=== PATIENT | female | born 1940 | race Caucasian/White ===

== ENCOUNTER 2018-09-09 08:16 | Inpatient (IN) | payer MEDICARE, SELFPAY ==
[2018-09-09] VITALS (13 sets, daily range): BP systolic 117–143; BP diastolic 67–103; PULSE 64–140; RESP 16–25; TEMP 36.6–36.8; O2SAT 95–99; BMI 25.7; BMI 25.3
--- NOTE | 2018-09-09 08:19 | EKG12_ITS ---
Test Reason : CP Blood Pressure : / mmHG Vent. Rate : 129 BPM Atrial Rate : 166 BPM P-R Int : 000 ms QRS Dur : 112 ms QT Int : 352 ms P-R-T Axes : 000 -09 173 degrees QTc Int : 515 ms Atrial fibrillation with rapid ventricular response Marked ST abnormality, possible inferior subendocardial injury Abnormal ECG Confirmed by SHAMEKA CHATMAN, LUIS ([id number]), school photograph editor IBIS MOSCOSO ([id number]) on 09/14/2018 10:01:58 AM Referred By: DAVID Confirmed By:LUIS MYLES MD
--- NOTE | 2018-09-09 08:28 | RAD_ITS ---
STUDY: X-RAY CHEST REASON FOR EXAM: Female, 78 years old. Chest pain. TECHNIQUE: Single AP portable view of the chest. COMPARISON: None. FINDINGS: EKG electrodes are seen. Small right pleural effusion with underlying infiltration and/or atelectasis. Small left pleural effusion with mild left basilar atelectasis. Sternal cerclage wires and vascular clips are present from a prior sternotomy and coronary artery bypass graft procedure (CABG). Normal mediastinum and zack. Normal visualized pulmonary arteries. There is atherosclerotic calcification of the aortic arch with tortuosity. There are degenerative changes of the visualized thoracic spine. Normal visualized ribs, clavicles, and shoulders. There is no demonstrated abnormality of the visualized soft tissue structures of the upper abdomen. RAD/Chest 1 View (Portable) IMPRESSION: Right pleural effusion with right basilar infiltration and/or atelectasis. Small left pleural effusion with underlying atelectasis. Electronically Signed: Reinaldo Alegre MD at 9:00 EST Tel [phone], Service support ,
[2018-09-09] MEDS: Aspirin 81 MG TAB.CHEW 324 MG PO (08:38)
[2018-09-09] MEDS: dilTIAZem 25 MG/5 ML Vial 20 MG IV BOLUS (08:38)
--- NOTE | 2018-09-09 08:39 | ED.DCSUM_ITS ---
- ER Visit Summary Date of Service: 09/09/18 Chief Complaint: Chest pain and accelerated heart rate History of Present Illness: The patient is a 78 F history of a prior triple bypass in 1997 also has known hypertension and high cholesterol. Patient is on Xarelto. States when she got up this morning around 6:15 AM she had chest pain and tightness. She describes as across her chest. She denies any cough or fever. She denies any significant shortness of breath. States she is been feeling well the last few days. Physical Examination: Vital signs blood pressure 143/103 heart rate 140. Pulse ox 97% on room air no hypoxia. H EENT exam unremarkable. Normal speech. Neck nontender. Lungs clear to auscultation bilaterally. Heart irregularly irregular A. fib on the monitor rate about 126 currently. Abdomen is soft and nontender. Normal bowel sounds. No peritoneal signs. Patient is moving all 4 extremities. She has trace edema in both lower extremities primarily in the ankles. Calves are nontender. Neurologically she is awake alert with no focal motor deficits. Test Results: EKG shows a irregularly irregular rhythm consistent with atrial fibrillation with a rate of [address] segment depression in leads V3 through V6 consistent with a rate dependent ischemia. No signs of acute AL. Portable 1 view chest x-ray shows bilateral pleural effusions right greater than left. Prior sternotomy. Otherwise no acute process. CBC normal white count of 9. Hemoglobin 13. Chemistries unremarkable creatinine 1.1. Glucose of 254. Troponin is slightly elevated at 0.071. I discussed all his test results with the patient and family. Emergency Department Course and Treatment: Patient will undergo cardiac workup. Treatment Plan: IV Cardizem. P.o. aspirin. Patient responded very well to the Cardizem. Currently she is pain-free and her heart rates in the 70s. At approximately oh 9:30 AM. I have already spoken to the hospitalist about admission. Disposition: Admission Impression: Acute chest pain with abnormal troponin Recurrent atrial fibrillation with rapid ventricular rate History of prior triple bypass, CAD, hypertension. Anticoagulated on Xarelto This note was generated with [employer] dictation software. It may contain incorrect words, spelling, and punctuation that were not noted in review of the chart prior to signing ED Disposition - Plan for ED Patient: Chief Complaint: Chest Pain Referrals: Louise Garrido MD [Primary Care Provider] -
[2018-09-09 09:06] LABS: Absolute Lymphocyte Count 0.84 X10^3/ul (0.83-4.51); Absolute Neutrophil Count 7.9 X10^3/uL (2.0-7.7); Basophil# 0.01 X10^3/uL; Basophil% 0.1 % (0-1); Hematocrit 43.2 % (37-47); Hemoglobin 13.6 g/dl (12.0-15.0); Lymphocyte # 0.84 X10^3/ul (4.0); Lymphocyte % 9.1 % (19-41); Mean Corp Hgb Conc 31.5 g/gl (32-36); Mean Corpuscular Hgb 28.4 pg (27.0-32.0); Mean Corpuscular Volume 90.2 fL (81-99); Mean Platelet Vol. 10.9 fl (6.2-12.0); Monocyte# 0.43 X10^3/uL; Monocyte% 4.7 % (0-10); Neutrophil # 7.91 X10^3/uL (2.7-7.7); Platelet Count 295 K/mm3 (150-450); RBC Distribution Width CV 14.3 % (11.6-14.6); RBC Distribution Width SD 46.7 fl (35.1-43.9); Red Blood Count 4.79 M/mm3 (4.2-5.4); White Blood Count 9.2 K/mm3 (4.4-11.0)
[2018-09-09 09:14] LABS: POSITIVE COUNT NO; POSITIVE DIFFERENTIAL NO; POSITIVE MORPHOLOGY NO
[2018-09-09 09:17] LABS: Anion Gap 12 (5-15); BUN 25 mg/dL (7-18); BUN/Creat Ratio 21.4 RATIO (10-20); Calcium,Total 9.6 mg/dL (8.5-10.1); Chloride 107 mmol/L (98-107); Creatinine, Serum 1.17 mg/dL (0.55-1.02); EST Glomerular Filtration Rate 47 mL/min (>60); Est Glom Filt Rate - Afr Amer 57 mL/min (>60); Estimated Creatinine Clearance 35.08 ml/min; Glucose 254 mg/dL (74-106); Potassium 4.7 mmol/L (3.5-5.1); Sodium Level 140 mmol/L (136-145)
--- NOTE | 2018-09-09 09:45 | NURSING ---
DR CARRILLO FOR DR ALONZO
--- NOTE | 2018-09-09 09:52 | NURSING ---
PCU OBS [place]IS AFIB W RVR, ABN TROPONINA, CAD HX W CABG, ANTICOAGULATED
--- NOTE | 2018-09-09 11:46 | ECHOD_ITS ---
Reason For Study: AFIB/FLUTTER Procedure This was a 2D Doppler, Color Flow transthoracic echocardiogram. Exam performed portable in patient room. Left Ventricle Moderately dilated left ventricle. The estimated ejection fraction is 25-30 %. Unable to assess diastolic dysfunction due to arrhythmia. Mid-Anterior : Severely Hypokinetic. Mid-anteroseptal : Severely Hypokinetic. Right Ventricle Mildly dilated right ventricle. Normal systolic function. Atria The left atrium is severely enlarged. The right atrium is moderately enlarged. Normal atrial septum. Mitral Valve The mitral valve is structurally normal. No prolapse or stenosis seen. Mild (1+) mitral valve insufficiency. Tricuspid Valve Normal tricuspid valve. Mild (1+) tricuspid valve insufficiency. Right ventricular systolic pressure estimated to be 45 mmHg. Mild pulmonary hypertension. Aortic Valve Trisinus/trileaflet aortic valve. Pulmonic Valve Normal pulmonic valve. Great Vessels Normal aortic root. Normal arch. Normal inferior vena cava. Inferior vena cava collapse with sniff. Pericardium/Pleural No pericardial effusion. MMode/2D Measurements & Calculations LVIDd: 5.8 cm IVSd: 0.96 cm Ao root diam: 3.1 cm LVIDs: 4.5 cm LVPWd: 1.1 cm RVDd: 3.9 cm FS: 23.0 % LAV(MOD-bp): 111.2 ml LA A4 area: 31.3 cm2 LA dimension(2D): 5.7 cm LAV(MOD-bp) Indexed: 63.1 ml/m2 LAV(MOD-sp2): 100.2 ml LAV(MOD-sp4): 120.1 ml RA A4 area: 22.6 cm2 Doppler Measurements & Calculations MV E max felipe: 101.3 cm/sec Ao V2 max: 103.8 cm/sec LV V1 max: 82.7 cm/sec Ao max P.3 mmHg LV V1 max P.7 mmHg PA V2 max: 78.7 cm/sec TR max felipe: 262.4 cm/sec TR max P.7 mmHg Interpretation Summary Moderately dilated left ventricle. The estimated ejection fraction is 25-30 %. Unable to assess diastolic dysfunction due to arrhythmia. Mid-Anterior : Severely Hypokinetic. Mid-anteroseptal : Severely Hypokinetic. Mildly dilated right ventricle. The left atrium is severely enlarged. The right atrium is moderately enlarged. Mild (1+) mitral valve insufficiency. Mild (1+) tricuspid valve insufficiency. Right ventricular systolic pressure estimated to be 45 mmHg. Mild pulmonary hypertension. Pt appears to be in atrial fibrillation. There is no comparison study available. Ordering Physician: Joseph Corley Referring Physician: Louise Garrido Performed By: Tatyana Valdes, ROC, RVT
[2018-09-09] MEDS: Clopidogrel Bisulfate 300 MG Tablet PO (13:31)
--- NOTE | 2018-09-09 15:53 | CON.PCM_ITS ---
Problem List (1) Atrial fibrillation Status: Acute (2) Coronary artery disease Status: Acute (3) Hx of CABG Status: Acute (4) Hypertension Status: Chronic (5) Hypercholesterolemia Status: Acute (6) Non-STEMI (non-ST elevated myocardial infarction) Status: Acute Reason for Consult Date of Consultation: 09/09/18 Reason for Consultation: Atrial fibrillation, coronary disease status post CABG, hypertension, hypercholesterolemia, non-STEMI History of Present Illness: The patient is a 78 year old F, patient of Dr. Moura'senait with a history of hypertension, hypercholesterolemia, coronary artery disease status post three- vessel bypass surgery at the [facility] approximately 20 years ago in 1997, has never had a repeat catheterization since that time, with chronic atrial fibrillation on chronic Xarelto therapy. The patient was doing well up until around 615 this morning when she developed new onset substernal chest pain and pressure with associated shortness of breath. The patient apparently has not been feeling well over the last several days but had not had any anginal symptoms. Initially her EKG showed her to be in rapid atrial fibrillation with dynamic lateral ST segment depression and lateral T wave inversion. Her initial troponin was 3.0, and now is increased to 5.2. Patient's heart rate was controlled, and her symptoms completely resolved. A 2D echo with Doppler was performed on this admission which demonstrated moderate to severe LV dysfunction with an EF around 25-30%, and at least mild pulmonary hypertension with an RVSP of around 45 mmHg. Patient has severe left atrial enlargement and moderate right atrial enlargement. She also has evidence of wall motion abnormality consistent with anteroseptal hypokinesis. Past Medical History Allergies/Adverse Reactions: Allergies No Known Allergies Allergy (Verified 09/09/18 08:17) Home Medications: Ambulatory Orders Medication Instructions Recorded Cholecalciferol (Vitamin D3) 1 tab PO DAILY 06/14/13 [Vitamin D3] Levothyroxine [Synthroid] 125 mcg PO DAILY 06/14/13 Multivit-Min/FA/Lycopene/Lut 1 each PO DAILY 06/14/13 [Centrum Silver Tablet] [place]-3 Fatty Acids [Fish Oil] 2,000 mg PO BID 06/14/13 Carbidopa/Levodopa 1.5 tab PO TID 09/09/18 [Carbidopa-Levodopa 25-100 Tab] Ciclopirox 1 applicatio TP QHS 09/09/18 L.acidoph,Paracasei, B.lactis 1 each PO DAILY 09/09/18 [Probiotic] Lovastatin 20 mg PO QHS 09/09/18 Metoprolol Tartrate [Lopressor 100 mg PO BID 09/09/18 (Beta Tereso)] Potassium Chloride [K-Dur] 20 meq PO DINNER 09/09/18 Red Yeast Rice 600 mg PO BID 09/09/18 Rivaroxaban [Xarelto] 20 mg PO DINNER 09/09/18 Ubidecarenone [Coq-10] 200 mg PO DAILY 09/09/18 Past Medical History (Chronic Problems): Chronic Problems Hypertension (Chronic) Surgical History: coronary bypass surgery - 15 years ago, - - Vein stripping in both legs, tubal ligation Psychiatric History: No pertinent psych hx 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 No acute distress. Objective: Vital Signs Temp Pulse Resp BP Pulse Ox 97.9 F 83 17 140/77 H 98 09/09/18 10:32 09/09/18 11:10 09/09/18 10:32 09/09/18 10:32 09/09/18 10:32 Oxygen Flow Rate (L/min) 2 Oxygen Delivery Method Nasal Cannula Weight: 152 lb 1.903 oz Body Mass Index (BMI) 25.3 Intake and Output for Last 24 Hours 09/07/18 09/08/18 09/09/18 23:59 23:59 23:59 Intake Total 120 / 120 Balance 120 / 120 General: Awake, Alert, Oriented x 3 HEENT: PERRL, EOMI, Sclera Non Icteric Neck: Supple, Good ROM, No Lymph Node Enlargement Lungs: Diminished Right Base, Rales - Toi Bases Cardiovascular: Irregular Rhythm, Normal S1, Normal S2, No Rubs, No Gallops Murmur Murmur: Grade 2/6, Holosystolic Vascular: No Carotid Bruits, Normal Femoral Pulses, Normal Radial Pulses, Normal Dorsalis Pedal Pulse, Normal Posterior Tibial Pulses Abdomen: Bowel Sounds Present, Soft, Non Tender, No HSM, No Organomegaly Extremities: No Cyanosis, No Clubbing, No edema Neurological: No Focal Motor or Sensory Deficit 09/09/18 08:30: WBC 9.2, RBC 4.79, Hgb 13.6, Hct 43.2, MCV 90.2, MCH 28.4, MCHC 31.5 L, RDW 14.3, RDW Differential 46.7 H, Plt Count 295, MPV 10.9, Immature Gran % (Auto) 0.100, Neut % (Auto) 86.0 H, Lymph % (Auto) 9.1 L, [place] % (Auto) 4.7, Eos % (Auto) 0.0, Baso % (Auto) 0.1, Absolute Neuts (auto) 7.9 H, Total Counted Not Reportable 09/09/18 08:30: Sodium 140, Potassium 4.7, Chloride 107, Carbon Dioxide 21.0, Anion Gap 12, BUN 25 H, Creatinine 1.17 H, Est GFR (MDRD) Af Amer 57 L, Est GFR (MDRD) Non-Af 47 L, BUN/Creatinine Ratio 21.4 H, Glucose 254 H, Calcium 9.6, Troponin I 0.071 H 09/09/18 11:30: Troponin I 3.010 H* 09/09/18 14:10: Troponin I 5.210 H* Rhythm: EKG: ECHO: Stress Test: Cardiac Cath: PCI: CT Surgery: Holter monitor: EPS: PPM: CXR: Chest CT Scan: Assessment/Plan 1. Coronary artery disease: The patient has a history of coronary artery disease status post three-vessel bypass surgery according to the patient in 1997. We will attempt to get those records from Dr. Moura's office. The patient presents with new onset angina, with non-ST elevation myocardial infarction with evidence of lateral ST segment depression on EKG. She is currently chest pain-free at this time. Her heart rate and blood pressure well controlled. I recommended the patient discontinue her Xarelto, for period of 72 hours followed by left heart catheterization with graft angiography most likely on Friday morning. In addition I recommended baby aspirin 81 mg p.o. daily, Plavix 300 mg x1 now followed by 75 mg daily. She will also maintain Lovenox 1 mg/kg subcu twice daily for both atrial fibrillation and non-ST elevation myocardial infarction while we are waiting for the Xarelto to resolve. It is possible the patient may have graft deterioration given the age of her grafts. 2. Ischemic cardia myopathy: The patient is evidence of significant ischemic cardiomyopathy although I do not know what her ejection fraction has been before. We are awaiting the echo report from Dr. Moura's office. In the meantime we will start her on Cozaar 25 mg p.o. daily, and Lasix 40 mg IV daily given her right pleural effusion and LV dysfunction. When she is reached her dry weight, we will convert her to p.o. Lasix. 3. Hyperlipidemia: Recommend obtaining a fasting lipid profile. Her LDL should be less than 70. Would recommend starting Lipitor 80 mg p.o. nightly unless the patient has an adverse reaction to Lipitor or statins. Repeat lipid profile in 6 weeks time. 4. Thank you very much for the opportunity to participate in the cardiac care of your patient. Consultation time took place between 1130 and 12 PM. Code Visit Inpatient E&M: 88143 Init Hosp L2
--- NOTE | 2018-09-09 18:34 | PCM.HP.STD ---
Problem List (1) Atrial fibrillation Status: Chronic (2) Coronary artery disease Status: Chronic (3) Hx of CABG Status: Chronic (4) Hypercholesterolemia Status: Chronic (5) Non-STEMI (non-ST elevated myocardial infarction) Status: Acute (6) Hypertension Status: Chronic (7) Hypothyroidism Status: Chronic (8) Parkinson's disease Status: Chronic History of Present Illness Date of Admission: 09/09/18 Chief Complaint: Chest Pain The patient is a 78 year old F with past medical history as below who presents with 2 or 3-hour history of substernal chest pain. She states that she got up this morning between 6 and 7 AM and was doing okay and then suddenly had a severe pain in her chest. She had some shortness of breath associated with it, but denies any radiation of her pain. She also noted that she had gone into A. fib at that time as well. This the first time she is ever had chest pain, even at the time when she had her triple bypass in 1997, she did not have any chest pain during that time she was found to have cardiac disease while under anesthesia for a kidney stone procedure. The anesthesiologist noticed something on her EKG and recommend she get it followed up which culminated in a triple-vessel bypass. In the ER she had an EKG with lateral depressions and T wave inversions in V3 through V6, and an initial troponin of 0.07, which has risen to 5.210 with a repeat pending. Her chest pain has resolved and she just has a dull ache with a little bit of pressure. She was found to be in A. fib with RVR in the ER and was given a 20 mg loading dose of Cardizem which did not put her in a sinus rhythm but put her heart rate in the 70s and 80s. Past Medical History Past Medical History (Chronic Problems): Chronic Problems Atrial fibrillation (Chronic) Coronary artery disease (Chronic) Hx of CABG (Chronic) Hypertension (Chronic) Hypercholesterolemia (Chronic) Hypothyroidism (Chronic) Parkinson's disease (Chronic) Allergies No Known Allergies Allergy (Verified 09/09/18 08:17) Home Medications: Ambulatory Orders Medication Instructions Recorded Cholecalciferol (Vitamin D3) 1 tab PO DAILY 06/14/13 [Vitamin D3] Levothyroxine [Synthroid] 125 mcg PO DAILY 06/14/13 Multivit-Min/FA/Lycopene/Lut 1 each PO DAILY 06/14/13 [Centrum Silver Tablet] [place]-3 Fatty Acids [Fish Oil] 2,000 mg PO BID 06/14/13 Carbidopa/Levodopa 1.5 tab PO TID 09/09/18 [Carbidopa-Levodopa 25-100 Tab] Ciclopirox 1 applicatio TP QHS 09/09/18 L.acidoph,Paracasei, B.lactis 1 each PO DAILY 09/09/18 [Probiotic] Lovastatin 20 mg PO QHS 09/09/18 Metoprolol Tartrate [Lopressor 100 mg PO BID 09/09/18 (Beta Tereso)] Potassium Chloride [K-Dur] 20 meq PO DINNER 09/09/18 Red Yeast Rice 600 mg PO BID 09/09/18 Rivaroxaban [Xarelto] 20 mg PO DINNER 09/09/18 Ubidecarenone [Coq-10] 200 mg PO DAILY 09/09/18 Surgical History: coronary bypass surgery - 15 years ago, - - Vein stripping in both legs, tubal ligation Psychiatric History: No pertinent psych hx 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 Denies: Cough, Shortness of breath at rest, Sputum production Gastrointestinal: Denies: Abdominal Pain, Nausea, Vomiting Genitourinary: Denies: Dysuria Musculoskeletal: Denies: Joint Pain, Joint Tenderness Skin: Denies: Rash, Wounds Neurological: Denies: Numbness, Tingling, Focal weakness Psychiatric: Denies: Anxiety, Depression Hematologic/ Lymphatic: Denies: Easy Bruising, Easy Bleeding VTE Information - Inpt Only VTE Present on Admission: No Patient Problems: Active and Suspected Problems Non-STEMI (non-ST elevated myocardial infarction) (Acute) - Physical Exam General: Alert, Oriented x3, Cooperative, No apparent distress HEENT: Atraumatic, PERRLA, EOMI, Normocephalic Oral: Moist Mucosa Neck: Supple, No JVD, Trachea Midline Lungs: Clear to auscultation, Normal air movement, No rhonchi, No wheeze, No rales Cardiovascular: Regular rate - Irregular rhythm, Normal S1, Normal S2, No murmurs, No rub noted, No Gallop, - Abdomen: Soft, Non Tender, Non-Distended, No Hepato-splenomegaly Extremities: Capillary Refill Less than 3 Seconds, No Calf Tenderness, Edema - 1-2+ pitting edema Skin: No rashes, No breakdown Neurological: Neuro grossly intact, Sensory exam intact to light touch and pain Psych/Mental Status: Normal Affect, Appropriate Vital Signs Temp Pulse Resp BP Pulse Ox 97.8 F 105 H 17 135/83 H 95 09/09/18 16:32 09/09/18 16:32 09/09/18 16:32 09/09/18 16:32 09/09/18 17:30 Oxygen Flow Rate (L/min) 2 Oxygen Delivery Method Nasal Cannula Weight: 152 lb 1.903 oz Body Mass Index (BMI) 25.3 Intake and Output for Last 24 Hours 09/07/18 09/08/18 09/09/18 23:59 23:59 23:59 Intake Total 360 / 360 Balance 360 / 360 Laboratory Tests Past 24 Hrs 09/09/18 09/09/18 09/09/18 08:30 08:30 11:30 WBC 9.2 RBC 4.79 Hgb 13.6 Hct 43.2 MCV 90.2 MCH 28.4 MCHC 31.5 L RDW 14.3 RDW Differential 46.7 H Plt Count 295 MPV 10.9 Immature Gran % (Auto) 0.100 Neut % (Auto) 86.0 H Lymph % (Auto) 9.1 L [place] % (Auto) 4.7 Eos % (Auto) 0.0 Baso % (Auto) 0.1 Absolute Neuts (auto) 7.9 H Absolute Lymphs (auto) 0.84 Total Counted Not Reportable Sodium 140 Potassium 4.7 Chloride 107 Carbon Dioxide 21.0 Anion Gap 12 BUN 25 H Creatinine 1.17 H Estim Creat Clear Calc 35.08 Est GFR (MDRD) Af Amer 57 L Est GFR (MDRD) Non-Af 47 L BUN/Creatinine Ratio 21.4 H Glucose 254 H Calcium 9.6 Troponin I 0.071 H 3.010 H* 09/09/18 09/09/18 14:10 17:53 WBC RBC Hgb Hct MCV MCH MCHC RDW RDW Differential Plt Count MPV Immature Gran % (Auto) Neut % (Auto) Lymph % (Auto) [place] % (Auto) Eos % (Auto) Baso % (Auto) Absolute Neuts (auto) Absolute Lymphs (auto) Total Counted Sodium Potassium Chloride Carbon Dioxide Anion Gap BUN Creatinine Estim Creat Clear Calc Est GFR (MDRD) Af Amer Est GFR (MDRD) Non-Af BUN/Creatinine Ratio Glucose Calcium Troponin I 5.210 H* Pending Assessment/Plan All Active Problems Non-STEMI (non-ST elevated myocardial infarction) (Acute) 1. NSTEMI/coronary artery disease status post triple-vessel bypass/hyperlipidemia/A. fib with RVR/ischemic cardiomyopathy with systolic dysfunction -Initial troponin was 0.07 and felt to be demand ischemia due to the A. fib with RVR, however she continued to rise in her troponin to 5.2 with repeat pending -Radiology was consulted and she was loaded with aspirin and Plavix and put on therapeutic Lovenox -Her last dose of Lovenox should be 09/10 at 10 PM -Hold the Xarelto, last dose was 09/08/2017 at night -We will continue her metoprolol at 100 mg twice daily, based on her echo with an EF of 25-30%, she is not a candidate for Cardizem -We will plan for cardiac cath on Friday 2. Hypertension/hyperlipidemia -At the moment we will continue with metoprolol, and lovastatin -She had been on Lipitor previously and had significant muscle pains and joint aches -Losartan added by cardiology 3. Parkinson's -Stable -Continue with Sinemet 4. Hypothyroidism -Stable -Continue with Synthroid 5. HERBER -Based on creatinine appears to be around 0.6, on admission is 1.17 -She does have bilateral lower extremity edema which she states has been getting worse over time -No IV fluids at the moment and instead will proceed with Lasix DVT: Therapeutic Lovenox Code Visit Inpatient E&M: 25389 Init Hosp L3
[2018-09-09] MEDS: Atorvastatin Calcium 80 MG Tablet PO (21:38)
[2018-09-09] MEDS: Atorvastatin Calcium 10 MG Tablet 5 MG PO (21:38)
[2018-09-09] MEDS: Carbidopa/Levodopa 25/100 Tablet PO (21:38)
[2018-09-09] MEDS: Metoprolol Tartrate 100 MG Tablet PO (21:38)
[2018-09-10] VITALS (14 sets, daily range): BP systolic 127–146; BP diastolic 69–86; PULSE 75–104; RESP 14–23; TEMP 36.4–36.7; O2SAT 91–98
[2018-09-10] MEDS: Carbidopa/Levodopa 25/100 Tablet PO ×3 (05:28→22:13)
[2018-09-10] MEDS: Levothyroxine 125 MCG Tablet PO (05:28)
[2018-09-10 06:12] LABS: Absolute Lymphocyte Count 1.32 X10^3/ul (0.83-4.51); Absolute Neutrophil Count 10.4 X10^3/uL (2.0-7.7); Basophil# 0.01 X10^3/uL; Basophil% 0.1 % (0-1); Hematocrit 45.1 % (37-47); Hemoglobin 14.4 g/dl (12.0-15.0); Lymphocyte # 1.32 X10^3/ul (4.0); Lymphocyte % 10.4 % (19-41); Mean Corp Hgb Conc 31.9 g/gl (32-36); Mean Corpuscular Hgb 28.6 pg (27.0-32.0); Mean Corpuscular Volume 89.5 fL (81-99); Mean Platelet Vol. 10.4 fl (6.2-12.0); Monocyte# 0.92 X10^3/uL; Monocyte% 7.3 % (0-10); Neutrophil # 10.39 X10^3/uL (2.7-7.7); Platelet Count 306 K/mm3 (150-450); RBC Distribution Width CV 14.8 % (11.6-14.6); RBC Distribution Width SD 47.5 fl (35.1-43.9); Red Blood Count 5.04 M/mm3 (4.2-5.4); White Blood Count 12.7 K/mm3 (4.4-11.0)
[2018-09-10 06:16] LABS: POSITIVE COUNT NO; POSITIVE DIFFERENTIAL NO; POSITIVE MORPHOLOGY NO
[2018-09-10 06:38] LABS: Anion Gap 8 (5-15); BUN 28 mg/dL (7-18); BUN/Creat Ratio 29.6 RATIO (10-20); Calcium,Total 8.7 mg/dL (8.5-10.1); Chloride 107 mmol/L (98-107); Creatinine, Serum 0.95 mg/dL (0.55-1.02); EST Glomerular Filtration Rate 60 mL/min (>60); Est Glom Filt Rate - Afr Amer 73 mL/min (>60); Estimated Creatinine Clearance 43.21 ml/min; Glucose 113 mg/dL (74-106); Potassium 4.5 mmol/L (3.5-5.1); Sodium Level 138 mmol/L (136-145)
[2018-09-10] MEDS: Clopidogrel Bisulfate 75 MG Tablet PO (09:13)
[2018-09-10] MEDS: Losartan Potassium 25 MG Tablet PO (09:13)
[2018-09-10] MEDS: Furosemide 40 MG/4 ML Vial IV (09:13)
[2018-09-10] MEDS: Metoprolol Tartrate 100 MG Tablet PO ×2 (09:13→22:13)
[2018-09-10] MEDS: Enoxaparin 60 MG/0.6 ML Syringe SC ×2 (09:13→22:14)
--- NOTE | 2018-09-10 09:25 | CASEMGMT ---
MELANIA GALLAGHER ASSESSMENT To room to meet with patient for initial transition planning/care coordination assessment. MELANIA GALLAGHER introduced self and role at [facility]. Pt voices understanding and consents to assessment at this time. Pt resting in bed in no distress at this time, eating breakfast. Pt is A/O at this time and answers all questions appropriately. Care providers, pharmacy, and demographics verified at this time. PCP: Radhika Specialists: Carmen; cardiology, Luis E; injections for knees, Appleminie; neurology Preferred Pharmacy: [facility] Insurance: [facility] Prescription Benefit: Yes Was on Xarelto prior to admission. States her son is planning on looking into getting some assistance with the high cost of this. Pt states she has never taken advantage of a 30-day free trial offer. Provided pt with Xarelto 30-day free-trial supply sheet. Pt also advised to follow up with induction furnace operator so they can assist with paperwork for financial assistance with Xarelto and possibly getting medication lowered a tier level to decrease cost. Pt voices understanding and voices appreciation for information. Living Will/HPOA: has both LW and HCPOA, who is her son, Gene Esquivel. States he is planning on bringing in both this afternoon so can be placed on file. LNOK: and 3 sons: Donte Menard (HCPOA), Alcides Living Arrangements: Lives with her in 2 story home. States no problems with stairs. is independent with ADL's and and her share household mgmt tasks. Son lives next door. Family supportive. Transportation: Pt states I haven't been driving as much as I used to. States her and son assists with transportation. DME: Denies using any DME and denies needs. HHC/SNF: States has never used HHC or been to a SNF. Denies needs for HHC or therapy. Pt wishes to return home and states has no concerns with going home at time of discharge. Pt states does not smoke or drink ETOH. CM to follow any further discharge planning/needs. Pt voices no further concerns/needs at this time. Advised pt to ask for CM if any further questions/concerns/needs arise. Voices understanding. Plan: Home with and family support. Ras ROMANO RN, CM
--- NOTE | 2018-09-10 10:24 | PCM.PN.CARD ---
Subjectve: Patient doing well this morning. Feels much better with IV diuretic therapy. Still with some right lower lobe egophony, and bilateral lower extremity edema. Telemetry shows improved atrial fibrillation with controlled ventricular response. Peak troponin of 5.2 trending downwards to 4.9. Objective: Vital Signs Temp Pulse Resp BP Pulse Ox 97.6 F L 88 18 146/77 H 91 09/10/18 08:32 09/10/18 09:13 09/10/18 08:32 09/10/18 09:13 09/10/18 09:08 Oxygen Flow Rate (L/min) 2 Oxygen Delivery Method Nasal Cannula Weight: 155 lb 6.814 oz Body Mass Index (BMI) 25.3 Intake and Output for Last 24 Hours 09/08/18 09/09/18 09/10/18 23:59 23:59 23:59 Intake Total 420 / 420 60 / 60 Balance 420 / 420 60 / 60 General: Awake, Alert, Oriented x 3 HEENT: PERRL, EOMI, Sclera Non Icteric Neck: Supple, Good ROM, No Lymph Node Enlargement Lungs: Diminished Right Base, Rales - Right Base Cardiovascular: Irregular Rhythm, Normal S1, Normal S2, No Rubs, No Gallops Murmur Murmur: Grade 2/6, Holosystolic Vascular: No Carotid Bruits, Normal Femoral Pulses, Normal Radial Pulses, Normal Dorsalis Pedal Pulse, Normal Posterior Tibial Pulses Abdomen: Bowel Sounds Present, Soft, Non Tender, No HSM, No Organomegaly Extremities: No Cyanosis, No Clubbing, No edema Neurological: No Focal Motor or Sensory Deficit 09/09/18 11:30: Troponin I 3.010 H* 09/09/18 14:10: Troponin I 5.210 H* 09/09/18 17:53: Troponin I 4.950 H* 09/10/18 05:45: WBC 12.7 H, RBC 5.04, Hgb 14.4, Hct 45.1, MCV 89.5, MCH 28.6, MCHC 31.9 L, RDW 14.8 H, RDW Differential 47.5 H, Plt Count 306, MPV 10.4, Immature Gran % (Auto) 0.200, Neut % (Auto) 82.0 H, Lymph % (Auto) 10.4 L, [place] % (Auto) 7.3, Eos % (Auto) 0.0, Baso % (Auto) 0.1, Absolute Neuts (auto) 10.4 H, Total Counted Not Reportable 09/10/18 05:45: Sodium 138, Potassium 4.5, Chloride 107, Carbon Dioxide 23.0, Anion Gap 8, BUN 28 H, Creatinine 0.95, Est GFR (MDRD) Af Amer 73, Est GFR (MDRD) Non-Af 60, BUN/Creatinine Ratio 29.6 H, Glucose 113 H, Calcium 8.7 Rhythm: EKG: ECHO: Stress Test: Cardiac Cath: PCI: CT Surgery: Holter monitor: EPS: PPM: CXR: Chest CT Scan: Medical Necessity - Tobacco Use Smoking Status: Never smoker Assessment/Plan 1. Coronary artery disease: The patient has a history of coronary artery disease status post three-vessel bypass surgery according to the patient in 1997. We will attempt to get those records from Dr. Moura's office, however it appears that they are offsite in storage at the [facility]. The patient presents with new onset angina, with non-ST elevation myocardial infarction with evidence of lateral ST segment depression on EKG. She is currently chest pain-free at this time. Her heart rate and blood pressure well controlled. I recommended the patient discontinue her Xarelto, for period of 72 hours followed by left heart catheterization with graft angiography most likely on Friday morning. In addition I recommended baby aspirin 81 mg p.o. daily, Plavix 300 mg x1 now followed by 75 mg daily. She will also maintain Lovenox 1 mg/kg subcu twice daily for both atrial fibrillation and non-ST elevation myocardial infarction while we are waiting for the Xarelto to resolve. We will hold her subcu Lovenox on the day of catheterization. It is possible the patient may have graft deterioration given the age of her grafts. 2. Ischemic cardia myopathy: The patient is evidence of significant ischemic cardiomyopathy although I do not know what her ejection fraction has been before. We are awaiting the echo report from Dr. Moura's office. Echo cardiogram in this admission shows an EF around 25-30%, and RVSP of at least 35 mmHg. In the meantime we will start her on Cozaar 25 mg p.o. daily, and Lasix 40 mg IV daily given her right pleural effusion and LV dysfunction. When she is reached her dry weight, we will convert her to p.o. Lasix. Patient still has some right lower lobe egophony, and some lower extremity edema. 3. Hyperlipidemia: Recommend obtaining a fasting lipid profile. Her LDL should be less than 70. Would recommend starting Lipitor 80 mg p.o. nightly unless the patient has an adverse reaction to Lipitor or statins. Repeat lipid profile in 6 weeks time. 4. Thank you very much for the opportunity to participate in the cardiac care of your patient. Catheterization to follow on 09/11/18. Code Visit Inpatient E&M: 89262 Subs Hosp L2
--- NOTE | 2018-09-10 10:32 | CASEMGMT ---
According to the [facility] website, the following are in-network tertiary facilities: [facility], [facility], [facility], [facility], [facility], [facility], [facility], and . Maryana VELÁZQUEZ CM
--- NOTE | 2018-09-10 12:27 | PCM.PN.HOSP ---
Patient Problems: Active and Suspected Problems Non-STEMI (non-ST elevated myocardial infarction) (Acute) Subjective: Feels better today denies any shortness of breath or chest pain. Vitals/I&O's: Vital Signs Temp Pulse Resp BP Pulse Ox 97.6 F L 85 18 146/77 H 91 09/10/18 08:32 09/10/18 11:01 09/10/18 08:32 09/10/18 09:13 09/10/18 09:08 Oxygen Flow Rate (L/min) 2 Oxygen Delivery Method Nasal Cannula Weight: 155 lb 6.814 oz Body Mass Index (BMI) 25.3 Intake and Output for Last 24 Hours 09/08/18 09/09/18 09/10/18 23:59 23:59 23:59 Intake Total 420 / 420 60 / 60 Balance 420 / 420 60 / 60 General: Alert, Oriented x3, Cooperative, No apparent distress HEENT: Atraumatic, PERRLA, EOMI, Normocephalic Oral: Moist Mucosa Neck: Supple, No JVD, Trachea Midline Lungs: Clear to auscultation, Normal air movement, No rhonchi, No wheeze, No rales Cardiovascular: Regular rate - Irregular rhythm, Normal S1, Normal S2, No murmurs, No rub noted, No Gallop, - Abdomen: Soft, Non Tender, Non-Distended, No Hepato-splenomegaly Extremities: Capillary Refill Less than 3 Seconds, No Calf Tenderness, Edema - 1-2+ pitting edema Skin: No rashes, No breakdown Neurological: Neuro grossly intact, Sensory exam intact to light touch and pain Psych/Mental Status: Normal Affect, Appropriate Laboratory Results 09/09/18 14:10: Troponin I 5.210 H* 09/09/18 17:53: Troponin I 4.950 H* 09/10/18 05:45: WBC 12.7 H, RBC 5.04, Hgb 14.4, Hct 45.1, MCV 89.5, MCH 28.6, MCHC 31.9 L, RDW 14.8 H, RDW Differential 47.5 H, Plt Count 306, MPV 10.4, Immature Gran % (Auto) 0.200, Neut % (Auto) 82.0 H, Lymph % (Auto) 10.4 L, Dunn % (Auto) 7.3, Eos % (Auto) 0.0, Baso % (Auto) 0.1, Absolute Neuts (auto) 10.4 H, Absolute Lymphs (auto) 1.32, Total Counted Not Reportable 09/10/18 05:45: Sodium 138, Potassium 4.5, Chloride 107, Carbon Dioxide 23.0, Anion Gap 8, BUN 28 H, Creatinine 0.95, Estim Creat Clear Calc 43.21, Est GFR (MDRD) Af Amer 73, Est GFR (MDRD) Non-Af 60, BUN/Creatinine Ratio 29.6 H, Glucose 113 H, Calcium 8.7 Current Medications Aspirin (Aspirin, Baby) 81 mg PO DAILY@0800 [facility] Atorvastatin Calcium (Lipitor) 80 mg PO QHS [facility] Last Admin: 09/09/18 21:38 Dose: 80 mg Atorvastatin Calcium (Lipitor) 5 mg PO QHS [facility] Last Admin: 09/09/18 21:38 Dose: 5 mg Carbidopa/Levodopa (Sinemet) 1.5 tablet PO TID [facility] Last Admin: 09/10/18 05:28 Dose: 1.5 tablet Clopidogrel Bisulfate (Plavix) 75 mg PO DAILY [facility] Last Admin: 09/10/18 09:13 Dose: 75 mg Diphenhydramine HCl (Benadryl) 50 mg PO X1 ONE Stop: 09/11/18 05:01 Enoxaparin Sodium (Lovenox) 60 mg SC Q12 [facility] Last Admin: 09/10/18 09:13 Dose: 60 mg Furosemide (Lasix) 40 mg IV DAILY [facility] Last Admin: 09/10/18 09:13 Dose: 40 mg Sodium Chloride () 1,000 mls @ 0 mls/hr IV .Q0M [facility] Levothyroxine Sodium (Synthroid) 125 mcg PO DAILY@0600 [facility] Last Admin: 09/10/18 05:28 Dose: 125 mcg Losartan Potassium (Cozaar) 25 mg PO DAILY [facility] Last Admin: 09/10/18 09:13 Dose: 25 mg Magnesium Hydroxide (Milk Of Magnesia) 30 ml PO DAILY PRN PRN Reason: Constipation Metoprolol Tartrate (Lopressor (Beta Tereso)) 100 mg PO BID [facility] Last Admin: 09/10/18 09:13 Dose: 100 mg Potassium Chloride (K-Dur) 20 meq PO DINNER [facility] Sodium Chloride () 5 - 15 ml IV UD PRN PRN Reason: SALINE FLUSH Medical Necessity - Tobacco Use Smoking Status: Never smoker Assessment/Plan All Active Problems Non-STEMI (non-ST elevated myocardial infarction) (Acute) 1. NSTEMI/coronary artery disease status post triple-vessel bypass/hyperlipidemia/A. fib with RVR/ischemic cardiomyopathy with systolic dysfunction -Initial troponin was 0.07 and felt to be demand ischemia due to the A. fib with RVR, however she continued to rise to a peak troponin of 5.2 -Cardiology was consulted and she was loaded with aspirin and Plavix and put on therapeutic Lovenox -Her last dose of Lovenox should be 09/10 at 10 PM -Hold the Xarelto, last dose was 09/08/2017 at night -We will continue her metoprolol at 100 mg twice daily, based on her echo with an EF of 25-30%, she is not a candidate for Cardizem -We will plan for cardiac cath on Friday 2. Hypertension/hyperlipidemia -At the moment we will continue with metoprolol, and lovastatin -She had been on Lipitor previously and had significant muscle pains and joint aches -Losartan added by cardiology 3. Parkinson's -Stable -Continue with Sinemet 4. Hypothyroidism -Stable -Continue with Synthroid 5. HERBRE -Her baseline creatinine appears to be around 0.6, on admission is 1.17, and is now 0.95 -She does have bilateral lower extremity edema which she states has been getting worse over time -No IV fluids at the moment and instead will proceed with Lasix DVT: Therapeutic Lovenox Code Visit Inpatient E&M: 87930 Subs Hosp L2
--- NOTE | 2018-09-10 12:31 | PN_ITS ---
Patient Problems: Active and Suspected Problems Non-STEMI (non-ST elevated myocardial infarction) (Acute) Subjective: Feels better today denies any shortness of breath or chest pain. Vitals/I&O's: Vital Signs Temp Pulse Resp BP Pulse Ox 97.6 F L 85 18 146/77 H 91 09/10/18 08:32 09/10/18 11:01 09/10/18 08:32 09/10/18 09:13 09/10/18 09:08 Oxygen Flow Rate (L/min) 2 Oxygen Delivery Method Nasal Cannula Weight: 155 lb 6.814 oz Body Mass Index (BMI) 25.3 Intake and Output for Last 24 Hours 09/08/18 09/09/18 09/10/18 23:59 23:59 23:59 Intake Total 420 / 420 60 / 60 Balance 420 / 420 60 / 60 General: Alert, Oriented x3, Cooperative, No apparent distress HEENT: Atraumatic, PERRLA, EOMI, Normocephalic Oral: Moist Mucosa Neck: Supple, No JVD, Trachea Midline Lungs: Clear to auscultation, Normal air movement, No rhonchi, No wheeze, No rales Cardiovascular: Regular rate - Irregular rhythm, Normal S1, Normal S2, No murmurs, No rub noted, No Gallop, - Abdomen: Soft, Non Tender, Non-Distended, No Hepato-splenomegaly Extremities: Capillary Refill Less than 3 Seconds, No Calf Tenderness, Edema - 1-2+ pitting edema Skin: No rashes, No breakdown Neurological: Neuro grossly intact, Sensory exam intact to light touch and pain Psych/Mental Status: Normal Affect, Appropriate Laboratory Results 09/09/18 14:10: Troponin I 5.210 H* 09/09/18 17:53: Troponin I 4.950 H* 09/10/18 05:45: WBC 12.7 H, RBC 5.04, Hgb 14.4, Hct 45.1, MCV 89.5, MCH 28.6, MCHC 31.9 L, RDW 14.8 H, RDW Differential 47.5 H, Plt Count 306, MPV 10.4, Immature Gran % (Auto) 0.200, Neut % (Auto) 82.0 H, Lymph % (Auto) 10.4 L, Andrew % (Auto) 7.3, Eos % (Auto) 0.0, Baso % (Auto) 0.1, Absolute Neuts (auto) 10.4 H, Absolute Lymphs (auto) 1.32, Total Counted Not Reportable 09/10/18 05:45: Sodium 138, Potassium 4.5, Chloride 107, Carbon Dioxide 23.0, Anion Gap 8, BUN 28 H, Creatinine 0.95, Estim Creat Clear Calc 43.21, Est GFR (MDRD) Af Amer 73, Est GFR (MDRD) Non-Af 60, BUN/Creatinine Ratio 29.6 H, Glucose 113 H, Calcium 8.7 Current Medications Aspirin (Aspirin, Baby) 81 mg PO DAILY@0800 [facility] Atorvastatin Calcium (Lipitor) 80 mg PO QHS [facility] Last Admin: 09/09/18 21:38 Dose: 80 mg Atorvastatin Calcium (Lipitor) 5 mg PO QHS [facility] Last Admin: 09/09/18 21:38 Dose: 5 mg Carbidopa/Levodopa (Sinemet) 1.5 tablet PO TID [facility] Last Admin: 09/10/18 05:28 Dose: 1.5 tablet Clopidogrel Bisulfate (Plavix) 75 mg PO DAILY [facility] Last Admin: 09/10/18 09:13 Dose: 75 mg Diphenhydramine HCl (Benadryl) 50 mg PO X1 ONE Stop: 09/11/18 05:01 Enoxaparin Sodium (Lovenox) 60 mg SC Q12 [facility] Last Admin: 09/10/18 09:13 Dose: 60 mg Furosemide (Lasix) 40 mg IV DAILY [facility] Last Admin: 09/10/18 09:13 Dose: 40 mg Sodium Chloride () 1,000 mls @ 0 mls/hr IV .Q0M [facility] Levothyroxine Sodium (Synthroid) 125 mcg PO DAILY@0600 [facility] Last Admin: 09/10/18 05:28 Dose: 125 mcg Losartan Potassium (Cozaar) 25 mg PO DAILY [facility] Last Admin: 09/10/18 09:13 Dose: 25 mg Magnesium Hydroxide (Milk Of Magnesia) 30 ml PO DAILY PRN PRN Reason: Constipation Metoprolol Tartrate (Lopressor (Beta Tereso)) 100 mg PO BID [facility] Last Admin: 09/10/18 09:13 Dose: 100 mg Potassium Chloride (K-Dur) 20 meq PO DINNER [facility] Sodium Chloride () 5 - 15 ml IV UD PRN PRN Reason: SALINE FLUSH Medical Necessity - Tobacco Use Smoking Status: Never smoker Assessment/Plan All Active Problems Non-STEMI (non-ST elevated myocardial infarction) (Acute) 1. NSTEMI/coronary artery disease status post triple-vessel bypass/hyperlipidemia/A. fib with RVR/ischemic cardiomyopathy with systolic dysfunction -Initial troponin was 0.07 and felt to be demand ischemia due to the A. fib with RVR, however she continued to rise to a peak troponin of 5.2 -Cardiology was consulted and she was loaded with aspirin and Plavix and put on therapeutic Lovenox -Her last dose of Lovenox should be 09/10 at 10 PM -Hold the Xarelto, last dose was 09/08/2017 at night -We will continue her metoprolol at 100 mg twice daily, based on her echo with an EF of 25-30%, she is not a candidate for Cardizem -We will plan for cardiac cath on Friday 2. Hypertension/hyperlipidemia -At the moment we will continue with metoprolol, and lovastatin -She had been on Lipitor previously and had significant muscle pains and joint aches -Losartan added by cardiology 3. Parkinson's -Stable -Continue with Sinemet 4. Hypothyroidism -Stable -Continue with Synthroid 5. HERBER -Her baseline creatinine appears to be around 0.6, on admission is 1.17, and is now 0.95 -She does have bilateral lower extremity edema which she states has been getting worse over time -No IV fluids at the moment and instead will proceed with Lasix DVT: Therapeutic Lovenox Code Visit Inpatient E&M: 53877 Subs Hosp L2
[2018-09-10] MEDS: Aspirin 81 MG TAB.CHEW PO (13:06)
--- NOTE | 2018-09-10 17:09 | PCA ---
FAXED REQUEST FOR BYPASS SURGER TO [facility] ON 09/09. RECEIVED 'S OFFICE NOTES BUT THEY HAVE NO RECORD OF THE BYPASS SURGERY FAXED TO [facility] FOR BYPASS SURGERY RECORDS. BYPASS WAS DONE IN 1997. RECORDS ARE NOT IN THE E-CHART AND IS OFFSITE. POSSIBLE THAT THEY HAVE BEEN DESTROYED. THEY WILL RETREIVE ,IF POSSIBLE IN THE NEXT 24 HOURS. WE DID RECEIVE RECORD OF HEART CATH THAT WAS DONE IN 1997 PRIOR TO BYPASS SURGERY
[2018-09-10] MEDS: Atorvastatin Calcium 80 MG Tablet PO (22:12)
[2018-09-10] MEDS: Atorvastatin Calcium 10 MG Tablet 5 MG PO (22:12)
[2018-09-11] VITALS (22 sets, daily range): BP systolic 102–149; BP diastolic 54–105; PULSE 74–103; RESP 12–24; TEMP 36.5–36.7; O2SAT 93–96
[2018-09-11 05:19] LABS: Absolute Lymphocyte Count 1.83 X10^3/ul (0.83-4.51); Absolute Neutrophil Count 6.8 X10^3/uL (2.0-7.7); Basophil# 0.01 X10^3/uL; Basophil% 0.1 % (0-1); Eosinophil# 0.04 X10^3/uL; Eosinophils% 0.4 % (0-5); Hematocrit 43.2 % (37-47); Hemoglobin 13.8 g/dl (12.0-15.0); Lymphocyte # 1.83 X10^3/ul (4.0); Lymphocyte % 19.1 % (19-41); Mean Corp Hgb Conc 31.9 g/gl (32-36); Mean Corpuscular Hgb 28.5 pg (27.0-32.0); Mean Corpuscular Volume 89.3 fL (81-99); Mean Platelet Vol. 10.4 fl (6.2-12.0); Monocyte# 0.88 X10^3/uL; Monocyte% 9.2 % (0-10); Neutrophil # 6.81 X10^3/uL (2.7-7.7); Platelet Count 277 K/mm3 (150-450); RBC Distribution Width CV 14.5 % (11.6-14.6); RBC Distribution Width SD 47.2 fl (35.1-43.9); Red Blood Count 4.84 M/mm3 (4.2-5.4); White Blood Count 9.6 K/mm3 (4.4-11.0)
[2018-09-11 05:23] LABS: POSITIVE COUNT NO; POSITIVE DIFFERENTIAL NO; POSITIVE MORPHOLOGY NO
[2018-09-11 05:29] LABS: International Normalized Ratio 1.1; Prothrombin Time (Protime)PT. 14.3 SECONDS (11.7-14.9)
[2018-09-11 05:30] LABS: Partial Thromboplast Time 29.8 Seconds (24.1-36.2)
[2018-09-11 05:34] LABS: Anion Gap 9 (5-15); BUN 26 mg/dL (7-18); Calcium,Total 8.6 mg/dL (8.5-10.1); Chloride 106 mmol/L (98-107); EST Glomerular Filtration Rate 64 mL/min (>60); Est Glom Filt Rate - Afr Amer 78 mL/min (>60); Estimated Creatinine Clearance 45.61 ml/min; Glucose 83 mg/dL (74-106); Potassium 3.9 mmol/L (3.5-5.1); Sodium Level 142 mmol/L (136-145)
[2018-09-11 05:43] LABS: Color, Urine Yellow (Yellow); Glucose, Dipstick Normal (Normal); Ketone-Dipstick Negative (Negative); Leukocyte Esterase-Dipstick 500 /ul (Negative); Nitrite-Dipstick Positive (Negative); Occult Blood-Urine 150 /ul (Negative); Protein-Dipstick Negative (Negative); Urine Bilirubin Dipstick Negative (Negative); Urine Clarity Cloudy (Clear); Urine Urobilinogen Normal (Normal)
--- NOTE | 2018-09-11 05:55 | EKG12_ITS ---
Test Reason : AM EKG Blood Pressure : / mmHG Vent. Rate : 095 BPM Atrial Rate : 119 BPM P-R Int : 000 ms QRS Dur : 094 ms QT Int : 396 ms P-R-T Axes : 000 028 151 degrees QTc Int : 497 ms Atrial fibrillation Nonspecific ST and T wave abnormality Abnormal ECG When compared with ECG of 09-SEP-2018 08:14, MANUAL COMPARISON REQUIRED, DATA IS UNCONFIRMED Confirmed by SHAMEKA CHATMAN, LUIS ([id number]), tape editor IBIS MOSCOSO ([id number]) on 09/15/2018 5:36:33 PM Referred By: LORENA Confirmed By:LUIS MYLES MD
[2018-09-11] MEDS: Aspirin 81 MG TAB.CHEW PO (06:26)
[2018-09-11] MEDS: Carbidopa/Levodopa 25/100 Tablet PO ×3 (06:26→21:41)
[2018-09-11] MEDS: Levothyroxine 125 MCG Tablet PO (06:26)
[2018-09-11] MEDS: Metoprolol Tartrate 100 MG Tablet PO (06:27)
[2018-09-11] MEDS: Losartan Potassium 25 MG Tablet PO ×3 (06:27→21:38)
[2018-09-11] MEDS: Clopidogrel Bisulfate 75 MG Tablet PO (06:27)
[2018-09-11] MEDS: Ceftriaxone 1 GM/50 ML BAG IV (06:33)
--- NOTE | 2018-09-11 07:29 | NURSING ---
Report called to Cara in [employer]. Will give Benadryl for maria VELÁZQUEZ. 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 Maria VELÁZQUEZ aware.
[2018-09-11] MEDS: DiphenhydrAMINE 25 MG Capsule 50 MG PO (07:33)
--- NOTE | 2018-09-11 08:41 | CL.D_ITS ---
Patient Name: NING SCHAEFER Study Date: 09/11/2018 Performing: Joseph Corley MD Ht: 64.96 inches 165 cm : 1940 Wt: 147.71 lbs 67 kg Age: 78 Gender: female BSA: 1.74 PROCEDURE(S) PERFORMED [id number]/LV [id number]-AO ROOT ANGIO WITH HEART CATH CLINICAL PROFILE AND INDICATIONS Patient presents with NSTEMI for urgent cardiac cath Indications: ACS > 24 hrs, New Onset Angina <= 2 months, Stable Known CAD, Cardiac Arrythmia, LV Dysfunction Heart Failure: NYHA Class: 2, Heart Failure Type: Systolic, Newly Diagnosed: No Stress/Imaging Stress/Image Study Performed: No Angina Classification Anginal Classification w/in 2 Weeks: CCS IV CAD Presentations: Unstable angina. Non-STEMI. Symptom onset Date/Time: 09/09/2018 Time Not Availa ble Comorbidities/Risk Factors: Hypertension Dyslipidemia Prior CHF Prior CABG CONCLUSIONS Triple vessel CAD of the LM, LAD, LCX and RCA. Widely patent Y graft from LOPEZ to LAD/DIAG. Widely patent SVG to PDA. Global LV systolic dysfunction- Severe RECOMMENDATIONS Continue plavix, no asa, restart xeralto in 3 days if groin is saniya. Pt is very high risk for any PCI to [place] vessels through 20 year old grafts, superimposed on severe LV dysfunciton. DESCRIPTION OF PROCEDURE The patient arrived to the procedure lab. The risks and benefits of the procedure as well as a full d escription of our services here and current unavailability of surgical backup were fully explained to the patient and/or their significant other prior to the catheterization. The Timeout was completed, verifying the correct patient and procedure. The patient's procedural site was prepped and draped in the usual fashion. Local anesthetic was given subcutaneously to right groin region with Lidocaine 2%. Using a modified Seldinger technique, arterial access was obtained via the right femoral artery, a 4 Fr sheath was inserted Left Coronary Artery selective angiography was performed in multiple views us ing a 4 Fr. JL5 catheter. Right Coronary Artery selective angiography was then performed in multiple views using a 4 Fr. 3DRC catheter. Saphenous Vein graft to the RCA selective angiography was performe d in multiple views using a 4 Fr. 3DRC catheter. Left internal mammary artery graft to the LAD and Diag 1 selective angiography was performed in multiple views using a 4 Fr. 3DRC catheter. Lef t Ventriculography was performed in LIU projection using a 4 Fr. Pigtail catheter. LV to AO pullback pressures were then recorded. Ascending (root) aorta selective angiography was then performed in sing le view. Ascending (root) aorta selective angiography was then performed in single view.The arterial sheath was pulled and manual compression applied until hemostasis is achieved. CORONARY ANGIOGRAPHY DOMINANCE: Right Dominant LEFT HEART ASSESSMENT Left Ventricular Ejection Fraction: by LV Gram 15-20 % Global Hypokinesis - Severe Depressed Left Ventricular systolic function LVEDP: 7 mmHg LEFT MAIN: Severe calcification LEFT ANTERIOR DECENDING ARTERY: PROX LAD: is occluded CIRCUMFLEX ARTERY: is occluded RIGHT CORONARY ARTERY: PROX RCA: is occluded GRAFTS: Bifurcating LOPEZ graft to the LAD and DIAG is patent with mild to moderate [place] mid/distal LAD 50% stenosis, high risk for PCI given need to traverse down LOPEZ and severe LV dysfunction. Saphenous Vein graft to the RCA previously placed stent is patent, with 75% mid PDA stenosis, not ty nable to PCI given need to traverse through graft, then acute angle into PDA, of questioable benefit given severe LV dysfuntion. COLLATERAL FLOW: Collateral flow from Right to Left AORTIC ROOT: Aortogram showed no evidence of SVG to LCX system. COMPLICATIONS No Complications PROCEDURE MEDICATIONS Oxygen: 2 L/min via nasal cannula SUMMARY OF HEMODYNAMIC DATA Time AIR REST AO 161/86 (113) SA 08:07:18 LV 147/-3, 9 08:18:57 LV 139/-6, 5 08:19:04 LVp 147/-8, 10 08:19:10 AOp 146/62 (90) 08:19:15 ECG 08:37:31 08:37:31 Signed By Joseph Corley MD On 09/11/2018 8:40:39 AM Joseph Corley MD
[2018-09-11] MEDS: Carvedilol 6.25 MG Tablet PO ×2 (10:06→21:38)
[2018-09-11] MEDS: Furosemide 40 MG/4 ML Vial IV (10:06)
[2018-09-11] MEDS: 0.9% NaCl Peripheral Flush Adult/Peds IV (10:06)
--- NOTE | 2018-09-11 12:51 | NURSING ---
pt walked halls with this rn after heart cath recovery completed. pt tolerated well. no bleeding or hematoma noted at cath site.
--- NOTE | 2018-09-11 15:06 | PCM.PN.HOSP ---
Patient Problems: Active and Suspected Problems (Last Updated 09/11/18 @ 09:09 by Nerissa Roche) Non-STEMI (non-ST elevated myocardial infarction) (Acute 09/10/18) Subjective: Doing well, feels better than yesterday. Denies any symptoms of urinary tract infection though UA this morning prior to cardiac cath demonstrated a possible urinary tract infection and so she was started on IV Rocephin Vitals/I&O's: Vital Signs Temp Pulse Resp BP Pulse Ox 98.0 F 84 16 128/76 H 96 09/11/18 12:51 09/11/18 12:51 09/11/18 12:51 09/11/18 12:51 09/11/18 12:51 Oxygen Flow Rate (L/min) 2 Oxygen Delivery Method Room Air Weight: 152 lb 1.903 oz Body Mass Index (BMI) 25.3 Intake and Output for Last 24 Hours 09/09/18 09/10/18 09/11/18 23:59 23:59 23:59 Intake Total 420 / 420 1080 / 1080 460 / 460 Output Total 1974 / 1974 1650 / 1650 Balance 420 / 420 -895 / -895 -1190 / -1190 General: Alert, Oriented x3, Cooperative, No apparent distress HEENT: Atraumatic, PERRLA, EOMI, Normocephalic Oral: Moist Mucosa Neck: Supple, No JVD, Trachea Midline Lungs: Clear to auscultation, Normal air movement, No rhonchi, No wheeze, No rales Cardiovascular: Regular rate - Irregular rhythm, Normal S1, Normal S2, No murmurs, No rub noted, No Gallop, - Abdomen: Soft, Non Tender, Non-Distended, No Hepato-splenomegaly Extremities: Capillary Refill Less than 3 Seconds, No Calf Tenderness, Edema - 1-2+ pitting edema Skin: No rashes, No breakdown Neurological: Neuro grossly intact, Sensory exam intact to light touch and pain Psych/Mental Status: Normal Affect, Appropriate Laboratory Results 09/11/18 04:30: Urine Color Yellow, Urine Clarity Cloudy, Urine pH 7.0, Ur Specific [place] 1.010, Urine Protein Negative, Urine Glucose (UA) Normal, Urine Ketones Negative, Urine Occult Blood 150 H, Urine Nitrite Positive H, Urine Bilirubin Negative, Urine Urobilinogen Normal, Ur Leukocyte Esterase 500 H 09/11/18 05:05: WBC 9.6, RBC 4.84, Hgb 13.8, Hct 43.2, MCV 89.3, MCH 28.5, MCHC 31.9 L, RDW 14.5, RDW Differential 47.2 H, Plt Count 277, MPV 10.4, Immature Gran % (Auto) 0.200, Neut % (Auto) 71.0 H, Lymph % (Auto) 19.1, [place] % (Auto) 9.2, Eos % (Auto) 0.4, Baso % (Auto) 0.1, Absolute Neuts (auto) 6.8, Absolute Lymphs (auto) 1.83, Total Counted Not Reportable 09/11/18 05:05: PT 14.3, INR 1.1, APTT 29.8 09/11/18 05:05: Sodium 142, Potassium 3.9, Chloride 106, Carbon Dioxide 27.0, Anion Gap 9, BUN 26 H, Creatinine 0.90, Estim Creat Clear Calc 45.61, Est GFR (MDRD) Af Amer 78, Est GFR (MDRD) Non-Af 64, BUN/Creatinine Ratio 29.0 H, Glucose 83, Calcium 8.6 Current Medications Atorvastatin Calcium (Lipitor) 80 mg PO QHS REPLACED BY [facility] Last Admin: 09/10/18 22:12 Dose: 80 mg Atorvastatin Calcium (Lipitor) 5 mg PO QHS REPLACED BY [facility] Last Admin: 09/10/18 22:12 Dose: 5 mg Carbidopa/Levodopa (Sinemet) 1.5 tablet PO TID REPLACED BY [facility] Last Admin: 09/11/18 12:54 Dose: 1.5 tablet Carvedilol (Coreg) 6.25 mg PO BID REPLACED BY [facility] Last Admin: 09/11/18 10:06 Dose: 6.25 mg Clopidogrel Bisulfate (Plavix) 75 mg PO DAILY REPLACED BY [facility] Last Admin: 09/11/18 06:27 Dose: 75 mg Enoxaparin Sodium (Lovenox) 60 mg SC Q12 REPLACED BY [facility] Last Admin: 09/11/18 08:39 Dose: Not Given Furosemide (Lasix) 40 mg IV DAILY REPLACED BY [facility] Last Admin: 09/11/18 10:06 Dose: 40 mg Heparin Sodium (Beef Lung) (Heparin 500 Unit/5 Ml (100/Ml)) 500 unit IV UD PRN PRN Reason: HEPARIN FLUSH Sodium Chloride () 1,000 mls @ 0 mls/hr IV .Q0M REPLACED BY [facility] Ceftriaxone Sodium (Rocephin) 1 gm in 50 mls @ 100 mls/hr IV Q24 REPLACED BY [facility] Last Admin: 09/11/18 06:33 Dose: 100 mls/hr Labetalol HCl (Trandate) 5 mg IV X1 PRN PRN Reason: SBP > 160 prior to sheath pull Stop: 09/13/18 08:24 Levothyroxine Sodium (Synthroid) 125 mcg PO DAILY@0600 REPLACED BY [facility] Last Admin: 09/11/18 06:26 Dose: 125 mcg Losartan Potassium (Cozaar) 25 mg PO BID REPLACED BY [facility] Last Admin: 09/11/18 10:06 Dose: 25 mg Magnesium Hydroxide (Milk Of Magnesia) 30 ml PO DAILY PRN PRN Reason: Constipation Potassium Chloride (K-Dur) 20 meq PO DINNER REPLACED BY [facility] Last Admin: 09/10/18 16:44 Dose: 20 meq Sodium Chloride () 5 - 15 ml IV UD PRN PRN Reason: SALINE FLUSH Last Admin: 09/11/18 10:06 Dose: 10 ml Medical Necessity - Tobacco Use Smoking Status: Never smoker Assessment/Plan All Active Problems (Last Updated 09/11/18 @ 09:09 by Nerissa Roche) Non-STEMI (non-ST elevated myocardial infarction) (Acute 09/10/18) 1. NSTEMI/coronary artery disease status post triple-vessel bypass/hyperlipidemia/A. fib with RVR/ischemic cardiomyopathy with acute on chronic systolic CHF -Initial troponin was 0.07 and felt to be demand ischemia due to the A. fib with RVR, however she continued to rise to a peak troponin of 5.2 -Cardiology was consulted and she was loaded with aspirin and Plavix and put on therapeutic Lovenox -Hold the Xarelto until Friday night. -Cardiac cath showed significant coronary artery disease that could not be stented, her grafts from her CABG 20 years ago are completely clean, at this time it is felt that the N STEMI was in response to her A. fib with RVR -We will switch her metoprolol from 100 mg twice daily to Coreg 6.25 mg twice daily, to control both heart rate and blood pressure -Continue with losartan 2. Hypertension/hyperlipidemia -At the moment we will continue with metoprolol, and lovastatin -She had been on Lipitor previously and had significant muscle pains and joint aches -Losartan added by cardiology 3. Parkinson's -Stable -Continue with Sinemet 4. Hypothyroidism -Stable -Continue with Synthroid 5. HERBER (resolved) -Her baseline creatinine appears to be around 0.6, on admission is 1.17, and is now 0.90 -She does have bilateral lower extremity edema which she states has been getting worse over time -No IV fluids at the moment and instead will proceed with Lasix 6. Asymptomatic UTI -Urine cultures pending currently on Rocephin -We will plan to discharge tomorrow and follow-up with her urine culture as an outpatient -She would only need to complete 1 more day of antibiotics at discharge. DVT: Lovenox Code Visit Inpatient E&M: [id number] Subs Hosp L2
--- NOTE | 2018-09-11 15:14 | PN_ITS ---
Patient Problems: Active and Suspected Problems (Last Updated 09/11/18 @ 09:09 by Nerissa Roche) Non-STEMI (non-ST elevated myocardial infarction) (Acute 09/10/18) Subjective: Doing well, feels better than yesterday. Denies any symptoms of urinary tract infection though UA this morning prior to cardiac cath demonstrated a possible urinary tract infection and so she was started on IV Rocephin Vitals/I&O's: Vital Signs Temp Pulse Resp BP Pulse Ox 98.0 F 84 16 128/76 H 96 09/11/18 12:51 09/11/18 12:51 09/11/18 12:51 09/11/18 12:51 09/11/18 12:51 Oxygen Flow Rate (L/min) 2 Oxygen Delivery Method Room Air Weight: 152 lb 1.903 oz Body Mass Index (BMI) 25.3 Intake and Output for Last 24 Hours 09/09/18 09/10/18 09/11/18 23:59 23:59 23:59 Intake Total 420 / 420 1080 / 1080 460 / 460 Output Total 1974 / 1974 1650 / 1650 Balance 420 / 420 -895 / -895 -1190 / -1190 General: Alert, Oriented x3, Cooperative, No apparent distress HEENT: Atraumatic, PERRLA, EOMI, Normocephalic Oral: Moist Mucosa Neck: Supple, No JVD, Trachea Midline Lungs: Clear to auscultation, Normal air movement, No rhonchi, No wheeze, No rales Cardiovascular: Regular rate - Irregular rhythm, Normal S1, Normal S2, No murmurs, No rub noted, No Gallop, - Abdomen: Soft, Non Tender, Non-Distended, No Hepato-splenomegaly Extremities: Capillary Refill Less than 3 Seconds, No Calf Tenderness, Edema - 1-2+ pitting edema Skin: No rashes, No breakdown Neurological: Neuro grossly intact, Sensory exam intact to light touch and pain Psych/Mental Status: Normal Affect, Appropriate Laboratory Results 09/11/18 04:30: Urine Color Yellow, Urine Clarity Cloudy, Urine pH 7.0, Ur Specific [place] 1.010, Urine Protein Negative, Urine Glucose (UA) Normal, Urine Ketones Negative, Urine Occult Blood 150 H, Urine Nitrite Positive H, Urine Bilirubin Negative, Urine Urobilinogen Normal, Ur Leukocyte Esterase 500 H 09/11/18 05:05: WBC 9.6, RBC 4.84, Hgb 13.8, Hct 43.2, MCV 89.3, MCH 28.5, MCHC 31.9 L, RDW 14.5, RDW Differential 47.2 H, Plt Count 277, MPV 10.4, Immature Gran % (Auto) 0.200, Neut % (Auto) 71.0 H, Lymph % (Auto) 19.1, [place] % (Auto) 9.2, Eos % (Auto) 0.4, Baso % (Auto) 0.1, Absolute Neuts (auto) 6.8, Absolute Lymphs (auto) 1.83, Total Counted Not Reportable 09/11/18 05:05: PT 14.3, INR 1.1, APTT 29.8 09/11/18 05:05: Sodium 142, Potassium 3.9, Chloride 106, Carbon Dioxide 27.0, Anion Gap 9, BUN 26 H, Creatinine 0.90, Estim Creat Clear Calc 45.61, Est GFR (MDRD) Af Amer 78, Est GFR (MDRD) Non-Af 64, BUN/Creatinine Ratio 29.0 H, Glucose 83, Calcium 8.6 Current Medications Atorvastatin Calcium (Lipitor) 80 mg PO QHS [facility] Last Admin: 09/10/18 22:12 Dose: 80 mg Atorvastatin Calcium (Lipitor) 5 mg PO QHS [facility] Last Admin: 09/10/18 22:12 Dose: 5 mg Carbidopa/Levodopa (Sinemet) 1.5 tablet PO TID [facility] Last Admin: 09/11/18 12:54 Dose: 1.5 tablet Carvedilol (Coreg) 6.25 mg PO BID [facility] Last Admin: 09/11/18 10:06 Dose: 6.25 mg Clopidogrel Bisulfate (Plavix) 75 mg PO DAILY [facility] Last Admin: 09/11/18 06:27 Dose: 75 mg Enoxaparin Sodium (Lovenox) 60 mg SC Q12 [facility] Last Admin: 09/11/18 08:39 Dose: Not Given Furosemide (Lasix) 40 mg IV DAILY [facility] Last Admin: 09/11/18 10:06 Dose: 40 mg Heparin Sodium (Beef Lung) (Heparin 500 Unit/5 Ml (100/Ml)) 500 unit IV UD PRN PRN Reason: HEPARIN FLUSH Sodium Chloride () 1,000 mls @ 0 mls/hr IV .Q0M [facility] Ceftriaxone Sodium (Rocephin) 1 gm in 50 mls @ 100 mls/hr IV Q24 [facility] Last Admin: 09/11/18 06:33 Dose: 100 mls/hr Labetalol HCl (Trandate) 5 mg IV X1 PRN PRN Reason: SBP > 160 prior to sheath pull Stop: 09/13/18 08:24 Levothyroxine Sodium (Synthroid) 125 mcg PO DAILY@0600 [facility] Last Admin: 09/11/18 06:26 Dose: 125 mcg Losartan Potassium (Cozaar) 25 mg PO BID [facility] Last Admin: 09/11/18 10:06 Dose: 25 mg Magnesium Hydroxide (Milk Of Magnesia) 30 ml PO DAILY PRN PRN Reason: Constipation Potassium Chloride (K-Dur) 20 meq PO DINNER [facility] Last Admin: 09/10/18 16:44 Dose: 20 meq Sodium Chloride () 5 - 15 ml IV UD PRN PRN Reason: SALINE FLUSH Last Admin: 09/11/18 10:06 Dose: 10 ml Medical Necessity - Tobacco Use Smoking Status: Never smoker Assessment/Plan All Active Problems (Last Updated 09/11/18 @ 09:09 by Nerissa Roche) Non-STEMI (non-ST elevated myocardial infarction) (Acute 09/10/18) 1. NSTEMI/coronary artery disease status post triple-vessel bypass/hyperlipidemia/A. fib with RVR/ischemic cardiomyopathy with acute on chronic systolic CHF -Initial troponin was 0.07 and felt to be demand ischemia due to the A. fib with RVR, however she continued to rise to a peak troponin of 5.2 -Cardiology was consulted and she was loaded with aspirin and Plavix and put on therapeutic Lovenox -Hold the Xarelto until Friday night. -Cardiac cath showed significant coronary artery disease that could not be stent ed, her grafts from her CABG 20 years ago are completely clean, at this time it is felt that the N STEMI was in response to her A. fib with RVR -We will switch her metoprolol from 100 mg twice daily to Coreg 6.25 mg twice daily, to control both heart rate and blood pressure -Continue with losartan 2. Hypertension/hyperlipidemia -At the moment we will continue with metoprolol, and lovastatin -She had been on Lipitor previously and had significant muscle pains and joint aches -Losartan added by cardiology 3. Parkinson's -Stable -Continue with Sinemet 4. Hypothyroidism -Stable -Continue with Synthroid 5. HERBER (resolved) -Her baseline creatinine appears to be around 0.6, on admission is 1.17, and is now 0.90 -She does have bilateral lower extremity edema which she states has been getting worse over time -No IV fluids at the moment and instead will proceed with Lasix 6. Asymptomatic UTI -Urine cultures pending currently on Rocephin -We will plan to discharge tomorrow and follow-up with her urine culture as an outpatient -She would only need to complete 1 more day of antibiotics at discharge. DVT: Lovenox Code Visit Inpatient E&M: 69732 Subs Hosp L2
[2018-09-11] MEDS: Atorvastatin Calcium 80 MG Tablet PO (21:38)
[2018-09-11] MEDS: Atorvastatin Calcium 10 MG Tablet 5 MG PO (21:38)
[2018-09-12 03:02] VITALS: PULSE 102
[2018-09-12 03:05] VITALS: BP 116/74; PULSE 84; RESP 18; TEMP 36.4; O2SAT 96
--- NOTE | 2018-09-12 05:55 | RAD_ITS ---
STUDY: X-RAY CHEST REASON FOR EXAM: Female, 78 years old. CHF. TECHNIQUE: PA and lateral views of the chest. COMPARISON: 09 September 2018 FINDINGS: Sternotomy wires are midline. Bilateral basilar airspace disease, right greater than left with right greater than left layering effusion is present. There is no demonstrated pleural abnormality. Normal size heart. Normal mediastinum and zack. Normal visualized pulmonary arteries. There is atherosclerotic calcification of the aortic arch with tortuosity. Normal visualized thoracic spine. Normal visualized ribs, clavicles, and shoulders. There is no demonstrated abnormality of the visualized soft tissue structures of the upper abdomen. RAD/Chest PA and Lateral IMPRESSION: Bilateral layering effusions, right greater than left with right greater than left basilar airspace disease. Reduced pulmonary vascular congestion compared to previous exam. Electronically Signed: Magdiel Richard DO at 9:37 EST , Service support ,
[2018-09-12] MEDS: Carbidopa/Levodopa 25/100 Tablet PO (06:28)
[2018-09-12] MEDS: Enoxaparin 40 MG/0.4 ML Syringe SC (06:28)
[2018-09-12] MEDS: Levothyroxine 125 MCG Tablet PO (06:30)
[2018-09-12 07:25] VITALS: O2SAT 97
[2018-09-12 07:33] VITALS: PULSE 100
[2018-09-12 09:15] VITALS: BP 128/67; PULSE 84; RESP 22; TEMP 36.9; O2SAT 95
[2018-09-12] MEDS: Losartan Potassium 25 MG Tablet PO (09:53)
[2018-09-12] MEDS: Carvedilol 6.25 MG Tablet PO (09:53)
[2018-09-12] MEDS: Clopidogrel Bisulfate 75 MG Tablet PO (09:53)
[2018-09-12] MEDS: Ceftriaxone 1 GM/50 ML BAG IV (09:53)
[2018-09-12] MEDS: Furosemide 40 MG/4 ML Vial IV (09:53)
[2018-09-12 11:08] VITALS: PULSE 100
--- NOTE | 2018-09-12 14:02 | PCM.DC ---
- Discharge Diagnoses Current Active Problems: Current Active and Chronic Problems (Last Updated 09/11/18 @ 09:09 by Nerissa Roche) History of left heart catheterization (Chronic 09/11/18) Bifurcating LOPEZ graft to the LAD and DIAG is patent with mild to moderate [place] mid/distal LAD 50% stenosis, high risk for PCI given need to traverse down LOPEZ and severe LV dysfunction. Saphenous Vein graft to the RCA previously placed stent is patent, with 75% mid PDA stenosis, not amenable to PCI given need to traverse through graft, then acute angle into PDA, of questionable benefit given severe LV dysfunction Atrial fibrillation (Chronic) Coronary artery disease (Chronic) Hx of CABG (Chronic) Hypertension (Chronic) Hypercholesterolemia (Chronic) Non-STEMI (non-ST elevated myocardial infarction) (Acute 09/10/18) Hypothyroidism (Chronic) Parkinson's disease (Chronic) You will use the following diet at home:: Cardiac Your food should be the consistency of: Regular Your liquids should be the consistency of: Regular/Thin Discharge Activity: Return to Normal Activity Call your doctor if you observe: Shortness of breath, Dizziness, Chest pain, Increased palpitations (irregular heartbeat) Allergies/Adverse Reactions: Allergies No Known Allergies Allergy (Verified 09/09/18 08:17) Medications to take at Discharge Cholecalciferol (Vitamin D3) [Vitamin D3] 1 tab PO DAILY 06/14/13 Levothyroxine [Synthroid] 125 mcg PO DAILY 06/14/13 Multivit-Min/FA/Lycopene/Lut [Centrum Silver Tablet] 1 each PO DAILY 06/14/13 [place]-3 Fatty Acids [Fish Oil] 2,000 mg PO BID 06/14/13 Carbidopa/Levodopa [Carbidopa-Levodopa 25-100 Tab] 1.5 tab PO TID 09/09/18 Ciclopirox 1 applicatio TP QHS 09/09/18 L.acidoph,Paracasei, B.lactis [Probiotic] 1 each PO DAILY 09/09/18 Potassium Chloride [K-Dur] 20 meq PO DINNER 09/09/18 Ubidecarenone [Coq-10] 200 mg PO DAILY 09/09/18 Atorvastatin Calcium [Lipitor] 20 mg PO QHS #30 tablet 09/12/18 Carvedilol [Coreg (Beta [place])] 6.25 mg PO BID #60 tablet 09/12/18 Clopidogrel Bisulfate [Plavix] 75 mg PO DAILY #30 tablet 09/12/18 Furosemide [Lasix] 40 mg PO DAILY #30 tablet 09/12/18 Losartan Potassium [Cozaar] 25 mg PO BID #60 tablet 09/12/18 Rivaroxaban [Xarelto] 20 mg PO DINNER #0 09/12/18 The following prescriptions were given: Atorvastatin Calcium [Lipitor] 20 mg PO QHS #30 tablet Clopidogrel Bisulfate [Plavix] 75 mg PO DAILY #30 tablet Furosemide [Lasix] 40 mg PO DAILY #30 tablet Carvedilol [Coreg (Beta [place])] 6.25 mg PO BID #60 tablet Losartan Potassium [Cozaar] 25 mg PO BID #60 tablet Primary Care Physician: Louise Garrido MD [Primary Care Provider] - Please follow up with your Primary Care Physician in: 3-5 days Test Results: Test results from this visit will be discussed in further detail at your follow-up appointment, if applicable. Please Follow Up With: Joseph Corley MD
--- NOTE | 2018-09-12 14:03 | PCM.DC.SUM ---
Discharge Date and Diagnosis - Problem List Patient Problems: Active and Suspected Problems (Last Updated 09/11/18 @ 09:09 by Nerissa Roche) Non-STEMI (non-ST elevated myocardial infarction) (Acute 09/10/18) Date of Admission: 09/09/18 Date of Discharge: 09/12/18 - Primary Discharge Diagnosis Active and Suspected Problems (Last Updated 09/11/18 @ 09:09 by Nerissa Roche) Non-STEMI (non-ST elevated myocardial infarction) (Acute 09/10/18) - Secondary Discharge Diagnosis Chronic Problems (Last Updated 09/11/18 @ 09:09 by Nerissa Roche) History of left heart catheterization (Chronic 09/11/18) Bifurcating LOPEZ graft to the LAD and DIAG is patent with mild to moderate [place] mid/distal LAD 50% stenosis, high risk for PCI given need to traverse down LOPEZ and severe LV dysfunction. Saphenous Vein graft to the RCA previously placed stent is patent, with 75% mid PDA stenosis, not amenable to PCI given need to traverse through graft, then acute angle into PDA, of questionable benefit given severe LV dysfunction Atrial fibrillation (Chronic) Coronary artery disease (Chronic) Hx of CABG (Chronic) Hypertension (Chronic) Hypercholesterolemia (Chronic) Hypothyroidism (Chronic) Parkinson's disease (Chronic) Hospital Course and Treatment Imaging Results: CXR: IMPRESSION: Right pleural effusion with right basilar infiltration and/or atelectasis. Small left pleural effusion with underlying atelectasis. Consults: Cardiology Operations: [email or web address] Procedures: 2-D Echocardiogram - Interpretation Summary Moderately dilated left ventricle. The estimated ejection fraction is 25-30 %. Unable to assess diastolic dysfunction due to arrhythmia. Mid-Anterior : Severely Hypokinetic. Mid-anteroseptal : Severely Hypokinetic. Mildly dilated right ventricle. The left atrium is severely enlarged. The right atrium is moderately enlarged. Mild (1+) mitral valve insufficiency. Mild (1+) tricuspid valve insufficiency. Right ventricular systolic pressure estimated to be 45 mmHg. Mild pulmonary hypertension. Pt appears to be in atrial fibrillation. There is no comparison study available., Cardiac catheterization - CONCLUSIONS Triple vessel CAD of the LM, LAD, LCX and RCA. Widely patent Y graft from LOPEZ to LAD/DIAG. Widely patent SVG to PDA. Global LV systolic dysfunction- Severe RECOMMENDATIONS Continue plavix, no asa, restart xeralto in 3 days if groin is saniya. Pt is very high risk for any PCI to [place] vessels through 20 year old grafts, superimposed on severe LV dysfunciton. Summary of Care Provided: HPI: The patient is a 78 year old F with past medical history as below who presents with 2 or 3-hour history of substernal chest pain. She states that she got up this morning between 6 and 7 AM and was doing okay and then suddenly had a severe pain in her chest. She had some shortness of breath associated with it, but denies any radiation of her pain. She also noted that she had gone into A. fib at that time as well. This the first time she is ever had chest pain, even at the time when she had her triple bypass in 1997, she did not have any chest pain during that time she was found to have cardiac disease while under anesthesia for a kidney stone procedure. The anesthesiologist noticed something on her EKG and recommend she get it followed up which culminated in a triple-vessel bypass. In the ER she had an EKG with lateral depressions and T wave inversions in V3 through V6, and an initial troponin of 0.07, which has risen to 5.210 with a repeat pending. Her chest pain has resolved and she just has a dull ache with a little bit of pressure. She was found to be in A. fib with RVR in the ER and was given a 20 mg loading dose of Cardizem which did not put her in a sinus rhythm but put her heart rate in the 70s and 80s. Hospital Course: 1. NSTEMI status post cardiac catheterization/coronary artery disease status post triple-vessel bypass/hyperlipidemia/A. fib with RVR/acute on chronic systolic CHF -78-year-old female who has extensive cardiac history with a triple-vessel bypass about 20 years ago. She initially presented in A. fib with RVR and had a troponin of 0.07 which steadily increased and peaked to a troponin of 5.2. She was loaded with Plavix and aspirin done in the ER and was placed on therapeutic Lovenox. She had a cardiac cath on the day prior to discharge and she was found to have significant coronary artery disease none of which that could be stented. Her bypass grafts were all patent. She was transitioned to Plavix and she is to restart her Xarelto on Friday given the recent intervention. Other medication changes include discontinuation of her metoprolol and transition to Coreg 6.25 mg twice daily, as well as losartan 25 mg twice daily to control her blood pressure. On admission she also had a right pleural effusion and lower extremity edema. Given the fact that her EF was 25-30% based on echo she was started on Lasix. Also she does have some difficulty with statins though she was being managed with atorvastatin and red yeast rice, we will try to increase her Lipitor to 20 mg and continue with her co-Q10 to try to assist with any myalgias. She is to follow-up with her PCP and she will follow-up with Dr. Corley in a couple of weeks. 2. Asymptomatic UTI -she was found to have a urinary tract infection on UA prior to her catheterization. She is asymptomatic and the culture is growing less than 100,000 gram-negative rods. She received 2 doses of Rocephin, will not continue her on any antibiotics given the lack of the clinical UTI. 3. Her other medical diagnoses were evaluated and her home medications were continued where appropriate Patient Problems: Active and Suspected Problems (Last Updated 09/11/18 @ 09:09 by Nerissa Roche) Non-STEMI (non-ST elevated myocardial infarction) (Acute 09/10/18) Objective: General: Alert, Oriented x3, Cooperative, No apparent distress HEENT: Atraumatic, PERRLA, EOMI, Normocephalic Oral: Moist Mucosa Neck: Supple, No JVD, Trachea Midline Lungs: Clear to auscultation, Normal air movement, No rhonchi, No wheeze, No rales, diminished Cardiovascular: Regular rate - Irregular rhythm, Normal S1, Normal S2, No murmurs, No rub noted, No Gallop, - Abdomen: Soft, Non Tender, Non-Distended, No Hepato-splenomegaly Extremities: Capillary Refill Less than 3 Seconds, No Calf Tenderness, Edema - 1-2+ pitting edema Skin: No rashes, No breakdown Neurological: Neuro grossly intact, Sensory exam intact to light touch and pain Psych/Mental Status: Normal Affect, Appropriate - Physical Exam Vital Signs Temp Pulse Resp BP Pulse Ox 98.5 F 100 22 H 128/67 H 95 09/12/18 09:15 09/12/18 11:08 09/12/18 09:15 09/12/18 09:15 09/12/18 09:15 Oxygen Flow Rate (L/min) 2 Oxygen Delivery Method Room Air Weight: 139 lb 15.896 oz Body Mass Index (BMI) 25.3 Intake and Output for Last 24 Hours 09/10/18 09/11/18 09/12/18 23:59 23:59 23:59 Intake Total 1079 / 1080 910 / 910 250 / 250 Output Total 1974 2450 / 2450 600 / 600 Balance -895 / -895 -1540 / -1540 -350 / -350 Microbiology Past 72 Hours 09/11/18 04:30 Urine Culture - Preliminary Urine, Clean Catch 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 Discharge Activity: Return to Normal Activity Call your doctor if you observe: Shortness of breath, Dizziness, Chest pain, Increased palpitations (irregular heartbeat) Home Medications: Medications to take at Discharge Cholecalciferol (Vitamin D3) [Vitamin D3] 1 tab PO DAILY 06/14/13 Levothyroxine [Synthroid] 125 mcg PO DAILY 06/14/13 Multivit-Min/FA/Lycopene/Lut [Centrum Silver Tablet] 1 each PO DAILY 06/14/13 Superior-3 Fatty Acids [Fish Oil] 2,000 mg PO BID 06/14/13 Carbidopa/Levodopa [Carbidopa-Levodopa 25-100 Tab] 1.5 tab PO TID 09/09/18 Ciclopirox 1 applicatio TP QHS 09/09/18 L.acidoph,Paracasei, B.lactis [Probiotic] 1 each PO DAILY 09/09/18 Potassium Chloride [K-Dur] 20 meq PO DINNER 09/09/18 Ubidecarenone [Coq-10] 200 mg PO DAILY 09/09/18 Atorvastatin Calcium [Lipitor] 20 mg PO QHS #30 tablet 09/12/18 Carvedilol [Coreg (Beta Tereso)] 6.25 mg PO BID #60 tablet 09/12/18 Clopidogrel Bisulfate [Plavix] 75 mg PO DAILY #30 tablet 09/12/18 Furosemide [Lasix] 40 mg PO DAILY #30 tablet 09/12/18 Losartan Potassium [Cozaar] 25 mg PO BID #60 tablet 09/12/18 Rivaroxaban [Xarelto] 20 mg PO DINNER #0 09/12/18 Following Prescrptions Were Given to Patient: Atorvastatin Calcium [Lipitor] 20 mg PO QHS #30 tablet Clopidogrel Bisulfate [Plavix] 75 mg PO DAILY #30 tablet Furosemide [Lasix] 40 mg PO DAILY #30 tablet Carvedilol [Coreg (Beta Tereso)] 6.25 mg PO BID #60 tablet Losartan Potassium [Cozaar] 25 mg PO BID #60 tablet Primary Care Physician: Louise Garrido MD [Primary Care Provider] - Please follow up with your Primary Care Physician in: 3-5 days Please Follow Up With: Joseph Corley MD Disposition: Home Minutes spent on discharge:: 35 Patient Condition:: Good Medical Necessity - Tobacco Use Smoking Status: Never smoker Meaningful Use Info Meaningful Use Diagnoses (Choose all that apply): AMI - AMI Aspirin given w/in 24hrs of arrival?: Yes ASA at discharge?: Yes Statins at discharge?: Yes Polo/ARB at discharge?: Yes Beta Tereso at discharge?: Yes Done w/ Acute MT measure.: Yes Code Visit Inpatient E&M: 87115 Disch Hosp
--- NOTE | 2018-09-12 14:18 | DS.PCM_ITS ---
Discharge Date and Diagnosis - Problem List Patient Problems: Active and Suspected Problems (Last Updated 09/11/18 @ 09:09 by Nerissa Roche) Non-STEMI (non-ST elevated myocardial infarction) (Acute 09/10/18) Date of Admission: 09/09/18 Date of Discharge: 09/12/18 - Primary Discharge Diagnosis Active and Suspected Problems (Last Updated 09/11/18 @ 09:09 by Nerissa Roche) Non-STEMI (non-ST elevated myocardial infarction) (Acute 09/10/18) - Secondary Discharge Diagnosis Chronic Problems (Last Updated 09/11/18 @ 09:09 by Nerissa Roche) History of left heart catheterization (Chronic 09/11/18) Bifurcating LOPEZ graft to the LAD and DIAG is patent with mild to moderate [place] mid/distal LAD 50% stenosis, high risk for PCI given need to traverse down LOPEZ and severe LV dysfunction. Saphenous Vein graft to the RCA previously placed stent is patent, with 75% mid PDA stenosis, not amenable to PCI given need to traverse through graft, then acute angle into PDA, of questionable benefit given severe LV dysfunction Atrial fibrillation (Chronic) Coronary artery disease (Chronic) Hx of CABG (Chronic) Hypertension (Chronic) Hypercholesterolemia (Chronic) Hypothyroidism (Chronic) Parkinson's disease (Chronic) Hospital Course and Treatment Imaging Results: CXR: IMPRESSION: Right pleural effusion with right basilar infiltration and/or atelectasis. Small left pleural effusion with underlying atelectasis. Consults: Cardiology Operations: [email or web address] Procedures: 2-D Echocardiogram - Interpretation Summary Moderately dilated left ventricle. The estimated ejection fraction is 25-30 %. Unable to assess diastolic dysfunction due to arrhythmia. Mid-Anterior : Severely Hypokinetic. Mid-anteroseptal : Severely Hypokinetic. Mildly dilated right ventricle. The left atrium is severely enlarged. The right atrium is moderately enlarged. Mild (1+) mitral valve insufficiency. Mild (1+) tricuspid valve insufficiency. Right ventricular systolic pressure estimated to be 45 mmHg. Mild pulmonary hypertension. Pt appears to be in atrial fibrillation. There is no comparison study available., Cardiac catheterization - CONCLUSIONS Triple vessel CAD of the LM, LAD, LCX and RCA. Widely patent Y graft from LOPEZ to LAD/DIAG. Widely patent SVG to PDA. Global LV systolic dysfunction- Severe RECOMMENDATIONS Continue plavix, no asa, restart xeralto in 3 days if groin is saniya. Pt is very high risk for any PCI to [place] vessels through 20 year old grafts, superimposed on severe LV dysfunciton. Summary of Care Provided: HPI: The patient is a 78 year old F with past medical history as below who presents with 2 or 3-hour history of substernal chest pain. She states that she got up this morning between 6 and 7 AM and was doing okay and then suddenly had a severe pain in her chest. She had some shortness of breath associated with it, but denies any radiation of her pain. She also noted that she had gone into A. fib at that time as well. This the first time she is ever had chest pain, even at the time when she had her triple bypass in 1997, she did not have any chest pain during that time she was found to have cardiac disease while under anesthesia for a kidney stone procedure. The anesthesiologist noticed something on her EKG and recommend she get it followed up which culminated in a triple- vessel bypass. In the ER she had an EKG with lateral depressions and T wave inv ersions in V3 through V6, and an initial troponin of 0.07, which has risen to 5.210 with a repeat pending. Her chest pain has resolved and she just has a dull ache with a little bit of pressure. She was found to be in A. fib with RVR in the ER and was given a 20 mg loading dose of Cardizem which did not put her in a sinus rhythm but put her heart rate in the 70s and 80s. Hospital Course: 1. NSTEMI status post cardiac catheterization/coronary artery disease status post triple-vessel bypass/hyperlipidemia/A. fib with RVR/acute on chronic systolic CHF -78-year-old female who has extensive cardiac history with a triple-vessel bypass about 20 years ago. She initially presented in A. fib with RVR and had a troponin of 0.07 which steadily increased and peaked to a troponin of 5.2. She was loaded with Plavix and aspirin done in the ER and was placed on therapeutic Lovenox. She had a cardiac cath on the day prior to discharge and she was found to have significant coronary artery disease none of which that could be stented. Her bypass grafts were all patent. She was transitioned to Plavix and she is to restart her Xarelto on Friday given the recent intervention. Other medication changes include discontinuation of her metoprolol and transition to Coreg 6.25 mg twice daily, as well as losartan 25 mg twice daily to control her blood pressure. On admission she also had a right pleural effusion and lower extremity edema. Given the fact that her EF was 25- 30% based on echo she was started on Lasix. Also she does have some difficulty with statins though she was being managed with atorvastatin and red yeast rice, we will try to increase her Lipitor to 20 mg and continue with her co-Q10 to try to assist with any myalgias. She is to follow-up with her PCP and she will follow-up with Dr. Corley in a couple of weeks. 2. Asymptomatic UTI -she was found to have a urinary tract infection on UA prior to her catheterization. She is asymptomatic and the culture is growing less than 100,000 gram-negative rods. She received 2 doses of Rocephin, will not continue her on any antibiotics given the lack of the clinical UTI. 3. Her other medical diagnoses were evaluated and her home medications were continued where appropriate Patient Problems: Active and Suspected Problems (Last Updated 09/11/18 @ 09:09 by Nerissa Roche) Non-STEMI (non-ST elevated myocardial infarction) (Acute 09/10/18) Objective: General: Alert, Oriented x3, Cooperative, No apparent distress HEENT: Atraumatic, PERRLA, EOMI, Normocephalic Oral: Moist Mucosa Neck: Supple, No JVD, Trachea Midline Lungs: Clear to auscultation, Normal air movement, No rhonchi, No wheeze, No rales, diminished Cardiovascular: Regular rate - Irregular rhythm, Normal S1, Normal S2, No murmurs, No rub noted, No Gallop, - Abdomen: Soft, Non Tender, Non-Distended, No Hepato-splenomegaly Extremities: Capillary Refill Less than 3 Seconds, No Calf Tenderness, Edema - 1-2+ pitting edema Skin: No rashes, No breakdown Neurological: Neuro grossly intact, Sensory exam intact to light touch and pain Psych/Mental Status: Normal Affect, Appropriate - Physical Exam Vital Signs Temp Pulse Resp BP Pulse Ox 98.5 F 100 22 H 128/67 H 95 09/12/18 09:15 09/12/18 11:08 09/12/18 09:15 09/12/18 09:15 09/12/18 09:15 Oxygen Flow Rate (L/min) 2 Oxygen Delivery Method Room Air Weight: 139 lb 15.896 oz Body Mass Index (BMI) 25.3 Intake and Output for Last 24 Hours 09/10/18 09/11/18 09/12/18 23:59 23:59 23:59 Intake Total 1080 / 1080 910 / 910 250 / 250 Output Total 1974 2450 / 2450 600 / 600 Balance -895 / -895 -1540 / -1540 -350 / -350 Microbiology Past 72 Hours 09/11/18 04:30 Urine Culture - Preliminary Urine, Clean Catch 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 Discharge Activity: Return to Normal Activity Call your doctor if you observe: Shortness of breath, Dizziness, Chest pain, Increased palpitations (irregular heartbeat) Home Medications: Medications to take at Discharge Cholecalciferol (Vitamin D3) [Vitamin D3] 1 tab PO DAILY 06/14/13 Levothyroxine [Synthroid] 125 mcg PO DAILY 06/14/13 Multivit-Min/FA/Lycopene/Lut [Centrum Silver Tablet] 1 each PO DAILY 06/14/13 Cisco-3 Fatty Acids [Fish Oil] 2,000 mg PO BID 06/14/13 Carbidopa/Levodopa [Carbidopa-Levodopa 25-100 Tab] 1.5 tab PO TID 09/09/18 Ciclopirox 1 applicatio TP QHS 09/09/18 L.acidoph,Paracasei, B.lactis [Probiotic] 1 each PO DAILY 09/09/18 Potassium Chloride [K-Dur] 20 meq PO DINNER 09/09/18 Ubidecarenone [Coq-10] 200 mg PO DAILY 09/09/18 Atorvastatin Calcium [Lipitor] 20 mg PO QHS #30 tablet 09/12/18 Carvedilol [Coreg (Beta Tereso)] 6.25 mg PO BID #60 tablet 09/12/18 Clopidogrel Bisulfate [Plavix] 75 mg PO DAILY #30 tablet 09/12/18 Furosemide [Lasix] 40 mg PO DAILY #30 tablet 09/12/18 Losartan Potassium [Cozaar] 25 mg PO BID #60 tablet 09/12/18 Rivaroxaban [Xarelto] 20 mg PO DINNER #0 09/12/18 Following Prescrptions Were Given to Patient: Atorvastatin Calcium [Lipitor] 20 mg PO QHS #30 tablet Clopidogrel Bisulfate [Plavix] 75 mg PO DAILY #30 tablet Furosemide [Lasix] 40 mg PO DAILY #30 tablet Carvedilol [Coreg (Beta Tereso)] 6.25 mg PO BID #60 tablet Losartan Potassium [Cozaar] 25 mg PO BID #60 tablet Primary Care Physician: Louise Garrido MD [Primary Care Provider] - Please follow up with your Primary Care Physician in: 3-5 days Please Follow Up With: Joseph Corley MD Disposition: Home Minutes spent on discharge:: 35 Patient Condition:: Good Medical Necessity - Tobacco Use Smoking Status: Never smoker Meaningful Use Info Meaningful Use Diagnoses (Choose all that apply): AMI - AMI Aspirin given w/in 24hrs of arrival?: Yes ASA at discharge?: Yes Statins at discharge?: Yes Polo/ARB at discharge?: Yes Beta Tereso at discharge?: Yes Done w/ Acute VT measure.: Yes Code Visit Inpatient E&M: 53444 Disch Hosp
--- NOTE | 2018-09-12 14:36 | PCM.PN.CARD ---
Subjectve: The patient states she is feeling better. She denies any ongoing acute chest discomfort or worsening shortness of breath or dyspnea. She has been up and ambulating without difficulty. Objective: Vital Signs Temp Pulse Resp BP Pulse Ox 98.5 F 100 22 H 128/67 H 95 09/12/18 09:15 09/12/18 11:08 09/12/18 09:15 09/12/18 09:15 09/12/18 09:15 Oxygen Flow Rate (L/min) 2 Oxygen Delivery Method Room Air Weight: 139 lb 15.896 oz Body Mass Index (BMI) 25.3 Intake and Output for Last 24 Hours 09/10/18 09/11/18 09/12/18 23:59 23:59 23:59 Intake Total 1080 / 1080 910 / 910 250 / 250 Output Total 1974 2450 / 2450 600 / 600 Balance -895 / -895 -1540 / -1540 -350 / -350 General: Awake, Alert, Oriented x 3, Cooperative, No Acute Distress HEENT: Atraumatic, Normocephalic, PERRL, EOMI, Sclera Non Icteric Oral: Moist Mucosa Neck: Supple, Good ROM, No JVD Lungs: Clear to auscultation Cardiovascular: Irregular Rhythm, Normal S1, Normal S2 Abdomen: Bowel Sounds Present, Soft, Non Tender Extremities: No edema Psych/Mental Status: Appropriate Rhythm:Atrial fibrillation Medical Necessity - Tobacco Use Smoking Status: Never smoker Assessment/Plan 1. CAD status post CABG The patient has a history of underlying CAD status post CABG. She has undergone reevaluation cardiac catheterization laboratory. She was treated conservatively with no attempts at catheter based revascularization therapy. 2. Ischemic mediated cardiomyopathy The patient appears to have an underlying ischemic mediated cardiomyopathy. She is continuing medical management. Depending upon her response to medical therapy she may need to be considered at some point in time as to whether she is a candidate for ICD therapy. 3. Systolic CHF (acute or chronic) The patient appears to be symptomatically improved status post diuresis. She will continue combined medical management. She will require continued future outpatient cardiovascular follow up. 4. Atrial fibrillation The patient will continue rate control therapy and anticoagulation therapy. Depending upon her clinical course will need to be considered over time as to whether or not she can be a candidate for attempt to regaining sinus rhythm. 5. Hyperlipidemia The patient states that she has been somewhat intolerant to her lipid lowering medications in the past. She will attempt a low dose statin therapy. 6. Hypertension The patient will need her blood pressure monitored over time. She will continue medical management. Comment: The patient's case was discussed and reviewed with the patient, spouse, her other family member is present, and Dr. Carey. This note was generated using a voice recognition system and there may be incorrect words, spelling or punctuation that were not noted when reviewing the office note prior to saving.
== END 2018-09-12 14:59 | disposition home or self-care (01) | DRG 280 ==
LOC: ED 08:41 → PCU 12:50
PROVIDERS: Internal Medicine Cardiovascular Disease; Admitting Provider Family Medicine; Emergency Provider Emergency Medicine; Family Provider Internal Medicine; PCP Internal Medicine; Visit Provider Family Medicine
DX: I21.4 Non-ST elevation (NSTEMI) myocardial infarction (principal); I50.23 Acute on chronic systolic (congestive) heart failure; N17.9 Acute kidney failure, unspecified; N39.0 Urinary tract infection, site not specified; E03.9 Hypothyroidism, unspecified; G20 Parkinson's disease; Z95.1 Presence of aortocoronary bypass graft; I11.0 Hypertensive heart disease with heart failure; I48.91 Unspecified atrial fibrillation; E78.00 Pure hypercholesterolemia, unspecified; I25.10 Atherosclerotic heart disease of native coronary artery without angina pectoris; Z79.02 Long term (current) use of antithrombotics/antiplatelets
CPT/HCPCS: 36415; 71045; 71046; 80048; 81002; 84484; 85025; 85610; 85730; 87077; 87086; 87088; 87186; 93005; 93306; 93459; 93567; 97802; 99285; J7040; A4216; C1769; J1940; Q9967

== ENCOUNTER → 2018-10-15 08:52 | Outpatient (CLI) | payer MEDICARE, SELFPAY ==
[2018-10-01 14:51] VITALS: BMI 22.1
--- NOTE | 2018-10-15 09:23 | PCM.CR.ITP ---
General Information - General Information Admitting Diagnosis: NSTEMI, HF w/EF < 35%, <6 mo. - Education/Goals Barriers to Learning: Vision Impairment Individual Counseling: Initial Assessment: Nicotine/Smoking, Abnormal Cholesterol Levels, High Blood Pressure Cardiac Rehabilitation Goals: 1. Maintain the individual as the primary focus of care. 2. To improve the patient's quality of life. 3. Identification of cardiac risk factors and provide cardiac risk factor management. 4. Enhance the psychosocial status of the patient. 5. Reconditioning enough to allow the patient to resume customary activities. 6. Control symptoms of cardiac disease Scale for measuring improvement of personal goals: Enter appropriate number in Comments. 2 = Unchanged. 3 = Slightly Better. 4 = Moderate Improvement. 5 = Met my Goal Personal Goals: Initial Assessment: Improve management of stress and emotions, Improve energy level, Participate in home exercise program, Get back to work, or to resume activities faster, Improve knowledge of cardiac disease, Improve muscle strength and endurance, Improve diet and eating habits (eat healthier), Control risk factors (learn risk factor modification) - Blood pressure, Cholesterol, Exercise Exercise - Initial Assessment - Visit Date of Eval: 10/15/18 Session #:: 0 - start on - Stages of Change Stages of Change:: Action - Exercise Prescription Mode:: Treadmill - little cartilage left in knees, but will try walking oin treadmill., Biodyne, Airdyne, NuStep, Arm Ergometer Angina with exercise?: No Target Heart Rate:: 100-108 - Hypertension Do any of the following apply?: Yes, Medication Resting Blood Pressure:: 110/50 - Intervention Home Exercise/Activity Goal:: Moderate Exercise 30 min/day x 5 days/wk - Education Goals:: Warm-up, RPE PETROS Scale, S/S, Safe Exercise, Self-Monitoring - Exercise Program Goals Exercise Program Goals: Aerobic Activity >30 min Nutrition - Initial Assessment - Program Goals Nutrition Program Goals: LDL <70. Total Cholesterol <200. HDL >45. Triglycerides <150. HgbA1C <7%. BMI <25 - Visit Date of Assessment:: 10/15/18 - Stages of Change Stages of Change:: Action - Lipids Total Cholesterol (mg/dL) Goal = less than 200 mg/dL: 0 - no recent labs available - Diabetes Diabetes:: No - Weight Management Height: 5 ft 6 in Weight:: 137 lb Body Fat %:: 22.1 - Intervention Referral to dietitian:: No Referral to Diabetic Clinic:: No Will attend diet classes:: Yes - Education Gave educational materials for:: Healthy eating Tobacco - Initial Assessment - Program Goals Tobacco Program Goals: Complete smoking cessation. Attend education classes. Improve Knowledge Test score - Stage of Change Stages of Change:: Action - Learning Barriers Learning Barriers: Vision, Ready to Learn - Family Support Do you have family support?: Yes - Tobacco Use Tobacco Use: Non-smoker Do you use smokeless tobacco?: No - Intervention Smoking Cessation Referral:: No Individual Education/Counseling:: No Education Schedule Given:: Yes - Education Gave educational material for:: Coronary artery disease, Risk factors, Sexuality, Medical compliance, Cardiac A&P, Angina signs & symptoms Psychosocial - Initial Assess - Target Goals Target Goals: Assess presence or absence of depression. Using a valid screening tool, maximizes coping skills. Positive support system - Stages of Change Stages of Change:: Action - Psychosocial Test Tool Used:: HANDS Depression Questionnaire - Intervention PS - Interventions: Yes Attend Stress Management Classes, Yes Uses Stress Management Skills, No Referral to Mental Health, No Referral to [facility] Case Management, No Referral to Physician - Education Gave educational materials for:: Coping techniques, Signs & symptoms of depression, Stress management, Relaxation techniques - Patient/Program Goal Preventative Medication(s):: Aspirin, Clopidogrel, Beta ramo, Statin/lipid - Assistive Devices Assistive Devices:: None Fall Risk Assessed:: Yes Patient Health Questionnaire Initial Assessment 1. Little interest or pleasure in doing things: Not at all 2. Feeling down, depressed, or hopeless: Not at all 3. Trouble falling or staying asleep, or sleeping too much: Not at all 4. Feeling tired or having little energy: Not at all 5. Poor appetite or overeating: Not at all 6. Feeling bad about yourself -- or that you are a failure or have let yourself or your family down: Not at all 7. Trouble concentrating on things, such as reading the newspaper or watching television: Not at all 8. Moving or speaking so slowly that other people could have noticed. Or the opposite - being so fidgety or restless that you have been moving around a lot more than usual: Not at all 9. Thoughts that you would be better off , or of hurting yourself in some way: Not at all How difficult have these problems made it for you to do your work, take care of things at home, or get along with other people?: Not difficult at all Total Score: 0 MADHU-Q SV Test - Statements CAD is a disease of the arteries in the heart: False Examples of risk factors for heart disease: True Angina is chest pain or discomfort: True The benefits of resistance training include: True Eating more meat and dairy products: False Anti-platelet medications such as aspirin are important: I Don't Know The only effective way to manage stress: True An exercise warm-up slowly increases heart rate: True Prepared, processed foods usually have high sodium: True Depression is common after a heart attack: True The statin medications lower cholesterol: True To control blood pressure, lower the amount of sodium: True If someone gets chest discomfort during walking: False Transfats are partially hydrogenated vegetable oils: True Sleep apnea that is not treated increases the risk: I Don't Know To control cholesterol, one should become a vegetarian: False Someone knows if he/she is exercising at the right level: False Diabetes cannot be prevented with exercise & health eating: I Don't Know Stress is a large risk for heart attack: True A diet that can help lower blood pressure is rich in: True - Total Score Total Correct Responses: 15 Self-Efficacy Initial Assessment We would like to know how confident you are in doing certain activities. Please select your confidence level for:: Select your confidence level for the following using the scale 1-10 where 1 is not at all confident and 10 is totally confident. Your score is the average of all 6 responses. Fatigue: How confident are you that you can keep the fatigue caused by your disease from interfering with the things you want to do? Select Number: 7 Physical Discomfort or Pain: How confident are you that you can keep the physical discomfort or pain of your disease from interfering with the things you want to do? Select Number: 7 Emotional Distress: How confident are you that you can keep the emotional distress caused by your disease from interfering with the things you want to do? Select Number: 7 Other Symptoms or Health Problems: How confident are you that you can keep other symptoms or health problems from interfering with the things you want to do? Select Number: 7 Different Tasks and Activities: How confident are you that you can do the different tasks and activities needed to manage your health condition so as to reduce your need to see a doctor? Select Number: 7 Medication: How confident are you that you can do things other than just taking medication to reduce how much your illness affects your everyday life? Select Number: 10 Total Score:: 7 Nutrition Survey - Nutrition Survey Instructions Scoring Instructions: Scoring is as follows: Yes = 1 points. No = 0 point. Patient score that is >/=12 is considered to be at potential nutritional risk and could benefit from a referral to a registered dietitian. - Nutrition Survey Initial Have you lost >10 lbs over the past 2 months without trying?: No Are you following a special diet at home for diabetes, low fat, or low salt?: Yes Are you interested in meeting with a dietitian for help understanding your diet?: No Do you eat less than 3 meals a day?: No Do you eat fatty meats (tyler, sausage, ribs, etc), fried foods, desserts, large amounts of salad dressings, margarine, butter, or cheese most days?: No Do you have food allergies? [Enter types in comment field]: No Do you eat in restaurants more than 3 times a week?: No Do you season food with salt, seasoning salt, or garlic salt?: No Do you used canned, boxed, frozen meals, or soups, seasoning packets?: No Total Score:: 1
--- NOTE | 2018-10-15 09:24 | PCM.CR.HP2 ---
CR - History & Physical - General Arrival date:: 10/15/18 Arrival time:: 09:00 Date of Referral:: 10/01/18 Date of CR Evaluation:: 10/15/18 Referring Physician: Dr. Joseph Corley Primary Diagnosis: NSTEMI, HF w/EF <35% < 6mo. - History of Present Cardiac Event Onset Date: Enter Onset Date of cardiac illnesses in Comment field below Acute Myocardial Infarction within 12 months:: Yes - NSTEMI 09/11/2018 Heart Failure EF <35%:: Yes - 09/11/2018 Type of Symptoms:: CHEST PAIN WITH AN ACCELERATED HEART RATE; patient had a prior CABG x 3 in 1997 and woke up that morning with chest pain and tightness across her chest, she denied experiencing any significant shortness of breath. Had heart cath and no blockages and would treat with medication. Interventions with present event:: Admitted to hospital, overnight. Were there any complications?: none - Medications Home Medications: Ambulatory Orders Medication Instructions Recorded Cholecalciferol (Vitamin D3) 1 tab PO DAILY 06/14/13 [Vitamin D3] Levothyroxine [Synthroid] 125 mcg PO DAILY 06/14/13 Multivit-Min/FA/Lycopene/Lut 1 ea PO DAILY 06/14/13 [Centrum Silver Tablet] [place]-3 Fatty Acids [Fish Oil] 2,000 mg PO BID 06/14/13 Carbidopa/Levodopa 1.5 tab PO TID 09/09/18 [Carbidopa-Levodopa 25-100 Tab] Ciclopirox 1 applicatio TP QHS 09/09/18 L.acidoph,Paracasei, B.lactis 1 ea PO DAILY 09/09/18 [Probiotic] Ubidecarenone [Coq-10] 200 mg PO DAILY 09/09/18 Rivaroxaban [Xarelto] 20 mg PO DINNER #0 09/12/18 atorvastatin 20 mg tablet 20 mg PO QHS #90 tab 10/01/18 carvedilol 6.25 mg tablet 6.25 mg PO BID #180 tab 10/01/18 clopidogrel 75 mg tablet 75 mg PO DAILY #90 tab 10/01/18 furosemide 40 mg tablet 40 mg PO DAILY #90 tab 10/01/18 losartan 25 mg tablet 25 mg PO BID #180 tab 10/01/18 potassium chloride ER 20 mEq 20 meq PO DINNER #90 tab 10/01/18 tablet,extended release(part/cryst) - Allergies Allergies/Adverse Reactions: Allergies pravastatin Adverse Reaction (Severe, Verified 09/30/18 09:36) myalgias colesevelam [From WelChol] Adverse Reaction (Intermediate, Verified 09/30/18 09:36) Not effective ezetimibe [From Zetia] Adverse Reaction (Intermediate, Verified 09/30/18 09:36) GI upset Influenza Virus Vaccines Adverse Reaction (Intermediate, Verified 09/30/18 09:36) Visual changes, lightheaded niacin Adverse Reaction (Intermediate, Verified 09/30/18 09:36) sweats - Sleep Disorder Evaluation Hx of Sleep Apnea: No Do you snore loudly (louder than talking or can be heard through closed doors)?: Yes - states once in a while, but not continuously. Do you often feel tired/ fatigued/ sleepy during daytime?: No Has anyone observed you stop breathing during sleep?: No History of Hypertension (for STOP score): Yes STOP Results: Positive Advanced Directives - Advanced Directives Power of Ultrasound Sonographer: Yes - and son Living Will: Yes Advance Directives Information Provided: No Advance Directives on File: Yes DNR Order?:: No - MOLST See MOLST form: No Past Medical History - Past Medical Illness Medical History: Past Medical History (Last Reviewed 10/01/18 @ 14:54 by Nerissa Roche) History of left heart catheterization (Chronic) Onset Date: 09/11/18 Z98.890 Bifurcating LOPEZ graft to the LAD and DIAG is patent with mild to moderate [place] mid/distal LAD 50% stenosis, high risk for PCI given need to traverse down LOPEZ and severe LV dysfunction. Saphenous Vein graft to the RCA previously placed stent is patent, with 75% mid PDA stenosis, not amenable to PCI given need to traverse through graft, then acute angle into PDA, of questionable benefit given severe LV dysfunction Atrial fibrillation (Chronic) I48.91 Coronary artery disease (Chronic) I25.10 Hypertension (Chronic) I10 Hypercholesterolemia (Chronic) E78.00 Non-STEMI (non-ST elevated myocardial infarction) (Acute) Onset Date: 09/10/18 I21.4 Hypothyroidism (Chronic) E03.9 Parkinson's disease (Chronic) G20 - Past Surgical History Surgical History: Past Surgical History (Last Reviewed 10/01/18 @ 14:54 by Nerissa Roche) History of coronary artery bypass graft x 3 (Chronic) Onset Date: 08/22/98 Z95.1 [facility] [place]:LOPEZ to LAD, left radial to OM of CX and free MYNOR to PDA of RCA per Dr. Laz Barreto History of colonoscopy Onset Date: 06/25/07 Z98.890 History of laparoscopic cholecystectomy Onset Date: 06/15/[address] Kulwinder Rosas; umbilical hernia repair done concomitantly with lap cholecystectomy History of tubal ligation Onset Date: 1969 Z98.51 History of umbilical hernia repair Onset Date: 06/15/13 Z98.890, Z87.[address] 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 - Hobbies, Recreation, Social Activities Hobbies: Other - Casino, Bingo, Recreational Activities: I am able to engage in all my recreational activities Social Environment - Status Marital Status: - Current Living Arrangements Living Environment:: Spouse - Children How many children do you have?: 3 Do any of your children live nearby?: Yes - Safety Do you feel safe in your surroundings?: Yes - Assistance Do you need any assistance at home?: none Review of Systems - Review of Systems Hints: Right click = Denies (Slash). Left click = Reports ([place]) Review of Present Symptoms: Reports: Heart Arrhythmia/Irregularities - Atrial fibrillation over the last 12-16 months., Appetite - Normal - eats three small meals daily, and feels full quickly., Sleep - Normal. Denies: Shortness of Breath at Rest, Shortness of Breath with Exertion, Angina, Dizziness/Lightheadedness - usually sits on the bedside for a few minutes before walking, on occasion finds she gets a little dizziness if she moves to quickly so she just takes it slow. She uses the hand rails on the stairs also., Fatigue, Sexual Changes - Pain Is Patient Pain Free?: Yes Pain Location: none - Goes to Dr. Kimbrough in [place] for bilateral injections in her knees. She has very thin cartilage in both knees. Risk Factor Assessment - Vital Signs Temperature: 98.7 F Respiratory Rate: 12 Blood Pressure: 110/50 Nailbeds:: pink - Pulse Pulse Rate: 76 Pulse Rhythm: Regular - Hypertension How long have you been treated?: Since 1997, she believes. On medication(s)?: yes Blood Pressure Sitting - Left Arm: 110/50 - Stress Stress: - - worries alot about little things. - Blood Cholesterol/Lipids Total Cholesterol (mg/dL) Goal = less than 200 mg/dL: 0 - no recent labs available - Diabetes Nutrition Referral for Diabetes: No - Obesity Height: 5 ft 6 in Weight:: 137 lb Weight in Pounds: 137.0 lbs Weight Source: Estimated by Patient Body Mass Index (BMI): 22.1 Nutritional Referral for Obesity: No - Physical Inactivity Physical Inactivity: None - prior to incident, patient was exercising routinely at [place]. - Risk Stratification Risk Guidelines: Lowest Risk: Risk Factor for Smoking, Risk Factor for Dyslipidemia, Risk Factor for Diabetes, Risk Factor for Obesity, Risk Factor for Hypertension, Risk Factor for Depression, Moderate Risk: Risk Factor for Sedentary Lifestyle - For Smoking Smoking Risk Guidelines: Smoking Low Risk: None or quit greater than 6 months ago. Smoking Moderate Risk: Smoker or quit 6 months or less ago. Smoking High Risk: Smoker - For Dyslipidemia Dyslipidemia Risk Guidelines: Low Risk: Moderate Risk: High Risk: 15-25% fat 25.1-29% fat >/= 30% fat. <7% sat fat 7-9% sat fat >9% sat fat. <150 mg chol 150-299 mg chol >/= 300 mg chol. LDL <100 LDL 100-129 LDL >/= 130. Chol/HDL ratio <5.0 Chol/HDL ratio 5.0-6.0 Chol/HDL ratio >6.0. Triglycerides <100 Triglycerides 100-149 Triglycerides >/= 150 - For Diabetes Mellitus Diabetes Risk Guidelines: Diabetes Low Risk: HgA1c <6.5% and/or FBG <120. Diabetes Moderate Risk: HgA1c 6.6-7.9% and/or FBG 120-180. Diabetes High Risk: HgA1c >/= 8% and/or FBG >180 - For Obesity/Overweight Obesity/Overweight Risk Guidelines: Obesity Low Risk: BMI <25.0. Obesity Moderate Risk: BMI 25-29.9. Obesity High Risk: BMI >/= 30.0 - For Hypertension Hypertension Risk Guidelines: Hypertension Low Risk: Systolic <120 and Diastolic <80. Hypertension Moderate Risk: Systolic 120-139 and Diastolic 80-89. Hypertension High Risk: Systolic >/= 140 and Diastolic >/= 90 - For Sedentary Lifestyle Sedentary Lifestyle Risk Guidelines: Sedentary Lifestyle Low Risk: >/= 1,500 kcal/week. Sedentary Lifestyle Moderate Risk: 700-1,499 kcal/week. Sedentary Lifestyle High Risk: < 700 kcal/week - For Depression Depression Risk Guidelines: Depression Low Risk: Not clinically depressed. Depression Moderate Risk: Mildly depressed. Depression High Risk: Clinically depressed - Family History Family History: Family History (Last Reviewed 10/01/18 @ 14:54 by Nerissa Roche) Sister Alzheimer's disease Motivation - Motivation to Participate On a scale of 1 to 10, how prepared are you to commit to attending program?: 10 What do you see as barriers to successfully being able to complete the program?: believe it will be good for me, so nothing. What do you see as the benefits of succesfully completing the program? In other words, what do you hope to get out of participating in the program?: better health Are there issues you are dealing with that will interfere with completing the program?: none Do you have a spouse or signficant other, family or friends who will help support you to complete the program?: yes.
--- NOTE | 2018-10-15 09:28 | CR.HP_ITS ---
CR - History & Physical - General Arrival date:: 10/15/18 Arrival time:: 09:00 Date of Referral:: 10/01/18 Date of CR Evaluation:: 10/15/18 Referring Physician: Dr. Joseph Corley Primary Diagnosis: NSTEMI, HF w/EF <35% < 6mo. - History of Present Cardiac Event Onset Date: Enter Onset Date of cardiac illnesses in Comment field below Acute Myocardial Infarction within 12 months:: Yes - NSTEMI 09/11/2018 Heart Failure EF <35%:: Yes - 09/11/2018 Type of Symptoms:: CHEST PAIN WITH AN ACCELERATED HEART RATE; patient had a prior CABG x 3 in 1997 and woke up that morning with chest pain and tightness across her chest, she denied experiencing any significant shortness of breath. Had heart cath and no blockages and would treat with medication. Interventions with present event:: Admitted to hospital, overnight. Were there any complications?: none - Medications Home Medications: Ambulatory Orders Medication Instructions Recorded Cholecalciferol (Vitamin D3) 1 tab PO DAILY 06/14/13 [Vitamin D3] Levothyroxine [Synthroid] 125 mcg PO DAILY 06/14/13 Multivit-Min/FA/Lycopene/Lut 1 ea PO DAILY 06/14/13 [Centrum Silver Tablet] [place]-3 Fatty Acids [Fish Oil] 2,000 mg PO BID 06/14/13 Carbidopa/Levodopa 1.5 tab PO TID 09/09/18 [Carbidopa-Levodopa 25-100 Tab] Ciclopirox 1 applicatio TP QHS 09/09/18 L.acidoph,Paracasei, B.lactis 1 ea PO DAILY 09/09/18 [Probiotic] Ubidecarenone [Coq-10] 200 mg PO DAILY 09/09/18 Rivaroxaban [Xarelto] 20 mg PO DINNER #0 09/12/18 atorvastatin 20 mg tablet 20 mg PO QHS #90 tab 10/01/18 carvedilol 6.25 mg tablet 6.25 mg PO BID #180 tab 10/01/18 clopidogrel 75 mg tablet 75 mg PO DAILY #90 tab 10/01/18 furosemide 40 mg tablet 40 mg PO DAILY #90 tab 10/01/18 losartan 25 mg tablet 25 mg PO BID #180 tab 10/01/18 potassium chloride ER 20 mEq 20 meq PO DINNER #90 tab 10/01/18 tablet,extended release(part/cryst) - Allergies Allergies/Adverse Reactions: Allergies pravastatin Adverse Reaction (Severe, Verified 09/30/18 09:36) myalgias colesevelam [From WelChol] Adverse Reaction (Intermediate, Verified 09/30/18 09:36) Not effective ezetimibe [From Zetia] Adverse Reaction (Intermediate, Verified 09/30/18 09:36) GI upset Influenza Virus Vaccines Adverse Reaction (Intermediate, Verified 09/30/18 09:36) Visual changes, lightheaded niacin Adverse Reaction (Intermediate, Verified 09/30/18 09:36) sweats - Sleep Disorder Evaluation Hx of Sleep Apnea: No Do you snore loudly (louder than talking or can be heard through closed doors)?: Yes - states once in a while, but not continuously. Do you often feel tired/ fatigued/ sleepy during daytime?: No Has anyone observed you stop breathing during sleep?: No History of Hypertension (for STOP score): Yes STOP Results: Positive Advanced Directives - Advanced Directives Power of Plumber Cub: Yes - and son Living Will: Yes Advance Directives Information Provided: No Advance Directives on File: Yes DNR Order?:: No - MOLST See MOLST form: No Past Medical History - Past Medical Illness Medical History: Past Medical History (Last Reviewed 10/01/18 @ 14:54 by Nerissa Roche) History of left heart catheterization (Chronic) Onset Date: 09/11/18 Z98.890 Bifurcating LOPEZ graft to the LAD and DIAG is patent with mild to moderate jackson mid/distal LAD 50% stenosis, high risk for PCI given need to traverse down LOPEZ and severe LV dysfunction. Saphenous Vein graft to the RCA previously placed stent is patent, with 75% mid PDA stenosis, not amenable to PCI given need to traverse through graft, then acute angle into PDA, of questionable benefit given severe LV dysfunction Atrial fibrillation (Chronic) I48.91 Coronary artery disease (Chronic) I25.10 Hypertension (Chronic) I10 Hypercholesterolemia (Chronic) E78.00 Non-STEMI (non-ST elevated myocardial infarction) (Acute) Onset Date: 09/10/18 I21.4 Hypothyroidism (Chronic) E03.9 Parkinson's disease (Chronic) G20 - Past Surgical History Surgical History: Past Surgical History (Last Reviewed 10/01/18 @ 14:54 by Nerissa Roche) History of coronary artery bypass graft x 3 (Chronic) Onset Date: 08/22/98 Z95.1 [facility] [place]:LOPEZ to LAD, left radial to OM of CX and free MYNOR to PDA of RCA per Dr. Laz Barreto History of colonoscopy Onset Date: 06/25/07 Z98.890 History of laparoscopic cholecystectomy Onset Date: 06/15/[address] Kulwinder Rosas; umbilical hernia repair done concomitantly with lap cholecystectomy History of tubal ligation Onset Date: 1969 Z98.51 History of umbilical hernia repair Onset Date: 06/15/13 Z98.890, Z87.[address] 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 - Hobbies, Recreation, Social Activities Hobbies: Other - Casino, Bingo, Recreational Activities: I am able to engage in all my recreational activities Social Environment - Status Marital Status: - Current Living Arrangements Living Environment:: Spouse - Children How many children do you have?: 3 Do any of your children live nearby?: Yes - Safety Do you feel safe in your surroundings?: Yes - Assistance Do you need any assistance at home?: none Review of Systems - Review of Systems Hints: Right click = Denies (Slash). Left click = Reports ([place]) Review of Present Symptoms: Reports: Heart Arrhythmia/Irregularities - Atrial fibrillation over the last 12-16 months., Appetite - Normal - eats three small meals daily, and feels full quickly., Sleep - Normal. Denies: Shortness of Breath at Rest, Shortness of Breath with Exertion, Angina, D izziness/Lightheadedness - usually sits on the bedside for a few minutes before walking, on occasion finds she gets a little dizziness if she moves to quickly so she just takes it slow. She uses the hand rails on the stairs also., Fatigue, Sexual Changes - Pain Is Patient Pain Free?: Yes Pain Location: none - Goes to Dr. Kimbrough in [place] for bilateral injections in her knees. She has very thin cartilage in both knees. Risk Factor Assessment - Vital Signs Temperature: 98.7 F Respiratory Rate: 12 Blood Pressure: 110/50 Nailbeds:: pink - Pulse Pulse Rate: 76 Pulse Rhythm: Regular - Hypertension How long have you been treated?: Since 1997, she believes. On medication(s)?: yes Blood Pressure Sitting - Left Arm: 110/50 - Stress Stress: - - worries alot about little things. - Blood Cholesterol/Lipids Total Cholesterol (mg/dL) Goal = less than 200 mg/dL: 0 - no recent labs available - Diabetes Nutrition Referral for Diabetes: No - Obesity Height: 5 ft 6 in Weight:: 137 lb Weight in Pounds: 137.0 lbs Weight Source: Estimated by Patient Body Mass Index (BMI): 22.1 Nutritional Referral for Obesity: No - Physical Inactivity Physical Inactivity: None - prior to incident, patient was exercising routinely at [employer]. - Risk Stratification Risk Guidelines: Lowest Risk: Risk Factor for Smoking, Risk Factor for Dyslipidemia, Risk Factor for Diabetes, Risk Factor for Obesity, Risk Factor for Hypertension, Risk Factor for Depression, Moderate Risk: Risk Factor for Sedentary Lifestyle - For Smoking Smoking Risk Guidelines: Smoking Low Risk: None or quit greater than 6 months ago. Smoking Moderate Risk: Smoker or quit 6 months or less ago. Smoking High Risk: Smoker - For Dyslipidemia Dyslipidemia Risk Guidelines: Low Risk: Moderate Risk: High Risk: 15-25% fat 25.1-29% fat >/= 30% fat. <7% sat fat 7-9% sat fat >9% sat fat. <150 mg chol 150-299 mg chol >/= 300 mg chol. LDL <100 LDL 100-129 LDL >/= 130. Chol/HDL ratio <5.0 Chol/HDL ratio 5.0-6.0 Chol/HDL ratio >6.0. Triglycerides <100 Triglycerides 100-149 Triglycerides >/= 150 - For Diabetes Mellitus Diabetes Risk Guidelines: Diabetes Low Risk: HgA1c <6.5% and/or FBG <120. Diabetes Moderate Risk: HgA1c 6.6-7.9% and/or FBG 120-180. Diabetes High Risk: HgA1c >/= 8% and/or FBG >180 - For Obesity/Overweight Obesity/Overweight Risk Guidelines: Obesity Low Risk: BMI <25.0. Obesity Moderate Risk: BMI 25-29.9. Obesity High Risk: BMI >/= 30.0 - For Hypertension Hypertension Risk Guidelines: Hypertension Low Risk: Systolic <120 and Diastolic <80. Hypertension Moderate Risk: Systolic 120-139 and Diastolic 80-89. Hypertension High Risk: Systolic >/= 140 and Diastolic >/= 90 - For Sedentary Lifestyle Sedentary Lifestyle Risk Guidelines: Sedentary Lifestyle Low Risk: >/= 1,500 kcal/week. Sedentary Lifestyle Moderate Risk: 700-1,499 kcal/week. Sedentary Lifestyle High Risk: < 700 kcal/week - For Depression Depression Risk Guidelines: Depression Low Risk: Not clinically depressed. Depression Moderate Risk: Mildly depressed. Depression High Risk: Clinically depressed - Family History Family History: Family History (Last Reviewed 10/01/18 @ 14:54 by Nerissa Roche) Sister Alzheimer's disease Motivation - Motivation to Participate On a scale of 1 to 10, how prepared are you to commit to attending program?: 10 What do you see as barriers to successfully being able to complete the program?: believe it will be good for me, so nothing. What do you see as the benefits of succesfully completing the program? In other words, what do you hope to get out of participating in the program?: better health Are there issues you are dealing with that will interfere with completing the program?: none Do you have a spouse or signficant other, family or friends who will help support you to complete the program?: yes.
[2018-10-15 09:46] VITALS: BP 110/50
[2018-10-15 10:04] VITALS: BP 110/50; PULSE 76; RESP 12; TEMP 37.1; BMI 22.1
== END ==
PROVIDERS: Family Provider Internal Medicine; PCP Internal Medicine; Referring Provider Internal Medicine Cardiovascular Disease; Visit Provider Internal Medicine Cardiovascular Disease
DX: I25.5 Ischemic cardiomyopathy (principal); I25.2 Old myocardial infarction

== ENCOUNTER 2018-10-19 06:53 | Outpatient (RCR) | payer MEDICARE, SELFPAY ==
[2018-10-15 10:04] VITALS: BMI 22.1
--- NOTE | 2018-10-23 09:32 | EKG12_ITS ---
Test Reason : ST CHANGES Blood Pressure : / mmHG Vent. Rate : 108 BPM Atrial Rate : 141 BPM P-R Int : 000 ms QRS Dur : 094 ms QT Int : 308 ms P-R-T Axes : 000 011 198 degrees QTc Int : 412 ms Atrial fibrillation Marked ST abnormality, possible inferior subendocardial injury Abnormal ECG When compared with ECG of 11-SEP-2018 05:22, ST now depressed in Anterior leads T wave inversion now evident in Inferior leads T wave inversion more evident in Anterolateral leads QT has shortened Confirmed by SHAMEKA CHATMAN, LUIS ([id number]), staff editor IBIS MOSCOSO ([id number]) on 11/03/2018 1:20:49 PM Referred By: Joseph Corley Confirmed By:LUIS MYLES MD
== END 2018-10-29 23:59 ==
LOC: CR 06:53
PROVIDERS: Family Provider Internal Medicine; PCP Internal Medicine; Referring Provider Internal Medicine Cardiovascular Disease; Visit Provider Internal Medicine Cardiovascular Disease
DX: I21.4 Non-ST elevation (NSTEMI) myocardial infarction (principal); I25.5 Ischemic cardiomyopathy
CPT/HCPCS: 93005; 93798

== ENCOUNTER 2018-11-25 09:15 | Outpatient (RCR) | payer MEDICARE, SELFPAY ==
[2018-10-15 10:04] VITALS: BMI 22.1
--- NOTE | 2018-11-11 11:40 | PCM.CR.ITP ---
General Information - General Information Admitting Diagnosis: NSTEMI - Education/Goals Cardiac Rehabilitation Goals: 1. Maintain the individual as the primary focus of care. 2. To improve the patient's quality of life. 3. Identification of cardiac risk factors and provide cardiac risk factor management. 4. Enhance the psychosocial status of the patient. 5. Reconditioning enough to allow the patient to resume customary activities. 6. Control symptoms of cardiac disease Scale for measuring improvement of personal goals: Enter appropriate number in Comments. 2 = Unchanged. 3 = Slightly Better. 4 = Moderate Improvement. 5 = Met my Goal Exercise - 30-day Assessment - Visit Date of Eval: 11/11/18 Session #:: 5 - Stages of Change Stages of Change:: Action - Physician Prescribed Exercise Modalities: Treadmill, NuStep Intensity: 60-80% age predicted maximum heart rate reserve METs - Progression: 0.5-1.0 MET, RPE 11-14 WEEK: 2.5 Target Heart Rate:: 99-106 Max HR 148 - Hypertension Resting Blood Pressure:: 102/62 Peak Exercise Blood Pressure:: 124/76 - Intervention Home Exercise/Activity Goal:: Sitting Time <3 hrs/day - Education Goals:: Warm-up, RPE PERTOS Scale, S/S, Safe Exercise, Self-Monitoring - Exercise Program Goals Exercise Program Goals: Aerobic Activity >30 min, B/P <130/80 Nutrition - 30-Day Assessment - Program Goals Nutrition Program Goals: LDL <70. Total Cholesterol <200. HDL >45. Triglycerides <150. HgbA1C <7%. BMI <25 - Visit Date of Eval: 11/11/18 - Stages of Change Stages of Change:: Action - Diabetes Diabetes:: No - Weight Management Weight:: 63.957 kg - Intervention Referral to dietitian:: No Referral to Diabetic Clinic:: No Will attend diet classes:: Yes - Education Attended class for:: Signs & symptoms of hypoglycemia, Signs & symptoms of hyperglycemia, Relate diabetes to coronary artery disease, Healthy eating Tobacco - Initial Assessment - Program Goals Tobacco Program Goals: Complete smoking cessation. Attend education classes. Improve Knowledge Test score - Learning Barriers Learning Barriers: Vision, Ready to Learn Tobacco - 30-Day Assessment - Program Goals Tobacco Program Goals: Complete smoking cessation. Attend education classes. Improve Knowledge Test score - Stage of Change Stages of Change:: Action - Learning Barriers Learning Barriers: Participates in education - Family Support Do you have family support?: Yes - Tobacco Use Tobacco Use: Non-smoker Do you use smokeless tobacco?: No - Intervention Smoking Cessation Referral:: No Individual Education/Counseling:: No Education Schedule Given:: Yes - Education Attended class for:: Tobacco triggers, Coronary artery disease, Risk factors, Sexuality, Medical compliance, Cardiac A&P, Angina signs & symptoms Psychosocial - Initial Assess - Target Goals Target Goals: Assess presence or absence of depression. Using a valid screening tool, maximizes coping skills. Positive support system - Psychosocial Test Tool Used:: HANDS Depression Questionnaire - Assistive Devices Fall Risk Assessed:: Yes Psychosocial - 30-Day Assess - Target Goals Target Goals: Assess presence or absence of depression. Using a valid screening tool, maximizes coping skills. Positive support system - Stages of Change Stages of Change:: Action - Psychosocial Test Tool Used:: HANDS Depression Questionnaire - Intervention PS - Interventions: Yes Attend Stress Management Classes, Yes Uses Stress Management Skills, No Referral to Mental Health, No Referral to [facility] Case Management, No Referral to Physician - Education Attended classes for:: Coping techniques, Signs & symptoms of depression, Stress management, Relaxation techniques - Assistive Devices Assistive Devices:: None Fall Risk Assessed:: Yes Patient Health Questionnaire 30-Day Re-eval Assessment 1. Little interest or pleasure in doing things: Not at all 2. Feeling down, depressed, or hopeless: Not at all 3. Trouble falling or staying asleep, or sleeping too much: Not at all 4. Feeling tired or having little energy: Not at all 5. Poor appetite or overeating: Not at all 6. Feeling bad about yourself -- or that you are a failure or have let yourself or your family down: Not at all 7. Trouble concentrating on things, such as reading the newspaper or watching television: Not at all 8. Moving or speaking so slowly that other people could have noticed. Or the opposite - being so fidgety or restless that you have been moving around a lot more than usual: Not at all 9. Thoughts that you would be better off , or of hurting yourself in some way: Not at all How difficult have these problems made it for you to do your work, take care of things at home, or get along with other people?: Not difficult at all Total Score: 0 Self-Efficacy 30-Day Re-eval Assessment We would like to know how confident you are in doing certain activities. Please select your confidence level for:: Select your confidence level for the following using the scale 1-10 where 1 is not at all confident and 10 is totally confident. Your score is the average of all 6 responses. Fatigue: How confident are you that you can keep the fatigue caused by your disease from interfering with the things you want to do? Select Number: 7 Physical Discomfort or Pain: How confident are you that you can keep the physical discomfort or pain of your disease from interfering with the things you want to do? Select Number: 7 Emotional Distress: How confident are you that you can keep the emotional distress caused by your disease from interfering with the things you want to do? Select Number: 7 Other Symptoms or Health Problems: How confident are you that you can keep other symptoms or health problems from interfering with the things you want to do? Select Number: 7 Different Tasks and Activities: How confident are you that you can do the different tasks and activities needed to manage your health condition so as to reduce your need to see a doctor? Select Number: 7 Medication: How confident are you that you can do things other than just taking medication to reduce how much your illness affects your everyday life? Select Number: 10 Total Score:: 7
[2018-11-11 11:45] VITALS: BP 102/62; BP 124/76
== END 2018-11-29 23:59 ==
LOC: CR 09:15
PROVIDERS: Family Provider Internal Medicine; PCP Internal Medicine; Referring Provider Internal Medicine Cardiovascular Disease; Visit Provider Internal Medicine Cardiovascular Disease
DX: I21.4 Non-ST elevation (NSTEMI) myocardial infarction (principal); I25.5 Ischemic cardiomyopathy
CPT/HCPCS: 93798

== ENCOUNTER 2018-11-30 08:33 | Outpatient (RCR) | payer MEDICARE, SELFPAY ==
[2018-10-15 10:04] VITALS: BMI 22.1
[2018-11-30 01:19] VITALS: BP 102/62; BP 124/76
--- NOTE | 2018-12-11 08:20 | CR.ITP_ITS ---
General Information - General Information Admitting Diagnosis: NSTEMI - Education/Goals Cardiac Rehabilitation Goals: 1. Maintain the individual as the primary focus of care. 2. To improve the patient's quality of life. 3. Identification of cardiac risk factors and provide cardiac risk factor management. 4. Enhance the psychosocial status of the patient. 5. Reconditioning enough to allow the patient to resume customary activities. 6. Control symptoms of cardiac disease Scale for measuring improvement of personal goals: Enter appropriate number in Comments. 2 = Unchanged. 3 = Slightly Better. 4 = Moderate Improvement. 5 = Met my Goal Exercise - 60-Day Assessment - Visit Date of Eval: 12/11/18 Session #:: 12 - Stages of Change Stages of Change:: Action - Physician Prescribed Exercise Modalities: Treadmill, NuStep Intensity: 60-80% age predicted maximum heart rate reserve Target Heart Rate:: 99-106 Max HR 122 - Hypertension Resting Blood Pressure:: 122/58 Peak Exercise Blood Pressure:: 128/68 - Intervention Home Exercise/Activity Goal:: Sitting Time <3 hrs/day - Education Goals:: Warm-up, RPE PETROS Scale, S/S, Safe Exercise, Self-Monitoring - Exercise Program Goals Exercise Program Goals: Aerobic Activity >30 min, B/P <130/80 Nutrition - 60-Day Assessment - Program Goals Nutrition Program Goals: LDL <70. Total Cholesterol <200. HDL >45. Triglycerides <150. HgbA1C <7%. BMI <25 - Visit Date of Eval: 12/11/18 - Stages of Change Stages of Change:: Action - Weight Management Weight:: 64.41 kg - Intervention Referral to dietitian:: No Referral to Diabetic Clinic:: No Will attend diet classes:: Yes - Education Attended class for:: Signs & symptoms of hypoglycemia, Signs & symptoms of hyperglycemia, Relate diabetes to coronary artery disease, Healthy eating Tobacco - Initial Assessment - Program Goals Tobacco Program Goals: Complete smoking cessation. Attend education classes. Improve Knowledge Test score - Learning Barriers Learning Barriers: Vision, Ready to Learn Tobacco - 60-Day Assessment - Program Goals Tobacco Program Goals: Complete smoking cessation. Attend education classes. Improve Knowledge Test score - Stage of Change Stages of Change:: Action - Learning Barriers Learning Barriers: Participates in education - Family Support Do you have family support?: Yes - Tobacco Use Tobacco Use: Non-smoker Do you use smokeless tobacco?: No - Intervention Smoking Cessation Referral:: No Individual Education/Counseling:: No Education Schedule Given:: Yes - Education Attended class for:: Tobacco triggers, Coronary artery disease, Risk factors, Sexuality, Medical compliance, Cardiac A&P, Angina signs & symptoms Psychosocial - Initial Assess - Target Goals Target Goals: Assess presence or absence of depression. Using a valid screening tool, maximizes coping skills. Positive support system - Psychosocial Test Tool Used:: HANDS Depression Questionnaire - Assistive Devices Fall Risk Assessed:: Yes Psychosocial - 60-Day Assess - Target Goals Target Goals: Assess presence or absence of depression. Using a valid screening tool, maximizes coping skills. Positive support system - Stages of Change Stages of Change:: Action - Psychosocial Test Tool Used:: HANDS Depression Questionnaire - Intervention PS - Interventions: Yes Attend Stress Management Classes, Yes Uses Stress Management Skills, No Referral to Mental Health, No Referral to [facility] Case Management, No Referral to Physician - Education Attended classes for:: Coping techniques, Signs & symptoms of depression, Stress management, Relaxation techniques - Assistive Devices Assistive Devices:: None Fall Risk Assessed:: Yes Patient Health Questionnaire 60-Day Re-eval Assessment 1. Little interest or pleasure in doing things: Not at all 2. Feeling down, depressed, or hopeless: Not at all 3. Trouble falling or staying asleep, or sleeping too much: Not at all 4. Feeling tired or having little energy: Not at all 5. Poor appetite or overeating: Not at all 6. Feeling bad about yourself -- or that you are a failure or have let yourself or your family down: Not at all 7. Trouble concentrating on things, such as reading the newspaper or watching television: Not at all 8. Moving or speaking so slowly that other people could have noticed. Or the opposite - being so fidgety or restless that you have been moving around a lot more than usual: Not at all 9. Thoughts that you would be better off , or of hurting yourself in some way: Not at all How difficult have these problems made it for you to do your work, take care of things at home, or get along with other people?: Not difficult at all Total Score: 0 Self-Efficacy 60-Day Re-eval Assessment We would like to know how confident you are in doing certain activities. Please select your confidence level for:: Select your confidence level for the following using the scale 1-10 where 1 is not at all confident and 10 is totally confident. Your score is the average of all 6 responses. Fatigue: How confident are you that you can keep the fatigue caused by your disease from interfering with the things you want to do? Select Number: 7 Physical Discomfort or Pain: How confident are you that you can keep the physical discomfort or pain of your disease from interfering with the things you want to do? Select Number: 7 Emotional Distress: How confident are you that you can keep the emotional distress caused by your disease from interfering with the things you want to do? Select Number: 7 Other Symptoms or Health Problems: How confident are you that you can keep other symptoms or health problems from interfering with the things you want to do? Select Number: 7 Different Tasks and Activities: How confident are you that you can do the different tasks and activities needed to manage your health condition so as to reduce your need to see a doctor? Select Number: 7 Medication: How confident are you that you can do things other than just taking medication to reduce how much your illness affects your everyday life? Select Number: 10 Total Score:: 7
[2018-12-11 08:22] VITALS: BP 122/58; BP 128/68
== END 2018-12-29 23:59 ==
LOC: CR 08:33
PROVIDERS: Family Provider Internal Medicine; PCP Internal Medicine; Referring Provider Internal Medicine Cardiovascular Disease; Visit Provider Internal Medicine Cardiovascular Disease
DX: I21.4 Non-ST elevation (NSTEMI) myocardial infarction (principal); I25.5 Ischemic cardiomyopathy
CPT/HCPCS: 93798

== ENCOUNTER 2018-12-16 08:53 | Day surgery (SDC) | payer MEDICARE, SELFPAY ==
[2018-12-01 10:30] VITALS: BMI 22.1
--- NOTE | 2018-12-01 11:02 | HP_ITS ---
HPI HPI Surgical H&P: No Details: Details: The patient is a 78 year old F, former patient of Dr. Moura'senait with a history of hypertension, hypercholesterolemia, coronary artery disease status post three-vessel bypass surgery at the [facility] approximately 20 years ago in 1997, had never had a repeat catheterization upt to 09/11/18, with chronic atrial fibrillation on chronic Xarelto therapy. The patient was doing well up until around 615 on the morning of 09/09/18 when she developed new onset substernal chest pain and pressure with associated shortness of breath. The patient apparently had not been feeling well over the last several days but had not had any anginal symptoms. Initially her EKG showed her to be in rapid atrial fibrillation with dynamic lateral ST segment depression and lateral T wave inversion. Her initial troponin was 3.0, and then increased to 5.2. Patient's heart rate was controlled, and her symptoms completely resolved. A 2D echo with Doppler was performed on 09/09/18 which demonstrated moderate to severe LV dysfunction with an EF around 25-30%, and at least mild pulmonary hypertension with an RVSP of around 45 mmHg. Patient has severe left atrial enlargement and moderate right atrial enlargement. She also has evidence of wall motion abnormality consistent with anteroseptal hypokinesis. Patient underwent diagnostic coronary angiogram by myself on 09/11/18 which showed the following results: Triple vessel CAD of the LM, LAD, LCX and RCA. Widely patent Y graft from LOPEZ to LAD/DIAG. Widely patent SVG to PDA. Global LV systolic dysfunction- Severe Medical management was recommended, the patient is now here in follow-up. Patient was treated with Coreg, Plavix in place of asa, Lasix, losartan and amio and Xarelto. Since discharge, patient feels markedly better. This is confirmed by her family. She denies any chest pain, angina, shortness of breath or dyspnea on exertion. She denies any lower extremity edema. She is taking and tolerating her medicines well. She has been on amiodarone for about a month's time, and continues in cardiac rehab without any difficulty In our office today her blood pressure is 110/60, pulse is 90 and irregular. Her physical exam is as below. Lipids are pending. EKG today 12/01/18 shows atrial fibrillation with controlled ventricular response, old anteroseptal wall myocardial infarction, PVC, QT corrected of approximately 414 msec. Intake Vital Signs 12/01/18 Height 5 ft 7 in 12/01/18 Weight: 141 lb 12/01/18 Body Mass Index (BMI) 22.1 12/01/18 Blood Pressure 110/60 12/01/18 Blood Pressure Location Lt brachial 12/01/18 Blood Pressure Position Sitting 12/01/18 Respiratory Rate 20 H 12/01/18 Pulse Rate 90 12/01/18 Pulse Source Monitor Intake Visit Reasons: 3 wk f/u to see if Amio is working Allergies pravastatin Adverse Reaction (Severe, Verified 12/01/18 10:45) myalgias colesevelam [From WelChol] Adverse Reaction (Intermediate, Verified 12/01/18 10:45) Not effective ezetimibe [From Zetia] Adverse Reaction (Intermediate, Verified 12/01/18 10:45) GI upset Influenza Virus Vaccines Adverse Reaction (Intermediate, Verified 12/01/18 10:45) Visual changes, lightheaded niacin Adverse Reaction (Intermediate, Verified 12/01/18 10:45) sweats Medications Cholecalciferol (Vitamin D3) [Vitamin D3] 1 tab PO DAILY 06/14/13 [History Confirmed 12/01/18] Levothyroxine [Synthroid] 125 mcg PO DAILY 06/14/13 [History Confirmed 12/01/18] Multivit-Min/FA/Lycopene/Lut [Centrum Silver Tablet] 1 ea PO DAILY 06/14/13 [History Confirmed 12/01/18] [place]-3 Fatty Acids [Fish Oil] 2,000 mg PO BID 06/14/13 [History Confirmed 12/01/18] Carbidopa/Levodopa [Carbidopa-Levodopa 25-100 Tab] 1.5 tab PO TID 09/09/18 [History Confirmed 12/01/18] Ciclopirox 1 applicatio TP QHS 09/09/18 [History Confirmed 12/01/18] L.acidoph,Paracasei, B.lactis [Probiotic] 1 ea PO DAILY 09/09/18 [History Confirmed 12/01/18] Ubidecarenone [Coq-10] 200 mg PO DAILY 09/09/18 [History Confirmed 12/01/18] Rivaroxaban [Xarelto] 20 mg PO DINNER #0 09/12/18 [Rx Confirmed 12/01/18] atorvastatin 20 mg tablet 20 mg PO QHS #90 tab 10/01/18 [Rx Confirmed 12/01/18] carvedilol 6.25 mg tablet 6.25 mg PO BID #180 tab 10/01/18 [Rx Confirmed 12/01/18] clopidogrel 75 mg tablet 75 mg PO DAILY #90 tab 10/01/18 [Rx Confirmed 12/01/18] furosemide 40 mg tablet 40 mg PO DAILY #90 tab 10/01/18 [Rx Confirmed 12/01/18] losartan 25 mg tablet 25 mg PO BID #180 tab 10/01/18 [Rx Confirmed 12/01/18] potassium chloride ER 20 mEq tablet,extended release(part/cryst) 20 meq PO DINNER #90 tab 10/01/18 [Rx Confirmed 12/01/18] amiodarone 200 mg tablet 200 mg PO DAILY #30 tab 11/04/18 [Rx Confirmed 12/01/18] [facility] Medical History History of left heart catheterization (Chronic 09/11/18) Atrial fibrillation (Chronic) Coronary artery disease (Chronic) Hypertension (Chronic) Hypercholesterolemia (Chronic) Non-STEMI (non-ST elevated myocardial infarction) (Acute 09/10/18) Hypothyroidism (Chronic) Parkinson's disease (Chronic) Surgical History History of coronary artery bypass graft x 3 (Chronic 08/22/98) History of colonoscopy (Chronic 06/25/07) History of laparoscopic cholecystectomy (Chronic 06/15/13) History of tubal ligation (Chronic 1969) History of umbilical hernia repair (Chronic 06/15/13) History of varicose vein stripping (Chronic 1971) Family History Sister Alzheimer's disease Social History Smoking Status: Never smoker ROS Const Const: Negative for fatigue, weakness, body ache, fever(s), headache(s), chills, frequent falls, night sweats, daytime sleepiness, difficulty sleeping, excessive sweating, weight gain, weight loss, increased appetite, poor appetite, anorexia or other Eyes Eyes: Negative for blind spots, loss of peripheral vision, transient loss of vision, blurry vision, change in vision, double vision, floaters, tunnel vision or other ENT ENT: Negative for headache(s), dizziness, hearing loss, tinnitus, Nosebleed/epistaxis, balance problems, post nasal drip, lip swelling, tongue swelling, bleeding gums, hoarseness, neck pain, dry mouth or other Cardio Chest Pain: No Resp Respiratory: Negative for SOB with activity, SOB at rest, SOB orthopnea\SOB lying down, Coughing up blood/hemoptysis, chest congestion, pain on inspiration, snoring, stridor, wheezing, crackles, paroxysmal nocturnal dyspnea or other GI GI: Negative nausea, vomiting, heartburn, constipation, belching, bloating, cramping, vomiting blood/hematemesis, bright, red blood in stools, black,tarry stools, loose stools, Difficulty Swallowing or other : Negative for hematuria, frequent nighttime urination/ nocturia, erectile dysfunction or abnormal vaginal bleeding Musc Musc: Negative for muscle aches/ myalgia, muscle weakness, joint pain or balance problems Skin Skin: Negative redness, non-healing lesions, rash, unusual bruising, skin ulcer, wounds, jaundice or other Neuro Neuro: Negative for dizziness, lightheadedness, near syncope, syncope, orthostatic symptoms, frequent falls, headache(s), weakness, confusion, memory loss, restless legs, blurry vision, double vision, vertigo, seizures, lack of coordination or other [place] Hematologic/Lymphatic: Negative for easy bleeding, easy bruising, enlarged lymph nodes or other Endo Endo: Negative for fatigue, cold intolerance, heat intolerance, excessive sweating, flushing, increased thirst/drinking, increased hunger, hair loss, hair growth or other Psych Psych: Negative for anxiety, depression, thoughts of harming anyone, thoughts of harming yourself, visual hallucinations, panic attacks or audible hallucinations Allergy Allergy/Immunology: Negative for throat swelling, Negative for tongue swelling, Negative for hives, Negative for rash, Negative for lip swelling Cardiology Exam Const Appearance: cooperative, healthy appearing and no acute distress Nutritional Appearance: well nourished Orientation: alert, oriented x3 and oriented to person Head Head: normal to inspection, normocephalic and atraumatic Nose: external nose normal Face and Sinus: face symmetric Mouth: oral mucosae normal Eyes General: appearance normal, both eyes and all related structures Eyelids: eyelids normal Conjunctivae: conjunctivae normal Pupils: PERRL and normal by confrontation EOM: EOM intact bilaterally Neck Neck: normal visual inspection and full ROM Carotids: normal carotid upstroke Chest Chest inspection: normal inspection of the chest Auscultation: Bilateral: Clear to Auscultation Cardio Palpation: normal PMI Rate: regular rate Rhythm: irregular rhythm Heart sounds: S1 normal and S2 normal GI GI: normal to inspection, no hepatosplenomegaly and bowel sounds present Neuro General: alert, awake, oriented x3, CN's II-XI intact bilaterally and moves all extremities Skin Skin: no rashes or lesions noted Extremities Pulses: Normal: Right Femoral Pulse, Left Femoral Pulse, Right Dorsalis Pedis Pulse, Left Dorsalis Pedis Pulse, Right Posterior Tibial Pulse, Left Posterior Tibial Pulse, Right Radial Pulse, Left Radial Pulse Lower Extremity Edema: None: Bilateral Psych Psychological: normal affect Assessment & Plan 1. Atrial fibrillation I48.91 Plan 1. Atrial fibrillation: Patient has been on amiodarone and beta-ramo therapy as well as Xarelto therapy for the past 30 days. She reports some movement of her exercise capacity, but I believe she would do better with resynchronization into normal sinus rhythm. I recommended that she continue her amiodarone, Coreg, Lasix, losartan, and Xarelto and that she be referred for elective DC cardioversion now that she has been on amiodarone for the better part of 30 days. Hopefully she will convert to normal sinus rhythm, and if this remains durable, we will repeat her echocardiogram to determine if she has had improved LV function as a result of her corrected arrhythmia. If she is unsuccessful with her cardioversion would recommend discontinuation of annual Orders Orders: 12 Lead EKG performed by [facility] Today Cardioversion Today Basic Metabolic Profile (BMP) Today Chest PA and Lateral Today 2. Coronary artery disease I25.10 Plan Her own. 2. Coronary artery disease: No exertional anginal symptoms. Recommend continuing Plavix in place of baby aspirin. Her heart rate and blood pressure well controlled. No additional testing needed at this time Orders Orders: Liver Profile Today Chest PA and Lateral Today 3. Hypercholesterolemia E78.00 Plan 3. Hyperlipidemia: We are awaiting repeat lipid profile. Her LDL should be less than 70. Continue Lipitor. 4. Return office in 6 months. This note was generated using a voice recognition system and there may be incorrect words, spelling or punctuation that were not noted when reviewing the office note prior to saving. Orders Orders: Liver Profile Today Plan Detail Other Orders Orders: 12 Lead EKG performed by [facility] Today Z79.899, Z95.1 Lipid Profile Today Z79.899 Liver Profile Today Z95.1 Coding Level of Care Code Off vis,est,level 3 Diagnoses Atrial fibrillation I48.91 Coronary artery disease I25.10 Hypercholesterolemia E78.00 Coding Level of Care Code Off vis,est,level 3 Diagnoses Atrial fibrillation I48.91 Coronary artery disease I25.10 Hypercholesterolemia E78.00 Supplemental Info Supplemental Information Diagnostics Electrocardiogram 12/01/18 Echocardiogram 09/09/18 Cardiac Catheterization 09/11/18 Chest X-Ray 09/12/18
--- NOTE | 2018-12-04 08:50 | RAD_ITS ---
STUDY: X-RAY CHEST REASON FOR EXAM: Female, 78 years old. CHF TECHNIQUE: PA and lateral views of the chest. COMPARISON: 09/12/2018 FINDINGS: There is hyperinflation of the lungs consistent with chronic obstructive lung disease (COPD). There is no demonstrated pleural abnormality. Normal size heart. Sternal wires and mediastinal surgical clips compatible with prior CABG. Normal visualized pulmonary arteries. There is atherosclerotic calcification of the aortic arch with tortuosity. There are diffuse degenerative changes of the visualized thoracic spine. Normal visualized ribs, clavicles, and shoulders. There is no demonstrated abnormality of the visualized soft tissue structures of the upper abdomen. RAD/Chest PA and Lateral IMPRESSION: Favorable change. Resolution of pleural effusions, vascular congestion and basilar airspace disease. Electronically Signed: Bernabe Crawford MD at 17:59 EDT , Service support ,
[2018-12-04 09:46] LABS: AST(SGOT) 22 U/L (15-37); Alanine Aminotransfer ALT/SGPT 36 U/L (13-56); Albumin, Serum 3.9 g/dL (3.2-5.0); Alkaline Phosphatase 68 U/L (45-117); Anion Gap 8 (5-15); BUN 32 mg/dL (7-18); BUN/Creat Ratio 28.1 RATIO (10-20); Bilirubin, Direct 0.26 mg/dL (0.00-0.30); Chloride 104 mmol/L (98-107); Cholesterol 210 mg/dL (200); Creatinine, Serum 1.14 mg/dL (0.55-1.02); EST Glomerular Filtration Rate 49 mL/min (>60); Est Glom Filt Rate - Afr Amer 59 mL/min (>60); Globulin 3.4 g/dL (2.2-4.2); Glucose 103 mg/dL (74-106); High Density Lipoprotein 86 mg/dL; Protein, Total 7.3 g/dL (6.4-8.2); Sodium Level 141 mmol/L (136-145); Triglycerides 56 mg/dL; Very Low Density Lipoprotein 11 mg/dL (5-40)
[2018-12-15 08:31] VITALS: BMI 22.1
--- NOTE | 2018-12-16 11:51 | PCM.OP.PRO ---
Problem List (1) Non-STEMI (non-ST elevated myocardial infarction) Status: Acute (2) Atrial fibrillation Status: Chronic (3) Coronary artery disease Status: Chronic (4) History of coronary artery bypass graft x 3 Status: Chronic Comment: [facility] [place]:LOPEZ to LAD, left radial to OM of CX and free MYNOR to PDA of RCA per Dr. Laz Barreto (5) Hypercholesterolemia Status: Chronic (6) Hypertension Status: Chronic (7) Hypothyroidism Status: Chronic (8) Parkinson's disease Status: Chronic Procedure Report Date of Procedure: 12/16/18 - Conscious sedation CONSCIOUS SEDATION REPORT BRIEF HISTORY OF PRESENT ILLNESS: The patient is a 78-year-old female who presented to [facility] for an elective outpatient cardioversion due to underlying atrial fibrillation. The patient reports no PO intake since midnight. The patient does not have a history of obstructive sleep apnea. The patient reports no history of smoking and COPD. The patient denies any recent constitutional symptoms such as fevers, chills, nausea or vomiting. The patient denies previous anesthetic complications. Patient's last known ejection fraction was 25-30%. Patient did take her Xarelto on the day of the procedure. PHYSICAL EXAMINATION: VITAL SIGNS: Reviewed and were acceptable. GENERAL: The patient is a female, in no apparent distress, speaking in full sentences. HEENT: Normocephalic, atraumatic. Mucous membranes are moist and pink. Good mouth opening noted. Trachea is midline. Good neck mobility. MP I CHEST: S1, S2 irregularly irregular. No murmurs, rubs or gallops were noted. LUNGS: Clear to auscultation bilaterally without appreciable wheezes, rales or rhonchi. ABDOMEN: Soft, nontender, nondistended. Positive bowel sounds. EXTREMITIES: There is no clubbing, cyanosis or edema. ASA Class: II DESCRIPTION OF PROCEDURE: After confirmation of informed consent, the patient's anesthesia plan was reviewed in detail. Etomidate was chosen. Risks and benefits were reviewed and the patient agreed to proceed. At 10:26 AM, the patient was given 4 mg of etomidate. The patient achieved an appropriate level of sedation and received 1 attempt synchronized cardioversion, at [address] Corley at the bedside. This was successful in achieving normal sinus rhythm. The patient was monitored until 10:34 AM, at which time the patient reached their baseline mental status and function. The patient tolerated the procedure well. COMPLICATIONS: None ESTIMATED BLOOD LOSS: None RECOMMENDATIONS: Okay to recover in usual fashion. Code Visit 9xxxx: Other Procedure See Report - 81840 -8 minutes conscious sedation
--- NOTE | 2018-12-16 11:54 | PRO.PCM_ITS ---
Problem List (1) Non-STEMI (non-ST elevated myocardial infarction) Status: Acute (2) Atrial fibrillation Status: Chronic (3) Coronary artery disease Status: Chronic (4) History of coronary artery bypass graft x 3 Status: Chronic Comment: [facility] [place]:LOPEZ to LAD, left radial to OM of CX and free MYNOR to PDA of RCA per Dr. Laz Barreto (5) Hypercholesterolemia Status: Chronic (6) Hypertension Status: Chronic (7) Hypothyroidism Status: Chronic (8) Parkinson's disease Status: Chronic Procedure Report Date of Procedure: 12/16/18 - Conscious sedation CONSCIOUS SEDATION REPORT BRIEF HISTORY OF PRESENT ILLNESS: The patient is a 78-year-old female who presented to [facility] for an elective outpatient cardioversion due to underlying atrial fibrillation. The patient reports no PO intake since midnight. The patient does not have a history of obstructive sleep apnea. The patient reports no history of smoking and COPD. The patient denies any recent constitutional symptoms such as fevers, chills, nausea or vomiting. The patient denies previous anesthetic complications. Patient's last known ejection fraction was 25-30%. Patient did take her Xarelto on the day of the procedure. PHYSICAL EXAMINATION: VITAL SIGNS: Reviewed and were acceptable. GENERAL: The patient is a female, in no apparent distress, speaking in full sentences. HEENT: Normocephalic, atraumatic. Mucous membranes are moist and pink. Good mouth opening noted. Trachea is midline. Good neck mobility. MP I CHEST: S1, S2 irregularly irregular. No murmurs, rubs or gallops were noted. LUNGS: Clear to auscultation bilaterally without appreciable wheezes, rales or rhonchi. ABDOMEN: Soft, nontender, nondistended. Positive bowel sounds. EXTREMITIES: There is no clubbing, cyanosis or edema. ASA Class: II DESCRIPTION OF PROCEDURE: After confirmation of informed consent, the patient's anesthesia plan was reviewed in detail. Etomidate was chosen. Risks and benefits were reviewed and the patient agreed to proceed. At 10:26 AM, the patient was given 4 mg of etomidate. The patient achieved an appropriate level of sedation and received 1 attempt synchronized cardioversion, at [address] Corley at the bedside. This was successful in achieving normal sinus rhythm. The patient was monitored until 10:34 AM, at which time the patient reached their baseline mental status and function. The patient tolerated the procedure well. COMPLICATIONS: None ESTIMATED BLOOD LOSS: None RECOMMENDATIONS: Okay to recover in usual fashion. Code Visit 9xxxx: Other Procedure See Report - 51513 -8 minutes conscious sedation
--- NOTE | 2018-12-16 14:02 | PCM.OP.PRO ---
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 Laz Barreto (3) Hypercholesterolemia Status: Chronic (4) Hypertension Status: Chronic Procedure Report Date of Procedure: 12/16/18 Patient was brought to the cardiac Carbon Paper Machine Operator holding area in the fasting state. The risks/benefits of the procedure were thoroughly explained to the patient and informed consent was obtained. The defibrillator pads were placed in the AP position. EKG confirmed atrial fibrillation with controlled ventricular response. With the assistance of Dr. Thomas Pfeiffer the patient received 4 mg of IV etomidate as her ejection fraction was around 30%. Once adequate sedation was obtained the patient received a single 200 J biphasic synchronized shock which converted from atrial fibrillation to normal sinus rhythm. This rhythm remained durable, the patient spontaneously awoke, moves all 4 extremities and tolerated the procedure well. Conclusions: Successful amiodarone assisted DC cardioversion with a single 200 J biphasic synchronized shock converting her from atrial flutter relation to normal sinus rhythm. Recommend agents: The patient will continue on current medical therapy and follow-up in our office in 1 week's time for a EKG. Code Visit Inpatient E&M: 09039 Subs Hosp L2
--- NOTE | 2018-12-16 14:05 | PRO.PCM_ITS ---
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 Laz Barreto (3) Hypercholesterolemia Status: Chronic (4) Hypertension Status: Chronic Procedure Report Date of Procedure: 12/16/18 Patient was brought to the cardiac Parking Meter Attendant holding area in the fasting state. The risks/benefits of the procedure were thoroughly explained to the patient and informed consent was obtained. The defibrillator pads were placed in the AP position. EKG confirmed atrial fibrillation with controlled ventricular response. With the assistance of Dr. Thomas Pfeiffer the patient received 4 mg of IV etomidate as her ejection fraction was around 30%. Once adequate sedation was obtained the patient received a single 200 J biphasic synchronized shock which converted from atrial fibrillation to normal sinus rhythm. This rhythm remained durable, the patient spontaneously awoke, moves all 4 extremities and tolerated the procedure well. Conclusions: Successful amiodarone assisted DC cardioversion with a single 200 J biphasic synchronized shock converting her from atrial flutter relation to normal sinus rhythm. Recommend agents: The patient will continue on current medical therapy and follow-up in our office in 1 week's time for a EKG. Code Visit Inpatient E&M: 42356 Subs Hosp L2
== END 2018-12-16 11:40 | disposition home or self-care (01) ==
PROVIDERS: Family Provider Internal Medicine; PCP Internal Medicine; Referring Provider Internal Medicine Cardiovascular Disease; Visit Provider Internal Medicine Cardiovascular Disease
DX: I48.2 Chronic atrial fibrillation (principal); I25.10 Atherosclerotic heart disease of native coronary artery without angina pectoris; I10 Essential (primary) hypertension; E03.9 Hypothyroidism, unspecified; I25.2 Old myocardial infarction; G20 Parkinson's disease; E78.5 Hyperlipidemia, unspecified; Z79.899 Other long term (current) drug therapy; Z95.1 Presence of aortocoronary bypass graft
CPT/HCPCS: 36415; 71046; 80048; 80061; 80076; 92960; 93005; J7040

== ENCOUNTER → 2019-01-26 08:45 | Outpatient (CLI) | payer MEDICARE, SELFPAY ==
[2018-12-15 08:31] VITALS: BMI 22.1
--- NOTE | 2019-01-26 08:48 | ECHOD_ITS ---
Reason For Study: CHF Procedure This was a 2D Doppler, Color Flow transthoracic echocardiogram. Exam performed in department. Left Ventricle Normal size and thickness. The estimated ejection fraction is 55 %. Stage 2 diastolic dysfunction. Mid-anteroseptal : Mildly hypokinetic. Right Ventricle Mildly dilated right ventricle. Normal systolic function. Atria The left atrium is mildly enlarged. Normal right atrium. Normal atrial septum. Mitral Valve The mitral valve is structurally normal. No prolapse or stenosis seen. Tricuspid Valve Normal tricuspid valve. Trivial tricuspid valve insufficiency. Right ventricular systolic pressure estimated to be 29 mmHg. Aortic Valve Normal aortic valve. Trisinus/trileaflet aortic valve. Pulmonic Valve Normal pulmonic valve. Mild (1+) pulmonic valve insufficiency. Great Vessels Normal aortic root. Normal arch. Normal inferior vena cava. Inferior vena cava collapse with sniff. Pericardium/Pleural No pericardial effusion. MMode/2D Measurements & Calculations LVIDd: 5.8 cm IVSd: 1.3 cm Ao root diam: 2.9 cm LVIDs: 4.1 cm LVPWd: 0.96 cm RVDd: 3.7 cm FS: 29.1 % LAV(MOD-bp): 78.0 ml LA A4 area: 23.0 cm2 LA dimension(2D): 4.8 cm LAV(MOD-bp) Indexed: 45.3 ml/m2 LAV(MOD-sp2): 77.1 ml LAV(MOD-sp4): 77.4 ml RA A4 area: 19.6 cm2 Time Measurements MV dec time: 0.20 sec Doppler Measurements & Calculations MV E max franck: 84.4 cm/sec Lat Peak E' Franck: 9.0 cm/sec Med Peak E' Franck: 4.0 cm/sec MV A max franck: 43.1 cm/sec E/E' lat: 9.4 E/E' med: 21.1 MV E/A: 2.0 Ao V2 max: 137.7 cm/sec LV V1 max: 88.3 cm/sec PA V2 max: 79.1 cm/sec Ao max P.6 mmHg LV V1 max P.1 mmHg TR max franck: 239.7 cm/sec TR max P.0 mmHg Interpretation Summary The estimated ejection fraction is 55 %. Stage 2 diastolic dysfunction. Mid-anteroseptal : Mildly hypokinetic Mildly dilated right ventricle. The left atrium is mildly enlarged. Trivial tricuspid valve insufficiency. Right ventricular systolic pressure estimated to be 29 mmHg. Compared to echo report dated 09/09/2018, LV function has normalized from 25% to 55%. Ordering Physician: Joseph Corley Referring Physician: Louise Garrido Performed By: Tatyana Valdes RDCS, RVT
== END ==
PROVIDERS: Family Provider Internal Medicine; PCP Internal Medicine; Referring Provider Internal Medicine Cardiovascular Disease; Visit Provider Internal Medicine Cardiovascular Disease
DX: I50.9 Heart failure, unspecified (principal); Z98.890 Other specified postprocedural states
CPT/HCPCS: 93306

== ENCOUNTER 2019-05-03 11:52 | Inpatient (IN) | payer MEDICARE, SELFPAY ==
[2019-01-26 10:52] VITALS: BMI 22.1
[2019-05-03] VITALS (7 sets, daily range): BP systolic 152–175; BP diastolic 50–74; PULSE 47–70; RESP 14–18; TEMP 36.7–36.8; O2SAT 98–100; BMI 24.9; BMI 22.8
--- NOTE | 2019-05-03 13:12 | RAD_ITS ---
STUDY: X-RAY - LEFT ANKLE REASON FOR EXAM: Female, 79 years old. History of falls. Pain. TECHNIQUE: A single oblique view(s) of the ankle, by referring physician's request. COMPARISON: None. FINDINGS: Generalized osteopenia. No abnormality identified. The soft tissue structures are unremarkable. RAD/Ankle 2 Views IMPRESSION: Osteopenia with no acute abnormality. Electronically Signed: Ermias Merritt MD at 14:44 EDT , Service support ,
--- NOTE | 2019-05-03 13:12 | RAD_ITS ---
STUDY: X-RAY - LEFT SHOULDER REASON FOR EXAM: Female, 79 years old. History of falls. Pain. TECHNIQUE: 2 view(s) of the shoulder. COMPARISON: None. FINDINGS: Generalized osteopenia. Normal glenohumeral articulation. Normal acromioclavicular joint. Normal acromion. Impacted fracture of the surgical neck of the proximal humerus. The soft tissue structures are unremarkable. Normal visualized pulmonary apex. RAD/Shoulder min 2 Views IMPRESSION: Osteopenia with proximal left humeral fracture as described. Electronically Signed: Ermias Merritt MD at 14:45 EDT , Service support ,
--- NOTE | 2019-05-03 13:12 | RAD_ITS ---
STUDY: X-RAY - PELVIS AND LEFT HIP REASON FOR EXAM: Female, 79 years old. Fall. Unable to ambulate pain. TECHNIQUE: views of the pelvis and hip. COMPARISON: None. FINDINGS: There is a non-specific bowel gas pattern. Normal visualized soft tissue structures. Generalized osteopenia. Normal bilateral iliac wings, sacroiliac joints and visualized sacrum. Transverse nondisplaced fracture of the inferior pubic ramus. Nondisplaced fracture of the superior pubic ramus. Normal pubic symphysis. Normal bilateral ischial tuberosities. Mild arthrosis of both hips. RAD/HIP, UNI W/ Pelvis 2-3 Views IMPRESSION: Osteopenia with superior and inferior pubic rami fractures. Mild arthrosis of both hips. Electronically Signed: Ermias Merritt MD at 14:44 EDT , Service support ,
--- NOTE | 2019-05-03 13:12 | RAD_ITS ---
STUDY: X-RAY - LEFT TIBIA AND FIBULA REASON FOR EXAM: Female, 79 years old. History of falls. Pain. TECHNIQUE: 2 view(s) of the tibia and fibula were obtained on 3 images. COMPARISON: None. FINDINGS: Generalized osteopenia. Osteoarthrosis of the knee with chondrocalcinosis. Calcaneal spurs. Vascular calcification. No acute abnormality of the visualized osseous structures. The soft tissue structures are unremarkable. RAD/Tibia & Fibula 2 Views IMPRESSION: Osteopenia with osteoarthrosis. Calcaneal spurs. No acute abnormality. Electronically Signed: Ermias Merritt MD at 14:47 EDT , Service support ,
--- NOTE | 2019-05-03 13:13 | RAD_ITS ---
STUDY: X-RAY CHEST REASON FOR EXAM: Female, 79 years old. Fall. Pain. TECHNIQUE: Single frontal view of the chest. COMPARISON: December 04, 2018 FINDINGS: Stable hyperexpansion. Prominent skinfold projecting over There is no demonstrated pleural abnormality. Stable cardiomegaly with sternotomy wires. Normal mediastinum and zack. Normal visualized pulmonary arteries. Normal visualized aortic arch and descending thoracic aorta. Normal visualized thoracic spine. Normal visualized ribs, clavicles, and shoulders. There is no demonstrated abnormality of the visualized soft tissue structures of the upper abdomen. RAD/Chest 1 View (Portable) IMPRESSION: Stable chest with no acute finding. Electronically Signed: Ermias Merritt MD at 14:43 EDT , Service support ,
--- NOTE | 2019-05-03 13:13 | EKG12_ITS ---
Test Reason : FALL Blood Pressure : / mmHG Vent. Rate : 051 BPM Atrial Rate : 051 BPM P-R Int : 204 ms QRS Dur : 110 ms QT Int : 496 ms P-R-T Axes : 088 024 068 degrees QTc Int : 457 ms Sinus bradycardia Incomplete left bundle branch block Moderate voltage criteria for LVH, may be normal variant Nonspecific ST abnormality Abnormal ECG Confirmed by LINDSAY CHATMAN, ALYSSA ([id number]), film editor supervisor GUERRERO ANGLIN ([id number]) on 05/04/2019 11:46:13 AM Referred By: Eduard Reyes Confirmed By:ALYSSA MONTOYA MD
--- NOTE | 2019-05-03 13:15 | ED.DCSUM_ITS ---
History of Present Illness Chief Complaint: Fall Informant: Patient, Family, Significant Other Occurred: Days - 3 Mechanism/Context: Same level fall Location: left shoulder, left hip, left ankle Quality of Pain: Aching Current Severity: Mild Maximum Severity: Severe Worsened by: movement Relieved by: remaining still Associated Symptoms: Loss of function - LUE, Inability to ambulate - since yest. Negative for: Parasthesias, Weakness, Loss of consciousness, Amnesia Narrative: Patient had an unwitnessed fall 3 days ago while in her home. She was able to walk okay, they went to urgent care and had some x-rays done including her hip and left shoulder, she was diagnosed with a shoulder fracture and placed in a sling. Since yesterday now, she is in so much hip pain that she cannot walk anymore. She also is having ankle pain that she did not notice when she was at urgent care. She denies any other falls or injury since then, but she was brought by EMS because she is unable to weight-bear on her left lower extremity. She did not hit her head when she fell that she knows of although she can provide relatively limited information about the event. Family states she is on both Xarelto and Plavix for heart issues. 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 Laz Barreto (6) Hypercholesterolemia Status: Chronic (7) Hypertension Status: Chronic (8) Hypothyroidism Status: Chronic (9) Parkinson's disease Status: Chronic Past Medical History - Allergies and Home Meds Allergies/Adverse Reactions: Allergies Jydsrwc-Yni-Hfm Reductase Inhibitor Allergy (Verified 05/03/19 11:55) Other MUSCLE ACHES ALL OVER pravastatin Adverse Reaction (Severe, Verified 01/26/19 11:22) myalgias colesevelam [From WelChol] Adverse Reaction (Intermediate, Verified 01/26/19 11:22) Not effective ezetimibe [From Zetia] Adverse Reaction (Intermediate, Verified 01/26/19 11:22) GI upset Influenza Virus Vaccines Adverse Reaction (Intermediate, Verified 01/26/19 11:22) Visual changes, lightheaded niacin Adverse Reaction (Intermediate, Verified 01/26/19 11:22) sweats Primary Care Physician: Louise Garrido MD [Primary Care Provider] - Surgical History: coronary bypass surgery - 15 years ago, - - Vein stripping in both legs, tubal ligation Lives: Spouse/ Significant Other Smoking Status: Never smoker - Family History Paternal Family History: Family History (Last Reviewed 01/26/19 @ 10:52 by Nerissa Roche) Sister Alzheimer's disease Family History: Reports: Heart Disease, Hypertension, Stroke Review of Systems General: Denies: Chills, Fever, Sweats Eyes: Denies: Visual changes - bilaterally, Diplopia ENT: Denies: Rhinorrhea, Sore throat Cardiovascular: Denies: Chest pain, Palpitations Respiratory: Denies: Dyspnea, Cough, Dyspnea on exertion Gastrointestinal: Denies: Abdominal pain, Nausea, Vomiting, Diarrhea, Melena, Hematochezia Genitourinary: Denies: Dysuria, Hematuria, Frequency Musculoskeletal: Reports: Extremity Pain. Denies: Neck pain, Back pain Skin: Denies: Rash, Wounds Neurological: Denies: Headache, Weakness, Parasthesia, Numbness Physical Exam Vital Signs/Narrative: Vital Signs Temp Pulse Resp BP Pulse Ox 05/03/19 11:56 98.2 F 57 L 18 175/74 H 100 Inital Vital Signs reviewed: Yes General: Well nourished, Well developed Head: Normocephalic, Atraumatic Eyes: Perrl, EOMI ENT: TM's clear, No hemotympanum or drainage, No trauma Neck: Nontender, Full ROM Cardiovascular: Regular rate, Regular rhythm, No murmurs Respiratory: No distress, CTA bilaterally, Chest nontender Abdomen: Soft, Nontender, Nondistended, Normal bowel sounds Back: Nontender Extremeties: Tender left proximal humerus. Holding in sling, neutral position, no deformity. No tenderness at the clavicle or acromioclavicular joint. Neurovascularly intact distally, able to move wrist and fingers okay. Tender at the left greater trochanter. There is no shortening. She does not have any groin pain with logroll, but with hip flexion, she has lateral hip pain. There is mild tenderness at the medial malleolus of the left ankle as well as at the junction of the middle and distal thirds of the tibia/fibula. No deformities, there is swelling throughout the ankle mildly. She can move it well. No foot tenderness. The right side moves without pain and is nontender throughout. Skin: Normal color, No rash, No Trauma Neurological: Alert, Cranial nerves II-XII grossly intact, Normal Strength, Normal Sensation, Disoriented - To time Psychological: Normal affect, Normal Mood Diagnostic/Tx/Re-eval Impressions Ankle X-Ray 05/03/19 13:12 IMPRESSION: Osteopenia with no acute abnormality. Electronically Signed: Ermias Merritt MD at 14:44 EDT , Service support , Hip/Pelvis X-Ray 05/03/19 13:12 IMPRESSION: Osteopenia with superior and inferior pubic rami fractures. Mild arthrosis of both hips. Electronically Signed: Ermias Merritt MD at 14:44 EDT , Service support , Shoulder X-Ray 05/03/19 13:12 IMPRESSION: Osteopenia with proximal left humeral fracture as described. Electronically Signed: Ermias Merritt MD at 14:45 EDT , Service support , Tibia/Fibula X-Ray 05/03/19 13:12 IMPRESSION: Osteopenia with osteoarthrosis. Calcaneal spurs. No acute abnormality. Electronically Signed: Ermias Merritt MD at 14:47 EDT , Service support , Chest X-Ray 05/03/19 13:13 IMPRESSION: Stable chest with no acute finding. Electronically Signed: Ermias Merritt MD at 14:43 EDT , Service support , 05/03/19 13:12 Ankle 2 Views [RAD] Stat HIP, UNI W/ Pelvis 2-3 Views [RAD] Stat Shoulder min 2 Views [RAD] Stat Tibia & Fibula 2 Views [RAD] Stat 05/03/19 13:13 Chest 1 View (Portable) [RAD] Stat Laboratory Results 05/03/19 05/03/19 05/03/19 14:00 14:00 14:45 WBC 6.6 RBC 4.07 L Hgb 12.3 Hct 37.4 MCV 91.9 MCH 30.2 MCHC 32.9 RDW Std Deviation 44.6 H RDW Coeff of Pina 13.2 Plt Count 207 MPV 10.2 Immature Gran % (Auto) 0.200 Neut % (Auto) 69.5 Lymph % (Auto) 17.1 L [place] % (Auto) 11.0 H Eos % (Auto) 1.7 Baso % (Auto) 0.5 Absolute Neuts (auto) 4.6 Absolute Lymphs (auto) 1.12 Nucleated RBC % 0 Sodium 139 Potassium 4.2 Chloride 104 Carbon Dioxide 28.0 Anion Gap 7 BUN 26 H Creatinine 0.92 Estim Creat Clear Calc 47.43 Est GFR (MDRD) Af Amer 75 Est GFR (MDRD) Non-Af 62 BUN/Creatinine Ratio 28.2 H Glucose 85 Calcium 8.9 Troponin I < 0.015 Urine Color Yellow Urine Clarity Clear Urine pH 5.0 Ur Specific [place] 1.020 Urine Protein 15 H Urine Glucose (UA) Normal Urine Ketones 5 H Urine Occult Blood 10 H Urine Nitrite Positive H Urine Bilirubin Negative Urine Urobilinogen 4 H Ur Leukocyte Esterase 25 H Urine RBC 0 SEEN Urine WBC 0-5 SEEN Ur Squamous Epith Cells 0-5 SEEN Urine Bacteria 1+ Urine Mucus 0 SEEN - Medical Decision Making Medical work-up shows positive nitrite but few white blood cells in her urine, this was a catheterized specimen, we placed a Davis because she cannot walk, he will be sent for culture but unknown if needs to be treated or not. We will hold off there, since she is not symptomatic, febrile, etc. The rest of her medical work-up is okay. Radiography shows the known impacted left proximal humerus fracture, and additionally shows left superior and inferior pubic rami fractures. There is no hip joint fracture evident on x-ray. Other x-rays are unremarkable. Plan is for admission for evaluation for short-term rehab, as she is not able to bear weight and will have difficulty with assist devices given her left arm fracture which is appropriately in a sling. ED Disposition - Plan for ED Patient: Disposition: Acute Care Hospital [facility] Diagnosis: Inability to ambulate due to hip, Fracture of left inferior pubic ramus, Fracture of left superior pubic ramus, Closed fracture of left proximal humerus, Left ankle sprain Referrals: Louise Garrido MD [Primary Care Provider] -
[2019-05-03] MEDS: Morphine 2 MG/ML Syringe IV (13:55)
[2019-05-03 14:11] LABS: Absolute Lymphocyte Count 1.12 X10^3/uL (0.83-4.51); Absolute Neutrophil Count 4.6 X10^3/uL (2.0-7.7); Basophil# 0.03 X10^3/uL; Basophil% 0.5 % (0-1); Eosinophil# 0.11 X10^3/uL; Eosinophils% 1.7 % (0-5); Hematocrit 37.4 % (37-47); Hemoglobin 12.3 g/dL (12.0-15.0); Lymphocyte # 1.12 X10^3/ul (4.0); Lymphocyte % 17.1 % (19-41); Mean Corp Hgb Conc 32.9 g/dL (32-36); Mean Corpuscular Hgb 30.2 pg (27.0-32.0); Mean Corpuscular Volume 91.9 fL (81-99); Mean Platelet Vol. 10.2 fl (6.2-12.0); Monocyte# 0.72 X10^3/uL; NRBC Flagged by Analyzer 0 % (0-5); Neutrophil # 4.57 X10^3/uL (2.7-7.7); Neutrophil % 69.5 % (47-70); Platelet Count 207 K/mm3 (150-450); RBC Distribution Width CV 13.2 % (11.6-14.6); RBC Distribution Width SD 44.6 fl (35.1-43.9); Red Blood Count 4.07 M/mm3 (4.2-5.4); White Blood Count 6.6 K/mm3 (4.4-11.0)
[2019-05-03 14:29] LABS: Anion Gap 7 (5-15); BUN 26 mg/dL (7-18); BUN/Creat Ratio 28.2 RATIO (10-20); Calcium,Total 8.9 mg/dL (8.5-10.1); Chloride 104 mmol/L (98-107); Creatinine, Serum 0.92 mg/dL (0.55-1.02); EST Glomerular Filtration Rate 62 mL/min (>60); Est Glom Filt Rate - Afr Amer 75 mL/min (>60); Estimated Creatinine Clearance 47.43 ml/min; Glucose 85 mg/dL (74-106); Potassium 4.2 mmol/L (3.5-5.1); Sodium Level 139 mmol/L (136-145)
[2019-05-03 14:49] LABS: Red Blood Cells-Urine 0 SEEN /hpf (0-5)
[2019-05-03 14:50] LABS: Color, Urine Yellow (Yellow); Glucose, Dipstick Normal (Normal); Ketone-Dipstick 5 mg/dl (Negative); Leukocyte Esterase-Dipstick 25 /ul (Negative); Mucous, Urine 0 SEEN /hpf (<or=2+); Nitrite-Dipstick Positive (Negative); Occult Blood-Urine 10 /ul (Negative); Protein-Dipstick 15 mg/dl (Negative); Urine Bilirubin Dipstick Negative (Negative); Urine Clarity Clear (Clear); Urine Urobilinogen 4 mg/dl (Normal)
[2019-05-03 14:57] LABS: Bacteria 1+ /hpf (None Seen); Squamous Epithelial Cells - UA 0-5 SEEN /hpf (5-10); White Blood Cells 0-5 SEEN /hpf (0-5)
--- NOTE | 2019-05-03 15:55 | HP.PCM_ITS ---
Problem List (1) Failure to thrive Status: Acute Qualifiers: Failure to thrive age range: in adult Qualified Code(s): R62.7 - Adult failure to thrive (2) Left humeral fracture Status: Acute Qualifiers: Encounter type: subsequent encounter Fracture type: closed Fracture morphology: unspecified fracture morphology Fracture alignment: nondisplaced Fracture healing: with routine healing (3) Pubic ramus fracture Status: Acute Qualifiers: Encounter type: subsequent encounter Fracture type: closed Laterality: unspecified laterality Fracture healing: with routine healing Qualified Code(s): S32.599D - Other specified fracture of unspecified pubis, subsequent encounter for fracture with routine healing History of Present Illness Date of Admission: 05/03/19 Chief Complaint: fall The patient is a 79 year old F who fell roughly 3 days ago. Patient was diagnosed with a left humeral fracture and sent home sling. At home, patient has been having pain in her legs and unable to bear weight. Patient also been having some paresthesias in her distal lower extremities. Essentially, is been unable to care for herself and the family has been overwhelmed sent the patient to the emergency room. In the emergency room, patient had an x-ray of her left shoulder that showed a left humeral fracture as well as superior inferior pubic rami fractures. The hospitalist service was contacted to bring the patient in for placement as family is unable to care for her at this time. Patient does have a history of Parkinson's disease but states that her last fall was about 3 years ago. Patient stated that with this fall, she had no awareness of her fall but just fell. She denies hitting her head, however. [] Past Medical History Past Medical History (Chronic Problems): Chronic Problems (Last Reviewed 01/26/19 @ 10:52 by Nerissa Roche) History of cardioversion (Chronic 12/16/18) History of coronary artery bypass graft x 3 (Chronic 08/22/98) [facility] [place]:LOPEZ to LAD, left radial to OM of CX and free MYNOR to PDA of RCA per Dr. Laz Barreto History of left heart catheterization (Chronic 09/11/18) Bifurcating LOPEZ graft to the LAD and DIAG is patent with mild to moderate [place] mid/distal LAD 50% stenosis, high risk for PCI given need to traverse down LOPEZ and severe LV dysfunction. Saphenous Vein graft to the RCA previously placed stent is patent, with 75% mid PDA stenosis, not amenable to PCI given need to traverse through graft, then acute angle into PDA, of questionable benefit given severe LV dysfunction Atrial fibrillation (Chronic) Coronary artery disease (Chronic) Hypertension (Chronic) Hypercholesterolemia (Chronic) Non-STEMI (non-ST elevated myocardial infarction) (Chronic 09/10/18) Hypothyroidism (Chronic) Parkinson's disease (Chronic) Medical History: Medical History (Last Reviewed 05/03/19 @ 15:58 by Eduard Reyes DO) History of left heart catheterization (Chronic) Onset Date: 09/11/18 Z98.890 Bifurcating LOPEZ graft to the LAD and DIAG is patent with mild to moderate [place] mid/distal LAD 50% stenosis, high risk for PCI given need to traverse down LOPEZ and severe LV dysfunction. Saphenous Vein graft to the RCA previously placed stent is patent, with 75% mid PDA stenosis, not amenable to PCI given need to traverse through graft, then acute angle into PDA, of questionable benefit given severe LV d ysfunction Atrial fibrillation (Chronic) I48.91 Coronary artery disease (Chronic) I25.10 Hypertension (Chronic) I10 Hypercholesterolemia (Chronic) E78.00 Non-STEMI (non-ST elevated myocardial infarction) (Chronic) Onset Date: 09/10/18 I21.4 Hypothyroidism (Chronic) E03.9 Parkinson's disease (Chronic) G20 Allergies Flmbdux-Coq-Mca Reductase Inhibitor Allergy (Verified 05/03/19 11:55) Other MUSCLE ACHES ALL OVER pravastatin Adverse Reaction (Severe, Verified 01/26/19 11:22) myalgias colesevelam [From WelChol] Adverse Reaction (Intermediate, Verified 01/26/19 11:22) Not effective ezetimibe [From Zetia] Adverse Reaction (Intermediate, Verified 01/26/19 11:22) GI upset Influenza Virus Vaccines Adverse Reaction (Intermediate, Verified 01/26/19 11:22) Visual changes, lightheaded niacin Adverse Reaction (Intermediate, Verified 01/26/19 11:22) sweats Home Medications: Ambulatory Orders Medication Instructions Recorded Cholecalciferol (Vitamin D3) 1 tab PO DAILY 06/14/13 [Vitamin D3] Levothyroxine [Synthroid] 125 mcg PO DAILY 06/14/13 Multivit-Min/FA/Lycopene/Lut 1 ea PO DAILY 06/14/13 [Centrum Silver Tablet] [place]-3 Fatty Acids [Fish Oil] 2,000 mg PO BID 06/14/13 Carbidopa/Levodopa 1.5 tab PO TID 09/09/18 [Carbidopa-Levodopa 25-100 Tab] Ciclopirox 1 applicatio TP QHS 09/09/18 L.acidoph,Paracasei, B.lactis 1 ea PO DAILY 09/09/18 [Probiotic] Ubidecarenone [Coq-10] 200 mg PO DAILY 09/09/18 carvedilol 6.25 mg tablet 6.25 mg PO BID #180 tab 10/01/18 losartan 25 mg tablet 25 mg PO BID #180 tab 10/01/18 amiodarone 200 mg tablet 200 mg PO DAILY #30 tab 11/04/18 rivaroxaban 20 mg tablet 20 mg PO DINNER #90 tab 03/03/19 Clopidogrel Bisulfate [Plavix] 75 mg PO DAILY 05/03/19 Furosemide [Lasix] 40 mg PO DAILY 05/03/19 Hydrocodone/Acetaminophen [[place] 1 ea PO Q4H PRN 05/03/19 5-325 Tablet] Surgical History: Surgical History (Last Reviewed 05/03/19 @ 15:58 by Eduard Reyes DO) History of cardioversion (Chronic) Onset Date: 12/16/18 Z98.890 History of coronary artery bypass graft x 3 (Chronic) Onset Date: 08/22/98 Z95.1 [facility] [place]:LOPEZ to LAD, left radial to OM of CX and free MYNOR to PDA of RCA per Dr. Laz Barreto History of colonoscopy Onset Date: 06/25/07 Z98.890 History of laparoscopic cholecystectomy Onset Date: 06/15/[address] Kulwinder Rosas; umbilical hernia repair done concomitantly with lap cholecystectomy History of tubal ligation Onset Date: 1969 Z98.51 History of umbilical hernia repair Onset Date: 06/15/13 Z98.890, Z87.[address] 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 HAND history Lives: Spouse/ Significant Other Smoking Status: Never smoker - *Family History Paternal Family History: Family History (Last Reviewed 05/03/19 @ 15:59 by Eduard Reyes DO) Sister Alzheimer's disease History Items: Heart Disease, Hypertension, Stroke Review of Systems Constitutional: Denies: Chills, Fever, Weight Change Eyes: Denies: Blurred vision, Double vision HEENT: Denies: Head Aches, Sinus Congestion, Sinus Drainage Cardiovascular: Denies: Chest Pain, Palpitations Respiratory: Denies: Cough, Shortness of breath at rest, Sputum production Gastrointestinal: Denies: Abdominal Pain, Nausea, Vomiting Genitourinary: Denies: Dysuria Musculoskeletal: Reports: Arm Pain - Left, - - Hip pain. Denies: Joint Pain, Joint Tenderness Skin: Reports: - - Bruising. Denies: Dryness, Rash, Wounds Neurological: Denies: Balance problems, Blurred vision, Double vision, Focal weakness, Numbness, Tingling Psychiatric: Denies: Anxiety, Depression, Homicidal Ideations, Suicidal Ideations Hematologic/ Lymphatic: Denies: Easy Bruising, Easy Bleeding, Hx of blood clot Comment: A 10 point review of systems were negative except as mentioned in the history of present illness and the other review of systems. VTE Information - Inpt Only VTE Present on Admission: No VTE Mechan Device Prophylaxis: None VTE Pharm Prophylaxis ordered?: No Reason prophylaxis not ordered:: Procedure Not Indicated Patient Problems: Active and Suspected Problems (Last Reviewed 01/26/19 @ 10:52 by Nerissa Roche) Inability to ambulate due to hip (Acute) Fracture of left inferior pubic ramus (Acute) Fracture of left superior pubic ramus (Acute) Closed fracture of left proximal humerus (Acute) Left ankle sprain (Acute) Failure to thrive (Acute) Left humeral fracture (Acute) Pubic ramus fracture (Acute) - Physical Exam General: Alert, Cooperative, No apparent distress, Well developed, Well nourished HEENT: Atraumatic, PERRLA, EOMI - Though impaired vertical saccades, Normocephalic Oral: Moist Mucosa, No Gingival or Mucosal Lesions/ Ulcerations Neck: Trachea Midline Lungs: Clear to auscultation, Normal air movement, No rhonchi, No wheeze Cardiovascular: Regular rate, Regular Rhythm, Normal S1, Normal S2, No murmurs Abdomen: Bowel Sounds Present, Soft, Non Tender, Non-Distended, No Hepato- splenomegaly Extremities: No edema, No Calf Tenderness Skin: No rashes, No breakdown Musculoskeletal: No Muscle Wasting Neurological: Cranial nerves II-XII grossly intact, Deep Tendon Reflexes 2+/4 and Symmetrical, Muscle tone normal Psych/Mental Status: Normal Affect, Appropriate Vital Signs Temp Pulse Resp BP Pulse Ox 36.8 C 53 L 14 158/56 H 98 05/03/19 11:56 05/03/19 13:54 05/03/19 13:54 05/03/19 13:54 05/03/19 13:54 Oxygen Delivery Method Room Air Weight: 72.2 kg Body Mass Index (BMI) 24.9 Laboratory Tests Past 24 Hrs 05/03/19 05/03/19 05/03/19 14:00 14:00 14:45 WBC 6.6 RBC 4.07 L Hgb 12.3 Hct 37.4 MCV 91.9 MCH 30.2 MCHC 32.9 RDW Std Deviation 44.6 H RDW Coeff of Pina 13.2 Plt Count 207 MPV 10.2 Immature Gran % (Auto) 0.200 Neut % (Auto) 69.5 Lymph % (Auto) 17.1 L [place] % (Auto) 11.0 H Eos % (Auto) 1.7 Baso % (Auto) 0.5 Absolute Neuts (auto) 4.6 Absolute Lymphs (auto) 1.12 Nucleated RBC % 0 Sodium 139 Potassium 4.2 Chloride 104 Carbon Dioxide 28.0 Anion Gap 7 BUN 26 H Creatinine 0.92 Estim Creat Clear Calc 47.43 Est GFR (MDRD) Af Amer 75 Est GFR (MDRD) Non-Af 62 BUN/Creatinine Ratio 28.2 H Glucose 85 Calcium 8.9 Troponin I < 0.015 Urine Color Yellow Urine Clarity Clear Urine pH 5.0 Ur Specific [place] 1.020 Urine Protein 15 H Urine Glucose (UA) Normal Urine Ketones 5 H Urine Occult Blood 10 H Urine Nitrite Positive H Urine Bilirubin Negative Urine Urobilinogen 4 H Ur Leukocyte Esterase 25 H Urine RBC 0 SEEN Urine WBC 0-5 SEEN Ur Squamous Epith Cells 0-5 SEEN Urine Bacteria 1+ Urine Mucus 0 SEEN Clinical Impression(s) from Imaging Studies Ankle X-Ray 05/03/19 13:12 IMPRESSION: Osteopenia with no acute abnormality. Electronically Signed: Ermias Merritt MD at 14:44 EDT , Service support , Hip/Pelvis X-Ray 05/03/19 13:12 IMPRESSION: Osteopenia with superior and inferior pubic rami fractures. Mild arthrosis of both hips. Electronically Signed: Ermias Merritt MD at 14:44 EDT , Service support , Shoulder X-Ray 05/03/19 13:12 IMPRESSION: Osteopenia with proximal left humeral fracture as described. Electronically Signed: Ermias Merritt MD at 14:45 EDT , Service support , Tibia/Fibula X-Ray 05/03/19 13:12 IMPRESSION: Osteopenia with osteoarthrosis. Calcaneal spurs. No acute abnormality. Electronically Signed: Ermias Merritt MD at 14:47 EDT , Service support , Chest X-Ray 05/03/19 13:13 IMPRESSION: Stable chest with no acute finding. Electronically Signed: Ermias Merritt MD at 14:43 EDT , Service support , Assessment/Plan All Active Problems (Last Reviewed 01/26/19 @ 10:52 by Nerissa Roche) Inability to ambulate due to hip (Acute) Fracture of left inferior pubic ramus (Acute) Fracture of left superior pubic ramus (Acute) Closed fracture of left proximal humerus (Acute) Left ankle sprain (Acute) Failure to thrive (Acute) Left humeral fracture (Acute) Pubic ramus fracture (Acute) 1. Failure to thrive * Status post left humerus fracture as well as pubic rami fractures from her fall * Physical and occupational therapy evaluate and treat * Case management to assist in regards to discharge planning. Discussed with the patient and the family and that this patient is patient go to a care home facility upon discharge. They are all made aware that the patient is being brought under observation status. Cleaned them in detail that patient be seen by physical therapy, then case management will assess the situation and send a referral off to her insurance company and then the insurance company will respond back in regards to if patient would qualify for care home facility or not. 2. Left humeral fracture * Nondisplaced * Sling and nonweightbearing to the left upper extremity * Check a 25-hydroxy vitamin D level and replace if low. Goal level of being around 50. * Follow-up with orthopedics as outpatient 3. Pubic rami fracture, superior and inferior * Nonoperable * Weightbearing as tolerated 4. Atrial fibrillation * Currently rate controlled * Continue with carvedilol, amiodarone * Anticoagulated with rivaroxaban 5. Parkinson's disease * Patient sees a neurologist in [place] whom she sees twice yearly * Patient has no tremors, however * Question if patient has Parkinson's or Parkinson's plus type condition * Continue with carbidopa/levodopa 6. VTE prophylaxis: Low risk as patient is already anticoagulated on rivaroxaban 7. Advanced care planning: Discussed with patient and her family about CODE STATUS and patient unsure at this time. We will leave the patient is full CODE STATUS but did encourage that she and the remainder of her family discuss aggressiveness of care. Patient's stated that he wants everything done for but the patient stated that she does not want to be on life support. Told her that if she does survive cardiopulmonary arrest that she would require being on the life support, least temporarily. Patient when the patient's son is here but apparently his 2 other sons and I did discuss with them about they discussing this further and more opportune time. Code Visit OBSV E&M: 81605 Initial observation care L3
--- NOTE | 2019-05-03 17:20 | RAD_ITS ---
STUDY: X-RAY - LUMBAR SPINE REASON FOR EXAM: Female, 79 years old. Low back pain TECHNIQUE: 3 view(s) of the lumbar spine were obtained. COMPARISON: None FINDINGS: The lumbar spine is intact and aligned with expected age-related changes. Mineralization is diffusely decreased. There is extensive aortic atherosclerosis. Abdominal soft tissue shadows are unremarkable without intestinal obstruction. RAD/Lumbar Spine 2 or 3 Views IMPRESSION: Unremarkable lumbar spine. Electronically Signed: Rosa Schuler, at 17:41 EDT Tel , Service support ,
[2019-05-03] MEDS: Furosemide 40 MG Tablet PO (17:50)
[2019-05-03] MEDS: Carbidopa/Levodopa 25/100 Tablet PO (17:51)
[2019-05-03] MEDS: Rivaroxaban 20 MG Tablet PO (17:51)
[2019-05-03] MEDS: 0.9% NaCl Peripheral Flush Adult/Peds IV (20:08)
[2019-05-03] MEDS: Ondansetron 4 MG/2 ML Vial IV (20:09)
[2019-05-03] MEDS: Losartan Potassium 25 MG Tablet PO (21:41)
[2019-05-03] MEDS: Omega-3 Acid Ethyl Esters 1 GM Capsule 2 GM PO (21:41)
[2019-05-04] VITALS (7 sets, daily range): BP systolic 110–185; BP diastolic 46–78; PULSE 49–64; RESP 16–18; TEMP 36.6–36.9; O2SAT 93–100
[2019-05-04] MEDS: Acetaminophen 325 MG Tablet 650 MG PO (02:19)
[2019-05-04] MEDS: Levothyroxine 125 MCG Tablet PO (06:28)
[2019-05-04] MEDS: Carbidopa/Levodopa 25/100 Tablet PO ×3 (06:28→16:19)
[2019-05-04] MEDS: Multivitamins,Ther W-Minerals Tablet 1 TABLET PO (07:40)
--- NOTE | 2019-05-04 08:38 | PN_ITS ---
Patient Problems: Active and Suspected Problems (Last Reviewed 05/03/19 @ 15:58 by Eduard Reyes DO) Fracture of left inferior pubic ramus (Acute) Fracture of left superior pubic ramus (Acute) Closed fracture of left proximal humerus (Acute) Left ankle sprain (Acute) Subjective: Chief complaint: Follow-up after admission for mechanical fall, proximal left humeral fracture, superior and inferior pubic rami fractures. Patient seen and examined. No acute events overnight. She stated that her left shoulder and left hip pain is manageable when she is resting. She could not walk because of left hip pain. Denies any other complaints. She is bradycardic, asymptomatic, other vital signs are stable. - Physical Exam General: Alert, Oriented x3, Cooperative, No apparent distress HEENT: Atraumatic, PERRLA, EOMI, Normocephalic Oral: Moist Mucosa, No Gingival or Mucosal Lesions/ Ulcerations Neck: Supple, No JVD, Negative Carotid Bruits, Trachea Midline, Thyroid Normal Size and Texture Lungs: Clear to auscultation, Normal air movement, No rhonchi, No wheeze, No rales, Diminished Cardiovascular: Normal S1, Normal S2, No murmurs, PMI Normal, Irregular Rate Abdomen: Bowel Sounds Present, Soft, Non Tender, Non-Distended, No Hepato- splenomegaly Extremities: No clubbing, No cyanosis, No edema Skin: No rashes, No breakdown Lymphatic: No Cervical, Supraclavicular, or Inguinal Adenopathy Neurological: Cranial nerves II-XII grossly intact, Motor Exam 5/5 strength throughout Psych/Mental Status: Normal Affect, Appropriate, Alert and oriented to time, place, person, mood and affect Vital Signs Temp Pulse Resp BP Pulse Ox 97.8 F 49 L 16 172/69 H 100 05/04/19 07:24 05/04/19 07:24 05/04/19 07:24 05/04/19 07:24 05/04/19 07:24 Oxygen Delivery Method Room Air Weight: 145 lb 8.081 oz Body Mass Index (BMI) 22.8 Intake and Output for Last 24 Hours 05/02/19 05/03/19 05/04/19 23:59 23:59 23:59 Intake Total 1000 / 1000 Output Total 1400 / 1400 Balance -400 / -400 Laboratory Tests Past 24 Hrs 05/03/19 05/03/19 05/03/19 14:00 14:00 14:45 WBC 6.6 RBC 4.07 L Hgb 12.3 Hct 37.4 MCV 91.9 MCH 30.2 MCHC 32.9 RDW Std Deviation 44.6 H RDW Coeff of Pina 13.2 Plt Count 207 MPV 10.2 Immature Gran % (Auto) 0.200 Neut % (Auto) 69.5 Lymph % (Auto) 17.1 L [place] % (Auto) 11.0 H Eos % (Auto) 1.7 Baso % (Auto) 0.5 Absolute Neuts (auto) 4.6 Absolute Lymphs (auto) 1.12 Nucleated RBC % 0 Sodium 139 Potassium 4.2 Chloride 104 Carbon Dioxide 28.0 Anion Gap 7 BUN 26 H Creatinine 0.92 Estim Creat Clear Calc 47.43 Est GFR (MDRD) Af Amer 75 Est GFR (MDRD) Non-Af 62 BUN/Creatinine Ratio 28.2 H Glucose 85 Calcium 8.9 Troponin I < 0.015 Vitamin D 25-Hydroxy Urine Color Yellow Urine Clarity Clear Urine pH 5.0 Ur Specific [place] 1.020 Urine Protein 15 H Urine Glucose (UA) Normal Urine Ketones 5 H Urine Occult Blood 10 H Urine Nitrite Positive H Urine Bilirubin Negative Urine Urobilinogen 4 H Ur Leukocyte Esterase 25 H Urine RBC 0 SEEN Urine WBC 0-5 SEEN Ur Squamous Epith Cells 0-5 SEEN Urine Bacteria 1+ Urine Mucus 0 SEEN 05/03/19 19:30 WBC RBC Hgb Hct MCV MCH MCHC RDW Std Deviation RDW Coeff of Pina Plt Count MPV Immature Gran % (Auto) Neut % (Auto) Lymph % (Auto) [place] % (Auto) Eos % (Auto) Baso % (Auto) Absolute Neuts (auto) Absolute Lymphs (auto) Nucleated RBC % Sodium Potassium Chloride Carbon Dioxide Anion Gap BUN Creatinine Estim Creat Clear Calc Est GFR (MDRD) Af Amer Est GFR (MDRD) Non-Af BUN/Creatinine Ratio Glucose Calcium Troponin I Vitamin D 25-Hydroxy Pending Urine Color Urine Clarity Urine pH Ur Specific [place] Urine Protein Urine Glucose (UA) Urine Ketones Urine Occult Blood Urine Nitrite Urine Bilirubin Urine Urobilinogen Ur Leukocyte Esterase Urine RBC Urine WBC Ur Squamous Epith Cells Urine Bacteria Urine Mucus Clinical Impression(s) from Imaging Studies Ankle X-Ray 05/03/19 13:12 IMPRESSION: Osteopenia with no acute abnormality. Electronically Signed: Ermias Merritt MD at 14:44 EDT , Service support , Hip/Pelvis X-Ray 05/03/19 13:12 IMPRESSION: Osteopenia with superior and inferior pubic rami fractures. Mild arthrosis of both hips. Electronically Signed: Ermias Merritt MD at 14:44 EDT , Service support , Shoulder X-Ray 05/03/19 13:12 IMPRESSION: Osteopenia with proximal left humeral fracture as described. Electronically Signed: Ermias Merritt MD at 14:45 EDT , Service support , Tibia/Fibula X-Ray 05/03/19 13:12 IMPRESSION: Osteopenia with osteoarthrosis. Calcaneal spurs. No acute abnormality. Electronically Signed: Ermias Merritt MD at 14:47 EDT , Service support , Chest X-Ray 05/03/19 13:13 IMPRESSION: Stable chest with no acute finding. Electronically Signed: Ermias Merritt MD at 14:43 EDT , Service support , Lumbar Spine X-Ray 05/03/19 17:20 IMPRESSION: Unremarkable lumbar spine. Electronically Signed: Rosa Schuler, at 17:41 EDT Tel , Service support , Medical Necessity - Tobacco Use Smoking Status: Never smoker Assessment/Plan All Active Problems (Last Reviewed 05/03/19 @ 15:58 by Eduard Reyes DO) Fracture of left inferior pubic ramus (Acute) Fracture of left superior pubic ramus (Acute) Closed fracture of left proximal humerus (Acute) Left ankle sprain (Acute) This is an 79 years old female patient presented to the emergency room because of fall, left shoulder and left hip pain and she was found to have proximal left humeral fracture, inferior and superior pubic rami fracture and she was admitted for treatment and placement to group home facility. #1 mechanical fall: With above-mentioned fractures, no head trauma. Patient has been on Xarelto and Plavix. She denies any head trauma. Denies any headache or vision changes. She has no focal deficit on physical exam. Routine blood work was unremarkable. Urinalysis revealed clear urine, positive for nitrite, there was only 0-5 WBCs and +1 bacteria. She has no urinary symptoms. She has been afebrile, no leukocytosis. Urine culture sent. At this time, no indication to start IV antibiotics. Vitamin D is pending. Plan: Pain control PTOT evaluation and treatment, patient will need placement to group home facility. #2 proximal left humeral fracture: Due to mechanical fall. She is on arm sling. She is on OxyIR PRN for pain, [place] PRN, as well as Tylenol PRN. Her pain is manageable at rest. Plan: Orthopedic surgery consult. #3 superior and inferior pubic rami fractures: Traumatic fractures. Patient is unable to walk mainly because of the left hip and left ankle pain. Left hip x- ray showed no acute fractures as well as left ankle x-ray. Plan for conservative treatment, pain control, PT OT. #4 chronic atrial fibrillation: Rate is controlled, she has been bradycardic but asymptomatic. Continue amiodarone and Coreg for rate control, continue Xarelto for anticoagulation. #5 CAD status post CABG: Stable, continue Plavix, losartan and Coreg. #6 hypertension: Blood pressure stable, continue losartan and Coreg. #7 Parkinson's disease: Stable, continue Sinemet. #8 hypothyroidism: Stable, continue levothyroxine. #9 DVT prophylaxis: Continue Xarelto. This note was generated with [employer] dictation software. It may contain incorrect words, spelling, and punctuation that were not noted in checking the note before signing. Code Visit Inpatient E&M: 58501 Subs Hosp L2
--- NOTE | 2019-05-04 10:11 | RAD_ITS ---
STUDY: X-RAY - LEFT SHOULDER REASON FOR EXAM: Female, 79 years old. Left shoulder pain. TECHNIQUE: A single [place] view(s) of the shoulder. COMPARISON: None. FINDINGS: Mild arthrosis of the glenohumeral joint. Normal acromioclavicular joint. Normal acromion. Impacted fracture of the proximal humerus as described on the prior shoulder images. The soft tissue structures are unremarkable. Normal visualized pulmonary apex. RAD/Shoulder One View IMPRESSION: Proximal humeral fracture with mild arthrosis as described. Electronically Signed: Ermias Merritt MD at 10:29 EDT , Service support ,
[2019-05-04] MEDS: oxyCODONE 5 MG Tablet PO (11:01)
[2019-05-04] MEDS: Carvedilol 6.25 MG Tablet PO (11:02)
[2019-05-04] MEDS: Omega-3 Acid Ethyl Esters 1 GM Capsule 2 GM PO ×2 (11:02→21:31)
[2019-05-04] MEDS: Amiodarone 200 MG Tablet PO (11:02)
[2019-05-04] MEDS: Losartan Potassium 25 MG Tablet PO ×2 (11:02→21:30)
[2019-05-04] MEDS: Clopidogrel Bisulfate 75 MG Tablet PO (11:03)
[2019-05-04] MEDS: Furosemide 40 MG Tablet PO (11:05)
[2019-05-04] MEDS: Ondansetron 4 MG/2 ML Vial IV (13:36)
--- NOTE | 2019-05-04 13:40 | CASEMGMT ---
Social Work Assessment Referral Date: 05/04/2019 Date of Assessment: 05/04/2019 Reason for consult: SNF placement Informant: Personal Status: SW met with pt to confirm discharge plans. Pt is alert and orientated x4. Pt states that she lives with her in a two story home with three steps to enter. Pt states that she was previously independent with ALDs but does have a sikh girl come into her home to assit with cleaning. DME include cane and walker. Preferred pharmacy is [email or web address] and PCP is Dr. Garrido. Substance Abuse Hx: Pt denied Mental Health Hx: Pt denied SW informed pt that PT/OT are recommending pt go to SNF for rehab as pt was assist of two. SW provided pt with list of SNF that accept pt's insurance. Pt states that she is waiting to talk with ortho to see if the will do surgery or not. SW explained the importance of getting a discharge plan started though as pt will need insurance approval and accepting facility. Pt is agreeable to going to SNF if recommended and request referral be sent to TCU. SW explained that this worker will put pt on TCU list and that once ortho decides what to do with pt, this worker will speak with pt again. Pt states understanding. SW placed a call to Naomie with TCU and provided referral. Naomie states she is able to accept pt pending pre-cert. SW explained that this worker will update Naomie once ortho see's pt. Naomie states understanding. Plan: TCU pending pre-cert Rosalinda Batres [employer], [employer]
[2019-05-04] MEDS: Rivaroxaban 20 MG Tablet PO (16:18)
--- NOTE | 2019-05-04 17:28 | CON.PCM_ITS ---
Reason for Consult Date of Consultation: 05/04/19 Reason for Consultation: Left surgical neck fracture left inferior and superior pubic rami fracture History of Present Illness: The patient is a 79 year old F [] ground-level fall at home. Cannot recall specifics of the fall but she denies loss of consciousness. Past Medical History Past Medical History (Chronic Problems): Chronic Problems (Last Reviewed 05/03/19 @ 15:58 by Eduard Reyes DO) History of cardioversion (Chronic 12/16/18) History of coronary artery bypass graft x 3 (Chronic 08/22/98) [facility] [place]:LOPEZ to LAD, left radial to OM of CX and free MYNOR to PDA of RCA per Dr. Laz Barreto History of left heart catheterization (Chronic 09/11/18) Bifurcating LOPEZ graft to the LAD and DIAG is patent with mild to moderate [place] mid/distal LAD 50% stenosis, high risk for PCI given need to traverse down LOPEZ and severe LV dysfunction. Saphenous Vein graft to the RCA previously placed stent is patent, with 75% mid PDA stenosis, not amenable to PCI given need to traverse through graft, then acute angle into PDA, of questionable benefit given severe LV dysfunction Atrial fibrillation (Chronic) Coronary artery disease (Chronic) Hypertension (Chronic) Hypercholesterolemia (Chronic) Non-STEMI (non-ST elevated myocardial infarction) (Chronic 09/10/18) Hypothyroidism (Chronic) Parkinson's disease (Chronic) Medical History: Medical History (Last Reviewed 05/03/19 @ 15:58 by Eduard Reyes DO) History of left heart catheterization (Chronic) Onset Date: 09/11/18 Z98.890 Bifurcating LOPEZ graft to the LAD and DIAG is patent with mild to moderate [place] mid/distal LAD 50% stenosis, high risk for PCI given need to traverse down LOPEZ and severe LV dysfunction. Saphenous Vein graft to the RCA previously placed stent is patent, with 75% mid PDA stenosis, not amenable to PCI given need to traverse through graft, then acute angle into PDA, of questionable benefit given severe LV dysfunction Atrial fibrillation (Chronic) I48.91 Coronary artery disease (Chronic) I25.10 Hypertension (Chronic) I10 Hypercholesterolemia (Chronic) E78.00 Non-STEMI (non-ST elevated myocardial infarction) (Chronic) Onset Date: 06/19 I21.4 Hypothyroidism (Chronic) E03.9 Parkinson's disease (Chronic) G20 Allergies Bkxcebn-Tao-Ihp Reductase Inhibitor Allergy (Verified 05/03/19 16:32) MUSCLE ACHES ALL OVER pravastatin Adverse Reaction (Severe, Verified 05/03/19 16:32) myalgias bones ache all over colesevelam [From WelChol] Adverse Reaction (Intermediate, Verified 01/26/19 11:22) Not effective ezetimibe [From Zetia] Adverse Reaction (Intermediate, Verified 01/26/19 11:22) GI upset Influenza Virus Vaccines Adverse Reaction (Intermediate, Verified 01/26/19 11:22) Visual changes, lightheaded niacin Adverse Reaction (Intermediate, Verified 01/26/19 11:22) sweats Home Medications: Ambulatory Orders Medication Instructions Recorded Cholecalciferol (Vitamin D3) 1 tab PO DAILY 06/14/13 [Vitamin D3] Levothyroxine [Synthroid] 125 mcg PO DAILY 06/14/13 Multivit-Min/FA/Lycopene/Lut 1 ea PO DAILY 06/14/13 [Centrum Silver Tablet] [place]-3 Fatty Acids [Fish Oil] 2,000 mg PO BID 06/14/13 Carbidopa/Levodopa 1.5 tab PO TID 09/09/18 [Carbidopa-Levodopa 25-100 Tab] Ciclopirox 1 applicatio TP QHS 09/09/18 L.acidoph,Paracasei, B.lactis 1 ea PO DAILY 09/09/18 [Probiotic] Ubidecarenone [Coq-10] 200 mg PO DAILY 09/09/18 carvedilol 6.25 mg tablet 6.25 mg PO BID #180 tab 10/01/18 losartan 25 mg tablet 25 mg PO BID #180 tab 10/01/18 amiodarone 200 mg tablet 200 mg PO DAILY #30 tab 11/04/18 rivaroxaban 20 mg tablet 20 mg PO DINNER #90 tab 03/03/19 Clopidogrel Bisulfate [Plavix] 75 mg PO DAILY 05/03/19 Furosemide [Lasix] 40 mg PO DAILY 05/03/19 Hydrocodone/Acetaminophen [[place] 1 ea PO Q4H PRN 05/03/19 5-325 Tablet] Surgical History: Surgical History (Last Reviewed 05/03/19 @ 15:58 by Eduard Reyes DO) History of cardioversion (Chronic) Onset Date: 12/16/18 Z98.890 History of coronary artery bypass graft x 3 (Chronic) Onset Date: 08/22/98 Z95.1 [facility] [place]:LOPEZ to LAD, left radial to OM of CX and free MYNOR to PDA of RCA per Dr. Laz Barreto History of colonoscopy Onset Date: 06/25/07 Z98.890 History of laparoscopic cholecystectomy Onset Date: 06/15/[address] Kulwinder Rosas; umbilical hernia repair done concomitantly with lap cholecystectomy History of tubal ligation Onset Date: 1969 Z98.51 History of umbilical hernia repair Onset Date: 06/15/13 Z98.890, Z87.[address] Kulwinder Rosas, concomitant with laparascopic cholecystectomy History of varicose vein stripping Onset Date: 1971 Z98.890 Bilateral Surgical History: coronary bypass surgery - 15 years ago, - - Vein stripping in both legs, tubal ligation Psychiatric History: No pertinent psych hx CLINICAL SPECIALIST History: No pertinent CLINICAL SPECIALIST history Lives: Spouse/ Significant Other Smoking Status: Never smoker - *Family History Paternal Family History: Family History (Last Reviewed 05/03/19 @ 15:59 by Eduard Reyes DO) Sister Alzheimer's disease History Items: Heart Disease, Hypertension, Stroke Patient Problems: Active and Suspected Problems (Last Reviewed 05/03/19 @ 15:58 by Eduard Reyes DO) Fracture of left inferior pubic ramus (Acute) Fracture of left superior pubic ramus (Acute) Closed fracture of left proximal humerus (Acute) Left ankle sprain (Acute) Objective: X-ray left shoulder impacted surgical neck fracture X-ray pelvis nondisplaced superior inferior pubic rami fracture left - Physical Exam General: Cooperative, No apparent distress Extremities: - - Left hip ; hematoma left lateral hip compartment soft compressible nontender about the knee no knee joint effusion intact motor and sensory to left lower extremity no open lesions left shoulder: Positive swelling no open lesions she is tender to palpation she does have intact sensation over the axillary radial median ulnar and AIN PIN nerves no motor deficit she does have 2 out of 4 radial pulse compartments are soft and compressible Vital Signs Temp Pulse Resp BP Pulse Ox 98.1 F 51 L 16 166/52 H 93 05/04/19 16:00 05/04/19 16:00 05/04/19 16:00 05/04/19 16:00 05/04/19 16:00 Oxygen Delivery Method Room Air Weight: 145 lb 8.081 oz Body Mass Index (BMI) 22.8 Intake and Output for Last 24 Hours 05/02/19 05/03/19 05/04/19 23:59 23:59 23:59 Intake Total 1000 / 1000 Output Total 1400 / 1400 Balance -400 / -400 Microbiology Past 72 Hours 05/03/19 14:45 Urine Culture - Preliminary Urine, Catheterized Culture exhibits no growth. Laboratory Tests Past 24 Hrs 05/03/19 19:30 Vitamin D 25-Hydroxy 36.0 Assessment/Plan All Active Problems (Last Reviewed 05/03/19 @ 15:58 by Eduard Reyes DO) Fracture of left inferior pubic ramus (Acute) Fracture of left superior pubic ramus (Acute) Closed fracture of left proximal humerus (Acute) Left ankle sprain (Acute) Surgical neck fracture left shoulder okay alignment Sling the left shoulder. Remove sling 3 times a day for elbow range of motion. Nonweightbearing to left upper extremity no active shoulder range of motion. Pendulum exercises when tolerable. Okay for gentle passive range of motion to shoulder encourage wrist and finger range of motion Left inferior pubic rami superior pubic rami fracture no with peak surgical intervention recommended weightbearing as tolerated pain control left hip hematoma nothing surgical to be done at this point Follow-up in office 2 weeks for repeat x-rays will likely need rehab
[2019-05-04] MEDS: HYDROcodone Bitartrate/Apap 5/325 Tablet PO (20:24)
[2019-05-04] MEDS: 0.9% NaCl Peripheral Flush Adult/Peds IV ×2 (20:26→21:32)
--- NOTE | 2019-05-04 21:09 | PCM.PN.BLA ---
Progress Note Hydralazine as needed ordered for hypertension. Coreg dose decreased to 3.125mg bid and parameters placed. Nurse to hold Coreg because of bradycardia with HR of 51.
[2019-05-04] MEDS: hydrALAZINE 20 MG/ML Vial 10 MG IV (21:30)
[2019-05-05 04:00] VITALS: BP 142/59; PULSE 60; RESP 18; TEMP 36.8; O2SAT 100
[2019-05-05] MEDS: HYDROcodone Bitartrate/Apap 5/325 Tablet PO (04:36)
[2019-05-05] MEDS: oxyCODONE 5 MG Tablet PO (06:11)
[2019-05-05] MEDS: Levothyroxine 125 MCG Tablet PO (06:11)
[2019-05-05] MEDS: Carbidopa/Levodopa 25/100 Tablet PO ×3 (06:12→15:50)
[2019-05-05] MEDS: Multivitamins,Ther W-Minerals Tablet 1 TABLET PO (08:20)
[2019-05-05 09:22] VITALS: BP 148/53; PULSE 56; RESP 18; TEMP 36.7; O2SAT 100
--- NOTE | 2019-05-05 09:35 | PCM.PROGNOTE ---
Patient Problems: Active and Suspected Problems (Last Reviewed 05/03/19 @ 15:58 by Eduard Reyes DO) Fracture of left inferior pubic ramus (Acute) Fracture of left superior pubic ramus (Acute) Closed fracture of left proximal humerus (Acute) Left ankle sprain (Acute) Subjective: Chief complaint: Follow-up after admission for mechanical fall, proximal left humeral fracture, superior and inferior pubic rami fractures. Patient seen and examined. No acute events overnight. This morning, patient complained of left leg pain and her right leg was tingly. Nurse repositioned the patient and her right leg pain went away as well as numbness. Left shoulder and left hip pain is manageable. Patient was able to do physical therapy yesterday. Her vital signs are stable. - Physical Exam General: Alert, Oriented x3, Cooperative, No apparent distress HEENT: Atraumatic, PERRLA, EOMI, Normocephalic Oral: Moist Mucosa, No Gingival or Mucosal Lesions/ Ulcerations Neck: Supple, No JVD, Negative Carotid Bruits, Trachea Midline, Thyroid Normal Size and Texture Lungs: Clear to auscultation, Normal air movement, No rhonchi, No wheeze, No rales, Diminished Cardiovascular: Normal S1, Normal S2, No murmurs, PMI Normal, Irregular Rate Abdomen: Bowel Sounds Present, Soft, Non Tender, Non-Distended, No Hepato-splenomegaly Extremities: No clubbing, No cyanosis, No edema Skin: No rashes, No breakdown Lymphatic: No Cervical, Supraclavicular, or Inguinal Adenopathy Neurological: Cranial nerves II-XII grossly intact, Neuro grossly intact Psych/Mental Status: Normal Affect, Appropriate, Alert and oriented to time, place, person, mood and affect Vital Signs Temp Pulse Resp BP Pulse Ox 98.1 F 56 L 18 148/53 H 100 05/05/19 09:22 05/05/19 09:22 05/05/19 09:22 05/05/19 09:22 05/05/19 09:22 Oxygen Delivery Method Room Air Weight: 145 lb 8.081 oz Body Mass Index (BMI) 22.8 Intake and Output for Last 24 Hours 05/03/19 05/04/19 05/05/19 23:59 23:59 23:59 Intake Total 1000 / 1200 400 / 400 Output Total 1400 / 1400 Balance -400 / -200 400 / 400 Microbiology Past 72 Hours 05/03/19 14:45 Urine Culture - Preliminary Urine, Catheterized Culture exhibits no growth. Medical Necessity - Tobacco Use Smoking Status: Never smoker Assessment/Plan All Active Problems (Last Reviewed 05/03/19 @ 15:58 by Eduard Reyes DO) Fracture of left inferior pubic ramus (Acute) Fracture of left superior pubic ramus (Acute) Closed fracture of left proximal humerus (Acute) Left ankle sprain (Acute) This is an 79 years old female patient presented to the emergency room because of fall, left shoulder and left hip pain and she was found to have proximal left humeral fracture, inferior and superior pubic rami fracture and she was admitted for treatment and placement to residential facility. #1 mechanical fall: With above-mentioned fractures, no head trauma. She is on [place] as well as OxyIR PRN for pain. She denies any head trauma. Plan: Pain control, awaiting insurance approval for placement to residential facility. #2 proximal left humeral fracture: Due to mechanical fall. She is on arm sling. She is on OxyIR PRN for pain, [place] PRN, as well as Tylenol PRN. Orthopedic surgery consulted, recommended conservative management, no surgery. Plan as above. #3 superior and inferior pubic rami fractures: Traumatic fractures. Patient is unable to walk mainly because of the left hip and left ankle pain. Left hip x-ray showed no acute fractures as well as left ankle x-ray. Plan for conservative treatment, pain control, placement to SNF. #4 chronic atrial fibrillation: Rate is controlled, she has been bradycardic but asymptomatic. Continue amiodarone and Coreg for rate control, continue Xarelto for anticoagulation. #5 CAD status post CABG: Stable, continue Plavix, losartan and Coreg. #6 hypertension: Blood pressure stable, continue losartan and Coreg. #7 Parkinson's disease: Stable, continue Sinemet. #8 hypothyroidism: Stable, continue levothyroxine. #9 DVT prophylaxis: Continue Xarelto. This note was generated with BloomThatation software. It may contain incorrect words, spelling, and punctuation that were not noted in checking the note before signing. Code Visit Inpatient E&M: 66900 Subs Hosp L2
[2019-05-05] MEDS: Clopidogrel Bisulfate 75 MG Tablet PO (10:04)
[2019-05-05] MEDS: Amiodarone 200 MG Tablet PO (10:04)
[2019-05-05] MEDS: Losartan Potassium 25 MG Tablet PO ×2 (10:04→21:17)
[2019-05-05] MEDS: Omega-3 Acid Ethyl Esters 1 GM Capsule 2 GM PO ×2 (10:04→21:17)
[2019-05-05] MEDS: Furosemide 40 MG Tablet PO (10:05)
--- NOTE | 2019-05-05 11:37 | CASEMGMT ---
As per admitting RN, pt indicated son Gene Esquivel is POA. SW spoke w/pt, let her know that we do not have copies of LW/POA on file. SW asked pt if family is able, to bring in the documents--or if she is able to bring them in at some point in the future to do so. Pt states understanding. SHIRA Napier
--- NOTE | 2019-05-05 14:16 | CASEMGMT ---
Addendum entered by Rosalinda Batres 05/05/19 16:20: SW received message from Lynn Alatorre at [facility] stating she agrees with pt going to SNF. ANGELO placed a call to Naomie with TCU and updated her on this and to submit for pre-cert. Plan: TCU pending pre-cert Original Note: Social Work Note SW reviewed PT/OT and progress notes. Pt is not having ortho surgery and pt is still assist of 2 for PT/OT. SW met with pt and pt's Chaz present in room. Pt gave this worker permission to speak to her in front of her guest. SW confirmed discharge plans with pt. Pt still agreeable to TCU. SW explained that TCU is able to accept pt pending pre-cert and pt will be at [facility] until pre-cert is obtained. Pt and Chaz state understanding. SW faxed initial referral to [facility] and placed a call to [facility] and left message regarding referral. ANGELO spoke with Naomie with TCU and updated her that [facility] and waiting to hear back. Once this worker hears from [facility], Naomie with TCU can submit for pre-cert. Plan: TCU pending pre-cert Rosalinda Batres ACUPUNCTURE PHYSICIAN, CREDIT CORRESPONDENCE CLERK
[2019-05-05 15:23] VITALS: BP 117/48; PULSE 52; RESP 18; TEMP 37; O2SAT 100
[2019-05-05 15:24] VITALS: RESP 18
[2019-05-05] MEDS: Rivaroxaban 20 MG Tablet PO (16:55)
[2019-05-05 20:22] VITALS: BP 150/45; PULSE 55; RESP 18; TEMP 36.7; O2SAT 99
[2019-05-06 03:02] VITALS: BP 149/59; PULSE 55; RESP 18; TEMP 36.4; O2SAT 99
[2019-05-06] MEDS: oxyCODONE 5 MG Tablet PO ×2 (03:08→08:15)
[2019-05-06] MEDS: HYDROcodone Bitartrate/Apap 5/325 Tablet PO (06:50)
[2019-05-06] MEDS: Levothyroxine 125 MCG Tablet PO (06:51)
[2019-05-06] MEDS: Carbidopa/Levodopa 25/100 Tablet PO ×3 (06:51→17:21)
[2019-05-06 08:09] VITALS: BP 110/54; PULSE 62; RESP 16; TEMP 36.6; O2SAT 100
[2019-05-06] MEDS: Multivitamins,Ther W-Minerals Tablet 1 TABLET PO (08:13)
--- NOTE | 2019-05-06 09:34 | PCM.TXEXTCAR ---
- Diet 05/03/19 16:22 Diet: Cardiac/Low Cholesterol Food consistency:: Regular Liquid Consistency:: Regular/Thin - Routine Orders/Code Status Code Status: Full Code - Wound(s) lt shoulder Wound Type: fracture coccyx/roxie cleft Wound Type: Pressure Injury - Suggestions for Active Care Change Position every (hours): 3 Hours to sit in a chair: 2 Times a day to sit in chair: 3 - Therapies Weight Bearing: Non weight bearing Physical Therapy: Eval and Treat Occupational Therapy: Eval and Treat - Allergies/Procedures Done in Hospital Allergies/Adverse Reactions: Allergies Mslsijb-Xfg-Wmh Reductase Inhibitor Allergy (Verified 05/03/19 16:32) MUSCLE ACHES ALL OVER pravastatin Adverse Reaction (Severe, Verified 05/03/19 16:32) myalgias bones ache all over colesevelam [From WelChol] Adverse Reaction (Intermediate, Verified 01/26/19 11:22) Not effective ezetimibe [From Zetia] Adverse Reaction (Intermediate, Verified 01/26/19 11:22) GI upset Influenza Virus Vaccines Adverse Reaction (Intermediate, Verified 01/26/19 11:22) Visual changes, lightheaded niacin Adverse Reaction (Intermediate, Verified 01/26/19 11:22) sweats - Type of Care/Length of Stay Estimated LOS: Convalescent Care Less Than 30 days Type of Care Needed: Skilled Rehab Potential: Fair Prognosis: Fair - Additional Orders/Day of Discharge H&P will serve as current which was dated: 05/03/19 Day of Discharge: 05/06/19 - Dietary and Speech Recommendations Dietitian Recommendations/Changes: Recommend continue cardiac/low cholesterol diet. - Follow Up Care Primary Care Physician: Louise Garrido MD [Primary Care Provider] - Please follow up with your Primary Care Physician in: 2-4 weeks. Please Follow Up With: Ricardo Reynolds DO When: 2 weeks.
[2019-05-06] MEDS: Omega-3 Acid Ethyl Esters 1 GM Capsule 2 GM PO (10:46)
[2019-05-06] MEDS: Losartan Potassium 25 MG Tablet PO (10:46)
[2019-05-06] MEDS: Furosemide 40 MG Tablet PO (10:47)
--- NOTE | 2019-05-06 10:47 | PCM.DC.SUM ---
Discharge Date and Diagnosis - Problem List Patient Problems: Active and Suspected Problems (Last Reviewed 05/03/19 @ 15:58 by Eduard Reyes DO) Fracture of left inferior pubic ramus (Acute) Fracture of left superior pubic ramus (Acute) Closed fracture of left proximal humerus (Acute) Left ankle sprain (Acute) Date of Admission: 05/03/19 Date of Discharge: 05/06/19 - Primary Discharge Diagnosis Active and Suspected Problems (Last Reviewed 05/03/19 @ 15:58 by Eduard Reyes DO) #1 mechanical fall. #2 acute traumatic proximal left humeral fracture, status post arm sling. #3 superior and inferior pubic rami fractures. #4 left ankle sprain. - Secondary Discharge Diagnosis Chronic Problems (Last Reviewed 05/03/19 @ 15:58 by Eduard Reyes DO) History of cardioversion (Chronic 12/16/18) History of coronary artery bypass graft x 3 (Chronic 08/22/98) [facility] [place]:LOPEZ to LAD, left radial to OM of CX and free MYNOR to PDA of RCA per Dr. Laz Barreto History of left heart catheterization (Chronic 09/11/18) Bifurcating LOPEZ graft to the LAD and DIAG is patent with mild to moderate [place] mid/distal LAD 50% stenosis, high risk for PCI given need to traverse down LOPEZ and severe LV dysfunction. Saphenous Vein graft to the RCA previously placed stent is patent, with 75% mid PDA stenosis, not amenable to PCI given need to traverse through graft, then acute angle into PDA, of questionable benefit given severe LV dysfunction Atrial fibrillation (Chronic) Coronary artery disease (Chronic) Hypertension (Chronic) Hypercholesterolemia (Chronic) Non-STEMI (non-ST elevated myocardial infarction) (Chronic 09/10/18) Hypothyroidism (Chronic) Parkinson's disease (Chronic) Hospital Course and Treatment Imaging Results: Clinical Impression(s) from Imaging Studies Ankle X-Ray 05/03/19 13:12 IMPRESSION: Osteopenia with no acute abnormality. Electronically Signed: Ermias Merritt MD at 14:44 EDT , Service support , Hip/Pelvis X-Ray 05/03/19 13:12 IMPRESSION: Osteopenia with superior and inferior pubic rami fractures. Mild arthrosis of both hips. Electronically Signed: Ermias Merritt MD at 14:44 EDT , Service support , Shoulder X-Ray 05/03/19 13:12 IMPRESSION: Osteopenia with proximal left humeral fracture as described. Electronically Signed: Ermias Merritt MD at 14:45 EDT , Service support , Tibia/Fibula X-Ray 05/03/19 13:12 IMPRESSION: Osteopenia with osteoarthrosis. Calcaneal spurs. No acute abnormality. Electronically Signed: Ermias Merritt MD at 14:47 EDT , Service support , Chest X-Ray 05/03/19 13:13 IMPRESSION: Stable chest with no acute finding. Electronically Signed: Ermias Merritt MD at 14:43 EDT , Service support , Lumbar Spine X-Ray 05/03/19 17:20 IMPRESSION: Unremarkable lumbar spine. Electronically Signed: Rosa Schuler at 17:41 EDT Tel , Service support , Shoulder X-Ray 05/04/19 10:11 IMPRESSION: Proximal humeral fracture with mild arthrosis as described. Electronically Signed: Ermias Merritt MD at 10:29 EDT , Service support , Dr. Reynolds, orthopedic surgery. Operations: None Procedures: None Summary of Care Provided: Patient seen and examined on the day of discharge and appeared to be stable to be discharged to long-term facility. Her pain is manageable. She has been up to the chair. Her vital signs are stable. This is an 79 years old female patient presented to the emergency room because of fall, left shoulder and left hip pain and she was found to have proximal left humeral fracture, inferior and superior pubic rami fracture. #1 mechanical fall: With below-mentioned fractures, no head trauma. #2 proximal left humeral fracture: Due to mechanical fall. Status post arm sling. Orthopedic surgery consulted and recommended no need for surgery. Patient was treated with OxyIR PRN for pain as well as Tylenol and plan is to follow-up with orthopedic surgery in 2 weeks. #3 superior and inferior pubic rami fractures: Traumatic fractures. With physical therapy, patient was able to ambulate with help both the therapist. Left hip x-ray showed no acute fractures as well as left ankle x-ray. #4 chronic atrial fibrillation: Stable, continued on amiodarone and Coreg for rate control, Xarelto for anticoagulation. #5 CAD status post CABG: Stable, continued on Plavix, losartan and Coreg. #6 hypertension: Blood pressure stable, continued on losartan and Coreg. #7 Parkinson's disease: Stable, continued on Sinemet. #8 hypothyroidism: Stable, continued on levothyroxine. Patient discharged to long-term facility in a stable medical condition, discharged on OxyIR PRN for pain, continued on her previous home medication without any changes including Xarelto, plan to follow-up with orthopedic surgery in 2 weeks, follow-up with PCP in 2 to 4 weeks. This note was generated with Swatchcloud dictation software. It may contain incorrect words, spelling, and punctuation that were not noted in checking the note before signing. Patient Problems: Active and Suspected Problems (Last Reviewed 05/03/19 @ 15:58 by Eduard Reyes DO) Fracture of left inferior pubic ramus (Acute) Fracture of left superior pubic ramus (Acute) Closed fracture of left proximal humerus (Acute) Left ankle sprain (Acute) - Physical Exam General: Alert, Oriented x3, Cooperative, No apparent distress HEENT: Atraumatic, PERRLA, EOMI, Normocephalic Oral: Moist Mucosa, No Gingival or Mucosal Lesions/ Ulcerations Neck: Supple, No JVD, Negative Carotid Bruits, Trachea Midline, Thyroid Normal Size and Texture Lungs: Clear to auscultation, Normal air movement, No rhonchi, No wheeze, No rales, Diminished Cardiovascular: Normal S1, Normal S2, No murmurs, PMI Normal, Irregular Rate Abdomen: Bowel Sounds Present, Soft, Non Tender, Non-Distended Extremities: No clubbing, No cyanosis, No edema Skin: No rashes, No breakdown Lymphatic: No Cervical, Supraclavicular, or Inguinal Adenopathy Neurological: Cranial nerves II-XII grossly intact, Neuro grossly intact Psych/Mental Status: Normal Affect, Appropriate Vital Signs Temp Pulse Resp BP Pulse Ox 97.9 F 62 16 110/54 L 100 05/06/19 08:09 05/06/19 08:09 05/06/19 08:09 05/06/19 08:09 05/06/19 08:09 Oxygen Delivery Method Room Air Weight: 145 lb 8.081 oz Body Mass Index (BMI) 22.8 Intake and Output for Last 24 Hours 05/04/19 05/05/19 05/06/19 23:59 23:59 23:59 Intake Total 1000 / 1200 1950 / 1950 300 / 300 Output Total 1400 / 1400 Balance -400 / -200 1949 / 1950 300 / 300 Microbiology Past 72 Hours 05/03/19 14:45 Urine Culture - Final Urine, Catheterized Culture exhibits no growth. Home Medications: Medications to take at Discharge Cholecalciferol (Vitamin D3) [Vitamin D3] 1 tab PO DAILY 06/14/13 Levothyroxine [Synthroid] 125 mcg PO DAILY 06/14/13 Multivit-Min/FA/Lycopene/Lut [Centrum Silver Tablet] 1 ea PO DAILY 06/14/13 [place]-3 Fatty Acids [Fish Oil] 2,000 mg PO BID 06/14/13 Carbidopa/Levodopa [Carbidopa-Levodopa 25-100 Tab] 1.5 tab PO TID 09/09/18 Ciclopirox 1 applicatio TP QHS 09/09/18 L.acidoph,Paracasei, B.lactis [Probiotic] 1 ea PO DAILY 09/09/18 Ubidecarenone [Coq-10] 200 mg PO DAILY 09/09/18 carvedilol 6.25 mg tablet 6.25 mg PO BID #180 tab 10/01/18 losartan 25 mg tablet 25 mg PO BID #180 tab 10/01/18 amiodarone 200 mg tablet 200 mg PO DAILY #30 tab 11/04/18 rivaroxaban 20 mg tablet 20 mg PO DINNER #90 tab 03/03/19 Clopidogrel Bisulfate [Plavix] 75 mg PO DAILY 05/03/19 Furosemide [Lasix] 40 mg PO DAILY 05/03/19 Hydrocodone/Acetaminophen [[place] 5-325 Tablet] 1 ea PO Q4H PRN 05/03/19 Oxycodone [Oxyir] 5 mg PO Q8H PRN PRN 7 Days #20 tab 05/06/19 Following Prescrptions Were Given to Patient: Oxycodone [Oxyir] 5 mg PO Q8H PRN PRN 7 Days #20 tab PRN Reason: Severe pain (-06/10) Prescription Printed Primary Care Physician: Louise Garrido MD [Primary Care Provider] - Please follow up with your Primary Care Physician in: 2-4 weeks. Please Follow Up With: Ricardo Reynolds DO When: 2 weeks. Disposition: [facility] facility Minutes spent on discharge:: 32 Patient Condition:: Stable Medical Necessity - Tobacco Use Smoking Status: Never smoker Meaningful Use Info Meaningful Use Diagnoses (Choose all that apply): None applicable Code Visit Inpatient E&M: 64736 Disch Hosp
[2019-05-06] MEDS: Clopidogrel Bisulfate 75 MG Tablet PO (10:51)
[2019-05-06] MEDS: Amiodarone 200 MG Tablet PO (10:51)
[2019-05-06 10:54] VITALS: BP 112/35; PULSE 50; RESP 16
--- NOTE | 2019-05-06 11:01 | CASEMGMT ---
Social Work Note SW spoke with Naomie in TCU who anticipates she will receive pre-cert today. Physician updated. Plan: TCU pending pre-cert Rosalinda Batres MSW, STERILIZATION TECHNICIAN
[2019-05-06 14:42] VITALS: BP 109/55; PULSE 64; RESP 16; TEMP 36.8; O2SAT 100
--- NOTE | 2019-05-06 17:21 | CASEMGMT ---
Social Work Note SW asked Bernadette Gonzalez to check to see if pre-cert has been obtained. Bernadette Gonzalez checked MMO website and pre-cert was obtained for pt to discharge to TCU today. ANGELO updated charge nurse Angie who will update Dr. Hugo. Plan: Discharge to TCU today Rosalinda Batres FINANCIAL QUANTITATIVE ANALYST, ARMED SECURITY OFFICER
[2019-05-06] MEDS: Rivaroxaban 20 MG Tablet PO (17:22)
== END 2019-05-06 19:00 | disposition skilled nursing facility (03) | DRG 563 ==
LOC: ED 15:27 → MS3 16:00
PROVIDERS: Emergency Provider Emergency Medicine; Family Provider Internal Medicine; PCP Internal Medicine; Visit Provider Hospitalist
DX: S42.212A Unspecified displaced fracture of surgical neck of left humerus, initial encounter for closed fracture (principal); S32.512A Fracture of superior rim of left pubis, initial encounter for closed fracture; S32.592A Other specified fracture of left pubis, initial encounter for closed fracture; I44.7 Left bundle-branch block, unspecified; S93.402A Sprain of unspecified ligament of left ankle, initial encounter; R00.1 Bradycardia, unspecified; G20 Parkinson's disease; W18.30XA Fall on same level, unspecified, initial encounter; Y92.019 Unspecified place in single-family (private) house as the place of occurrence of the external cause; I25.2 Old myocardial infarction; S70.02XA Contusion of left hip, initial encounter; I10 Essential (primary) hypertension; E03.9 Hypothyroidism, unspecified; I48.2 Chronic atrial fibrillation; I25.10 Atherosclerotic heart disease of native coronary artery without angina pectoris; Z95.1 Presence of aortocoronary bypass graft; Z79.01 Long term (current) use of anticoagulants; E78.00 Pure hypercholesterolemia, unspecified
CPT/HCPCS: 36415; 71045; 72100; 73020; 73030; 73502; 73590; 73600; 80048; 81001; 82306; 84484; 85025; 87086; 93005; 97110; 97162; 97166; 97530; 97535; 99285; P9612; A4216; J2405

== ENCOUNTER 2019-05-06 19:12 | Inpatient (IN) | payer MEDICARE, SELFPAY ==
[2019-05-03 16:29] VITALS: BMI 22.8
--- NOTE | 2019-05-06 19:15 | NURSING ---
Patient came to this unit from [facility]. Oriented to call light and room.
[2019-05-06 19:43] VITALS: BP 153/71; PULSE 98; RESP 20; TEMP 37.4; O2SAT 98
--- NOTE | 2019-05-06 20:32 | HP.PCM_ITS ---
Problem List (1) Debility Status: Acute (2) Fall Status: Acute (3) Pelvic fracture Status: Acute (4) Closed fracture of left proximal humerus Status: Acute (5) Atrial fibrillation Status: Chronic (6) Coronary artery disease Status: Chronic (7) Hypertension Status: Chronic (8) Hypercholesterolemia Status: Chronic (9) Non-STEMI (non-ST elevated myocardial infarction) Status: Chronic (10) Hypothyroidism Status: Chronic (11) Parkinson's disease Status: Chronic History of Present Illness Date of Admission: 05/06/19 Chief Complaint: Here for rehabilitation, strengthening, prior to discharge home with spouse. The patient is a 79 year old Female with below past medical history presented to [facility] Emergency Department 05/03/2019 with fall. 05/03/2019 X-ray left ankle showed osteopenia, no fracture. 05/03/2019 X-ray pelvis, left hip showed pelvic fracture, mild osteoarthritis bilateral hips. 05/03/2019 X-ray left tibia/fibula showed osteopenia, osteoarthritis, heel spurs. 05/03/2019 Chest X-ray stable. 05/03/2019 EKG sinus bradycardia, incomplete right bundle branch block, moderate voltage criteria LVH, nonspecific ST abnormality. 05/03/2019 X-ray lumbar spine negative. Unable to walk, fell 3 days prior. Urgent care diagnosed left shoulder fracture, treated with sling. Increasing left hip pain, unable to bear weight left lower extremity. UA +/-, urine culture sent. 05/03/2019 Admit to Hospital. PT/OT. Recommended [facility] for rehabilitation. Sling for left humerus fracture. 05/04/2019 Dr. Reynolds noted left proximal humerus fracture okay alignment. Weight bearing as tolerated for pelvic fractures. 05/05/2019 Pain control with [place], Oxycodone, Tylenol. No surgical intervention necessary. 05/06/2019 Admit to TCU with debility, here for rehabilitation, strengthening, prior to discharge home with spouse. 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 Laz Barreto History of left heart catheterization (Chronic 09/11/18) Bifurcating LOPEZ graft to the LAD and DIAG is patent with mild to moderate [place] mid/distal LAD 50% stenosis, high risk for PCI given need to traverse down LOPEZ and severe LV dysfunction. Saphenous Vein graft to the RCA previously placed stent is patent, with 75% mid PDA stenosis, not amenable to PCI given need to traverse through graft, then acute angle into PDA, of questionable benefit given severe LV dysfunction Atrial fibrillation (Chronic) Coronary artery disease (Chronic) Hypertension (Chronic) Hypercholesterolemia (Chronic) Non-STEMI (non-ST elevated myocardial infarction) (Chronic 09/10/18) Hypothyroidism (Chronic) Parkinson's disease (Chronic) Medical History: Medical History (Last Reviewed 05/03/19 @ 15:58 by Eduard Reyes DO) History of left heart catheterization (Chronic) Onset Date: 09/11/18 Z98.890 Bifurcating LOPEZ graft to the LAD and DIAG is patent with mild to moderate [place] mid/distal LAD 50% stenosis, high risk for PCI given need to traverse down LOPEZ and severe LV dysfunction. Saphenous Vein graft to the RCA previously placed stent is patent, with 75% mid PDA stenosis, not amenable to PCI given need to traverse through graft, then acute angle into PDA, of questionable benefit given severe LV dysfunction Atrial fibrillation (Chronic) I48.91 Coronary artery disease (Chronic) I25.10 Hypertension (Chronic) I10 Hypercholesterolemia (Chronic) E78.00 Non-STEMI (non-ST elevated myocardial infarction) (Chronic) Onset Date: 09/10/18 I21.4 Hypothyroidism (Chronic) E03.9 Parkinson's disease (Chronic) G20 Allergies Lchasvr-Tfg-Kpr Reductase Inhibitor Allergy (Verified 05/03/19 16:32) MUSCLE ACHES ALL OVER pravastatin Adverse Reaction (Severe, Verified 05/03/19 16:32) myalgias bones ache all over colesevelam [From WelChol] Adverse Reaction (Intermediate, Verified 01/26/19 11:22) Not effective ezetimibe [From Zetia] Adverse Reaction (Intermediate, Verified 01/26/19 11:22) GI upset Influenza Virus Vaccines Adverse Reaction (Intermediate, Verified 01/26/19 11:22) Visual changes, lightheaded niacin Adverse Reaction (Intermediate, Verified 01/26/19 11:22) sweats Home Medications: Ambulatory Orders Medication Instructions Recorded Cholecalciferol (Vitamin D3) 1 tab PO DAILY 06/14/13 [Vitamin D3] Levothyroxine [Synthroid] 125 mcg PO DAILY 06/14/13 Multivit-Min/FA/Lycopene/Lut 1 ea PO DAILY 06/14/13 [Centrum Silver Tablet] [place]-3 Fatty Acids [Fish Oil] 2,000 mg PO BID 06/14/13 Carbidopa/Levodopa 1.5 tab PO TID 09/09/18 [Carbidopa-Levodopa 25-100 Tab] Ciclopirox 1 applicatio TP QHS 09/09/18 L.acidoph,Paracasei, B.lactis 1 ea PO DAILY 09/09/18 [Probiotic] Ubidecarenone [Coq-10] 200 mg PO DAILY 09/09/18 rivaroxaban 20 mg tablet 20 mg PO DINNER #90 tab 03/03/19 Clopidogrel Bisulfate [Plavix] 75 mg PO DAILY 05/03/19 Furosemide [Lasix] 40 mg PO DAILY 05/03/19 Hydrocodone/Acetaminophen [[place] 1 ea PO Q4H PRN 05/03/19 5-325 Tablet] Amiodarone HCl 200 mg PO DAILY 05/06/19 Carvedilol [Coreg (Beta Tereso)] 6.25 mg PO BID 05/06/19 Losartan Potassium [Cozaar] 25 mg PO BID 05/06/19 Oxycodone [Oxyir] 5 mg PO Q8H PRN PRN 7 Days #20 tab 05/06/19 Surgical History: Surgical History (Last Reviewed 05/03/19 @ 15:58 by Eduard Reyes DO) History of cardioversion (Chronic) Onset Date: 12/16/18 Z98.890 History of coronary artery bypass graft x 3 (Chronic) Onset Date: 08/22/98 Z95.1 [facility] [place]:LOPEZ to LAD, left radial to OM of CX and free MYNOR to PDA of RCA per Dr. Laz Barreto History of colonoscopy Onset Date: 06/25/07 Z98.890 History of laparoscopic cholecystectomy Onset Date: 06/15/[address] Kulwinder Rosas; umbilical hernia repair done concomitantly with lap cholecystectomy History of tubal ligation Onset Date: 1969 Z98.51 History of umbilical hernia repair Onset Date: 06/15/13 Z98.890, Z87.[address] 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 history Lives: Spouse/ Significant Other Smoking Status: Never smoker Tobacco Use: Non-smoker Alcohol: None Drugs: None - *Family History Paternal Family History: Family History (Last Reviewed 05/03/19 @ 15:59 by Eduard Reyes DO) Sister Alzheimer's disease History Items: Heart Disease, Hypertension, Stroke Review of Systems Constitutional: Denies: Chills, Fever, Weight Change HEENT: Denies: Head Aches, Sinus Congestion, Sinus Drainage Cardiovascular: Denies: Chest Pain, Palpitations Respiratory: Denies: Cough, Shortness of breath at rest, Sputum production Gastrointestinal: Denies: Abdominal Pain, Nausea, Vomiting Genitourinary: Denies: Dysuria Musculoskeletal: Denies: Joint Pain, Joint Tenderness Skin: Denies: Rash, Wounds Neurological: Denies: Numbness, Tingling, Focal weakness Psychiatric: Denies: Anxiety, Depression, Homicidal Ideations, Suicidal Ideations Hematologic/ Lymphatic: Denies: Easy Bruising, Easy Bleeding VTE Information - Inpt Only VTE Present on Admission: No VTE Mechan Device Prophylaxis: Knee High PAL Hose VTE Pharm Prophylaxis ordered?: No Reason prophylaxis not ordered:: Treatment Not Indicated Patient Problems: Active and Suspected Problems (Last Reviewed 05/03/19 @ 15:58 by Eduard Reyes DO) Debility (Acute) Fall (Acute) Pelvic fracture (Acute) - Physical Exam General: Alert, Oriented x3, Cooperative HEENT: Atraumatic, PERRLA, EOMI, Normocephalic Neck: Supple, No JVD, Negative Carotid Bruits Lungs: Clear to auscultation, Normal air movement Cardiovascular: Regular rate, No murmurs Abdomen: Bowel Sounds Present, Soft, Non Tender Extremities: No edema, Capillary Refill Less than 3 Seconds, - - Left upper extremity sling. Skin: No rashes, No breakdown Musculoskeletal: No Tenderness to Palpation of Joints or Extremities Neurological: Cranial nerves II-XII grossly intact Psych/Mental Status: Normal Affect, Appropriate Vital Signs Temp Pulse Resp BP Pulse Ox 99.3 F H 98 20 H 153/71 H 98 05/06/19 19:43 05/06/19 19:43 05/06/19 19:43 05/06/19 19:43 05/06/19 19:43 Oxygen Delivery Method Room Air Body Mass Index (BMI) 22.8 Assessment/Plan All Active Problems (Last Reviewed 05/03/19 @ 15:58 by Eduard Reyes DO) Debility (Acute) Fall (Acute) Pelvic fracture (Acute) Fracture of left inferior pubic ramus (Acute) Fracture of left superior pubic ramus (Acute) Closed fracture of left proximal humerus (Acute) Left ankle sprain (Acute) 79 year old female with below past medical history hospitalized for fall, with pelvic fracture, left shoulder fracture, left ankle sprain, admitted to TCU with debility, here for rehabilitation, strengthening, prior to discharge home with spouse. * Debility - PT/OT. * Pain - Tylenol 1000MG Q8H, Tramadol 50MG Q6H PRN moderate pain, Oxycodone 5MG Q4H PRN severe pain. * Bowel - Miralax 17GM daily, Senna/colace 2 tablets BID, Dulcolax 10MG daily PRN. * Pneumonia vaccination - Administer Prevnar 13 and/or Pneumovax 23 as necessary. * DVT prophylaxis - Not necessary, already on Xarelto. * Atrial Fibrillation - Coreg 6.25MG BID, Amiodarone 200MG daily, Xarelto 20MG daily. * Parkinson's Disease - Sinemet 25/100MG TID. * Coronary artery disease - Coreg 6.25MG BID, Losartan 25MG BID, Plavix 75MG daily. * Vitamin D deficiency - D3. * Onychomycosis - Ciclopirox topical QHS toenails. * Edema - Lasix 40MG daily. * Hypothyroidism - Levothyroxine 125MCG daily. * Nutrition - MVI daily. * Hyperlipidemia - Fish Oil 2000MG BID, CoQ-10 200MG daily. * GI prophylaxis - Acidophilus 1 tablet daily.
[2019-05-06 21:34] VITALS: BMI 21.6
[2019-05-06 21:38] VITALS: BMI 21.6
[2019-05-06] MEDS: Losartan Potassium 25 MG Tablet PO (21:58)
[2019-05-06] MEDS: Acetaminophen 500 MG Tablet 1000 MG PO (21:58)
[2019-05-06] MEDS: Carvedilol 6.25 MG Tablet PO (21:59)
[2019-05-07] MEDS: oxyCODONE 5 MG Tablet PO ×2 (03:13→16:35)
[2019-05-07] MEDS: Bisacodyl 5 MG Tablet 10 MG PO (05:40)
[2019-05-07] MEDS: Senna/Docusate Sodium 1 Tablet 2 TABLET PO ×2 (05:41→16:37)
[2019-05-07] MEDS: Carbidopa/Levodopa 25/100 Tablet PO ×3 (05:42→16:37)
[2019-05-07] MEDS: Omega-3 Acid Ethyl Esters 1 GM Capsule 2 GM PO ×2 (05:42→16:36)
[2019-05-07] MEDS: Levothyroxine 125 MCG Tablet PO (05:43)
[2019-05-07] MEDS: Amiodarone 200 MG Tablet PO (05:43)
[2019-05-07] MEDS: Acetaminophen 500 MG Tablet 1000 MG PO ×3 (05:43→21:24)
[2019-05-07] MEDS: Furosemide 40 MG Tablet PO (05:44)
[2019-05-07] MEDS: Polyethylene Glycol 3350 17 GM PACKET PO (05:44)
[2019-05-07] MEDS: Losartan Potassium 25 MG Tablet PO ×2 (05:44→16:36)
[2019-05-07] MEDS: Carvedilol 6.25 MG Tablet PO ×2 (05:44→16:38)
[2019-05-07] MEDS: Clopidogrel Bisulfate 75 MG Tablet PO (05:44)
[2019-05-07 06:07] LABS: Absolute Lymphocyte Count 0.94 X10^3/uL (0.83-4.51); Absolute Neutrophil Count 3.5 X10^3/uL (2.0-7.7); Basophil# 0.03 X10^3/uL; Basophil% 0.6 % (0-1); Eosinophil# 0.13 X10^3/uL; Eosinophils% 2.5 % (0-5); Hematocrit 31.5 % (37-47); Hemoglobin 10.5 g/dL (12.0-15.0); Lymphocyte # 0.94 X10^3/ul (4.0); Mean Corp Hgb Conc 33.3 g/dL (32-36); Mean Corpuscular Hgb 30.1 pg (27.0-32.0); Mean Corpuscular Volume 90.3 fL (81-99); Mean Platelet Vol. 9.8 fl (6.2-12.0); Monocyte# 0.62 X10^3/uL; Monocyte% 11.9 % (0-10); NRBC Flagged by Analyzer 0 % (0-5); Neutrophil % 66.8 % (47-70); Platelet Count 229 K/mm3 (150-450); RBC Distribution Width CV 13.2 % (11.6-14.6); RBC Distribution Width SD 43.2 fl (35.1-43.9); Red Blood Count 3.49 M/mm3 (4.2-5.4); White Blood Count 5.2 K/mm3 (4.4-11.0)
[2019-05-07 06:24] LABS: BUN 27 mg/dL (7-18); BUN/Creat Ratio 33.8 RATIO (10-20); Calcium,Total 8.2 mg/dL (8.5-10.1); EST Glomerular Filtration Rate 74 mL/min (>60); Est Glom Filt Rate - Afr Amer 89 mL/min (>60); Estimated Creatinine Clearance 54.54 ml/min; Glucose 88 mg/dL (74-106)
[2019-05-07 06:25] LABS: Anion Gap 7 (5-15); Chloride 103 mmol/L (98-107); Potassium 3.9 mmol/L (3.5-5.1); Sodium Level 136 mmol/L (136-145)
--- NOTE | 2019-05-07 08:44 | PHA.CONS_ITS ---
<Eric Combs - Last Filed: 05/07/19 08:44> Progress Note - Pharmacy Subjective: [] TCU Admission Objective: Allergies Jxwiirv-Wvz-Ayb Reductase Inhibitor Allergy (Verified 05/03/19 16:32) MUSCLE ACHES ALL OVER pravastatin Adverse Reaction (Severe, Verified 05/03/19 16:32) myalgias bones ache all over colesevelam [From WelChol] Adverse Reaction (Intermediate, Verified 01/26/19 11:22) Not effective ezetimibe [From Zetia] Adverse Reaction (Intermediate, Verified 01/26/19 11:22) GI upset Influenza Virus Vaccines Adverse Reaction (Intermediate, Verified 01/26/19 11:22) Visual changes, lightheaded niacin Adverse Reaction (Intermediate, Verified 01/26/19 11:22) sweats Current Medications Generic Name Dose Route Start Last Admin Trade Name Freq PRN Reason Stop Dose Admin Acetaminophen 1,000 mg 05/06/19 22:00 05/07/19 05:43 Tylenol PO 1,000 mg Q8 ALEJANDRA Administration Amiodarone HCl 200 mg 05/07/19 06:00 05/07/19 05:43 Cordarone PO 200 mg DAILY ALEJANDRA Administration Bisacodyl 10 mg 05/06/19 20:47 05/07/19 05:40 Dulcolax PO 10 mg DAILY PRN Administration Constipation Carbidopa/Levodopa 1.5 tablet 05/07/19 06:45 05/07/19 05:42 Sinemet PO 1.5 tablet TIDAC ALEJANDRA Administration Carvedilol 6.25 mg 05/06/19 22:00 05/07/19 05:44 Coreg PO 6.25 mg BID ALEJANDRA Administration Cholecalciferol 1,000 unit 05/07/19 06:00 Vitamin D PO DAILY ALEJANDRA Clopidogrel Bisulfate 75 mg 05/07/19 06:00 05/07/19 05:44 Plavix PO 75 mg DAILY ALEJANDRA Administration Furosemide 40 mg 05/07/19 06:00 05/07/19 05:44 Lasix PO 40 mg DAILY ALEJANDRA Administration Lactobacillus Acidophilus 1 tablet 05/07/19 06:00 05/07/19 05:42 Acidophilus PO 1 tablet DAILY ALEJANRDA Administration Levothyroxine Sodium 125 mcg 05/07/19 06:00 05/07/19 05:43 Synthroid PO 125 mcg DAILY@0600 ALEJANDRA Administration Losartan Potassium 25 mg 05/06/19 22:00 05/07/19 05:44 Cozaar PO 25 mg BID ALEJANDRA Administration Multivitamins/Minerals 1 tablet 05/07/19 08:00 Multivitamin With Minerals PO DAILYCM [facility] Non-Formulary Medication 1 applicatio 05/06/19 22:00 Ciclopirox TP QHS [facility] Nutritional Formula (Lactose Free) 120 ml 05/07/19 06:00 05/07/19 05:44 Ensure Enlive PO 120 ml 4X/DAY ALEJANDRA Administration Lcotm-4-Ilou Ethyl Esters 2 gm 05/07/19 06:00 05/07/19 05:42 Lovaza PO 2 gm BID ALEJANDRA Administration Oxycodone HCl 5 mg 05/06/19 20:48 05/07/19 03:13 Oxyir PO 5 mg Q4H PRN Administration Severe pain (7-10/10) Polyethylene Glycol 17 gm 05/07/19 06:00 05/07/19 05:44 Miralax PO 17 gm DAILY ALEJANDRA Administration Rivaroxaban 20 mg 05/07/19 17:00 Xarelto PO DINNER [facility] Senna/Docusate Sodium 2 tablet 05/07/19 06:00 05/07/19 05:41 Senokot-S, Abbie-Colace PO 2 tablet BID [facility] Administration Tramadol HCl 50 mg 05/06/19 20:47 Ultram PO Q6H PRN PRN MODERATE PAIN (4-5/10) Tuberculin PPD 5 05/07/19 10:00 Tubersol, Aplisol, Ppd ID 05/07/19 10:01 X1 ONE Tuberculin PPD 5 05/14/19 10:00 Tubersol, Aplisol, Ppd ID 05/14/19 10:01 X1 ONE Problem List (Last Reviewed 05/03/19 @ 15:58 by Eduard Reyes DO) Debility (Acute) Fall (Acute) Pelvic fracture (Acute) Vital Signs Temp Pulse Resp BP Pulse Ox 99.3 F H 98 20 H 153/71 H 98 05/06/19 19:43 05/06/19 19:43 05/06/19 19:43 05/06/19 19:43 05/06/19 19:43 Oxygen Delivery Method Room Air Weight: 62.596 kg Body Mass Index (BMI) 21.6 Sodium 136 mmol/L (136-145) 05/07/19 05:37 Potassium 3.9 mmol/L (3.5-5.1) 05/07/19 05:37 Chloride 103 mmol/L (98-107) 05/07/19 05:37 Carbon Dioxide 26.0 mmol/L (21.0-32.0) 05/07/19 05:37 Anion Gap 7 (5-15) 05/07/19 05:37 BUN 27 mg/dL (7-18) H 05/07/19 05:37 Creatinine 0.80 mg/dL (0.55-1.02) 05/07/19 05:37 Est GFR (MDRD) Af Amer 89 mL/min (>60) 05/07/19 05:37 Est GFR (MDRD) Non-Af 74 mL/min (>60) 05/07/19 05:37 BUN/Creatinine Ratio 33.8 RATIO (10-20) H 05/07/19 05:37 Glucose 88 mg/dL (74-106) 05/07/19 05:37 Assessment/Plan: 1) Pain: Acetaminophen 1000mg po q8h scheduled, Oxycodone 5mg po q4h prn for severe pain, Tramadol 50mg po q6h prn for moderate pain. Please continue to monitor prn usage and for signs/symptoms of increased/decreased pain. *2) Hypothyroidism: Levothyroxine 125mcg po daily at 0600. I could not find a recent TSH level in the patients chart. Please consider a yearly TSH level. Thanks 3) Vitamin D Deficiency: Vitamin D 1000 units po daily. Pt's last Vitamin D level was within normal limits. Please continue to monitor. Thanks 4) Edema: Furosemide 40mg po daily. Pt's Na is 136, K+ is 3.9, and SrCr is 0.8. Please continue to monitor labs, and for signs/symptoms of edema. Thanks 5) CAD: Coreg 6.25mg po bid, Plavix 75mg po daily, Losartan 25mg po bid. Pt's K+ is 3.9, SrCr is 0.8, CrCl is 54, and BUN is 27. Please continue to monitor labs. Pt's BP is 153/71. Please continue to monitor BP. Thanks 6) Parkinson's Disease: Sinemet 25/100 take 1.5 tablets po tid before meals. Pt's LFTs are within normal limits. Please continue to monitor LFTs. *7) AFib: Amiodarone 200mg po daily, Coreg 6.25mg po bid, Xarelto 20mg po with dinner. Pt is at an increased risk for bleeding with the combination of Plavix and Xarelto. Please document risk vs benefit. Thanks Psychotropic Medications: none *Unnecessary Medications: Onychomycosis: Ciclopirox topical to toenails every night at bedtime. Please consider holding medication while pt is in TCU. Bowel Regimen: Bisacodyl 10mg po daily prn for constipation, Miralax 17gm po daily, Senna/Docusate 2 tablet po bid. Please continue to monitor prn usage and for signs/symptoms of constipation/diarrhea. Date of Note:: 05/07/19 - Provider Comments Provider responsibility: Provider responsible to enter orders to implement recommendations <nAupam Grande Chi - Last Filed: 05/07/19 14:26> Progress Note - Pharmacy Subjective: [] Objective: Allergies Tzeuepn-Zpz-Feh Reductase Inhibitor Allergy (Verified 05/03/19 16:32) MUSCLE ACHES ALL OVER pravastatin Adverse Reaction (Severe, Verified 05/03/19 16:32) myalgias bones ache all over colesevelam [From WelChol] Adverse Reaction (Intermediate, Verified 01/26/19 11:22) Not effective ezetimibe [From Zetia] Adverse Reaction (Intermediate, Verified 01/26/19 11:22) GI upset Influenza Virus Vaccines Adverse Reaction (Intermediate, Verified 01/26/19 11:22) Visual changes, lightheaded niacin Adverse Reaction (Intermediate, Verified 01/26/19 11:22) sweats Current Medications Generic Name Dose Route Start Last Admin Trade Name Freq PRN Reason Stop Dose Admin Acetaminophen 1,000 mg 05/06/19 22:00 05/07/19 05:43 Tylenol PO 1,000 mg Q8 ALEJANDRA Administration Amiodarone HCl 200 mg 05/07/19 06:00 05/07/19 05:43 Cordarone PO 200 mg DAILY ALEJANDRA Administration Bisacodyl 10 mg 05/06/19 20:47 05/07/19 05:40 Dulcolax PO 10 mg DAILY PRN Administration Constipation Carbidopa/Levodopa 1.5 tablet 05/07/19 06:45 05/07/19 12:34 Sinemet PO 1.5 tablet TIDAC ALEJANDRA Administration Carvedilol 6.25 mg 05/06/19 22:00 05/07/19 05:44 Coreg PO 6.25 mg BID ALEJANDRA Administration Cholecalciferol 1,000 unit 05/07/19 06:00 05/07/19 09:05 Vitamin D PO 1,000 unit DAILY ALEJANDRA Administration Clopidogrel Bisulfate 75 mg 05/07/19 06:00 05/07/19 05:44 Plavix PO 75 mg DAILY ALEJANDRA Administration Furosemide 40 mg 05/07/19 06:00 05/07/19 05:44 Lasix PO 40 mg DAILY ALEJANDRA Administration Lactobacillus Acidophilus 1 tablet 05/07/19 06:00 05/07/19 05:42 Acidophilus PO 1 tablet DAILY ALEJANDRA Administration Levothyroxine Sodium 125 mcg 05/07/19 06:00 05/07/19 05:43 Synthroid PO 125 mcg DAILY@0600 [facility] Administration Losartan Potassium 25 mg 05/06/19 22:00 05/07/19 05:44 Cozaar PO 25 mg BID ALEJANDRA Administration Multivitamins/Minerals 1 tablet 05/07/19 08:00 05/07/19 09:05 Multivitamin With Minerals PO 1 tablet DAILYCM [facility] Administration Non-Formulary Medication 1 applicatio 05/06/19 22:00 Ciclopirox TP QHS [facility] Nutritional Formula (Lactose Free) 120 ml 05/07/19 06:00 05/07/19 12:33 Ensure Enlive PO 120 ml 4X/DAY ALEJANDRA Administration Rppbh-9-Xwbb Ethyl Esters 2 gm 05/07/19 06:00 05/07/19 05:42 Lovaza PO 2 gm BID [facility] Administration Oxycodone HCl 5 mg 05/06/19 20:48 05/07/19 03:13 Oxyir PO 5 mg Q4H PRN Administration Severe pain (7-10/10) Polyethylene Glycol 17 gm 05/07/19 06:00 05/07/19 05:44 Miralax PO 17 gm DAILY ALEJANDRA Administration Rivaroxaban 20 mg 05/07/19 17:00 Xarelto PO DINNER [facility] Senna/Docusate Sodium 2 tablet 05/07/19 06:00 05/07/19 05:41 Senokot-S, Abbie-Colace PO 2 tablet BID ALEJANDRA Administration Tramadol HCl 50 mg 05/06/19 20:47 Ultram PO Q6H PRN PRN MODERATE PAIN (4-5/10) Tuberculin PPD 5 tu 05/14/19 10:00 Tubersol, Aplisol, Ppd ID 05/14/19 10:01 X1 ONE Problem List (Last Reviewed 05/03/19 @ 15:58 by Eduard Reyes DO) Debility (Acute) Fall (Acute) Pelvic fracture (Acute) Vital Signs Temp Pulse Resp BP Pulse Ox 99.3 F H 98 20 H 153/71 H 98 05/06/19 19:43 05/06/19 19:43 05/06/19 19:43 05/06/19 19:43 05/06/19 19:43 Oxygen Delivery Method Room Air Weight: 62.596 kg Body Mass Index (BMI) 21.6 Sodium 136 mmol/L (136-145) 05/07/19 05:37 Potassium 3.9 mmol/L (3.5-5.1) 05/07/19 05:37 Chloride 103 mmol/L (98-107) 05/07/19 05:37 Carbon Dioxide 26.0 mmol/L (21.0-32.0) 05/07/19 05:37 Anion Gap 7 (5-15) 05/07/19 05:37 BUN 27 mg/dL (7-18) H 05/07/19 05:37 Creatinine 0.80 mg/dL (0.55-1.02) 05/07/19 05:37 Est GFR (MDRD) Af Amer 89 mL/min (>60) 05/07/19 05:37 Est GFR (MDRD) Non-Af 74 mL/min (>60) 05/07/19 05:37 BUN/Creatinine Ratio 33.8 RATIO (10-20) H 05/07/19 05:37 Glucose 88 mg/dL (74-106) 05/07/19 05:37 Assessment/Plan: Psychotropic Medications: Unnecessary Medications: Bowel Regimen: - Provider Comments Provider responsibility: Provider responsible to enter orders to implement recommendations Provider Comments to Recommendations by Pharmacy: Agree
[2019-05-07] MEDS: Multivitamins,Ther W-Minerals Tablet 1 TABLET PO (09:05)
[2019-05-07] MEDS: Tuberculin,Purif.prot.deriv. 50 TU/ML Vial 5 ML ID (10:19)
--- NOTE | 2019-05-07 11:20 | NURSING ---
Therapist came out to desk and states patient was in pain and wanted Tylenol. This RN entered therapy room and made patient aware that she was not due any Tylenol until 1400 but that she could have Oxyir or Ultram instead. She states she does not want to get hooked on pills. Educated patient on acute use of narcotics. She continues to refuse other medication at this time. Encouraged patient to let therapist know if pain increases or if she would like the take medication other than Tylenol and this RN would get medication for her. Will continue to monitor.
[2019-05-07 15:06] VITALS: BP 123/50; PULSE 73; RESP 18; TEMP 37.1; O2SAT 97
[2019-05-07] MEDS: Rivaroxaban 20 MG Tablet PO (16:36)
[2019-05-08] MEDS: oxyCODONE 5 MG Tablet PO (03:53)
[2019-05-08] MEDS: Carvedilol 6.25 MG Tablet PO ×2 (06:48→17:44)
[2019-05-08] MEDS: Furosemide 40 MG Tablet PO (06:48)
[2019-05-08] MEDS: Losartan Potassium 25 MG Tablet PO ×2 (06:48→17:43)
[2019-05-08] MEDS: Amiodarone 200 MG Tablet PO (06:48)
[2019-05-08] MEDS: Levothyroxine 125 MCG Tablet PO (06:48)
[2019-05-08] MEDS: Omega-3 Acid Ethyl Esters 1 GM Capsule 2 GM PO ×2 (06:48→17:43)
[2019-05-08] MEDS: Clopidogrel Bisulfate 75 MG Tablet PO (06:49)
[2019-05-08] MEDS: Senna/Docusate Sodium 1 Tablet 2 TABLET PO ×2 (06:49→17:44)
[2019-05-08] MEDS: Polyethylene Glycol 3350 17 GM PACKET PO (06:49)
[2019-05-08] MEDS: Acetaminophen 500 MG Tablet 1000 MG PO ×3 (06:49→21:17)
[2019-05-08] MEDS: Carbidopa/Levodopa 25/100 Tablet PO ×3 (07:25→17:40)
[2019-05-08] MEDS: Multivitamins,Ther W-Minerals Tablet 1 TABLET PO (08:23)
[2019-05-08] MEDS: traMADol 50 MG Tablet PO (08:25)
--- NOTE | 2019-05-08 09:15 | NURSING ---
Addendum entered by Lynn Santana 05/08/19 18:01: MAG CITRATE INEFFECTIVE, BS ACTIVE X4, PASSING FLATUS. NEW ORDER FOR SOAP SUDS ENEMA. PT AGREEABLE, WILL CALL OUT WHEN READY FOR ADMINISTRATION. Original Note: Pt c/o not being able to have BM since 05/02, pt passing gas. Dr Grande updated, new order for mag citrate x1 300cc
[2019-05-08] MEDS: Magnesium Citrate 300 ML PO (10:37)
[2019-05-08 16:00] VITALS: BP 143/43; PULSE 46; RESP 18; TEMP 36.4; O2SAT 98
[2019-05-08] MEDS: Rivaroxaban 20 MG Tablet PO (17:40)
[2019-05-09] MEDS: Losartan Potassium 25 MG Tablet PO ×2 (05:39→16:09)
[2019-05-09] MEDS: Amiodarone 200 MG Tablet PO (05:39)
[2019-05-09] MEDS: Furosemide 40 MG Tablet PO (05:39)
[2019-05-09] MEDS: Omega-3 Acid Ethyl Esters 1 GM Capsule 2 GM PO ×2 (05:39→16:08)
[2019-05-09] MEDS: Acetaminophen 500 MG Tablet 1000 MG PO ×3 (05:40→21:01)
[2019-05-09] MEDS: Carbidopa/Levodopa 25/100 Tablet PO ×3 (05:40→16:05)
[2019-05-09] MEDS: Levothyroxine 125 MCG Tablet PO (05:40)
[2019-05-09] MEDS: Clopidogrel Bisulfate 75 MG Tablet PO (05:40)
[2019-05-09] MEDS: Multivitamins,Ther W-Minerals Tablet 1 TABLET PO (07:42)
[2019-05-09 16:00] VITALS: BP 131/54; PULSE 48; RESP 21; TEMP 37.1; O2SAT 99
[2019-05-09] MEDS: Rivaroxaban 20 MG Tablet PO (16:05)
[2019-05-09] MEDS: Senna/Docusate Sodium 1 Tablet 2 TABLET PO (16:08)
[2019-05-09] MEDS: Carvedilol 6.25 MG Tablet PO (16:09)
[2019-05-10] MEDS: traMADol 50 MG Tablet PO (02:47)
[2019-05-10] MEDS: Furosemide 40 MG Tablet PO (07:00)
[2019-05-10] MEDS: Omega-3 Acid Ethyl Esters 1 GM Capsule 2 GM PO ×2 (07:00→17:04)
[2019-05-10] MEDS: Senna/Docusate Sodium 1 Tablet 2 TABLET PO ×2 (07:00→17:04)
[2019-05-10] MEDS: Amiodarone 200 MG Tablet PO (07:00)
[2019-05-10] MEDS: Polyethylene Glycol 3350 17 GM PACKET PO (07:00)
[2019-05-10] MEDS: Levothyroxine 125 MCG Tablet PO (07:00)
[2019-05-10] MEDS: Losartan Potassium 25 MG Tablet PO ×2 (07:01→17:04)
[2019-05-10] MEDS: Carbidopa/Levodopa 25/100 Tablet PO ×3 (07:01→17:05)
[2019-05-10] MEDS: Acetaminophen 500 MG Tablet 1000 MG PO ×3 (07:02→20:54)
[2019-05-10] MEDS: Clopidogrel Bisulfate 75 MG Tablet PO (07:03)
[2019-05-10] MEDS: Multivitamins,Ther W-Minerals Tablet 1 TABLET PO (08:54)
[2019-05-10 15:48] VITALS: BP 138/58; PULSE 50; RESP 18; TEMP 36.9; O2SAT 100
[2019-05-10] MEDS: Carvedilol 6.25 MG Tablet PO (17:04)
[2019-05-10] MEDS: Rivaroxaban 20 MG Tablet PO (17:04)
[2019-05-11] MEDS: Acetaminophen 500 MG Tablet 1000 MG PO ×3 (06:13→20:51)
[2019-05-11] MEDS: Losartan Potassium 25 MG Tablet PO ×2 (06:14→17:12)
[2019-05-11] MEDS: Carbidopa/Levodopa 25/100 Tablet PO ×3 (06:14→17:11)
[2019-05-11] MEDS: Furosemide 40 MG Tablet PO (06:15)
[2019-05-11] MEDS: Amiodarone 200 MG Tablet PO (06:15)
[2019-05-11] MEDS: Senna/Docusate Sodium 1 Tablet 2 TABLET PO ×2 (06:15→17:12)
[2019-05-11] MEDS: Omega-3 Acid Ethyl Esters 1 GM Capsule 2 GM PO ×2 (06:15→17:12)
[2019-05-11] MEDS: Clopidogrel Bisulfate 75 MG Tablet PO (06:16)
[2019-05-11] MEDS: Levothyroxine 125 MCG Tablet PO (06:16)
[2019-05-11] MEDS: Polyethylene Glycol 3350 17 GM PACKET PO (06:17)
[2019-05-11 06:23] VITALS: PULSE 54
[2019-05-11] MEDS: Multivitamins,Ther W-Minerals Tablet 1 TABLET PO (09:07)
[2019-05-11 15:47] VITALS: BP 152/62; PULSE 66; RESP 18; TEMP 37.2; O2SAT 98
--- NOTE | 2019-05-11 15:52 | NURSING ---
Patient returned from appointment with JB Briceno at this time.
[2019-05-11] MEDS: Rivaroxaban 20 MG Tablet PO (17:11)
[2019-05-11] MEDS: Bisacodyl 5 MG Tablet 10 MG PO (17:11)
[2019-05-11] MEDS: Carvedilol 6.25 MG Tablet PO (17:13)
--- NOTE | 2019-05-11 17:15 | NURSING ---
appt with dr. hawthorne today. no new orders.
[2019-05-11] MEDS: Menthol/Lanolin/Calamine/Znox 113 GM Tube 1 APPLIC TOPICAL (20:51)
[2019-05-12] MEDS: Omega-3 Acid Ethyl Esters 1 GM Capsule 2 GM PO ×2 (06:15→17:30)
[2019-05-12] MEDS: Amiodarone 200 MG Tablet PO (06:15)
[2019-05-12] MEDS: Polyethylene Glycol 3350 17 GM PACKET PO (06:15)
[2019-05-12] MEDS: Clopidogrel Bisulfate 75 MG Tablet PO (06:15)
[2019-05-12] MEDS: Carbidopa/Levodopa 25/100 Tablet PO ×3 (06:15→17:30)
[2019-05-12] MEDS: Senna/Docusate Sodium 1 Tablet 2 TABLET PO ×2 (06:15→17:30)
[2019-05-12] MEDS: Furosemide 40 MG Tablet PO (06:15)
[2019-05-12] MEDS: Levothyroxine 125 MCG Tablet PO (06:15)
[2019-05-12] MEDS: Losartan Potassium 25 MG Tablet PO ×2 (06:15→17:30)
[2019-05-12] MEDS: Acetaminophen 500 MG Tablet 1000 MG PO ×3 (06:16→20:37)
[2019-05-12] MEDS: Menthol/Lanolin/Calamine/Znox 113 GM Tube 1 APPLIC TOPICAL ×2 (06:16→20:38)
[2019-05-12 06:30] VITALS: PULSE 51
[2019-05-12] MEDS: Multivitamins,Ther W-Minerals Tablet 1 TABLET PO (07:54)
[2019-05-12] MEDS: oxyCODONE 5 MG Tablet PO (11:10)
--- NOTE | 2019-05-12 15:36 | CASEMGMT ---
Social Work IDT met with patient, , son and DIL for care plan meeting. Discussed patient's progress in therapy. Patient improving well overall. Pt has some range of motion precautions prohibiting her to return to prior level of independence to return home. Pt is CGA toileting, walking 45 to 100 ft with brady-walker, transfers, and 4 steps all at CGA. Pt needing max assist with dressing and bathing. Pt has 14 steps to full bathroom at home. Pt plans to sponge bathe at home temporarily until she is able to complete those steps safely. Pt has half-bathroom on first floor and is comfortable assisting with personal care. Suggested and son schedule therapy family training - both agreeable and therapy will contact them to schedule. Pt will prefer HHC at [place] and possibly a hospital bed to make first floor set up if needed at [place]. Will continue to follow and await outcome from insurance update today. Val Garcia, HECTOR SETHIW
[2019-05-12 16:00] VITALS: BP 143/70; PULSE 51; RESP 20; TEMP 36.9; O2SAT 98
--- NOTE | 2019-05-12 16:33 | NURSING ---
pt LBM 05/08, dr odalys mcdonald, new order for SSE x1 today, will administer when pt done with therapy today.
[2019-05-12] MEDS: Rivaroxaban 20 MG Tablet PO (17:30)
[2019-05-12] MEDS: Carvedilol 6.25 MG Tablet PO (17:30)
[2019-05-13] MEDS: Amiodarone 200 MG Tablet PO (04:57)
[2019-05-13] MEDS: Omega-3 Acid Ethyl Esters 1 GM Capsule 2 GM PO ×2 (04:57→17:11)
[2019-05-13] MEDS: Polyethylene Glycol 3350 17 GM PACKET PO ×2 (04:57→04:59)
[2019-05-13] MEDS: Losartan Potassium 25 MG Tablet PO ×2 (04:57→17:10)
[2019-05-13] MEDS: Senna/Docusate Sodium 1 Tablet 2 TABLET PO ×2 (04:58→17:10)
[2019-05-13] MEDS: Carbidopa/Levodopa 25/100 Tablet PO ×3 (04:58→17:08)
[2019-05-13] MEDS: Clopidogrel Bisulfate 75 MG Tablet PO (04:58)
[2019-05-13] MEDS: Furosemide 40 MG Tablet PO (04:58)
[2019-05-13] MEDS: Levothyroxine 125 MCG Tablet PO (04:58)
[2019-05-13] MEDS: Menthol/Lanolin/Calamine/Znox 113 GM Tube 1 APPLIC TOPICAL ×2 (04:59→20:37)
[2019-05-13] MEDS: Acetaminophen 500 MG Tablet 1000 MG PO ×3 (04:59→20:37)
[2019-05-13] MEDS: Carvedilol 6.25 MG Tablet PO ×2 (05:00→17:10)
[2019-05-13 05:02] VITALS: BP 178/84; PULSE 58
[2019-05-13] MEDS: oxyCODONE 5 MG Tablet PO (10:42)
--- NOTE | 2019-05-13 13:32 | NURSING ---
Pt stated buttock/roxie cleft area is starting to feel better. pt currently has visitors. will continue to assess.
[2019-05-13] MEDS: traMADol 50 MG Tablet PO (14:05)
[2019-05-13 15:33] VITALS: BP 109/74; PULSE 53; RESP 16; TEMP 36.6; O2SAT 98
[2019-05-13] MEDS: Rivaroxaban 20 MG Tablet PO (17:10)
[2019-05-14 05:56] LABS: Absolute Lymphocyte Count 1.53 X10^3/uL (0.83-4.51); Absolute Neutrophil Count 3.5 X10^3/uL (2.0-7.7); Basophil# 0.04 X10^3/uL; Basophil% 0.7 % (0-1); Eosinophil# 0.15 X10^3/uL; Eosinophils% 2.6 % (0-5); Hematocrit 31.8 % (37-47); Hemoglobin 10.6 g/dL (12.0-15.0); Lymphocyte # 1.53 X10^3/ul (4.0); Lymphocyte % 26.8 % (19-41); Mean Corp Hgb Conc 33.3 g/dL (32-36); Mean Corpuscular Hgb 29.9 pg (27.0-32.0); Mean Corpuscular Volume 89.6 fL (81-99); Mean Platelet Vol. 9.6 fl (6.2-12.0); Monocyte# 0.53 X10^3/uL; Monocyte% 9.3 % (0-10); NRBC Flagged by Analyzer 0 % (0-5); Neutrophil # 3.46 X10^3/uL (2.7-7.7); Neutrophil % 60.6 % (47-70); Platelet Count 329 K/mm3 (150-450); RBC Distribution Width CV 13.1 % (11.6-14.6); Red Blood Count 3.55 M/mm3 (4.2-5.4); White Blood Count 5.7 K/mm3 (4.4-11.0)
[2019-05-14] MEDS: Carbidopa/Levodopa 25/100 Tablet PO ×3 (05:59→18:04)
[2019-05-14] MEDS: Acetaminophen 500 MG Tablet 1000 MG PO ×3 (05:59→20:38)
[2019-05-14] MEDS: Senna/Docusate Sodium 1 Tablet 2 TABLET PO ×2 (05:59→18:03)
[2019-05-14] MEDS: Omega-3 Acid Ethyl Esters 1 GM Capsule 2 GM PO ×2 (05:59→18:04)
[2019-05-14] MEDS: Losartan Potassium 25 MG Tablet PO ×2 (06:00→18:04)
[2019-05-14] MEDS: Levothyroxine 125 MCG Tablet PO (06:00)
[2019-05-14] MEDS: Carvedilol 6.25 MG Tablet PO ×2 (06:00→18:03)
[2019-05-14] MEDS: Furosemide 40 MG Tablet PO (06:00)
[2019-05-14] MEDS: Clopidogrel Bisulfate 75 MG Tablet PO (06:00)
[2019-05-14] MEDS: Menthol/Lanolin/Calamine/Znox 113 GM Tube 1 APPLIC TOPICAL ×2 (06:00→20:38)
[2019-05-14] MEDS: Amiodarone 200 MG Tablet PO (06:00)
[2019-05-14] MEDS: Polyethylene Glycol 3350 17 GM PACKET PO (06:02)
[2019-05-14 06:09] LABS: Anion Gap 7 (5-15); BUN 27 mg/dL (7-18); BUN/Creat Ratio 36.5 RATIO (10-20); Calcium,Total 8.6 mg/dL (8.5-10.1); Chloride 100 mmol/L (98-107); Creatinine, Serum 0.74 mg/dL (0.55-1.02); EST Glomerular Filtration Rate 80 mL/min (>60); Est Glom Filt Rate - Afr Amer 97 mL/min (>60); Estimated Creatinine Clearance 43.63 ml/min; Glucose 75 mg/dL (74-106); Potassium 4.1 mmol/L (3.5-5.1); Sodium Level 135 mmol/L (136-145)
[2019-05-14] MEDS: oxyCODONE 5 MG Tablet PO (06:09)
[2019-05-14] MEDS: Multivitamins,Ther W-Minerals Tablet 1 TABLET PO (08:40)
--- NOTE | 2019-05-14 12:17 | CASEMGMT ---
Insurance continued stay review sent through [facility] reviewlink on 05/12/19. continued stay approved. Next update due 05/18/19. Auth # [id number].
[2019-05-14] MEDS: Tuberculin,Purif.prot.deriv. 50 TU/ML Vial 5 ML ID (13:48)
[2019-05-14 15:34] VITALS: BP 119/43; PULSE 56; RESP 20; TEMP 37.3; O2SAT 96
[2019-05-14] MEDS: Rivaroxaban 20 MG Tablet PO (18:03)
[2019-05-15] MEDS: Polyethylene Glycol 3350 17 GM PACKET PO (05:27)
[2019-05-15] MEDS: Carbidopa/Levodopa 25/100 Tablet PO ×3 (05:27→17:35)
[2019-05-15] MEDS: Senna/Docusate Sodium 1 Tablet 2 TABLET PO ×2 (05:28→17:35)
[2019-05-15] MEDS: Levothyroxine 125 MCG Tablet PO (05:28)
[2019-05-15] MEDS: Clopidogrel Bisulfate 75 MG Tablet PO (05:31)
[2019-05-15] MEDS: Acetaminophen 500 MG Tablet 1000 MG PO ×3 (05:35→20:37)
[2019-05-15] MEDS: Losartan Potassium 25 MG Tablet PO ×2 (05:37→17:35)
[2019-05-15] MEDS: Menthol/Lanolin/Calamine/Znox 113 GM Tube 1 APPLIC TOPICAL ×2 (05:39→20:38)
[2019-05-15 05:51] VITALS: BP 159/61; PULSE 54; RESP 16
[2019-05-15] MEDS: Amiodarone 200 MG Tablet PO (08:05)
[2019-05-15] MEDS: Multivitamins,Ther W-Minerals Tablet 1 TABLET PO (08:05)
[2019-05-15] MEDS: Omega-3 Acid Ethyl Esters 1 GM Capsule 2 GM PO ×2 (08:05→17:35)
[2019-05-15] MEDS: Furosemide 40 MG Tablet PO (08:05)
[2019-05-15] MEDS: Carvedilol 6.25 MG Tablet PO (08:06)
[2019-05-15] MEDS: traMADol 50 MG Tablet PO (10:11)
[2019-05-15 15:47] VITALS: BP 141/54; PULSE 49; RESP 18; TEMP 36.8; O2SAT 98
[2019-05-15] MEDS: Rivaroxaban 20 MG Tablet PO (17:36)
[2019-05-16] MEDS: Menthol/Lanolin/Calamine/Znox 113 GM Tube 1 APPLIC TOPICAL ×2 (05:09→20:30)
[2019-05-16] MEDS: Losartan Potassium 25 MG Tablet PO ×2 (05:13→16:08)
[2019-05-16] MEDS: Carbidopa/Levodopa 25/100 Tablet PO ×3 (05:13→16:08)
[2019-05-16] MEDS: Acetaminophen 500 MG Tablet 1000 MG PO ×3 (05:13→20:28)
[2019-05-16] MEDS: Senna/Docusate Sodium 1 Tablet 2 TABLET PO ×2 (05:14→16:08)
[2019-05-16] MEDS: Levothyroxine 125 MCG Tablet PO (05:14)
[2019-05-16] MEDS: Clopidogrel Bisulfate 75 MG Tablet PO (05:15)
[2019-05-16] MEDS: Polyethylene Glycol 3350 17 GM PACKET PO (05:15)
[2019-05-16 05:19] VITALS: BP 170/75; PULSE 48
[2019-05-16] MEDS: Amiodarone 200 MG Tablet PO (07:54)
[2019-05-16] MEDS: Omega-3 Acid Ethyl Esters 1 GM Capsule 2 GM PO ×2 (07:54→16:08)
[2019-05-16] MEDS: Multivitamins,Ther W-Minerals Tablet 1 TABLET PO (07:54)
[2019-05-16] MEDS: Furosemide 40 MG Tablet PO (07:54)
[2019-05-16 16:00] VITALS: BP 138/56; PULSE 50; RESP 20; TEMP 37.1; O2SAT 98
[2019-05-16] MEDS: Rivaroxaban 20 MG Tablet PO (16:08)
--- NOTE | 2019-05-16 20:33 | NURSING ---
Addendum entered by Radha Treviño 05/17/19 06:33: Patient is still complaining of feet and legs feeling numb with burning and tingling. Will make Dr. Grande aware. Original Note: Patient is complaining of burning and numbness to bilateral legs. Patient states that she only remember it happening once to her and that was before she was hospitalized. Dr. Grande notified. Orders given for Gabapentin 300mg x 1.
[2019-05-16] MEDS: Gabapentin 300 MG Capsule PO (21:15)
[2019-05-17 05:28] VITALS: BP 140/56; PULSE 45
[2019-05-17] MEDS: Menthol/Lanolin/Calamine/Znox 113 GM Tube 1 APPLIC TOPICAL ×2 (05:28→21:09)
[2019-05-17] MEDS: Acetaminophen 500 MG Tablet 1000 MG PO ×3 (05:30→21:08)
[2019-05-17] MEDS: Carbidopa/Levodopa 25/100 Tablet PO ×3 (05:31→17:33)
[2019-05-17] MEDS: Senna/Docusate Sodium 1 Tablet 2 TABLET PO ×2 (05:31→17:32)
[2019-05-17] MEDS: Clopidogrel Bisulfate 75 MG Tablet PO (05:32)
[2019-05-17] MEDS: Polyethylene Glycol 3350 17 GM PACKET PO (05:32)
[2019-05-17] MEDS: Levothyroxine 125 MCG Tablet PO (05:32)
[2019-05-17] MEDS: Losartan Potassium 25 MG Tablet PO ×2 (05:32→17:32)
[2019-05-17] MEDS: Furosemide 40 MG Tablet PO (08:57)
[2019-05-17] MEDS: Amiodarone 200 MG Tablet PO (09:01)
[2019-05-17] MEDS: Multivitamins,Ther W-Minerals Tablet 1 TABLET PO (09:01)
[2019-05-17] MEDS: Omega-3 Acid Ethyl Esters 1 GM Capsule 2 GM PO ×2 (09:21→17:32)
[2019-05-17] MEDS: oxyCODONE 5 MG Tablet PO (10:26)
--- NOTE | 2019-05-17 13:45 | MDS.RN ---
Information for the mds was obtained from review of the clinical record, interview of resident, staff, and direct observation of resident's care.
[2019-05-17 15:34] VITALS: BP 137/54; PULSE 47; RESP 18; TEMP 36.6; O2SAT 100
[2019-05-17] MEDS: Rivaroxaban 20 MG Tablet PO (17:32)
[2019-05-18] MEDS: Carbidopa/Levodopa 25/100 Tablet PO ×3 (05:18→17:09)
[2019-05-18] MEDS: Levothyroxine 125 MCG Tablet PO (05:18)
[2019-05-18] MEDS: Acetaminophen 500 MG Tablet 1000 MG PO ×3 (05:19→21:17)
[2019-05-18] MEDS: Menthol/Lanolin/Calamine/Znox 113 GM Tube 1 APPLIC TOPICAL ×2 (05:19→21:18)
[2019-05-18] MEDS: Clopidogrel Bisulfate 75 MG Tablet PO (05:19)
[2019-05-18] MEDS: Losartan Potassium 25 MG Tablet PO ×2 (05:19→17:11)
[2019-05-18] MEDS: Amiodarone 200 MG Tablet PO (08:08)
[2019-05-18] MEDS: Furosemide 40 MG Tablet PO (08:08)
[2019-05-18] MEDS: Multivitamins,Ther W-Minerals Tablet 1 TABLET PO (08:09)
[2019-05-18] MEDS: Omega-3 Acid Ethyl Esters 1 GM Capsule 2 GM PO ×2 (08:09→17:11)
[2019-05-18] MEDS: oxyCODONE 5 MG Tablet PO (09:46)
[2019-05-18 15:47] VITALS: BP 143/50; PULSE 53; RESP 20; TEMP 36.8; O2SAT 100
[2019-05-18] MEDS: Carvedilol 3.125 MG TABLET PO (17:10)
[2019-05-18] MEDS: Rivaroxaban 20 MG Tablet PO (17:10)
[2019-05-18 20:30] VITALS: PULSE 59
[2019-05-19] MEDS: Polyethylene Glycol 3350 17 GM PACKET PO (05:31)
[2019-05-19] MEDS: Carbidopa/Levodopa 25/100 Tablet PO ×3 (05:33→17:58)
[2019-05-19] MEDS: Levothyroxine 125 MCG Tablet PO (05:33)
[2019-05-19] MEDS: Acetaminophen 500 MG Tablet 1000 MG PO ×3 (05:33→21:28)
[2019-05-19] MEDS: Losartan Potassium 25 MG Tablet PO ×2 (05:33→17:58)
[2019-05-19] MEDS: Clopidogrel Bisulfate 75 MG Tablet PO (05:34)
[2019-05-19] MEDS: Menthol/Lanolin/Calamine/Znox 113 GM Tube 1 APPLIC TOPICAL ×2 (05:36→21:29)
[2019-05-19] MEDS: Senna/Docusate Sodium 1 Tablet 2 TABLET PO ×2 (05:36→17:56)
[2019-05-19] MEDS: Carvedilol 3.125 MG TABLET PO (08:03)
[2019-05-19] MEDS: Multivitamins,Ther W-Minerals Tablet 1 TABLET PO (08:03)
[2019-05-19] MEDS: Omega-3 Acid Ethyl Esters 1 GM Capsule 2 GM PO ×2 (08:03→17:57)
[2019-05-19] MEDS: Furosemide 40 MG Tablet PO (08:03)
[2019-05-19] MEDS: Amiodarone 200 MG Tablet PO (08:03)
[2019-05-19] MEDS: oxyCODONE 5 MG Tablet PO (12:13)
--- NOTE | 2019-05-19 14:58 | CASEMGMT ---
Social Work Notified patient insurance approved until NRD 05/24. Val Garcia, HECTOR SETHIW
[2019-05-19 16:00] VITALS: BP 120/42; PULSE 49; RESP 18; TEMP 36.9; O2SAT 99
--- NOTE | 2019-05-19 17:08 | CASEMGMT ---
Insurance: continued [place] [facility] [place] auth #[id number].
[2019-05-19] MEDS: Rivaroxaban 20 MG Tablet PO (17:58)
[2019-05-20] MEDS: Clopidogrel Bisulfate 75 MG Tablet PO (05:44)
[2019-05-20] MEDS: Senna/Docusate Sodium 1 Tablet 2 TABLET PO ×2 (05:44→17:28)
[2019-05-20] MEDS: Polyethylene Glycol 3350 17 GM PACKET PO (05:44)
[2019-05-20] MEDS: Levothyroxine 125 MCG Tablet PO (05:44)
[2019-05-20] MEDS: Losartan Potassium 25 MG Tablet PO ×2 (05:45→17:22)
[2019-05-20] MEDS: Acetaminophen 500 MG Tablet 1000 MG PO ×3 (05:45→21:29)
[2019-05-20] MEDS: Carbidopa/Levodopa 25/100 Tablet PO ×3 (05:45→17:21)
[2019-05-20] MEDS: Menthol/Lanolin/Calamine/Znox 113 GM Tube 1 APPLIC TOPICAL ×2 (05:50→21:29)
[2019-05-20] MEDS: Multivitamins,Ther W-Minerals Tablet 1 TABLET PO (08:16)
[2019-05-20] MEDS: Furosemide 40 MG Tablet PO (08:16)
[2019-05-20] MEDS: Omega-3 Acid Ethyl Esters 1 GM Capsule 2 GM PO ×2 (08:16→17:21)
[2019-05-20] MEDS: Amiodarone 200 MG Tablet PO (08:16)
[2019-05-20] MEDS: Carvedilol 3.125 MG TABLET PO (08:19)
[2019-05-20 08:20] VITALS: BP 113/40; PULSE 54
[2019-05-20] MEDS: oxyCODONE 5 MG Tablet PO (14:31)
[2019-05-20 15:44] VITALS: BP 145/45; PULSE 52; RESP 18; TEMP 36.9; O2SAT 97
[2019-05-20] MEDS: Rivaroxaban 20 MG Tablet PO (17:22)
--- NOTE | 2019-05-21 04:30 | NURSING ---
Pt c/o that her nose in the morning is dry and a faint amount of blood noted on kleenex. will monitor
[2019-05-21] MEDS: Senna/Docusate Sodium 1 Tablet 2 TABLET PO ×2 (04:52→17:53)
[2019-05-21] MEDS: Levothyroxine 125 MCG Tablet PO (04:52)
[2019-05-21] MEDS: Acetaminophen 500 MG Tablet 1000 MG PO ×3 (04:53→21:03)
[2019-05-21] MEDS: Losartan Potassium 25 MG Tablet PO ×2 (04:53→17:54)
[2019-05-21] MEDS: Polyethylene Glycol 3350 17 GM PACKET PO (04:53)
[2019-05-21] MEDS: Clopidogrel Bisulfate 75 MG Tablet PO (04:53)
[2019-05-21] MEDS: Carbidopa/Levodopa 25/100 Tablet PO ×3 (04:53→17:53)
[2019-05-21] MEDS: Menthol/Lanolin/Calamine/Znox 113 GM Tube 1 APPLIC TOPICAL ×2 (04:58→21:04)
[2019-05-21 05:48] LABS: Absolute Lymphocyte Count 1.32 X10^3/uL (0.83-4.51); Absolute Neutrophil Count 3.2 X10^3/uL (2.0-7.7); Basophil# 0.05 X10^3/uL; Eosinophil# 0.15 X10^3/uL; Eosinophils% 2.9 % (0-5); Hematocrit 34.6 % (37-47); Hemoglobin 11.1 g/dL (12.0-15.0); Lymphocyte # 1.32 X10^3/ul (4.0); Lymphocyte % 25.8 % (19-41); Mean Corp Hgb Conc 32.1 g/dL (32-36); Mean Corpuscular Hgb 29.4 pg (27.0-32.0); Mean Corpuscular Volume 91.5 fL (81-99); Mean Platelet Vol. 9.5 fl (6.2-12.0); Monocyte# 0.43 X10^3/uL; Monocyte% 8.4 % (0-10); NRBC Flagged by Analyzer 0 % (0-5); Neutrophil # 3.16 X10^3/uL (2.7-7.7); Neutrophil % 61.7 % (47-70); Platelet Count 334 K/mm3 (150-450); RBC Distribution Width CV 13.9 % (11.6-14.6); RBC Distribution Width SD 46.5 fl (35.1-43.9); Red Blood Count 3.78 M/mm3 (4.2-5.4); White Blood Count 5.1 K/mm3 (4.4-11.0)
[2019-05-21 07:30] LABS: Anion Gap 5 (5-15); BUN 18 mg/dL (7-18); BUN/Creat Ratio 23.7 RATIO (10-20); Calcium,Total 8.6 mg/dL (8.5-10.1); Chloride 100 mmol/L (98-107); Creatinine, Serum 0.76 mg/dL (0.55-1.02); EST Glomerular Filtration Rate 78 mL/min (>60); Est Glom Filt Rate - Afr Amer 94 mL/min (>60); Estimated Creatinine Clearance 43.63 ml/min; Glucose 87 mg/dL (74-106); Potassium 3.4 mmol/L (3.5-5.1); Sodium Level 135 mmol/L (136-145)
[2019-05-21] MEDS: Furosemide 40 MG Tablet PO (08:28)
[2019-05-21] MEDS: Multivitamins,Ther W-Minerals Tablet 1 TABLET PO (08:28)
[2019-05-21] MEDS: Amiodarone 200 MG Tablet PO (08:28)
[2019-05-21] MEDS: Omega-3 Acid Ethyl Esters 1 GM Capsule 2 GM PO ×2 (08:28→17:54)
[2019-05-21] MEDS: Carvedilol 3.125 MG TABLET PO (08:29)
--- NOTE | 2019-05-21 08:33 | NURSING ---
K+3.4, Dr Grande reviewed labs, new order kdur, recheck bmp on 05/23
[2019-05-21] MEDS: oxyCODONE 5 MG Tablet PO (08:40)
[2019-05-21 15:22] VITALS: BP 136/40; PULSE 50; RESP 20; TEMP 36.7; O2SAT 99
[2019-05-21] MEDS: Rivaroxaban 20 MG Tablet PO (17:54)
[2019-05-21] MEDS: Sodium Chloride 0.65% 1 SPRAY SPRAY.BTL 2 SPRAY NASAL (17:55)
[2019-05-22] MEDS: Sodium Chloride 0.65% 1 SPRAY SPRAY.BTL 2 SPRAY NASAL (03:25)
[2019-05-22] MEDS: Menthol/Lanolin/Calamine/Znox 113 GM Tube 1 APPLIC TOPICAL ×2 (05:23→21:29)
[2019-05-22 05:24] VITALS: BP 160/57; PULSE 51
[2019-05-22] MEDS: Senna/Docusate Sodium 1 Tablet 2 TABLET PO ×2 (05:25→17:28)
[2019-05-22] MEDS: Carbidopa/Levodopa 25/100 Tablet PO ×3 (05:25→17:28)
[2019-05-22] MEDS: Clopidogrel Bisulfate 75 MG Tablet PO (05:26)
[2019-05-22] MEDS: Acetaminophen 500 MG Tablet 1000 MG PO ×3 (05:26→21:28)
[2019-05-22] MEDS: Polyethylene Glycol 3350 17 GM PACKET PO (05:27)
[2019-05-22] MEDS: Levothyroxine 125 MCG Tablet PO (05:27)
[2019-05-22] MEDS: Losartan Potassium 25 MG Tablet PO ×2 (05:27→17:31)
[2019-05-22] MEDS: Omega-3 Acid Ethyl Esters 1 GM Capsule 2 GM PO ×2 (08:01→17:28)
[2019-05-22] MEDS: oxyCODONE 5 MG Tablet PO (08:01)
[2019-05-22] MEDS: Multivitamins,Ther W-Minerals Tablet 1 TABLET PO (08:02)
[2019-05-22] MEDS: Amiodarone 200 MG Tablet PO (08:02)
[2019-05-22] MEDS: Carvedilol 3.125 MG TABLET PO ×2 (08:02→17:31)
[2019-05-22] MEDS: Furosemide 40 MG Tablet PO (08:02)
[2019-05-22] MEDS: traMADol 50 MG Tablet PO (11:04)
[2019-05-22 14:30] VITALS: BP 128/48; PULSE 47; RESP 16; TEMP 36.6; O2SAT 99
[2019-05-22] MEDS: Rivaroxaban 20 MG Tablet PO (17:30)
[2019-05-23] MEDS: Acetaminophen 500 MG Tablet 1000 MG PO ×3 (05:40→21:32)
[2019-05-23] MEDS: Polyethylene Glycol 3350 17 GM PACKET PO (05:40)
[2019-05-23] MEDS: Clopidogrel Bisulfate 75 MG Tablet PO (05:40)
[2019-05-23] MEDS: Losartan Potassium 25 MG Tablet PO ×2 (05:40→16:50)
[2019-05-23] MEDS: Levothyroxine 125 MCG Tablet PO (05:40)
[2019-05-23] MEDS: Carbidopa/Levodopa 25/100 Tablet PO ×3 (05:40→16:51)
[2019-05-23] MEDS: Senna/Docusate Sodium 1 Tablet 2 TABLET PO ×2 (05:40→16:50)
[2019-05-23] MEDS: Menthol/Lanolin/Calamine/Znox 113 GM Tube 1 APPLIC TOPICAL ×2 (05:46→21:34)
[2019-05-23 06:54] LABS: Anion Gap 7 (5-15); BUN 23 mg/dL (7-18); BUN/Creat Ratio 32.2 RATIO (10-20); Calcium,Total 8.5 mg/dL (8.5-10.1); Chloride 103 mmol/L (98-107); Creatinine, Serum 0.72 mg/dL (0.55-1.02); EST Glomerular Filtration Rate 84 mL/min (>60); Est Glom Filt Rate - Afr Amer 101 mL/min (>60); Estimated Creatinine Clearance 43.63 ml/min; Glucose 92 mg/dL (74-106); Potassium 4.2 mmol/L (3.5-5.1); Sodium Level 138 mmol/L (136-145)
[2019-05-23] MEDS: Amiodarone 200 MG Tablet PO (09:41)
[2019-05-23] MEDS: Multivitamins,Ther W-Minerals Tablet 1 TABLET PO (09:41)
[2019-05-23] MEDS: Furosemide 40 MG Tablet PO (09:41)
[2019-05-23] MEDS: Carvedilol 3.125 MG TABLET PO ×2 (09:41→16:51)
[2019-05-23] MEDS: Omega-3 Acid Ethyl Esters 1 GM Capsule 2 GM PO ×2 (09:41→16:51)
[2019-05-23 15:35] VITALS: BP 164/62; PULSE 52; RESP 24; TEMP 37.2; O2SAT 98
[2019-05-23] MEDS: Rivaroxaban 20 MG Tablet PO (16:50)
[2019-05-23] MEDS: Sodium Chloride 0.65% 1 SPRAY SPRAY.BTL 2 SPRAY NASAL (17:57)
[2019-05-23] MEDS: oxyCODONE 5 MG Tablet PO (18:02)
[2019-05-23] MEDS: traMADol 50 MG Tablet PO (21:32)
[2019-05-24] MEDS: Carbidopa/Levodopa 25/100 Tablet PO ×3 (06:20→17:25)
[2019-05-24] MEDS: Sodium Chloride 0.65% 1 SPRAY SPRAY.BTL 2 SPRAY NASAL (06:20)
[2019-05-24] MEDS: Clopidogrel Bisulfate 75 MG Tablet PO (06:21)
[2019-05-24] MEDS: Losartan Potassium 25 MG Tablet PO ×2 (06:21→17:25)
[2019-05-24] MEDS: Senna/Docusate Sodium 1 Tablet 2 TABLET PO ×2 (06:21→17:25)
[2019-05-24] MEDS: Levothyroxine 125 MCG Tablet PO (06:21)
[2019-05-24] MEDS: Acetaminophen 500 MG Tablet 1000 MG PO ×3 (06:21→20:50)
[2019-05-24] MEDS: Polyethylene Glycol 3350 17 GM PACKET PO (06:21)
[2019-05-24] MEDS: Menthol/Lanolin/Calamine/Znox 113 GM Tube 1 APPLIC TOPICAL ×2 (06:29→20:53)
[2019-05-24] MEDS: oxyCODONE 5 MG Tablet PO (08:46)
[2019-05-24] MEDS: Multivitamins,Ther W-Minerals Tablet 1 TABLET PO (08:47)
[2019-05-24] MEDS: Omega-3 Acid Ethyl Esters 1 GM Capsule 2 GM PO ×2 (08:47→17:24)
[2019-05-24] MEDS: Carvedilol 3.125 MG TABLET PO (08:48)
[2019-05-24] MEDS: Amiodarone 200 MG Tablet PO (08:48)
[2019-05-24 08:51] VITALS: BP 125/66; PULSE 57
[2019-05-24] MEDS: Furosemide 40 MG Tablet PO ×3 (09:52→17:26)
--- NOTE | 2019-05-24 11:27 | CASEMGMT ---
Insurance: Continued stay review sent to MMO through Review Link this day. auth # [id number]
[2019-05-24 15:10] VITALS: BP 140/56; PULSE 47; RESP 18; TEMP 36.7; O2SAT 98
--- NOTE | 2019-05-24 16:50 | CASEMGMT ---
Addendum entered by Val Garcia 05/26/19 13:02: /pt would like a w/c and 3-in-1 commode. referred to [facility]. will pay privately for brady walker. Original Note: Social Work Insurance issued LCD 05/27 with DC 05/28. Pt and agreeable. Provided list of C - pt chose [facility]. Referral made for PT/OT/SN. Referral made to [facility] fro hemiwalker and pt agreeable to pay privately for semi electric hospital bed. Plan: DC home 05/28 with [facility] PT/OT/SN and [facility] hemiwalker and hosp. bed. Val Garcia, HECTOR FUR IRONER
[2019-05-24] MEDS: Rivaroxaban 20 MG Tablet PO (17:24)
--- NOTE | 2019-05-24 20:14 | DCINST_ITS ---
- Discharge Diagnoses Current Active Problems: Current Active and Chronic Problems (Last Reviewed 05/10/19 @ 17:28 by Nerissa Roche) Debility (Acute) Fall (Acute) Pelvic fracture (Acute) You will use the following diet at home:: No restrictions, Regular Your food should be the consistency of: Regular Your liquids should be the consistency of: Regular/Thin Discharge Activity: Return to Normal Activity, May Shower, Use Walker Weight Bearing Status: Weight bearing as tolerated Call your doctor if you observe: Fever of 101 or Higher, Inability to urinate, Inability to have a bowel movement, Shortness of breath, Chest pain, Uncontrolled pain Allergies/Adverse Reactions: Allergies Tcqjogb-Kbq-Mdy Reductase Inhibitor Allergy (Verified 05/10/19 17:28) MUSCLE ACHES ALL OVER pravastatin Adverse Reaction (Severe, Verified 05/10/19 17:28) myalgias bones ache all over colesevelam [From WelChol] Adverse Reaction (Intermediate, Verified 05/10/19 17:28) Not effective ezetimibe [From Zetia] Adverse Reaction (Intermediate, Verified 05/10/19 17:28) GI upset Influenza Virus Vaccines Adverse Reaction (Intermediate, Verified 05/10/19 17:28) Visual changes, lightheaded niacin Adverse Reaction (Intermediate, Verified 05/10/19 17:28) sweats Medications to take at Discharge Cholecalciferol (Vitamin D3) [Vitamin D3] 1 tab PO DAILY 06/14/13 Levothyroxine [Synthroid] 125 mcg PO DAILY 06/14/13 Multivit-Min/FA/Lycopene/Lut [Centrum Silver Tablet] 1 ea PO DAILY 06/14/13 [place]-3 Fatty Acids [Fish Oil] 2,000 mg PO BID 06/14/13 Carbidopa/Levodopa [Carbidopa-Levodopa 25-100 Tab] 1.5 tab PO TID 09/09/18 Ciclopirox 1 applicatio TP QHS 09/09/18 L.acidoph,Paracasei, B.lactis [Probiotic] 1 ea PO DAILY 09/09/18 Ubidecarenone [Coq-10] 200 mg PO DAILY 09/09/18 Clopidogrel Bisulfate [Plavix] 75 mg PO DAILY 05/03/19 Furosemide [Lasix] 40 mg PO DAILY 05/03/19 Amiodarone HCl 200 mg PO DAILY 05/06/19 Losartan Potassium [Cozaar] 25 mg PO BID 05/06/19 rivaroxaban 20 mg tablet 20 mg PO DINNER #90 tab 05/11/19 Acetaminophen [Tylenol] 1,000 mg PO Q8 tablet 05/24/19 Carvedilol [Coreg (Beta Tereso)] 3.125 mg PO BIDCM #60 tab 05/24/19 Emollient Combination No.72 [Eucerin Intensive Repair] 1 applic TOPICAL BID@0600,2200 lotion 05/24/19 Menthol/Lanolin/Calamine/Znox [Calmoseptine Ointment] 1 applic TOPICAL 0600,2200 tube 05/24/19 Nutritional Supplement [Frankie - ORANGE FLAVOR] 1 packet PO BIDCM #60 packet 05/24/19 Oxycodone [Oxyir] 5 mg PO Q4H PRN 7 Days #30 tab 05/24/19 Polyethylene Glycol 3350 [Miralax] 17 gm PO DAILY #30 packet 05/24/19 Potassium Chloride [K-Dur] 20 meq PO DAILY #30 tab 05/24/19 Sodium Chloride 0.65% [[place] Nasal [place]] 2 spray NASAL TID PRN PRN spray.btl 05/24/19 traMADol [Ultram] 50 mg PO Q6H PRN PRN #30 tab 05/24/19 The following prescriptions were given: Carvedilol [Coreg (Beta Tereso)] 3.125 mg PO BIDCM #60 tab Transmission Status: Pending to [facility] #30 Nutritional Supplement [Frankie - ORANGE FLAVOR] 1 packet PO BIDCM #60 packet Transmission Status: Pending to [facility] #30 Potassium Chloride [K-Dur] 20 meq PO DAILY #30 tab Transmission Status: Pending to [facility] #30 Polyethylene Glycol 3350 [Miralax] 17 gm PO DAILY #30 packet Transmission Status: Pending to [facility] #30 Oxycodone [Oxyir] 5 mg PO Q4H PRN 7 Days #30 tab PRN Reason: Severe pain (7-10/10) Prescription Printed traMADol [Ultram] 50 mg PO Q6H PRN PRN #30 tab PRN Reason: Moderate Pain (4-5/10) Prescription Printed Primary Care Physician: Louise Garrido MD [Primary Care Provider] - Please follow up with your Primary Care Physician in: 1 week. Test Results: Test results from this visit will be discussed in further detail at your follow- up appointment, if applicable. Please Follow Up With: Ricardo Reynolds DO When: 2 weeks Please Follow Up With: Louise Garrido MD When: after d/c from TCU Please Follow Up With: Joseph Corley MD Proposed Discharge Date: 05/28/19
--- NOTE | 2019-05-24 20:16 | PCM.DC.SUM ---
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 Laz Barreto History of left heart catheterization (Chronic 09/11/18) Bifurcating LOPEZ graft to the LAD and DIAG is patent with mild to moderate three affiliated mid/distal LAD 50% stenosis, high risk for PCI given need to traverse down LOPEZ and severe LV dysfunction. Saphenous Vein graft to the RCA previously placed stent is patent, with 75% mid PDA stenosis, not amenable to PCI given need to traverse through graft, then acute angle into PDA, of questionable benefit given severe LV dysfunction Atrial fibrillation (Chronic) Coronary artery disease (Chronic) Hypertension (Chronic) Hypercholesterolemia (Chronic) Non-STEMI (non-ST elevated myocardial infarction) (Chronic 09/10/18) Hypothyroidism (Chronic) Parkinson's disease (Chronic) Hospital Course and Treatment Imaging Results: 05/06/19 20:02 Diet: Cardiac/Low Cholesterol Food consistency:: Regular Liquid Consistency:: Regular/Thin Labs (Last 48 Hours) 05/23/19 05:30 Sodium 138 Potassium 4.2 Chloride 103 Carbon Dioxide 28.0 Anion Gap 7 BUN 23 H Creatinine 0.72 Estim Creat Clear Calc 43.63 Est GFR (MDRD) Af Amer 101 Est GFR (MDRD) Non-Af 84 BUN/Creatinine Ratio 32.2 H Glucose 92 Calcium 8.5 Consultations 05/09/19 19:19 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 Discharge home with [facility] for PT/OT/. [place] for hemiwalker, & hospital bed. Patient Problems: Active and Suspected Problems (Last Reviewed 05/10/19 @ 17:28 by Nerissa Roche) Debility (Acute) Fall (Acute) Pelvic fracture (Acute) - Physical Exam Vital Signs Temp Pulse Resp BP Pulse Ox 98.1 F 47 L 18 140/56 H 98 05/24/19 15:10 05/24/19 15:10 05/24/19 15:10 05/24/19 15:10 05/24/19 15:10 Oxygen Delivery Method Room Air Weight: 65.516 kg Body Mass Index (BMI) 21.6 Intake and Output for Last 24 Hours 05/22/19 05/23/19 05/24/19 23:59 23:59 23:59 Intake Total 510 / 510 360 / 360 240 / 240 Balance 510 / 510 360 / 360 240 / 240 Discharge Diet: No Restrictions Discharge Activity: Return to Normal Activity, May Shower, Use Walker Weight Bearing Status: Weight bearing as tolerated Call your doctor if you observe: Fever of 101 or Higher, Inability to urinate, Inability to have a bowel movement, Shortness of breath, Chest pain, Uncontrolled pain Home Medications: Medications to take at Discharge Cholecalciferol (Vitamin D3) [Vitamin D3] 1 tab PO DAILY 06/14/13 Levothyroxine [Synthroid] 125 mcg PO DAILY 06/14/13 Multivit-Min/FA/Lycopene/Lut [Centrum Silver Tablet] 1 ea PO DAILY 06/14/13 [place]-3 Fatty Acids [Fish Oil] 2,000 mg PO BID 06/14/13 Carbidopa/Levodopa [Carbidopa-Levodopa 25-100 Tab] 1.5 tab PO TID 09/09/18 Ciclopirox 1 applicatio TP QHS 09/09/18 L.acidoph,Paracasei, B.lactis [Probiotic] 1 ea PO DAILY 09/09/18 Ubidecarenone [Coq-10] 200 mg PO DAILY 09/09/18 Clopidogrel Bisulfate [Plavix] 75 mg PO DAILY 05/03/19 Furosemide [Lasix] 40 mg PO DAILY 05/03/19 Amiodarone HCl 200 mg PO DAILY 05/06/19 Losartan Potassium [Cozaar] 25 mg PO BID 05/06/19 rivaroxaban 20 mg tablet 20 mg PO DINNER #90 tab 05/11/19 Acetaminophen [Tylenol] 1,000 mg PO Q8 tablet 05/24/19 Carvedilol [Coreg (Beta Tereso)] 3.125 mg PO BIDCM #60 tab 05/24/19 Emollient Combination No.72 [Eucerin Intensive Repair] 1 applic TOPICAL BID@0600,2200 lotion 05/24/19 Menthol/Lanolin/Calamine/Znox [Calmoseptine Ointment] 1 applic TOPICAL 0600,2200 tube 05/24/19 Nutritional Supplement [Frankie - ORANGE FLAVOR] 1 packet PO BIDCM #60 packet 05/24/19 Oxycodone [Oxyir] 5 mg PO Q4H PRN 7 Days #30 tab 05/24/19 Polyethylene Glycol 3350 [Miralax] 17 gm PO DAILY #30 packet 05/24/19 Potassium Chloride [K-Dur] 20 meq PO DAILY #30 tab 05/24/19 Sodium Chloride 0.65% [[place] Nasal [place]] 2 spray NASAL TID PRN PRN spray.btl 05/24/19 traMADol [Ultram] 50 mg PO Q6H PRN PRN #30 tab 05/24/19 Following Prescrptions Were Given to Patient: Carvedilol [Coreg (Beta Tereso)] 3.125 mg PO BIDCM #60 tab Transmission Status: Pending to [facility] #30 Nutritional Supplement [Frankie - ORANGE FLAVOR] 1 packet PO BIDCM #60 packet Transmission Status: Pending to [facility] #30 Potassium Chloride [K-Dur] 20 meq PO DAILY #30 tab Transmission Status: Pending to [facility] #30 Polyethylene Glycol 3350 [Miralax] 17 gm PO DAILY #30 packet Transmission Status: Pending to [facility] #30 Oxycodone [Oxyir] 5 mg PO Q4H PRN 7 Days #30 tab PRN Reason: Severe pain (7-10/10) Prescription Printed traMADol [Ultram] 50 mg PO Q6H PRN PRN #30 tab PRN Reason: Moderate Pain (4-5/10) Prescription Printed Primary Care Physician: Louise Garrido MD [Primary Care Provider] - Please follow up with your Primary Care Physician in: 1 week. Please Follow Up With: Ricardo Reynolds DO When: 2 weeks Please Follow Up With: Louise Garrido MD When: after d/c from TCU Please Follow Up With: Joseph Corley MD Disposition: Home with Home Health Minutes spent on discharge:: 35 Patient Condition:: Stable Medical Necessity - Tobacco Use Smoking Status: Never smoker Tobacco Use: Non-smoker Meaningful Use Info Meaningful Use Diagnoses (Choose all that apply): None applicable
--- NOTE | 2019-05-24 20:18 | PCM.PN.HH ---
Home Health Note - Plan Overview of reason of hospitalization: The patient is a 79 year old Female with below past medical history hospitalized for fall, with pelvic fracture, left shoulder fracture, left ankle sprain, admitted to TCU with debility, here for rehabilitation, strengthening, prior to discharge home with spouse. Discharge home with [facility] for PT/OT/SN. [place] for hemiwalker, & hospital bed. 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) History of left heart catheterization (Chronic 09/11/18) Atrial fibrillation (Chronic) Coronary artery disease (Chronic) Hypertension (Chronic) Hypercholesterolemia (Chronic) Non-STEMI (non-ST elevated myocardial infarction) (Chronic 09/10/18) Hypothyroidism (Chronic) Parkinson's disease (Chronic) - Requirements and Reasons Disciplines Needed/Ordered: Half-Way, Physical Therapy Reason for Disciplines: Disease Specific Monitoring/education, Gait Training, Stair Training, Fall Prevention, Home Safety/Equipment Instruction, Transfer Training Related To: Change in Medical Treatment Plan, Limited/Poor Endurance, Shortness of Breath with Activity, Physical Impairments, Unsteady Gait/Balance, Intractable Pain, Fall Risk Patient is unable to leave the home: Without Aid of Supportive Devices (crutches, cane, wheelchair, walker), Without the assistance of another person - Additional Disciplines Additional Disciplines Needed/Ordered: Occupational Therapy
[2019-05-25] MEDS: Menthol/Lanolin/Calamine/Znox 113 GM Tube 1 APPLIC TOPICAL ×2 (05:15→20:45)
[2019-05-25] MEDS: Acetaminophen 500 MG Tablet 1000 MG PO ×3 (05:16→20:46)
[2019-05-25] MEDS: Carbidopa/Levodopa 25/100 Tablet PO ×3 (05:16→17:02)
[2019-05-25] MEDS: Furosemide 40 MG Tablet PO ×2 (05:17→17:01)
[2019-05-25] MEDS: Losartan Potassium 25 MG Tablet PO ×2 (05:17→17:01)
[2019-05-25] MEDS: Senna/Docusate Sodium 1 Tablet 2 TABLET PO (05:17)
[2019-05-25] MEDS: Clopidogrel Bisulfate 75 MG Tablet PO (05:18)
[2019-05-25] MEDS: Levothyroxine 125 MCG Tablet PO (05:19)
[2019-05-25] MEDS: Polyethylene Glycol 3350 17 GM PACKET PO (05:23)
[2019-05-25] MEDS: Amiodarone 200 MG Tablet PO (08:30)
[2019-05-25] MEDS: Multivitamins,Ther W-Minerals Tablet 1 TABLET PO (08:30)
[2019-05-25] MEDS: Omega-3 Acid Ethyl Esters 1 GM Capsule 2 GM PO ×2 (08:30→17:02)
[2019-05-25] MEDS: traMADol 50 MG Tablet PO (08:34)
[2019-05-25 16:00] VITALS: BP 129/81; PULSE 48; RESP 20; TEMP 36.7; O2SAT 99
[2019-05-25] MEDS: Rivaroxaban 20 MG Tablet PO (17:01)
[2019-05-26] MEDS: Polyethylene Glycol 3350 17 GM PACKET PO (05:15)
[2019-05-26] MEDS: Sodium Chloride 0.65% 1 SPRAY SPRAY.BTL 2 SPRAY NASAL (05:15)
[2019-05-26] MEDS: Acetaminophen 500 MG Tablet 1000 MG PO ×3 (05:15→20:38)
[2019-05-26] MEDS: Losartan Potassium 25 MG Tablet PO ×2 (05:16→16:25)
[2019-05-26] MEDS: Senna/Docusate Sodium 1 Tablet 2 TABLET PO ×2 (05:17→16:25)
[2019-05-26] MEDS: Clopidogrel Bisulfate 75 MG Tablet PO (05:17)
[2019-05-26] MEDS: Carbidopa/Levodopa 25/100 Tablet PO ×3 (05:17→16:25)
[2019-05-26] MEDS: Levothyroxine 125 MCG Tablet PO (05:18)
[2019-05-26] MEDS: Furosemide 40 MG Tablet PO ×2 (05:18→16:25)
[2019-05-26] MEDS: Menthol/Lanolin/Calamine/Znox 113 GM Tube 1 APPLIC TOPICAL ×2 (05:20→20:39)
[2019-05-26 08:35] VITALS: BP 164/66; PULSE 49; RESP 18; O2SAT 99
[2019-05-26] MEDS: Amiodarone 200 MG Tablet PO (10:08)
--- NOTE | 2019-05-26 10:10 | NURSING ---
0800 MEDS GIVEN AT THIS TIME. R' UNABLE TO TAKE MEDS THIS AM D/T NAUSEA. SPRITE WAS GIVEN/REST. EFFECTIVE. ABLE TO TAKE MEDS AT THIS TIME WITH COOKIES. WILL MONITOR.
--- NOTE | 2019-05-26 10:10 | NURSING ---
pt nauseated, gingerale given. holding off on AM meds for now. will monitor. vitals stable.
[2019-05-26 10:13] VITALS: PULSE 56
[2019-05-26] MEDS: oxyCODONE 5 MG Tablet PO (10:57)
[2019-05-26 16:00] VITALS: BP 173/63; PULSE 63; RESP 18; TEMP 36.6; O2SAT 99
[2019-05-26] MEDS: Carvedilol 3.125 MG TABLET PO (16:25)
[2019-05-26] MEDS: Rivaroxaban 20 MG Tablet PO (16:25)
[2019-05-26] MEDS: Omega-3 Acid Ethyl Esters 1 GM Capsule 2 GM PO (16:25)
[2019-05-26 17:02] VITALS: BP 173/68; PULSE 61
[2019-05-26 17:44] VITALS: BP 131/68; PULSE 60
[2019-05-27] MEDS: Clopidogrel Bisulfate 75 MG Tablet PO (05:04)
[2019-05-27] MEDS: Levothyroxine 125 MCG Tablet PO (05:04)
[2019-05-27] MEDS: Losartan Potassium 25 MG Tablet PO ×2 (05:04→17:46)
[2019-05-27] MEDS: Senna/Docusate Sodium 1 Tablet 2 TABLET PO ×2 (05:04→17:46)
[2019-05-27] MEDS: Acetaminophen 500 MG Tablet 1000 MG PO ×3 (05:04→21:07)
[2019-05-27] MEDS: Furosemide 40 MG Tablet PO ×2 (05:04→17:48)
[2019-05-27] MEDS: Polyethylene Glycol 3350 17 GM PACKET PO (05:04)
[2019-05-27] MEDS: Menthol/Lanolin/Calamine/Znox 113 GM Tube 1 APPLIC TOPICAL ×2 (05:10→21:08)
[2019-05-27 06:06] LABS: Anion Gap 8 (5-15); BUN 18 mg/dL (7-18); Chloride 101 mmol/L (98-107); EST Glomerular Filtration Rate 64 mL/min (>60); Est Glom Filt Rate - Afr Amer 77 mL/min (>60); Estimated Creatinine Clearance 48.48 ml/min; Glucose 102 mg/dL (74-106); Potassium 3.5 mmol/L (3.5-5.1); Sodium Level 138 mmol/L (136-145)
[2019-05-27] MEDS: Carbidopa/Levodopa 25/100 Tablet PO ×3 (06:26→17:47)
[2019-05-27] MEDS: Omega-3 Acid Ethyl Esters 1 GM Capsule 2 GM PO ×2 (08:00→17:48)
[2019-05-27] MEDS: Carvedilol 3.125 MG TABLET PO (08:00)
[2019-05-27] MEDS: Multivitamins,Ther W-Minerals Tablet 1 TABLET PO (08:00)
[2019-05-27] MEDS: Amiodarone 200 MG Tablet PO (08:00)
[2019-05-27] MEDS: oxyCODONE 5 MG Tablet PO (11:03)
[2019-05-27 15:30] VITALS: BP 140/58; PULSE 49; RESP 17; TEMP 36.8; O2SAT 98
[2019-05-27] MEDS: Rivaroxaban 20 MG Tablet PO (17:48)
[2019-05-28] MEDS: oxyCODONE 5 MG Tablet PO (03:33)
[2019-05-28] MEDS: Acetaminophen 500 MG Tablet 1000 MG PO (05:17)
[2019-05-28] MEDS: Levothyroxine 125 MCG Tablet PO (05:18)
[2019-05-28] MEDS: Carbidopa/Levodopa 25/100 Tablet PO (05:18)
[2019-05-28] MEDS: Losartan Potassium 25 MG Tablet PO (05:18)
[2019-05-28] MEDS: Clopidogrel Bisulfate 75 MG Tablet PO (05:19)
[2019-05-28] MEDS: Furosemide 40 MG Tablet PO (05:19)
[2019-05-28] MEDS: Menthol/Lanolin/Calamine/Znox 113 GM Tube 1 APPLIC TOPICAL (05:20)
[2019-05-28 05:56] LABS: Absolute Lymphocyte Count 1.33 X10^3/uL (0.83-4.51); Basophil# 0.04 X10^3/uL; Basophil% 0.8 % (0-1); Eosinophil# 0.12 X10^3/uL; Eosinophils% 2.4 % (0-5); Hematocrit 35.5 % (37-47); Lymphocyte # 1.33 X10^3/ul (4.0); Lymphocyte % 26.7 % (19-41); Mean Corp Hgb Conc 33.8 g/dL (32-36); Mean Corpuscular Hgb 31.1 pg (27.0-32.0); Monocyte# 0.48 X10^3/uL; Monocyte% 9.6 % (0-10); NRBC Flagged by Analyzer 0 % (0-5); Neutrophil # 3.01 X10^3/uL (2.7-7.7); Neutrophil % 60.3 % (47-70); Platelet Count 271 K/mm3 (150-450); RBC Distribution Width CV 14.1 % (11.6-14.6); Red Blood Count 3.86 M/mm3 (4.2-5.4)
[2019-05-28 06:03] LABS: Anion Gap 8 (5-15); BUN 17 mg/dL (7-18); BUN/Creat Ratio 23.7 RATIO (10-20); Calcium,Total 8.6 mg/dL (8.5-10.1); Chloride 104 mmol/L (98-107); Creatinine, Serum 0.72 mg/dL (0.55-1.02); EST Glomerular Filtration Rate 83 mL/min (>60); Est Glom Filt Rate - Afr Amer 101 mL/min (>60); Estimated Creatinine Clearance 43.63 ml/min; Glucose 84 mg/dL (74-106); Potassium 3.5 mmol/L (3.5-5.1); Sodium Level 139 mmol/L (136-145)
[2019-05-28] MEDS: Multivitamins,Ther W-Minerals Tablet 1 TABLET PO (08:17)
[2019-05-28] MEDS: Omega-3 Acid Ethyl Esters 1 GM Capsule 2 GM PO (08:17)
[2019-05-28] MEDS: Amiodarone 200 MG Tablet PO (08:18)
[2019-05-28] MEDS: Carvedilol 3.125 MG TABLET PO (08:18)
[2019-05-28 11:56] VITALS: BP 136/54; PULSE 58; RESP 16; TEMP 36.8; O2SAT 97
== END 2019-05-28 11:30 | disposition home health service (06) | DRG 561 ==
PROVIDERS: Admitting Provider Family Medicine Geriatric Medicine; Family Provider Internal Medicine; PCP Internal Medicine; Visit Provider Family Medicine Geriatric Medicine
DX: S32.512D Fracture of superior rim of left pubis, subsequent encounter for fracture with routine healing (principal); S32.592D Other specified fracture of left pubis, subsequent encounter for fracture with routine healing; S42.202D Unspecified fracture of upper end of left humerus, subsequent encounter for fracture with routine healing; W19.XXXD Unspecified fall, subsequent encounter; I25.10 Atherosclerotic heart disease of native coronary artery without angina pectoris; I10 Essential (primary) hypertension; G20 Parkinson's disease; E03.9 Hypothyroidism, unspecified; I25.2 Old myocardial infarction; M16.0 Bilateral primary osteoarthritis of hip; Z95.1 Presence of aortocoronary bypass graft; E55.9 Vitamin D deficiency, unspecified; B35.1 Tinea unguium; E78.5 Hyperlipidemia, unspecified; I48.2 Chronic atrial fibrillation
CPT/HCPCS: 36415; 80048; 85025; 97110; 97116; 97163; 97166; 97530; 97535; 97802

== ENCOUNTER → 2019-06-02 13:30 | Outpatient (CLI) | payer MEDICARE, SELFPAY ==
[2019-05-11 15:00] VITALS: BMI 21.6
--- NOTE | 2019-06-02 13:31 | RAD_ITS ---
STUDY: X-RAY - PELVIS REASON FOR EXAM: Female, 79 years old. Fracture TECHNIQUE: One view of the pelvis was obtained. COMPARISON: 05/03/2019. FINDINGS: Evaluation is limited by the overlying stool. There is a stable fracture of the left inferior pubic ramus. The previously seen left superior pubic ramus fracture is not well-visualized on this exam. No additional fractures are identified. RAD/Pelvis 1 or 2 Views IMPRESSION: Study limited by overlying stool. Stable of the left inferior pubic ramus. Limited visualization of the previously seen fracture of the left superior pubic ramus. Electronically Signed: Fermin Zamora, at 20:02 EDT Tel , Service support ,
--- NOTE | 2019-06-02 13:31 | RAD_ITS ---
STUDY: X-RAY - LEFT SHOULDER REASON FOR EXAM: Female, 79 years old. Fracture TECHNIQUE: 3 view(s) of the shoulder. COMPARISON: 05/04/2019 FINDINGS: There is a stable mildly impacted fracture of the left humeral neck. There is no new fracture. There is no dislocation There are stable mild degenerative changes. RAD/Shoulder min 2 Views IMPRESSION: Stable exam. Electronically Signed: Fermin Zamora, at 18:59 EDT Tel , Service support ,
== END ==
PROVIDERS: Family Provider Internal Medicine; PCP Internal Medicine; Referring Provider Orthopaedic Surgery; Visit Provider Orthopaedic Surgery
DX: S42.202A Unspecified fracture of upper end of left humerus, initial encounter for closed fracture (principal); S32.512A Fracture of superior rim of left pubis, initial encounter for closed fracture; S32.592A Other specified fracture of left pubis, initial encounter for closed fracture; X58.XXXA Exposure to other specified factors, initial encounter; Y93.9 Activity, unspecified; Y92.9 Unspecified place or not applicable; Y99.9 Unspecified external cause status
CPT/HCPCS: 72170; 73030

== ENCOUNTER → 2019-07-14 13:07 | Outpatient (CLI) | payer MEDICARE, SELFPAY ==
[2019-06-17 08:47] VITALS: BMI 22.5
--- NOTE | 2019-07-14 13:08 | RAD_ITS ---
STUDY: X-RAY - PELVIS REASON FOR EXAM: Female, 79 years old. Fracture TECHNIQUE: One view of the pelvis was obtained. COMPARISON: None. FINDINGS: There is a non-specific bowel gas pattern. There are atherosclerotic vascular calcifications of the pelvic arteries. Stool obscures anatomic detail of the bilateral iliac wings, sacroiliac joints and visualized sacrum. There is stable sclerosis within the left ischium. There are degenerative changes of the hips. There is a left inferior pubic ramus fracture associated with bony bridging suggesting healing. RAD/Pelvis 1 or 2 Views IMPRESSION: Healing left inferior pubic ramus fracture. Degenerative changes. Atherosclerosis. Electronically Signed: Barbara Lerma MD at 23:56 EST Tel , Service support ,
--- NOTE | 2019-07-14 13:08 | RAD_ITS ---
STUDY: X-RAY - LEFT SHOULDER REASON FOR EXAM: Female, 79 years old. Pain. TECHNIQUE: 2 view(s) of the shoulder. COMPARISON: None. FINDINGS: There is mild degenerative arthrosis of the glenohumeral articulation. Normal acromioclavicular joint. Normal acromion. Normal humeral head and visualized proximal humerus. The soft tissue structures are unremarkable. There is no demonstrated fracture. Normal visualized pulmonary apex. 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 Electronically Signed: Genesis Shaver MD at 1:11 EST , Service support ,
== END ==
PROVIDERS: Family Provider Internal Medicine; PCP Internal Medicine; Referring Provider Orthopaedic Surgery; Visit Provider Orthopaedic Surgery
DX: S32.512A Fracture of superior rim of left pubis, initial encounter for closed fracture (principal); S32.592A Other specified fracture of left pubis, initial encounter for closed fracture; S42.202A Unspecified fracture of upper end of left humerus, initial encounter for closed fracture; X58.XXXA Exposure to other specified factors, initial encounter; Y93.9 Activity, unspecified; Y92.9 Unspecified place or not applicable; Y99.9 Unspecified external cause status
CPT/HCPCS: 72170; 73030

== ENCOUNTER 2019-08-25 16:30 | Inpatient (IN) | payer MEDICARE, SELFPAY ==
[2019-07-14 13:33] VITALS: BMI 22.5
[2019-08-25 16:31] VITALS: BP 211/97; PULSE 68; RESP 15; TEMP 36.4; O2SAT 98; BMI 22.5
--- NOTE | 2019-08-25 16:47 | CT_ITS ---
STUDY: CT ABDOMEN AND PELVIS WITHOUT CONTRAST REASON FOR EXAM: Female, 79 years old. SUDDEN ONSET LEFT FLANK PAIN TODAY -- HX-KIDNEY STONES -- SURG-GB,HERNIA,CABG -- PARKINSONS RADIATION DOSAGE (If Supplied By Facility): CTDIvol = ( 6.04 ) mGy, DLP = ( 289.93 ) mGycm TECHNIQUE: Transaxial images were obtained from the dome of the diaphragm to the symphysis pubis without oral contrast, and without intravenous contrast. Sagittal and coronal images were reconstructed. Individualized dose optimization techniques were used for this CT. COMPARISON: None. FINDINGS: A 7 mm stone is present in the left UVJ partly abutting the balloon catheter within the lumen of the bladder. The bladder lumen is not fluid distended on the current study. Moderate to severe left hydronephrosis and hydroureter are present. A large 2.24 cm stone is present in the upper pole calyx of the left kidney. A small amount of air is also present same calyx adjacent to the stone. Small amounts of gas are also present in this large stone. A small 9.8 mm stone is present in the lower pole calyx of the left kidney. Several additional punctate stones are seen in the left kidney. There are chronic interstitial fibrotic changes of the lung bases. Median sternotomy wires are present. Normal liver. There are surgical clips in the gallbladder fossa consistent with a prior cholecystectomy. Normal spleen. Normal pancreas. Normal bilateral adrenal glands. Normal right kidney. Normal visualized stomach. Normal small intestine. There are multiple colonic diverticula consistent with diverticulosis. The appendix is visualized and appears normal. There is diffuse atherosclerotic calcification of the abdominal aorta with elongation and tortuosity, but without a demonstrated aneurysm. Normal inferior vena cava. Normal retroperitoneum. Normal urinary bladder. There is a shallow umbilical hernia containing fat and bowel without incarceration. There are diffuse degenerative changes of the visualized lumbar spine. There is a partially healed fracture deformity of the left inferior pubic ramus. Benign pagetoid changes of the sacrum noted. CT/Abdomen/Pelvis without Cont IMPRESSION: 1. A 7 mm stone is present in the left UVJ partly abutting the balloon catheter within the lumen of the bladder. 2. Moderate to severe left hydronephrosis and hydroureter are present. 3. A large 2.24 cm stone is present in the upper pole calyx of the left kidney. Electronically Signed: Jaime Ortiz MD at 18:11 EST , Service support ,
--- NOTE | 2019-08-25 16:53 | ED.DCSUM_ITS ---
History of Present Illness Chief Complaint: Flank Pain Informant: Patient, Significant Other - Abdominal Pain/Flank Pain Onset: Hours - 1 Context: Sudden Onset - While at rest Timing: Continuous Quality: Aching Location: Left Flank Current Severity: Severe Maximum Severity: Severe Worsened by: Nothing Relieved by: Nothing - Nausea/Vomiting/Emesis GI Symptom: Negative for: Nausea, Vomiting - Diarrhea/Melena/Hematochezia GI Symptom: Negative for: Diarrhea, Melena, Hematochezia Associated Symptoms: Negative for: Dysuria, Frequency, Hematuria, Urgency Narrative: Sudden onset of severe pain in her left flank. No syncope or near syncope. No thoracic symptoms. Prior similar symptoms: Yes - Thinks with remote kidney stone - Past Medical History (1) Debility Status: Chronic (2) Atherosclerosis of coronary artery of [place] heart without angina pectoris Status: Chronic (3) Atrial fibrillation Status: Chronic (4) Essential hypertension Status: Chronic (5) Hypercholesterolemia Status: Chronic (6) Hypothyroidism Status: Chronic (7) Non-STEMI (non-ST elevated myocardial infarction) Status: Chronic (8) Parkinson's disease Status: Chronic Past Medical History - Allergies and Home Meds Allergies/Adverse Reactions: Allergies Wzaracn-Uub-Vxe Reductase Inhibitor Allergy (Verified 06/17/19 09:29) MUSCLE ACHES ALL OVER pravastatin Adverse Reaction (Severe, Verified 06/17/19 09:29) myalgias bones ache all over colesevelam [From WelChol] Adverse Reaction (Intermediate, Verified 06/17/19 09:29) Not effective ezetimibe [From Zetia] Adverse Reaction (Intermediate, Verified 06/17/19 09:29) GI upset Influenza Virus Vaccines Adverse Reaction (Intermediate, Verified 06/17/19 09:29) Visual changes, lightheaded niacin Adverse Reaction (Intermediate, Verified 06/17/19 09:29) sweats Primary Care Physician: Louise Garrido MD [Primary Care Provider] - Surgical History: coronary bypass surgery - x 3, 15 years ago, - - Vein stripping in both legs, tubal ligation Lives: Spouse/ Significant Other Smoking Status: Never smoker - Family History Paternal Family History: Family History (Last Reviewed 05/10/19 @ 17:28 by Nerissa Roche) Sister Alzheimer's disease Family History: Reports: Heart Disease, Hypertension, Stroke Review of Systems General: Reports: Malaise. Denies: Chills, Fever, Sweats Eyes: Denies: Visual changes - bilaterally, Diplopia ENT: Denies: Rhinorrhea, Sore throat Cardiovascular: Denies: Chest pain, Palpitations Respiratory: Denies: Dyspnea, Cough, Dyspnea on exertion Gastrointestinal: Reports: Abdominal pain. Denies: Nausea, Vomiting, Diarrhea, Melena, Hematochezia Genitourinary: Denies: Dysuria, Hematuria, Frequency Musculoskeletal: Reports: Back pain. Denies: Swelling, Extremity Pain Skin: Denies: Rash, Wounds Neurological: Denies: Headache, Weakness, Numbness Physical Exam Vital Signs/Narrative: Vital Signs Temp Pulse Resp BP Pulse Ox 08/25/19 16:31 97.6 F L 68 15 211/97 H 98 Inital Vital Signs reviewed: Yes General: Well nourished, Well developed, Acute Distress - painful Head: Normocephalic, Atraumatic Eyes: Perrl, EOMI ENT: Moist mucous membranes, No rhinorrhea Neck: Supple, Nontender Cardiovascular: Regular rate, Regular rhythm, No murmurs Respiratory: No distress, CTA bilaterally, Chest nontender Abdomen: Soft, Nondistended, Normal bowel sounds, Tender - throughout left abd. Negative for: Guarding, Rebound tenderness Back: Normal Inspection, CVA tenderness - left only. nml inspection. Extremities: Nontender, No edema Skin: Normal color, No rash, No Trauma Neurological: Alert, Oriented x3, Cranial nerves II-XII grossly intact, Normal Strength, Normal Sensation Psychological: Normal Mood, Agitated - mildly due to pain Diagnostic/Tx/Re-eval Impressions Abdomen/Pelvis CT 08/25/19 16:47 IMPRESSION: 1. A 7 mm stone is present in the left UVJ partly abutting the balloon catheter within the lumen of the bladder. 2. Moderate to severe left hydronephrosis and hydroureter are present. 3. A large 2.24 cm stone is present in the upper pole calyx of the left kidney. Electronically Signed: Jaime Ortiz MD at 18:11 EST , Service support , 08/25/19 16:47 Abdomen/Pelvis without Cont [CT] Stat Laboratory Results 08/25/19 08/25/1919 17:03 17:03 17:25 WBC 7.7 RBC 4.61 Hgb 13.4 Hct 41.3 MCV 89.6 MCH 29.1 MCHC 32.4 RDW Std Deviation 42.4 RDW Coeff of Pina 12.9 Plt Count 260 MPV 10.0 Immature Gran % (Auto) 0.100 Neut % (Auto) 73.3 H Lymph % (Auto) 16.7 L [place] % (Auto) 8.0 Eos % (Auto) 1.4 Baso % (Auto) 0.5 Absolute Neuts (auto) 5.6 Absolute Lymphs (auto) 1.28 Nucleated RBC % 0 Sodium 140 Potassium 4.2 Chloride 104 Carbon Dioxide 28.0 Anion Gap 8 BUN 27 H Creatinine 1.40 H Estim Creat Clear Calc 31.17 Est GFR (MDRD) Af Amer 47 L Est GFR (MDRD) Non-Af 38 L BUN/Creatinine Ratio 19.3 Glucose 146 H Calcium 10.0 Urine Color Yellow Urine Clarity Sl. Cloudy Urine pH 6.0 Ur Specific [place] 1.020 Urine Protein 30 H Urine Glucose (UA) Normal Urine Ketones 5 H Urine Occult Blood 50 H Urine Nitrite Negative Urine Bilirubin Negative Urine Urobilinogen Normal Ur Leukocyte Esterase 500 H Urine RBC 5-10 SEEN Urine WBC 10-25 SEEN Ur Squamous Epith Cells 0-5 SEEN Amorphous Sediment 1+ URATE Urine Bacteria 0 SEEN Urine Mucus 0 SEEN - Medical Decision Making After 2 doses of morphine, patient is still in pain, groaning and saying that she is miserable. CT confirms the suspicion of left ureterolithiasis, the stone is 7 mm and at the UVJ and there is a very large 2.24 cm stone in the left kidney as noted on CT impression above. Her labs show renal insufficiency that is acute, and her urine appears to be infected. She does not have left CVA tenderness and clinically is not septic. At this time there is nothing to indicate she needs an emergent percutaneous nephrostomy, but I do think she needs to be admitted for all of the above issues. There is no urologist environmental field services technician today. I discussed with the hospitalist, he was able to discuss with Dr. Meyers, who will be available tomorrow so he is comfortable admitting patient to medical surgical, which I think is reasonable. ED Disposition - Plan for ED Patient: Disposition: Acute Care Hospital [facility] Diagnosis: Intractable abdominal pain, Ureteral colic, Urolithiasis, Acute kidney injury, Complicated UTI (urinary tract infection) Referrals: Louise Garrido MD [Primary Care Provider] -
[2019-08-25] MEDS: Morphine 2 MG/ML Syringe IV (17:05)
[2019-08-25] MEDS: Ondansetron 4 MG/2 ML Vial IV (17:06)
[2019-08-25 17:15] LABS: Absolute Lymphocyte Count 1.28 X10^3/uL (0.83-4.51); Absolute Neutrophil Count 5.6 X10^3/uL (2.0-7.7); Basophil# 0.04 X10^3/uL; Basophil% 0.5 % (0-1); Eosinophil# 0.11 X10^3/uL; Eosinophils% 1.4 % (0-5); Hematocrit 41.3 % (37-47); Hemoglobin 13.4 g/dL (12.0-15.0); Lymphocyte # 1.28 X10^3/ul (4.0); Lymphocyte % 16.7 % (19-41); Mean Corp Hgb Conc 32.4 g/dL (32-36); Mean Corpuscular Hgb 29.1 pg (27.0-32.0); Mean Corpuscular Volume 89.6 fL (81-99); Monocyte# 0.61 X10^3/uL; NRBC Flagged by Analyzer 0 % (0-5); Neutrophil # 5.61 X10^3/uL (2.7-7.7); Neutrophil % 73.3 % (47-70); Platelet Count 260 K/mm3 (150-450); RBC Distribution Width CV 12.9 % (11.6-14.6); RBC Distribution Width SD 42.4 fl (35.1-43.9); Red Blood Count 4.61 M/mm3 (4.2-5.4); White Blood Count 7.7 K/mm3 (4.4-11.0)
[2019-08-25 17:30] LABS: Anion Gap 8 (5-15); BUN 27 mg/dL (7-18); BUN/Creat Ratio 19.3 RATIO (10-20); Chloride 104 mmol/L (98-107); EST Glomerular Filtration Rate 38 mL/min (>60); Est Glom Filt Rate - Afr Amer 47 mL/min (>60); Estimated Creatinine Clearance 31.17 ml/min; Glucose 146 mg/dL (74-106); Potassium 4.2 mmol/L (3.5-5.1); Sodium Level 140 mmol/L (136-145)
[2019-08-25 17:32] LABS: Bacteria 0 SEEN /hpf (None Seen); Mucous, Urine 0 SEEN /hpf (<or=2+)
[2019-08-25 17:34] LABS: Color, Urine Yellow (Yellow); Glucose, Dipstick Normal (Normal); Ketone-Dipstick 5 mg/dl (Negative); Leukocyte Esterase-Dipstick 500 /ul (Negative); Nitrite-Dipstick Negative (Negative); Occult Blood-Urine 50 /ul (Negative); Protein-Dipstick 30 mg/dl (Negative); Urine Bilirubin Dipstick Negative (Negative); Urine Clarity Sl. Cloudy (Clear); Urine Urobilinogen Normal (Normal)
[2019-08-25 17:41] LABS: Amorphous Sediment 1+ URATE; Red Blood Cells-Urine 5-10 SEEN /hpf (0-5); Squamous Epithelial Cells - UA 0-5 SEEN /hpf (5-10); White Blood Cells 10-25 SEEN /hpf (0-5)
[2019-08-25] MEDS: Morphine 4 MG/ML Syringe IV (18:48)
[2019-08-25 19:04] VITALS: BP 170/80; PULSE 70; RESP 15; O2SAT 97
[2019-08-25] MEDS: Ceftriaxone 1 GM/50 ML BAG IV (19:08)
--- NOTE | 2019-08-25 20:17 | PCM.HP.STD ---
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 Laz Barreto (8) Atrial fibrillation Status: Chronic (9) Hypercholesterolemia Status: Chronic (10) Hypothyroidism Status: Chronic (11) Parkinson's disease Status: Chronic History of Present Illness Date of Admission: 08/25/19 Chief Complaint: Left flank pain. The patient is a 79 year old F patient with past medical history as mentioned above presented to the emergency room because of left flank pain. Her symptoms started yesterday with left flank pain, sharp pain, 10 out of 10 in severity, extends down to the left groin and suprapubic region, associated with nausea and vomiting and she has been having difficulty urinating since yesterday. She had an episode of this pain yesterday but it is resolved after last couple of hours. Today, she had another episode of this left flank pain and the pain was again very severe, sharp, 10 out of 10 in severity, associated with nausea and vomiting. She mentioned that urine output is decreasing and urine has been very dark without blood. She denied fever or chills. In the emergency department, her blood pressure was elevated, other vital signs were stable and she was afebrile. Her routine blood work was remarkable for BUN of 27 and creatinine of 1.40. Urinalysis revealed cloudy urine, negative for nitrite, 500 leukocyte esterase, there was 5-10 RBCs and 10-25 WBCs, no bacteria seen. CT scan abdomen and pelvis without contrast revealed 7 mm stone in the left UVJ, moderate to severe left hydronephrosis and hydroureter, large 2.24 cm stone in the upper pole calyx of the left kidney. She is being admitted for acute kidney injury secondary to obstructive uropathy due to left kidney stones and also found to have complicated acute cystitis and possible pyelonephritis. Past Medical History Past Medical History (Chronic Problems): Chronic Problems (Last Updated 08/25/19 @ 20:05 by Nino Castro MD) Essential hypertension (Chronic) Atherosclerosis of coronary artery of [place] heart without angina pectoris (Chronic) History of cardioversion (Chronic 12/16/18) History of coronary artery bypass graft x 3 (Chronic 08/22/98) [facility] [place]:LOPEZ to LAD, left radial to OM of CX and free MYNOR to PDA of RCA per Dr. Laz Barreto History of left heart catheterization (Chronic 09/11/18) Bifurcating LOEPZ graft to the LAD and DIAG is patent with mild to moderate [place] mid/distal LAD 50% stenosis, high risk for PCI given need to traverse down LOPEZ and severe LV dysfunction. Saphenous Vein graft to the RCA previously placed stent is patent, with 75% mid PDA stenosis, not amenable to PCI given need to traverse through graft, then acute angle into PDA, of questionable benefit given severe LV dysfunction Atrial fibrillation (Chronic) Hypercholesterolemia (Chronic) Non-STEMI (non-ST elevated myocardial infarction) (Chronic 09/10/18) Hypothyroidism (Chronic) Parkinson's disease (Chronic) Medical History: Medical History (Last Updated 08/25/19 @ 20:05 by Nino Castro MD) Essential hypertension (Chronic) I10 Atherosclerosis of coronary artery of [place] heart without angina pectoris (Chronic) I25.10 Atrial fibrillation (Chronic) I48.91 Hypercholesterolemia (Chronic) E78.00 Non-STEMI (non-ST elevated myocardial infarction) (Chronic) Onset Date: 09/10/18 I21.4 Hypothyroidism (Chronic) E03.9 Parkinson's disease (Chronic) G20 Allergies Jtmycbj-Ovx-Pia Reductase Inhibitor Allergy (Verified 06/17/19 09:29) MUSCLE ACHES ALL OVER pravastatin Adverse Reaction (Severe, Verified 06/17/19 09:29) myalgias bones ache all over colesevelam [From WelChol] Adverse Reaction (Intermediate, Verified 06/17/19 09:29) Not effective ezetimibe [From Zetia] Adverse Reaction (Intermediate, Verified 06/17/19 09:29) GI upset Influenza Virus Vaccines Adverse Reaction (Intermediate, Verified 06/17/19 09:29) Visual changes, lightheaded niacin Adverse Reaction (Intermediate, Verified 06/17/19 09:29) sweats Home Medications: Ambulatory Orders Medication Instructions Recorded Cholecalciferol (Vitamin D3) 1 tab PO DAILY 06/14/13 [Vitamin D3] Levothyroxine [Synthroid] 125 mcg PO DAILY 06/14/13 Multivit-Min/FA/Lycopene/Lut 1 ea PO DAILY 06/14/13 [Centrum Silver Tablet] [place]-3 Fatty Acids [Fish Oil] 2,000 mg PO BID 06/14/13 Carbidopa/Levodopa 1.5 tab PO TID 09/09/18 [Carbidopa-Levodopa 25-100 Tab] Ciclopirox 1 applicatio TP QHS 09/09/18 L.acidoph,Paracasei, B.lactis 1 ea PO DAILY 09/09/18 [Probiotic] Ubidecarenone [Coq-10] 200 mg PO DAILY 09/09/18 Clopidogrel Bisulfate [Plavix] 75 mg PO DAILY 05/03/19 Furosemide [Lasix] 40 mg PO DAILY 05/03/19 Amiodarone HCl 200 mg PO DAILY 05/06/19 Losartan Potassium [Cozaar] 25 mg PO BID 05/06/19 rivaroxaban 20 mg tablet 20 mg PO DINNER #90 tab 05/11/19 Carvedilol [Coreg (Beta Tereso)] 3.125 mg PO BIDCM #60 tab 05/24/19 Emollient Combination No.72 1 applic TOPICAL BID@0600,2200 05/24/19 [Eucerin Intensive Repair] lotion Menthol/Lanolin/Calamine/Znox 1 applic TOPICAL 0600,2200 tube 05/24/19 [Calmoseptine Ointment] Polyethylene Glycol 3350 [Miralax] 17 gm PO DAILY #30 packet 05/24/19 Potassium Chloride [K-Dur] 20 meq PO DAILY #30 tab 05/24/19 Sodium Chloride 0.65% [[place] Nasal 2 spray NASAL TID PRN PRN 05/24/19 Street] spray.btl traMADol [Ultram] 50 mg PO Q6H PRN PRN #30 tab 05/24/19 acetaminophen 500 mg tablet 1,000 mg PO Q8 PRN tab 06/17/19 oxycodone 5 mg tablet 5 mg PO DAILY PRN 06/17/19 Surgical History: Surgical History (Last Reviewed 08/25/19 @ 20:22 by Nino Castro MD) History of cardioversion (Chronic) Onset Date: 12/16/18 Z98.890 History of coronary artery bypass graft x 3 (Chronic) Onset Date: 08/22/98 Z95.1 [facility] [place]:LOPEZ to LAD, left radial to OM of CX and free MYNOR to PDA of RCA per Dr. Laz Barreto History of laparoscopic cholecystectomy Onset Date: 06/15/[address] Kulwinder Rosas; umbilical hernia repair done concomitantly with lap cholecystectomy History of tubal ligation Onset Date: 1969 Z98.51 History of umbilical hernia repair Onset Date: 06/15/13 Z98.890, Z87.[address] Kulwinder Rosas, concomitant with laparascopic cholecystectomy History of varicose vein stripping Onset Date: 1971 Z98.890 Bilateral Surgical History: coronary bypass surgery - x 3, 15 years ago, - - Vein stripping in both legs, tubal ligation Psychiatric History: No pertinent psych hx PRODUCT/INDUSTRY CONSULTANT History: No pertinent PRODUCT/INDUSTRY CONSULTANT history Lives: Spouse/ Significant Other Smoking Status: Never smoker Tobacco Use: Non-smoker Alcohol: None Drugs: None - *Family History Paternal Family History: Family History (Last Reviewed 08/25/19 @ 20:23 by Nino Castro MD) Sister Alzheimer's disease History Items: Heart Disease, Hypertension, Stroke Review of Systems Constitutional: Reports: Anorexia, Weakness. Denies: Chills, Fever Eyes: Denies: Blurred vision, Double vision, Drainage, Redness HEENT: Denies: Difficulty Hearing, Ear Pain, Eye Pain, Nasal Congestion, Sore Throat Cardiovascular: Denies: Chest Pain, Chest Tightness, Heaviness, Light Headedness, Palpitations, Syncope Respiratory: Denies: Cough, Pleuritic Pain, Shortness of Breath, Sputum production, Wheezing Gastrointestinal: Reports: Abdominal Pain, Nausea, Vomiting. Denies: Constipation, Diarrhea, Hematochezia, Melena Genitourinary: Denies: Dysuria, Frequency, Hematuria Musculoskeletal: Denies: Arm Pain, Back Pain, Foot Pain Skin: Denies: Dryness, Rash Neurological: Denies: Balance problems, Blurred vision, Double vision, Change in Speech, Slurred speech, Confusion, Focal weakness, Incoordination, Numbness Psychiatric: Denies: Anxiety, Depression Endocrine: Denies: Change in Body Habitus, Polydipsia, Polyuria VTE Information - Inpt Only VTE Present on Admission: No VTE Mechan Device Prophylaxis: SCD's VTE Pharm Prophylaxis ordered?: No Patient Problems: Active and Suspected Problems (Last Updated 08/25/19 @ 20:05 by Nino Castro MD) Ureteral colic (Acute) Urolithiasis (Acute) Acute kidney injury (Acute) Complicated UTI (urinary tract infection) (Acute) - Physical Exam Vitals/I&O's: Vital Signs Temp Pulse Resp BP Pulse Ox 97.6 F L 70 15 170/80 H 97 08/25/19 16:31 08/25/19 19:04 08/25/19 19:04 08/25/19 19:04 08/25/19 19:04 Oxygen Delivery Method Room Air Weight: 144 lb Body Mass Index (BMI) 22.5 Intake and Output for Last 24 Hours 08/23/19 08/24/19 08/25/19 23:59 23:59 23:59 Intake Total 50 / 50 Balance 50 / 50 General: Alert, Oriented x3, Cooperative HEENT: Atraumatic, PERRLA, EOMI, Normocephalic Oral: Moist Mucosa, No Gingival or Mucosal Lesions/ Ulcerations Neck: Supple, No JVD, Negative Carotid Bruits, Trachea Midline, Thyroid Normal Size and Texture Lungs: Clear to auscultation, Normal air movement, No rhonchi, No wheeze, No rales Cardiovascular: Regular rate, Regular Rhythm, Normal S1, Normal S2, PMI Normal Abdomen: Bowel Sounds Present, Soft, Non-Distended, No Hepato-splenomegaly, Tender - Left CVA tenderness. Extremities: No clubbing, No cyanosis, Edema - Nonpitting edema. Skin: No rashes, No breakdown Lymphatic: No Cervical, Supraclavicular, or Inguinal Adenopathy Neurological: Cranial nerves II-XII grossly intact, Motor Exam 5/5 strength throughout Psych/Mental Status: Normal Affect, Appropriate, Alert and oriented to time, place, person, mood and affect Laboratory Results 08/25/19 17:03: WBC 7.7, RBC 4.61, Hgb 13.4, Hct 41.3, MCV 89.6, MCH 29.1, MCHC 32.4, RDW Std Deviation 42.4, RDW Coeff of Pina 12.9, Plt Count 260, MPV 10.0, Immature Gran % (Auto) 0.100, Neut % (Auto) 73.3 H, Lymph % (Auto) 16.7 L, [place] % (Auto) 8.0, Eos % (Auto) 1.4, Baso % (Auto) 0.5, Absolute Neuts (auto) 5.6, Absolute Lymphs (auto) 1.28, Nucleated RBC % 0 08/25/19 17:03: Sodium 140, Potassium 4.2, Chloride 104, Carbon Dioxide 28.0, Anion Gap 8, BUN 27 H, Creatinine 1.40 H, Estim Creat Clear Calc 31.17, Est GFR (MDRD) Af Amer 47 L, Est GFR (MDRD) Non-Af 38 L, BUN/Creatinine Ratio 19.3, Glucose 146 H, Calcium 10.0 08/25/19 17:25: Urine Color Yellow, Urine Clarity Sl. Cloudy, Urine pH 6.0, Ur Specific [place] 1.020, Urine Protein 30 H, Urine Glucose (UA) Normal, Urine Ketones 5 H, Urine Occult Blood 50 H, Urine Nitrite Negative, Urine Bilirubin Negative, Urine Urobilinogen Normal, Ur Leukocyte Esterase 500 H, Urine RBC 5-10 SEEN, Urine WBC 10-25 SEEN, Ur Squamous Epith Cells 0-5 SEEN, Amorphous Sediment 1+ URATE, Urine Bacteria 0 SEEN, Urine Mucus 0 SEEN Clinical Impression(s) from Imaging Studies Abdomen/Pelvis CT 08/25/19 16:47 IMPRESSION: 1. A 7 mm stone is present in the left UVJ partly abutting the balloon catheter within the lumen of the bladder. 2. Moderate to severe left hydronephrosis and hydroureter are present. 3. A large 2.24 cm stone is present in the upper pole calyx of the left kidney. Electronically Signed: Jaime Ortiz MD at 18:11 EST , Service support , Assessment/Plan All Active Problems (Last Updated 08/25/19 @ 20:05 by Nino Castro MD) Ureteral colic (Acute) Urolithiasis (Acute) Acute kidney injury (Acute) Complicated UTI (urinary tract infection) (Acute) This is an 79 years old female patient presented to the emergency room because of left flank pain and she was found to have 2.24 cm left upper pole calyx of the left kidney, 7 mm stone in the left UVJ with moderate to severe hydronephrosis and also found to have acute kidney injury and acute complicated cystitis and probable pyelonephritis. #1 left kidney stones/renal and ureteral colic/left hydronephrosis and hydroureter: Patient has 2 kidney stones on the left side, 2.24 cm in the upper pole calyx of the left kidney and 7 mm stone at the left UVJ, causing obstruction. Patient does have oliguria. No evidence of sepsis or severe sepsis. She is afebrile, no leukocytosis and she is not tachycardic. Plan: Admit to MedSur floor, IV fluids, IV morphine PRN for pain, OxyIR PRN for pain, IV antiemetics, maintain Davis catheter, urology consult, repeat CBC and BMP tomorrow morning, PT OT evaluation and treatment. #2 complicated acute cystitis/probable pyelonephritis: Urinalysis reviewed. Again, no evidence of sepsis or severe sepsis. Plan: Urine culture, start IV Rocephin 2 g every 24 hours. #3 acute kidney injury: Secondary to obstructive uropathy due to left kidney stones. Baseline kidney function is normal. Admission creatinine is 1.40, BUN is 27. Plan for IV fluids, input output chart, repeat BMP tomorrow morning. #4 hypertension: Blood pressure is elevated likely because of pain. Plan to continue Coreg, hold losartan because of acute kidney injury, start IV adenosine PRN. #5 CAD status post CABG: Stable, no acute issues. Continue Coreg, hold Plavix and Xarelto, hold losartan for now. #6 chronic atrial fibrillation status post cardioversion: Rate is controlled, continue amiodarone for rate control as well as Coreg, hold Xarelto for now as patient may need to go for cystoscopy. #7 hypothyroidism: Continue levothyroxine, will check TSH. #8 Parkinson's disease: Continue carbidopa levodopa. #9 DVT prophylaxis: SCDs. This note was generated with [employer] software. It may contain incorrect words, spelling, and punctuation that were not noted in checking the note before signing. Code Visit Inpatient E&M: 88227 Init Hosp L3
[2019-08-25] MEDS: proMETHazine 25 MG/ML Syringe 6.25 MG IV (20:47)
[2019-08-25 20:57] VITALS: BMI 22.1; BMI 22.2
[2019-08-25 21:05] VITALS: BP 199/80; PULSE 68; RESP 18; TEMP 36.8; O2SAT 97
[2019-08-25 22:20] VITALS: PULSE 68
[2019-08-25 22:20] LABS: International Normalized Ratio 1.4; Prothrombin Time (Protime)PT. 16.7 SECONDS (11.7-14.9)
[2019-08-25 22:29] LABS: Thyroid Stim Hormone (TSH) 4.56 uIU/mL (0.358-3.74)
[2019-08-25] MEDS: 0.9% Normal Saline 1,000 ML 100 ML IV (22:47)
[2019-08-25 22:48] VITALS: BP 199/80; PULSE 68
[2019-08-25] MEDS: hydrALAZINE 20 MG/ML Vial 10 MG IV (22:48)
[2019-08-25] MEDS: oxyCODONE 5 MG Tablet PO (22:48)
[2019-08-25] MEDS: Carvedilol 3.125 MG TABLET PO (22:57)
[2019-08-25] MEDS: Carbidopa/Levodopa 25/100 Tablet PO (22:57)
[2019-08-26] VITALS (13 sets, daily range): BP systolic 92–120; BP diastolic 27–78; PULSE 52–70; RESP 18; TEMP 36.7–37.2; O2SAT 96–100
[2019-08-26] MEDS: Morphine 2 MG/ML Syringe IV (02:12)
[2019-08-26 05:27] LABS: Absolute Lymphocyte Count 0.76 X10^3/uL (0.83-4.51); Absolute Neutrophil Count 10.3 X10^3/uL (2.0-7.7); Basophil# 0.02 X10^3/uL; Basophil% 0.2 % (0-1); Hematocrit 34.9 % (37-47); Hemoglobin 11.5 g/dL (12.0-15.0); Lymphocyte # 0.76 X10^3/ul (4.0); Lymphocyte % 6.3 % (19-41); Mean Corpuscular Hgb 29.6 pg (27.0-32.0); Mean Corpuscular Volume 89.7 fL (81-99); Mean Platelet Vol. 10.2 fl (6.2-12.0); Monocyte# 0.96 X10^3/uL; Monocyte% 7.9 % (0-10); NRBC Flagged by Analyzer 0 % (0-5); Neutrophil # 10.28 X10^3/uL (2.7-7.7); Platelet Count 197 K/mm3 (150-450); RBC Distribution Width CV 13.5 % (11.6-14.6); RBC Distribution Width SD 43.8 fl (35.1-43.9); Red Blood Count 3.89 M/mm3 (4.2-5.4); White Blood Count 12.1 K/mm3 (4.4-11.0)
[2019-08-26 05:47] LABS: Anion Gap 8 (5-15); BUN 30 mg/dL (7-18); BUN/Creat Ratio 23.6 RATIO (10-20); Calcium,Total 8.4 mg/dL (8.5-10.1); Chloride 106 mmol/L (98-107); Creatinine, Serum 1.27 mg/dL (0.55-1.02); EST Glomerular Filtration Rate 43 mL/min (>60); Est Glom Filt Rate - Afr Amer 52 mL/min (>60); Estimated Creatinine Clearance 34.36 ml/min; Glucose 115 mg/dL (74-106); Potassium 3.9 mmol/L (3.5-5.1); Sodium Level 141 mmol/L (136-145)
[2019-08-26] MEDS: Levothyroxine 125 MCG Tablet PO (06:05)
[2019-08-26] MEDS: Carbidopa/Levodopa 25/100 Tablet PO ×3 (06:10→16:53)
[2019-08-26] MEDS: Carvedilol 3.125 MG TABLET PO ×2 (08:08→16:54)
--- NOTE | 2019-08-26 08:40 | PCM.PN.HOSP ---
Patient Problems: Active and Suspected Problems (Last Updated 08/25/19 @ 20:05 by Nino Castro MD) Intractable abdominal pain (Acute) Ureteral colic (Acute) Urolithiasis (Acute) Acute kidney injury (Acute) Complicated UTI (urinary tract infection) (Acute) Reason for Visit: An acute complicated UTI/kidney stones Subjective: Patient was seen and examined. She feels improved. Denies any pain whilst lying still or fever or chills. No acute events overnight Objective: Physical exam: General: Alert, Oriented x3, Cooperative HEENT: Atraumatic, PERRLA, EOMI, Normocephalic Oral: Moist Mucosa, No Gingival or Mucosal Lesions/ Ulcerations Neck: Supple, No JVD, Negative Carotid Bruits, Trachea Midline, Thyroid Normal Size and Texture Lungs: Clear to auscultation, Normal air movement, No rhonchi, No wheeze, No rales Cardiovascular: Regular rate, Regular Rhythm, Normal S1, Normal S2, PMI Normal Abdomen: Bowel Sounds Present, Soft, Non-Distended, No Hepato-splenomegaly, Tender - Left CVA tenderness. Extremities: No clubbing, No cyanosis, Edema - Nonpitting edema. Skin: No rashes, No breakdown Lymphatic: No Cervical, Supraclavicular, or Inguinal Adenopathy Neurological: Cranial nerves II-XII grossly intact, Motor Exam 5/5 strength throughout Psych/Mental Status: Normal Affect, Appropriate, Alert and oriented to time, place, person, mood and affect Vitals/I&O's: Vital Signs Temp Pulse Resp BP Pulse Ox 98.9 F 64 18 120/44 L 98 08/26/19 07:27 08/26/19 07:32 08/26/19 07:27 08/26/19 07:27 08/26/19 07:45 Oxygen Delivery Method Room Air Weight: 64.155 kg Body Mass Index (BMI) 22.1 Intake and Output for Last 24 Hours 08/24/19 08/25/19 08/26/19 23:59 23:59 23:59 Intake Total 250 / 250 860 / 860 Output Total 400 / 400 250 / 250 Balance -150 / -150 610 / 610 Laboratory Results 08/25/19 17:03: WBC 7.7, RBC 4.61, Hgb 13.4, Hct 41.3, MCV 89.6, MCH 29.1, MCHC 32.4, RDW Std Deviation 42.4, RDW Coeff of Pina 12.9, Plt Count 260, MPV 10.0, Immature Gran % (Auto) 0.100, Neut % (Auto) 73.3 H, Lymph % (Auto) 16.7 L, [place] % (Auto) 8.0, Eos % (Auto) 1.4, Baso % (Auto) 0.5, Absolute Neuts (auto) 5.6, Absolute Lymphs (auto) 1.28, Nucleated RBC % 0 08/25/19 17:03: Sodium 140, Potassium 4.2, Chloride 104, Carbon Dioxide 28.0, Anion Gap 8, BUN 27 H, Creatinine 1.40 H, Estim Creat Clear Calc 31.17, Est GFR (MDRD) Af Amer 47 L, Est GFR (MDRD) Non-Af 38 L, BUN/Creatinine Ratio 19.3, Glucose 146 H, Calcium 10.0 08/25/19 17:03: PT 16.7 H, INR 1.4 08/25/19 17:03: TSH 4.56 H 08/25/19 17:25: Urine Color Yellow, Urine Clarity Sl. Cloudy, Urine pH 6.0, Ur Specific [place] 1.020, Urine Protein 30 H, Urine Glucose (UA) Normal, Urine Ketones 5 H, Urine Occult Blood 50 H, Urine Nitrite Negative, Urine Bilirubin Negative, Urine Urobilinogen Normal, Ur Leukocyte Esterase 500 H, Urine RBC 5-10 SEEN, Urine WBC 10-25 SEEN, Ur Squamous Epith Cells 0-5 SEEN, Amorphous Sediment 1+ URATE, Urine Bacteria 0 SEEN, Urine Mucus 0 SEEN 08/26/19 05:10: WBC 12.1 H, RBC 3.89 L, Hgb 11.5 L, Hct 34.9 L, MCV 89.7, MCH 29.6, MCHC 33.0, RDW Std Deviation 43.8, RDW Coeff of Pina 13.5, Plt Count 197, MPV 10.2, Immature Gran % (Auto) 0.600, Neut % (Auto) 85.0 H, Lymph % (Auto) 6.3 L, [place] % (Auto) 7.9, Eos % (Auto) 0.0, Baso % (Auto) 0.2, Absolute Neuts (auto) 10.3 H, Absolute Lymphs (auto) 0.76 L, Nucleated RBC % 0 08/26/19 05:10: Sodium 141, Potassium 3.9, Chloride 106, Carbon Dioxide 27.0, Anion Gap 8, BUN 30 H, Creatinine 1.27 H, Estim Creat Clear Calc 34.36, Est GFR (MDRD) Af Amer 52 L, Est GFR (MDRD) Non-Af 43 L, BUN/Creatinine Ratio 23.6 H, Glucose 115 H, Calcium 8.4 L Current Medications Acetaminophen (Tylenol) 650 mg PO Q6H PRN PRN PRN Reason: Pain Score 1-5/Temp > 100.7 F Amiodarone HCl (Cordarone) 200 mg PO DAILY [facility] Carbidopa/Levodopa (Sinemet) 1.5 tablet PO TIDAC [facility] Last Admin: 08/26/19 06:10 Dose: 1.5 tablet Documented by: Carvedilol (Coreg) 3.125 mg PO BIDCM [facility] Last Admin: 08/26/19 08:08 Dose: 3.125 mg Documented by: Hydralazine HCl (Apresoline Iv) 10 mg IV Q4H PRN PRN PRN Reason: for SBP>160 Sodium Chloride () 1,000 mls @ 100 mls/hr IV .Q10H [facility] Last Infusion: 08/26/19 07:23 Dose: 100 mls/hr Documented by: Ceftriaxone Sodium 2 gm/ (Sodium Chloride) 50 mls @ 100 mls/hr IV Q24@2200 [facility] Levothyroxine Sodium (Synthroid) 125 mcg PO DAILY@0600 [facility] Last Admin: 08/26/19 06:05 Dose: 125 mcg Documented by: Morphine Sulfate () 2 mg IV Q3H PRN PRN PRN Reason: Pain Score 6-10/10 Last Admin: 08/26/19 02:12 Dose: 2 mg Documented by: Ondansetron HCl (Zofran) 4 mg IV Q8H PRN PRN PRN Reason: NAUSEA/VOMITING Oxycodone HCl (Oxyir) 5 mg PO Q6H PRN PRN PRN Reason: Pain Score 6-10/10 Last Admin: 08/25/19 22:48 Dose: 5 mg Documented by: Polyethylene Glycol (Miralax) 17 gm PO DAILY [facility] Sodium Chloride () 5 - 10 ml IV PRN PRN PRN Reason: IV line Flush STROKE Vital Signs/Narrative: Vital Signs Temp Pulse Resp BP Pulse Ox 08/26/19 07:45 98 08/26/19 07:32 64 08/26/19 07:27 98.9 F 57 L 18 120/44 L 100 08/26/19 06:10 98.2 F 60 18 110/48 L 100 Medical Necessity - Tobacco Use Smoking Status: Never smoker Tobacco Use: Non-smoker Assessment/Plan All Active Problems (Last Updated 08/25/19 @ 20:05 by Nino Castro MD) Intractable abdominal pain (Acute) Ureteral colic (Acute) Urolithiasis (Acute) Acute kidney injury (Acute) Complicated UTI (urinary tract infection) (Acute) 79 years old female admitted with left flank pain and found to have kidney stones 1. Left kidney stones with left hydronephrosis and hydroureter [address] abd/pelvis - 7mm stone in left UVJ, and 2.24cm in the upper pole calcyx adjacent to the stone Continue on pain control, Davis catheter, urology consulted 2. Acute complicated acute cystitis, stable WBC count is elevated Urine cultures are pending, Continue on IV ceftriaxone(day 2) 3. Acute kidney injury on CKD stage 3, likely secndary to obstructive uropathy from left kidney stones. Baseline kidney function is normal. Admission creatinine is 1.40, creatinine today is 1.27 Continue with IV fluids, Davis catheter, urology consult 4. Hypertension, controlled, continue on carvedilol Continue to hold home losartan 5. CAD status post CABG, stable, continue on Coreg, Continue to hold Plavix. Xarelto and Losartan 6. Chronic atrial fibrillation status post cardioversion, rate controlled, continue on amiodarone and Coreg Continue to hold Xarelto 7. Hypothyroidism, on levothyroxine TSH slightly elevated, likely elevated from current acute hospitalization Will be need to be followed out in the outpatient 8. Parkinson's disease, on carbidopa levodopa. 9. DVT prophylaxis: SCDs. Code Visit Inpatient E&M: 40475 Subs Hosp L2
[2019-08-26] MEDS: 0.9% Normal Saline 1,000 ML 100 ML IV ×2 (09:47→19:56)
[2019-08-26] MEDS: Polyethylene Glycol 3350 17 GM PACKET PO (09:51)
[2019-08-26] MEDS: Amiodarone 200 MG Tablet PO (09:51)
--- NOTE | 2019-08-26 10:58 | CASEMGMT ---
SW spoke w/pt, and son in room, let them know LW/POA forms not on file. Son states will bring them in today or tomorrow. SHIRA Napier
--- NOTE | 2019-08-26 11:15 | PCM.CONS.GEN ---
Problem List (1) Ureteral colic Status: Acute (2) Urolithiasis Status: Acute Reason for Consult Date of Consultation: 08/26/19 Reason for Consultation: left ureteral and renal calculus with hydronephrosis History of Present Illness: The patient is a 79 year old F who was admitted from the emergency department after finding a large distal left ureteral calculus along with hydronephrosis and a 2.2 cm left renal calculus. She began to develop left sided acute onset severe flank pain on Friday. It was associated with nausea and vomiting. It resolved, and then returned yesterday afternoon. Once again, she began to have nausea and vomiting. She has not had any fevers, chills. She started to have lower abdominal cramping as well. She does have a history of urolithiasis, underwent a seizure approximately 10 to 12 years ago at which point the stone was unidentified. She has a history of cardiac bypass, atrial fibrillation and is on anticoagulation. Past Medical History Past Medical History (Chronic Problems): Chronic Problems (Last Updated 08/25/19 @ 20:05 by Nino Castro MD) Essential hypertension (Chronic) Atherosclerosis of coronary artery of [place] heart without angina pectoris (Chronic) History of cardioversion (Chronic 12/16/18) History of coronary artery bypass graft x 3 (Chronic 08/22/98) [facility] [place]:LOPEZ to LAD, left radial to OM of CX and free MYNOR to PDA of RCA per Dr. Laz Barreto History of left heart catheterization (Chronic 09/11/18) Bifurcating LOPEZ graft to the LAD and DIAG is patent with mild to moderate [place] mid/distal LAD 50% stenosis, high risk for PCI given need to traverse down LOPEZ and severe LV dysfunction. Saphenous Vein graft to the RCA previously placed stent is patent, with 75% mid PDA stenosis, not amenable to PCI given need to traverse through graft, then acute angle into PDA, of questionable benefit given severe LV dysfunction Atrial fibrillation (Chronic) Hypercholesterolemia (Chronic) Non-STEMI (non-ST elevated myocardial infarction) (Chronic 09/10/18) Hypothyroidism (Chronic) Parkinson's disease (Chronic) Medical History: Medical History (Last Reviewed 08/26/19 @ 11:16 by Marine Meyers MD) Essential hypertension (Chronic) I10 Atherosclerosis of coronary artery of [place] heart without angina pectoris (Chronic) I25.10 Atrial fibrillation (Chronic) I48.91 Hypercholesterolemia (Chronic) E78.00 Non-STEMI (non-ST elevated myocardial infarction) (Chronic) Onset Date: 09/10/18 I21.4 Hypothyroidism (Chronic) E03.9 Parkinson's disease (Chronic) G20 Allergies Mlpdaod-Gnf-Nmh Reductase Inhibitor Allergy (Verified 06/17/19 09:29) MUSCLE ACHES ALL OVER pravastatin Adverse Reaction (Severe, Verified 06/17/19 09:29) myalgias bones ache all over colesevelam [From WelChol] Adverse Reaction (Intermediate, Verified 06/17/19 09:29) Not effective ezetimibe [From Zetia] Adverse Reaction (Intermediate, Verified 06/17/19 09:29) GI upset Influenza Virus Vaccines Adverse Reaction (Intermediate, Verified 06/17/19 09:29) Visual changes, lightheaded niacin Adverse Reaction (Intermediate, Verified 06/17/19 09:29) sweats Home Medications: Ambulatory Orders Medication Instructions Recorded Cholecalciferol (Vitamin D3) 1 tab PO DAILY 06/14/13 [Vitamin D3] Levothyroxine [Synthroid] 125 mcg PO DAILY 06/14/13 Multivit-Min/FA/Lycopene/Lut 1 ea PO DAILY 06/14/13 [Centrum Silver Tablet] [place]-3 Fatty Acids [Fish Oil] 2,000 mg PO BID 06/14/13 Carbidopa/Levodopa 1.5 tab PO TID 09/09/18 [Carbidopa-Levodopa 25-100 Tab] Ciclopirox 1 applicatio TP PRN PRN 09/09/18 L.acidoph,Paracasei, B.lactis 1 ea PO DAILY 09/09/18 [Probiotic] Ubidecarenone [Coq-10] 200 mg PO DAILY 09/09/18 Clopidogrel Bisulfate [Plavix] 75 mg PO DAILY 05/03/19 Furosemide [Lasix] 40 mg PO DAILY 05/03/19 Amiodarone HCl 200 mg PO DAILY 05/06/19 Losartan Potassium [Cozaar] 25 mg PO BID 05/06/19 rivaroxaban 20 mg tablet 20 mg PO DINNER #90 tab 05/11/19 Sodium Chloride 0.65% [[place] Nasal 2 spray NASAL TID PRN PRN 05/24/19 Joy] spray.btl traMADol [Ultram] 50 mg PO Q6H PRN PRN #30 tab 05/24/19 acetaminophen 500 mg tablet 1,000 mg PO Q8 PRN tab 06/17/19 oxycodone 5 mg tablet 5 mg PO DAILY PRN 06/17/19 Carvedilol [Coreg (Beta Tereso)] 3.125 mg PO BIDCM 08/25/19 Emollient Combination No.72 1 applic TOPICAL BID@06,219908/25/19 [Eucerin Intensive Repair] Menthol/Lanolin/Calamine/Znox 1 applic TOPICAL 0600,219908/25/19 [Calmoseptine Ointment] Polyethylene Glycol 3350 [Miralax] 17 gm PO PRN PRN 08/25/19 Potassium Chloride [K-Dur] 20 meq PO DAILY 08/25/19 Surgical History: Surgical History (Last Reviewed 08/25/19 @ 20:22 by Nino Castro MD) History of cardioversion (Chronic) Onset Date: 12/16/18 Z98.890 History of coronary artery bypass graft x 3 (Chronic) Onset Date: 08/22/98 Z95.1 [facility] [place]:LOPEZ to LAD, left radial to OM of CX and free MYNOR to PDA of RCA per Dr. Laz Barreto History of laparoscopic cholecystectomy Onset Date: 06/15/[address] Kulwinder Rosas; umbilical hernia repair done concomitantly with lap cholecystectomy History of tubal ligation Onset Date: 1969 Z98.51 History of umbilical hernia repair Onset Date: 06/15/13 Z98.890, Z87.[address] 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 Denies: Chills, Fever Eyes: Denies: Vision Change HEENT: Denies: Visual Changes Cardiovascular: Denies: Chest Pain Respiratory: Denies: Shortness of Breath Gastrointestinal: Reports: Abdominal Pain, Nausea, Vomiting Genitourinary: Reports: Frequency, Urgency Gynecological: Denies: Breast symptoms Musculoskeletal: Denies: Muscle pain Skin: Denies: Wounds Patient Problems: Active and Suspected Problems (Last Updated 08/25/19 @ 20:05 by Nino Castro MD) Intractable abdominal pain (Acute) Ureteral colic (Acute) Urolithiasis (Acute) Acute kidney injury (Acute) Complicated UTI (urinary tract infection) (Acute) - Physical Exam Vitals/I&O's: Vital Signs Temp Pulse Resp BP Pulse Ox 98.0 F 52 L 18 107/37 L 96 08/26/19 09:54 08/26/19 10:31 08/26/19 09:54 08/26/19 09:54 08/26/19 09:54 Oxygen Delivery Method Room Air Weight: 64.155 kg Body Mass Index (BMI) 22.1 Intake and Output for Last 24 Hours 08/24/19 08/25/19 08/26/19 23:59 23:59 23:59 Intake Total 250 / 250 1000 / 1000 Output Total 400 / 400 250 / 250 Balance -150 / -150 750 / 750 General: Alert, Oriented x3, Cooperative, No apparent distress HEENT: Atraumatic, Normocephalic Oral: Moist Mucosa Neck: Trachea Midline Lungs: Normal air movement Cardiovascular: Regular rate Abdomen: Soft, Tender - left CVA tenderness Skin: No rashes Musculoskeletal: No Muscle Wasting Neurological: Cranial nerves II-XII grossly intact Psych/Mental Status: Normal Affect Laboratory Results 08/25/19 17:03: WBC 7.7, RBC 4.61, Hgb 13.4, Hct 41.3, MCV 89.6, MCH 29.1, MCHC 32.4, RDW Std Deviation 42.4, RDW Coeff of Pina 12.9, Plt Count 260, MPV 10.0, Immature Gran % (Auto) 0.100, Neut % (Auto) 73.3 H, Lymph % (Auto) 16.7 L, [place] % (Auto) 8.0, Eos % (Auto) 1.4, Baso % (Auto) 0.5, Absolute Neuts (auto) 5.6, Absolute Lymphs (auto) 1.28, Nucleated RBC % 0 08/25/19 17:03: Sodium 140, Potassium 4.2, Chloride 104, Carbon Dioxide 28.0, Anion Gap 8, BUN 27 H, Creatinine 1.40 H, Estim Creat Clear Calc 31.17, Est GFR (MDRD) Af Amer 47 L, Est GFR (MDRD) Non-Af 38 L, BUN/Creatinine Ratio 19.3, Glucose 146 H, Calcium 10.0 08/25/19 17:03: PT 16.7 H, INR 1.4 08/25/19 17:03: TSH 4.56 H 08/25/19 17:25: Urine Color Yellow, Urine Clarity Sl. Cloudy, Urine pH 6.0, Ur Specific [place] 1.020, Urine Protein 30 H, Urine Glucose (UA) Normal, Urine Ketones 5 H, Urine Occult Blood 50 H, Urine Nitrite Negative, Urine Bilirubin Negative, Urine Urobilinogen Normal, Ur Leukocyte Esterase 500 H, Urine RBC 5-10 SEEN, Urine WBC 10-25 SEEN, Ur Squamous Epith Cells 0-5 SEEN, Amorphous Sediment 1+ URATE, Urine Bacteria 0 SEEN, Urine Mucus 0 SEEN 08/26/19 05:10: WBC 12.1 H, RBC 3.89 L, Hgb 11.5 L, Hct 34.9 L, MCV 89.7, MCH 29.6, MCHC 33.0, RDW Std Deviation 43.8, RDW Coeff of Pina 13.5, Plt Count 197, MPV 10.2, Immature Gran % (Auto) 0.600, Neut % (Auto) 85.0 H, Lymph % (Auto) 6.3 L, [place] % (Auto) 7.9, Eos % (Auto) 0.0, Baso % (Auto) 0.2, Absolute Neuts (auto) 10.3 H, Absolute Lymphs (auto) 0.76 L, Nucleated RBC % 0 08/26/19 05:10: Sodium 141, Potassium 3.9, Chloride 106, Carbon Dioxide 27.0, Anion Gap 8, BUN 30 H, Creatinine 1.27 H, Estim Creat Clear Calc 34.36, Est GFR (MDRD) Af Amer 52 L, Est GFR (MDRD) Non-Af 43 L, BUN/Creatinine Ratio 23.6 H, Glucose 115 H, Calcium 8.4 L Current Medications Acetaminophen (Tylenol) 650 mg PO Q6H PRN PRN PRN Reason: Pain Score 1-5/Temp > 100.7 F Amiodarone HCl (Cordarone) 200 mg PO DAILY [facility] Last Admin: 08/26/19 09:51 Dose: 200 mg Documented by: Carbidopa/Levodopa (Sinemet) 1.5 tablet PO TIDAC [facility] Last Admin: 08/26/19 06:10 Dose: 1.5 tablet Documented by: Carvedilol (Coreg) 3.125 mg PO BIDCM [facility] Last Admin: 08/26/19 08:08 Dose: 3.125 mg Documented by: Hydralazine HCl (Apresoline Iv) 10 mg IV Q4H PRN PRN PRN Reason: for SBP>160 Sodium Chloride () 1,000 mls @ 100 mls/hr IV .Q10H [facility] Last Admin: 08/26/19 09:47 Dose: 100 mls/hr Documented by: Ceftriaxone Sodium 2 gm/ (Sodium Chloride) 50 mls @ 100 mls/hr IV Q24@2200 [facility] Levothyroxine Sodium (Synthroid) 125 mcg PO DAILY@0600 [facility] Last Admin: 08/26/19 06:05 Dose: 125 mcg Documented by: Morphine Sulfate () 2 mg IV Q3H PRN PRN PRN Reason: Pain Score 6-10/10 Last Admin: 08/26/19 02:12 Dose: 2 mg Documented by: Ondansetron HCl (Zofran) 4 mg IV Q8H PRN PRN PRN Reason: NAUSEA/VOMITING Oxycodone HCl (Oxyir) 5 mg PO Q6H PRN PRN PRN Reason: Pain Score 6-10/10 Last Admin: 08/25/19 22:48 Dose: 5 mg Documented by: Polyethylene Glycol (Miralax) 17 gm PO DAILY [facility] Last Admin: 08/26/19 09:51 Dose: 17 gm Documented by: Sodium Chloride () 5 - 10 ml IV PRN PRN PRN Reason: IV line Flush Assessment/Plan All Active Problems (Last Updated 08/25/19 @ 20:05 by Nino Castro MD) Intractable abdominal pain (Acute) Ureteral colic (Acute) Urolithiasis (Acute) Acute kidney injury (Acute) Complicated UTI (urinary tract infection) (Acute) cystoscopy, left ureteroscopy laser lithotripsy and left ureteral stent insertion will plan to continue stent and have her return to the OR for ESWL in September for the large left renal stone NPO tonight antibiotics preop aware she is on anticoagulation, will plan to restart after OR tomorrow.
--- NOTE | 2019-08-26 12:40 | CASEMGMT ---
RN ELLIOTT [employer] OPERATOR CM to room to meet with patient for initial transition planning/care coordination assessment. MELANIA GALLAGHER introduced self and role at [facility]. Pt voices understanding and consents to assessment at this time. Pt sitting up in recliner chair in no distress at this time. in room visiting. Pt is A/O at this time and answers all questions appropriately. Care providers, pharmacy, and demographics verified at this time. PCP: Dr Garrido Specialists: Dr Corley--cardiology, Dr Gomez--sees for Parkinson's in [place] Preferred Pharmacy: [facility] [place] Insurance: [facility] Prescription Benefit: yes Living Will/HPOA: Has both LW and HCPOA. Pt/ state they are not sure who is listed as her POA. They state their son, Donte, is looking for the paperwork and will bring in if he can locate it. LNOK: , 3 sons Living Arrangements: Lives with her in 2-story home. Bedroom is upstairs. assists with bathing and lower body dressing. and son assist with household mgmt tasks, such as laundry and meals. Transportation: . Denies transportation concerns. DME: States has the following DME: shower chair, BSC, raised toilet seat, brady-walker. Has walker but does not use it. Pt/ state they are not sure if it is has wheels or not. Discussed therapies recommendations that she use the walker instead of brady-walker, but he states she prefers the brady-walker. Pt did state that she may try the regular walker in the future. Pt/ state no need for further DME at this time. HHC/SNF: TCU after shoulder and hip fracture in May. Had [facility]HC after discharge from TCU. PT/OT evals have been reviewed. Additional therapy recommended. Discussed discharge planning with pt/. Pt declines wanting any additional therapy, stating she wants to return home. Declines wanting SNF, HHC, or OP therapy. Pt states, I don't feel that I need any therapy at this time. Pt/ made aware, if she decides in the future she would like therapy, to discuss this with her PCP. They voice understanding. Pt wishes to return home and states has no concerns with going home at time of discharge. CM to follow for any discharge planning/needs. Pt/ voice no further concerns/needs at this time. Advised them to ask for CM if any further questions/concerns/needs arise. Voices understanding. PLAN: Home w/spousal support and discharge plans in place. Ras ROMANO RN CM
[2019-08-27] VITALS (18 sets, daily range): BP systolic 125–181; BP diastolic 44–67; PULSE 54–96; RESP 14–18; TEMP 36.3–37.6; O2SAT 95–98; BMI 22.1; BMI 22.2
--- NOTE | 2019-08-27 06:00 | EKG12_ITS ---
Test Reason : PREOP Blood Pressure : / mmHG Vent. Rate : 060 BPM Atrial Rate : 060 BPM P-R Int : 206 ms QRS Dur : 112 ms QT Int : 500 ms P-R-T Axes : 074 -07 096 degrees QTc Int : 500 ms Normal sinus rhythm with sinus arrhythmia Left ventricular hypertrophy Prolonged QT Nonspecific ST/T wave abnormality Abnormal ECG Confirmed by LINDSAY CHATMAN, ALYSSA ([id number]), map editor GUERRERO ANGLIN ([id number]) on 09/02/2019 11:30:38 AM Referred By: Nino Castro Confirmed By:ALYSSA MONTOYA MD
[2019-08-27 06:06] LABS: Absolute Lymphocyte Count 1.17 X10^3/uL (0.83-4.51); Absolute Neutrophil Count 4.5 X10^3/uL (2.0-7.7); Basophil# 0.04 X10^3/uL; Basophil% 0.6 % (0-1); Eosinophil# 0.11 X10^3/uL; Eosinophils% 1.7 % (0-5); Hematocrit 32.7 % (37-47); Hemoglobin 10.6 g/dL (12.0-15.0); Lymphocyte # 1.17 X10^3/ul (4.0); Lymphocyte % 17.8 % (19-41); Mean Corp Hgb Conc 32.4 g/dL (32-36); Mean Corpuscular Hgb 29.1 pg (27.0-32.0); Mean Corpuscular Volume 89.8 fL (81-99); Mean Platelet Vol. 10.3 fl (6.2-12.0); Monocyte# 0.77 X10^3/uL; Monocyte% 11.7 % (0-10); NRBC Flagged by Analyzer 0 % (0-5); Neutrophil # 4.48 X10^3/uL (2.7-7.7); Neutrophil % 67.9 % (47-70); Platelet Count 186 K/mm3 (150-450); RBC Distribution Width CV 13.2 % (11.6-14.6); RBC Distribution Width SD 43.5 fl (35.1-43.9); Red Blood Count 3.64 M/mm3 (4.2-5.4); White Blood Count 6.6 K/mm3 (4.4-11.0)
[2019-08-27] MEDS: Morphine 2 MG/ML Syringe IV (06:18)
[2019-08-27] MEDS: 0.9% Normal Saline 1,000 ML 100 ML IV ×2 (06:20→13:24)
[2019-08-27 06:25] LABS: Anion Gap 5 (5-15); BUN 23 mg/dL (7-18); BUN/Creat Ratio 28.2 RATIO (10-20); Calcium,Total 7.9 mg/dL (8.5-10.1); Chloride 108 mmol/L (98-107); Creatinine, Serum 0.82 mg/dL (0.55-1.02); EST Glomerular Filtration Rate 72 mL/min (>60); Est Glom Filt Rate - Afr Amer 87 mL/min (>60); Estimated Creatinine Clearance 53.21 ml/min; Glucose 76 mg/dL (74-106); Potassium 3.5 mmol/L (3.5-5.1); Sodium Level 139 mmol/L (136-145)
--- NOTE | 2019-08-27 07:45 | PN_ITS ---
Patient Problems: Active and Suspected Problems (Last Reviewed 08/26/19 @ 11:16 by Marine Meyers MD) Intractable abdominal pain (Acute) Renal calculus or stone (Acute) Left ureteral calculus (Acute) Hydronephrosis (Acute) Ureteral colic (Acute) Urolithiasis (Acute) Acute kidney injury (Acute) Complicated UTI (urinary tract infection) (Acute) Reason for Visit: Follow-up on kidney stones Subjective: Patient was seen and examined. She had cystoscopy and left ureteral stent insertion done today. Denies any complaints Objective: Physical exam: General: Alert, Oriented x3, Cooperative HEENT: Atraumatic, PERRLA, EOMI, Normocephalic Oral: Moist Mucosa, No Gingival or Mucosal Lesions/ Ulcerations Neck: Supple, No JVD, Negative Carotid Bruits, Trachea Midline, Thyroid Normal Size and Texture Lungs: Clear to auscultation, Normal air movement, No rhonchi, No wheeze, No rales Cardiovascular: Regular rate, Regular Rhythm, Normal S1, Normal S2, PMI Normal Abdomen: Bowel Sounds Present, Soft, Non-Distended, No Hepato-splenomegaly, Tender - Left CVA tenderness. Extremities: No clubbing, No cyanosis, Edema - Nonpitting edema. Skin: No rashes, No breakdown Lymphatic: No Cervical, Supraclavicular, or Inguinal Adenopathy Neurological: Cranial nerves II-XII grossly intact, Motor Exam 5/5 strength throughout Psych/Mental Status: Normal Affect, Appropriate, Alert and oriented to time, place, person, mood and affect Vitals/I&O's: Vital Signs Temp Pulse Resp BP Pulse Ox 98.2 F 64 18 125/48 H 98 08/27/19 02:10 08/27/19 04:10 08/27/19 02:10 08/27/19 02:10 08/27/19 02:10 Oxygen Delivery Method Room Air Weight: 64.155 kg Body Mass Index (BMI) 22.1 Intake and Output for Last 24 Hours 08/25/19 08/26/19 08/27/19 23:59 23:59 23:59 Intake Total 250 / 250 3311.67 / 3311.67 833.33 / 833.33 Output Total 400 / 400 800 / 1300 1350 / 1350 Balance -150 / -150 2511.67 / 2011.67 -516.67 / - Laboratory Results 08/27/19 05:35: WBC 6.6, RBC 3.64 L, Hgb 10.6 L, Hct 32.7 L, MCV 89.8, MCH 29.1, MCHC 32.4, RDW Std Deviation 43.5, RDW Coeff of Pina 13.2, Plt Count 186, MPV 10.3, Immature Gran % (Auto) 0.300, Neut % (Auto) 67.9, Lymph % (Auto) 17.8 L, Campbell % (Auto) 11.7 H, Eos % (Auto) 1.7, Baso % (Auto) 0.6, Absolute Neuts (auto) 4.5, Absolute Lymphs (auto) 1.17, Nucleated RBC % 0 08/27/19 05:35: Sodium 139, Potassium 3.5, Chloride 108 H, Carbon Dioxide 26.0, Anion Gap 5, BUN 23 H, Creatinine 0.82, Estim Creat Clear Calc 53.21, Est GFR (MDRD) Af Amer 87, Est GFR (MDRD) Non-Af 72, BUN/Creatinine Ratio 28.2 H, Glucose 76, Calcium 7.9 L Current Medications Acetaminophen (Tylenol) 650 mg PO Q6H PRN PRN PRN Reason: Pain Score 1-5/Temp > 100.7 F Amiodarone HCl (Cordarone) 200 mg PO DAILY [facility] Last Admin: 08/26/19 09:51 Dose: 200 mg Documented by: Carbidopa/Levodopa (Sinemet) 1.5 tablet PO TIDAC [facility] Last Admin: 08/27/19 07:19 Dose: Not Given Documented by: Carvedilol (Coreg) 3.125 mg PO BIDCM [facility] Last Admin: 08/26/19 16:54 Dose: 3.125 mg Documented by: Hydralazine HCl (Apresoline Iv) 10 mg IV Q4H PRN PRN PRN Reason: for SBP>160 Sodium Chloride () 1,000 mls @ 100 mls/hr IV .Q10H [facility] Last Admin: 08/27/19 06:20 Dose: 100 mls/hr Documented by: Ceftriaxone Sodium 2 gm/ (Sodium Chloride) 50 mls @ 100 mls/hr IV Q24@2200 [facility] Last Infusion: 08/26/19 22:00 Dose: Infused Documented by: Levothyroxine Sodium (Synthroid) 125 mcg PO DAILY@0600 [facility] Last Admin: 08/27/19 07:19 Dose: Not Given Documented by: Morphine Sulfate () 2 mg IV Q3H PRN PRN PRN Reason: Pain Score 6-10/10 Last Admin: 08/27/19 06:18 Dose: 2 mg Documented by: Ondansetron HCl (Zofran) 4 mg IV Q8H PRN PRN PRN Reason: NAUSEA/VOMITING Oxycodone HCl (Oxyir) 5 mg PO Q6H PRN PRN PRN Reason: Pain Score 6-10/10 Last Admin: 08/25/19 22:48 Dose: 5 mg Documented by: Polyethylene Glycol (Miralax) 17 gm PO DAILY [facility] Last Admin: 08/26/19 09:51 Dose: 17 gm Documented by: Sodium Chloride () 5 - 10 ml IV PRN PRN PRN Reason: IV line Flush STROKE Vital Signs/Narrative: Vital Signs Pulse 08/27/19 04:10 64 Medical Necessity - Tobacco Use Smoking Status: Never smoker Tobacco Use: Non-smoker Assessment/Plan All Active Problems (Last Reviewed 08/26/19 @ 11:16 by Marine Meyers MD) Intractable abdominal pain (Acute) Renal calculus or stone (Acute) Left ureteral calculus (Acute) Hydronephrosis (Acute) Ureteral colic (Acute) Urolithiasis (Acute) Acute kidney injury (Acute) Complicated UTI (urinary tract infection) (Acute) 79 years old female admitted with left flank pain and found to have kidney stones 1. Left kidney stones with left hydronephrosis and hydroureter s/p cystoscopy and left ureteral stent insertion Continue on IV antibiotics, follow-up planned in the outpatient with urology 2. Acute gram negative olivia complicated acute cystitis, stable WBC count is back to normal Urine cultures growing gram-negative rods, Continue on IV ceftriaxone(day 3) 3. Acute kidney injury on CKD stage 3, likely secondary to obstructive uropathy from left kidney stones. Baseline kidney function is normal. Creatinine is resolved Continue with IV fluids, IV ceftriaxone pending definitive culture results 4. Hypertension, controlled, continue on increased dose of carvedilol Continue to hold home losartan on account HERBER 5. CAD status post CABG, stable, continue on Coreg, Plavix, Xarelto Continue to hold Losartan 6. Chronic atrial fibrillation status post cardioversion, rate controlled, continue on amiodarone, Xarelto and Coreg 7. Hypothyroidism, on levothyroxine TSH slightly elevated, likely elevated from current acute hospitalization Will be need to be followed out in the outpatient 8. Parkinson's disease, on carbidopa levodopa. 9. DVT prophylaxis: SCDs. Code Visit Inpatient E&M: 77785 Subs Hosp L2
--- NOTE | 2019-08-27 10:34 | NURSING ---
report called to MELANIA Royal in [facility] for pre-op
--- NOTE | 2019-08-27 12:22 | OP.PCM_ITS ---
Problem List (1) Ureteral colic Status: Acute (2) Urolithiasis Status: Acute (3) Renal calculus or stone Status: Acute (4) Left ureteral calculus Status: Acute (5) Hydronephrosis Status: Acute (6) Complicated UTI (urinary tract infection) Status: Acute Report of Operation Date of Procedure: 08/27/19 Pre-Operative Diagnosis: left renal and ureteral calculus with hydronephrosis, urinary tract infection Post-Operative Diagnosis: same Surgery/Procedure Performed:: cystoscopy and left ureteral stent insertion Type of Anesthesia:: General Description of Procedure: The patient is an 79-year-old female admitted with urinary tract infection, urolithiasis with obstruction. After discussing all the risk benefits and alternatives with her and her family, we decided to proceed with cystoscopy and left ureteral stent insertion. Informed consent was obtained. She was taken to the operating room and placed on the operating room table. Anesthesia monitored the head, neck, airway, vital signs, IV throughout the case. Once anesthesia was appropriately administered, the patient was placed into dorsal lithotomy position, the Davis was removed and she was prepped and draped in usual sterile fashion. A cystourethroscopy was performed revealing minimal irritation from the Davis balloon in the posterior bladder wall. There was a small amount of debris within the urinary bladder as well. The left ureteral orifice appeared to be edematous. There were no other changes of the bladder mucosa. Under fluoroscopic visualization, a 0.035 Glidewire was passed without difficulty through the left ureteral orifice and curled in the left renal pelvis. At this point, debris and urine exited into the urinary bladder. A 6 [place] 26 cm double-J stent was then passed over the wire which was then removed. There was good curling in the renal pelvis as well as the urinary bladder. The bladder was emptied along with the debris and the case was terminated. She was awakened and taken to the recovery room in good condition. Grafts/Implants Used: 6x26 JJ stent - Complications none - Admit VTE Documentation VTE Present on Admission: Yes VTE Mechan Device Prophylaxis: SCD's VTE Pharm Prophylaxis ordered?: Yes
--- NOTE | 2019-08-27 12:30 | PCM.PN.BLA ---
Progress Note Patient is s/p left ureteral stent insertion. Plan will be home with appropriate antibiotic treatment after culture is back. She will see me in the office for pre-operative history and physical. We will plan for surgical intervention in mid-September for her stones. Family understands and agrees to plan. Please call with any further questions or concerns, thank you! STROKE Vital Signs/Narrative: Vital Signs Temp Pulse Resp BP Pulse Ox 08/27/19 12:15 69 18 139/67 H 96 08/27/19 12:08 99.6 F H 96 18 127/52 H 95 08/27/19 10:19 97.9 F 63 16 161/61 H 98
[2019-08-27] MEDS: Carvedilol 3.125 MG TABLET PO (13:24)
[2019-08-27] MEDS: Amiodarone 200 MG Tablet PO (13:24)
[2019-08-27] MEDS: Carbidopa/Levodopa 25/100 Tablet PO (16:20)
[2019-08-27] MEDS: Rivaroxaban 20 MG Tablet PO (17:36)
[2019-08-27] MEDS: Carvedilol 6.25 MG Tablet PO (19:27)
[2019-08-28] MEDS: 0.9% Normal Saline 1,000 ML 75 ML IV (01:00)
[2019-08-28 02:33] VITALS: BP 172/59; PULSE 58; RESP 16; TEMP 36.4; O2SAT 98
[2019-08-28] MEDS: Acetaminophen 325 MG Tablet 650 MG PO (02:38)
[2019-08-28 02:53] VITALS: PULSE 55
[2019-08-28 02:58] VITALS: BP 175/59; PULSE 58
[2019-08-28] MEDS: hydrALAZINE 20 MG/ML Vial 10 MG IV (02:58)
[2019-08-28 04:14] VITALS: BP 101/40; PULSE 61
[2019-08-28] MEDS: Carbidopa/Levodopa 25/100 Tablet PO (05:57)
[2019-08-28] MEDS: Levothyroxine 125 MCG Tablet PO (05:58)
[2019-08-28] MEDS: traMADol 50 MG Tablet PO (06:00)
[2019-08-28 06:39] LABS: Absolute Lymphocyte Count 0.68 X10^3/uL (0.83-4.51); Absolute Neutrophil Count 5.9 X10^3/uL (2.0-7.7); Basophil# 0.01 X10^3/uL; Basophil% 0.1 % (0-1); Hematocrit 36.6 % (37-47); Lymphocyte # 0.68 X10^3/ul (4.0); Lymphocyte % 9.3 % (19-41); Mean Corp Hgb Conc 32.8 g/dL (32-36); Mean Corpuscular Hgb 29.3 pg (27.0-32.0); Mean Corpuscular Volume 89.3 fL (81-99); Mean Platelet Vol. 10.2 fl (6.2-12.0); Monocyte# 0.68 X10^3/uL; Monocyte% 9.3 % (0-10); NRBC Flagged by Analyzer 0 % (0-5); Neutrophil # 5.89 X10^3/uL (2.7-7.7); Platelet Count 218 K/mm3 (150-450); RBC Distribution Width SD 42.8 fl (35.1-43.9); White Blood Count 7.3 K/mm3 (4.4-11.0)
[2019-08-28 07:06] LABS: ALB/GLOB Ratio 0.8 RATIO (0.9-2.4); AST(SGOT) 14 U/L (15-37); Alanine Aminotransfer ALT/SGPT 19 U/L (13-56); Albumin, Serum 2.8 g/dL (3.2-5.0); Alkaline Phosphatase 68 U/L (45-117); Anion Gap 8 (5-15); BUN 24 mg/dL (7-18); BUN/Creat Ratio 26.4 RATIO (10-20); Calcium,Total 8.6 mg/dL (8.5-10.1); Chloride 111 mmol/L (98-107); Creatinine, Serum 0.91 mg/dL (0.55-1.02); EST Glomerular Filtration Rate 63 mL/min (>60); Est Glom Filt Rate - Afr Amer 76 mL/min (>60); Estimated Creatinine Clearance 47.95 ml/min; Globulin 3.3 g/dL (2.2-4.2); Glucose 132 mg/dL (74-106); Potassium 3.7 mmol/L (3.5-5.1); Protein, Total 6.1 g/dL (6.4-8.2); Sodium Level 140 mmol/L (136-145)
[2019-08-28 07:43] VITALS: PULSE 65
--- NOTE | 2019-08-28 07:56 | PCM.DC ---
- Discharge Diagnoses Current Active Problems: Current Active and Chronic Problems (Last Reviewed 08/26/19 @ 11:16 by Marine Meyers MD) Intractable abdominal pain (Acute) Renal calculus or stone (Acute) Left ureteral calculus (Acute) Hydronephrosis (Acute) Ureteral colic (Acute) Urolithiasis (Acute) Acute kidney injury (Acute) Complicated UTI (urinary tract infection) (Acute) Reason(s) for Visit for Discharge Instructions: Left flank pain You will use the following diet at home:: Cardiac Your food should be the consistency of: Regular Your liquids should be the consistency of: Regular/Thin Discharge Activity: Return to Normal Activity Additional Instructions: Complete your antibiotics. Continue to hydrate yourself. Keep being active. Continue to perform your previous rehab exercises. Follow up with your primary care doctor and Dr. Meyers as scheduled. You need repeat blood work within a week to check on your kidneys. Allergies/Adverse Reactions: Allergies Djchscm-Wiw-Nsk Reductase Inhibitor Allergy (Verified 06/17/19 09:29) MUSCLE ACHES ALL OVER pravastatin Adverse Reaction (Severe, Verified 06/17/19 09:29) myalgias bones ache all over colesevelam [From WelChol] Adverse Reaction (Intermediate, Verified 06/17/19 09:29) Not effective ezetimibe [From Zetia] Adverse Reaction (Intermediate, Verified 06/17/19 09:29) GI upset Influenza Virus Vaccines Adverse Reaction (Intermediate, Verified 06/17/19 09:29) Visual changes, lightheaded niacin Adverse Reaction (Intermediate, Verified 06/17/19 09:29) sweats Medications to take at Discharge Cholecalciferol (Vitamin D3) [Vitamin D3] 1 tab PO DAILY 06/14/13 Levothyroxine [Synthroid] 125 mcg PO DAILY 06/14/13 Multivit-Min/FA/Lycopene/Lut [Centrum Silver Tablet] 1 ea PO DAILY 06/14/13 [place]-3 Fatty Acids [Fish Oil] 2,000 mg PO BID 06/14/13 Carbidopa/Levodopa [Carbidopa-Levodopa 25-100 Tab] 1.5 tab PO TID 09/09/18 Ciclopirox 1 applicatio TP PRN PRN 09/09/18 L.acidoph,Paracasei, B.lactis [Probiotic] 1 ea PO DAILY 09/09/18 Ubidecarenone [Coq-10] 200 mg PO DAILY 09/09/18 Clopidogrel Bisulfate [Plavix] 75 mg PO DAILY 05/03/19 Amiodarone HCl 200 mg PO DAILY 05/06/19 rivaroxaban 20 mg tablet 20 mg PO DINNER #90 tab 05/11/19 Sodium Chloride 0.65% [[place] Nasal [place]] 2 spray NASAL TID PRN PRN spray.btl 05/24/19 traMADol [Ultram] 50 mg PO Q6H PRN PRN #30 tab 05/24/19 acetaminophen 500 mg tablet 1,000 mg PO Q8 PRN tab 06/17/19 Emollient Combination No.72 [Eucerin Intensive Repair] 1 applic TOPICAL BID@0600,2200 08/25/19 Menthol/Lanolin/Calamine/Znox [Calmoseptine Ointment] 1 applic TOPICAL 0600,2200 08/25/19 Polyethylene Glycol 3350 [Miralax] 17 gm PO PRN PRN 08/25/19 Potassium Chloride [K-Dur] 20 meq PO DAILY 08/25/19 Acetaminophen [Tylenol Tablet] 650 mg PO Q6H PRN PRN tab 08/28/19 Carvedilol [Coreg (Beta Tereso)] 6.25 mg PO BIDCM #60 tab 08/28/19 Cefdinir [Omnicef [equiv]] 300 mg PO Q12H #10 cap 08/28/19 The following prescriptions were given: Carvedilol [Coreg (Beta Tereso)] 6.25 mg PO BIDCM #60 tab Transmission Status: Received by [facility] #30 Cefdinir [Omnicef [equiv]] 300 mg PO Q12H #10 cap Transmission Status: Received by [facility] #30 Primary Care Physician: Louise Garrido MD [Primary Care Provider] - Please follow up with your Primary Care Physician in: within 1-2 weeks Test Results: Test results from this visit will be discussed in further detail at your follow-up appointment, if applicable. Please Follow Up With: Marine Meyers MD When: as scheduled Proposed Discharge Date: 08/28/19
[2019-08-28 08:15] VITALS: BP 121/48; PULSE 64; RESP 18; TEMP 36.6; O2SAT 97
[2019-08-28] MEDS: Polyethylene Glycol 3350 17 GM PACKET PO (08:19)
[2019-08-28] MEDS: Amiodarone 200 MG Tablet PO (08:20)
[2019-08-28] MEDS: Carvedilol 6.25 MG Tablet PO (08:22)
[2019-08-28] MEDS: Clopidogrel Bisulfate 75 MG Tablet PO (08:22)
--- NOTE | 2019-08-29 11:56 | DS.PCM_ITS ---
Discharge Date and Diagnosis Date of Admission: 08/25/19 Date of Discharge: 08/28/19 - Primary Discharge Diagnosis Acute kidney injury on probable CKD stage III, secondary to obstructive uropathy Left kidney stones with left hydronephrosis/hydroureter Acute complicated UTI - Secondary Discharge Diagnosis Chronic Problems (Last Reviewed 08/26/19 @ 11:16 by Marine Meyers MD) Essential hypertension (Chronic) Atherosclerosis of coronary artery of [place] heart without angina pectoris (Chronic) History of cardioversion (Chronic 12/16/18) History of coronary artery bypass graft x 3 (Chronic 08/22/98) [facility] [place]:LOPEZ to LAD, left radial to OM of CX and free MYNOR to PDA of RCA per Dr. Laz Barreto History of left heart catheterization (Chronic 09/11/18) Bifurcating LOPEZ graft to the LAD and DIAG is patent with mild to moderate [place] mid/distal LAD 50% stenosis, high risk for PCI given need to traverse down LOPEZ and severe LV dysfunction. Saphenous Vein graft to the RCA previously placed stent is patent, with 75% mid PDA stenosis, not amenable to PCI given need to traverse through graft, then acute angle into PDA, of questionable benefit given severe LV dysfunction Atrial fibrillation (Chronic) Hypercholesterolemia (Chronic) Non-STEMI (non-ST elevated myocardial infarction) (Chronic 09/10/18) Hypothyroidism (Chronic) Parkinson's disease (Chronic) Hospital Course and Treatment Imaging Results: Clinical Impression(s) from Imaging Studies Abdomen/Pelvis CT 08/25/19 16:47 IMPRESSION: 1. A 7 mm stone is present in the left UVJ partly abutting the balloon catheter within the lumen of the bladder. 2. Moderate to severe left hydronephrosis and hydroureter are present. 3. A large 2.24 cm stone is present in the upper pole calyx of the left kidney. Electronically Signed: Jaime Ortiz MD at 18:11 EST , Service support , Urology Operations: None Procedures: - - Cystoscopy with left stent placement Summary of Care Provided: The patient is a 79 year old F medical history of Parkinson's disease, hypothyroidism, chronic atrial fibrillation admitted with left flank pain and found to have kidney stones on CT scan of the abdomen and pelvis. He had a 7 mm left UVJ stone, moderate to severe left hydronephrosis with hydroureter, large 2.24 cm stone in the upper pole calyx of the left kidney. Patient's creatinine was elevated to 1.40. This improved with hydration to less than 1 at discharge. Urine cultures grew E. coli. Patient was managed initially on IV fluids and IV ceftriaxone. She was discharged on 5 more days of cefdinir to complete a 10-day course of antibiotics. She underwent cystoscopy with left ureteral stent insertion on 08/27/19. Patient felt improved on the day of discharge. She will follow-up with Dr. Meyers for stent removal. Subjective: On the day of discharge, patient was seen and examined. Denied any new complaints. Objective: Physical exam: General: Alert, Oriented x3, Cooperative HEENT: Atraumatic, PERRLA, EOMI, Normocephalic Oral: Moist Mucosa, No Gingival or Mucosal Lesions/ Ulcerations Neck: Supple, No JVD, Negative Carotid Bruits, Trachea Midline, Thyroid Normal Size and Texture Lungs: Clear to auscultation, Normal air movement, No rhonchi, No wheeze, No rales Cardiovascular: Regular rate, Regular Rhythm, Normal S1, Normal S2, PMI Normal Abdomen: Bowel Sounds Present, Soft, Non-Distended, No Hepato-splenomegaly, Tender - Left CVA tenderness. Extremities: No clubbing, No cyanosis, Edema - Nonpitting edema. Skin: No rashes, No breakdown Lymphatic: No Cervical, Supraclavicular, or Inguinal Adenopathy Neurological: Cranial nerves II-XII grossly intact, Motor Exam 5/5 strength throughout Psych/Mental Status: Normal Affect, Appropriate, Alert and oriented to time, place, person, mood and affect - Physical Exam Vitals/I&O's: Vital Signs Temp Pulse Resp BP Pulse Ox 97.9 F 64 18 121/48 H 97 08/28/19 08:15 08/28/19 08:15 08/28/19 08:15 08/28/19 08:15 08/28/19 08:15 Oxygen Delivery Method Room Air Weight: 64.155 kg Body Mass Index (BMI) 22.1 Intake and Output for Last 24 Hours 08/27/19 08/28/19 08/29/19 23:59 23:59 23:59 Intake Total 2693.75 / 2813.75 1337.5 / 1337.5 Output Total 1725 / 1825 450 / 450 Balance 968.75 / 988.75 887.5 / 887.5 Microbiology Past 72 Hours 08/25/19 19:10 Urine, Catheterized Urine Culture - Final Escherichia coli Discharge Diet: Low fat/ Low Cholesterol, 2000 mg Sodium Diet Discharge Activity: Return to Normal Activity Home Medications: Medications to take at Discharge Cholecalciferol (Vitamin D3) [Vitamin D3] 1 tab PO DAILY 06/14/13 Levothyroxine [Synthroid] 125 mcg PO DAILY 06/14/13 Multivit-Min/FA/Lycopene/Lut [Centrum Silver Tablet] 1 ea PO DAILY 06/14/13 [place]-3 Fatty Acids [Fish Oil] 2,000 mg PO BID 06/14/13 Carbidopa/Levodopa [Carbidopa-Levodopa 25-100 Tab] 1.5 tab PO TID 09/09/18 Ciclopirox 1 applicatio TP PRN PRN 09/09/18 L.acidoph,Paracasei, B.lactis [Probiotic] 1 ea PO DAILY 09/09/18 Ubidecarenone [Coq-10] 200 mg PO DAILY 09/09/18 Clopidogrel Bisulfate [Plavix] 75 mg PO DAILY 05/03/19 Amiodarone HCl 200 mg PO DAILY 05/06/19 rivaroxaban 20 mg tablet 20 mg PO DINNER #90 tab 05/11/19 Sodium Chloride 0.65% [[place] Nasal [place]] 2 spray NASAL TID PRN PRN spray.btl 05/24/19 traMADol [Ultram] 50 mg PO Q6H PRN PRN #30 tab 05/24/19 acetaminophen 500 mg tablet 1,000 mg PO Q8 PRN tab 06/17/19 Emollient Combination No.72 [Eucerin Intensive Repair] 1 applic TOPICAL BID@0600,2200 08/25/19 Menthol/Lanolin/Calamine/Znox [Calmoseptine Ointment] 1 applic TOPICAL 0600,2200 08/25/19 Polyethylene Glycol 3350 [Miralax] 17 gm PO PRN PRN 08/25/19 Potassium Chloride [K-Dur] 20 meq PO DAILY 08/25/19 Acetaminophen [Tylenol Tablet] 650 mg PO Q6H PRN PRN tab 08/28/19 Carvedilol [Coreg (Beta Tereso)] 6.25 mg PO BIDCM #60 tab 08/28/19 Cefdinir [Omnicef [equiv]] 300 mg PO Q12H #10 cap 08/28/19 Following Prescrptions Were Given to Patient: Carvedilol [Coreg (Beta Tereso)] 6.25 mg PO BIDCM #60 tab Transmission Status: Received by [facility] #[facility] Cefdinir [Omnicef [equiv]] 300 mg PO Q12H #10 cap Transmission Status: Received by [facility] [place] #30 Primary Care Physician: Louise Garrido MD [Primary Care Provider] - Please follow up with your Primary Care Physician in: within 1-2 weeks Please Follow Up With: Marine Meyers MD When: as scheduled Disposition: Home Minutes spent on discharge:: 40 Patient Condition:: Stable Medical Necessity - Tobacco Use Smoking Status: Never smoker Tobacco Use: Non-smoker Meaningful Use Info Meaningful Use Diagnoses (Choose all that apply): None applicable Code Visit Inpatient E&M: 82336 Disch Hosp
--- NOTE | 2019-08-30 15:05 | CASEMGMT ---
RN ELLIOTT DC PHONE CALL DC DATE: 08.28.19 DC Disposition: Home Diagnosis on Discharge: Home LACE/STRATA: 08/04 Intro role of CM to patient's . Per pt's , pt is doing well, he made appt for f/u with surgeon today and states she has prescriptions ordered. No care improvement suggestions given. Johny KLEINN RN ACM
== END 2019-08-28 12:16 | disposition home or self-care (01) | DRG 660 ==
LOC: ED 20:10 → MS3 20:23
PROVIDERS: Anesthesiology; Urology; Admitting Provider Hospitalist; Emergency Provider Emergency Medicine; Family Provider Internal Medicine; PCP Internal Medicine; Referring Provider Hospitalist; Visit Provider Internal Medicine
PROC: 0TJ98ZZ Inspection of Ureter, Via Natural or Artificial Opening Endoscopic (ICD-10-PCS; CPT 52352; principal; 2019-08-27 11:20)
DX: N13.6 Pyonephrosis (principal); I48.20 Chronic atrial fibrillation, unspecified; N17.9 Acute kidney failure, unspecified; I25.10 Atherosclerotic heart disease of native coronary artery without angina pectoris; E03.9 Hypothyroidism, unspecified; G20 Parkinson's disease; N18.3 Chronic kidney disease, stage 3 (moderate); I12.9 Hypertensive chronic kidney disease with stage 1 through stage 4 chronic kidney disease, or unspecified chronic kidney disease; Z95.1 Presence of aortocoronary bypass graft; Z79.01 Long term (current) use of anticoagulants; I25.2 Old myocardial infarction
CPT/HCPCS: 36415; 51702; 74176; 76000; 80048; 80053; 81001; 84443; 85025; 85610; 87086; 87186; 93005; 97162; 97166; 99285; J7030; A4216; C1769; C2617; J0696; J2405

== ENCOUNTER → 2019-09-28 10:26 | Outpatient (CLI) | payer MEDICARE, SELFPAY ==
[2019-08-27 10:19] VITALS: BMI 22.1
== END ==
PROVIDERS: PCP Internal Medicine; Referring Provider Urology; Visit Provider Urology
DX: N13.2 Hydronephrosis with renal and ureteral calculous obstruction (principal)
CPT/HCPCS: 87086; 87088

== ENCOUNTER 2019-10-12 06:01 | Day surgery (SDC) | payer MEDICARE, SELFPAY ==
[2019-08-27 10:19] VITALS: BMI 22.1
[2019-10-12 06:38] VITALS: BP 141/52; PULSE 47; RESP 18; TEMP 36.4; O2SAT 100; BMI 22.6
[2019-10-12] MEDS: Lactated Ringers 1,000 ML 100 ML IV (07:21)
--- NOTE | 2019-10-12 07:32 | PCM.OPRPT ---
Problem List (1) Renal calculus or stone Status: Acute (2) Left ureteral calculus Status: Acute (3) Hydronephrosis Status: Acute Report of Operation Date of Procedure: 10/12/19 Pre-Operative Diagnosis: left renal and ureteral calculus, hydronephrosis Post-Operative Diagnosis: same, passed ureteral stone Surgery/Procedure Performed:: left renal extracorporeal shockwave lithotripsy Type of Anesthesia:: General Description of Procedure: The patient is an 79-year-old female who presented to the hospital and was identified as having a urinary tract infection, left renal calculus and distal left ureteral calculus with hydronephrosis. She underwent left ureteral stent insertion at that time and was treated with antibiotics. She now presents for definitive treatment of her stone disease. Patient was taken to the operating room and placed on the operating room table. Anesthesia monitored the head, neck, airway, IV access and vital signs throughout the case. Once anesthesia was appropriately administered, the patient was aligned with the lithotripter. The stone was easily identified in the left kidney. The left ureteral calculus was not visualized using fluoroscopy. The left renal calculus was fragmented until not visualized with a total of 2400 shocks. She tolerated the procedure well and was awakened and taken to the recovery room in good condition. There were no complications during this procedure. - Complications none - Admit VTE Documentation VTE Present on Admission: Yes VTE Mechan Device Prophylaxis: SCD's VTE Pharm Prophylaxis ordered?: No Reason prophylaxis not ordered:: Treatment Not Indicated
--- NOTE | 2019-10-12 07:33 | DCINST_ITS ---
Discharge Diet: No Restrictions Discharge Activity: May not drive while taking narcotic pain medications. Call your doctor if you observe: Fever of 101 or Higher, Inability to urinate, Inability to have a bowel movement, Calf discomfort, Uncontrolled pain, - - nausea or vomiting Allergies/Adverse Reactions: Allergies Mcypkan-Vfk-Wbg Reductase Inhibitor Allergy (Verified 10/12/19 06:32) MUSCLE ACHES ALL OVER pravastatin Adverse Reaction (Severe, Verified 10/12/19 06:32) myalgias bones ache all over colesevelam [From WelChol] Adverse Reaction (Intermediate, Verified 10/12/19 06:32) Not effective ezetimibe [From Zetia] Adverse Reaction (Intermediate, Verified 10/12/19 06:32) GI upset Influenza Virus Vaccines Adverse Reaction (Intermediate, Verified 10/12/19 06:32) Visual changes, lightheaded niacin Adverse Reaction (Intermediate, Verified 10/12/19 06:32) sweats Medications to take at Discharge Cholecalciferol (Vitamin D3) [Vitamin D3] 1 tab PO DAILY 06/14/13 Levothyroxine [Synthroid] 125 mcg PO DAILY 06/14/13 Multivit-Min/FA/Lycopene/Lut [Centrum Silver Tablet] 1 ea PO DAILY 06/14/13 [place]-3 Fatty Acids [Fish Oil] 2,000 mg PO BID 06/14/13 Carbidopa/Levodopa [Carbidopa-Levodopa 25-100 Tab] 1.5 tab PO TID 09/09/18 Ciclopirox 1 applicatio TP PRN PRN 09/09/18 L.acidoph,Paracasei, B.lactis [Probiotic] 1 ea PO DAILY 09/09/18 Ubidecarenone [Coq-10] 200 mg PO DAILY 09/09/18 Clopidogrel Bisulfate [Plavix] 75 mg PO DAILY 05/03/19 Amiodarone HCl 200 mg PO DAILY 05/06/19 rivaroxaban 20 mg tablet 20 mg PO DINNER #90 tab 05/11/19 Sodium Chloride 0.65% [[place] Nasal [place]] 2 spray NASAL TID PRN PRN spray.btl 05/24/19 traMADol [Ultram] 50 mg PO Q6H PRN PRN #30 tab 05/24/19 acetaminophen 500 mg tablet 1,000 mg PO Q8 PRN tab 06/17/19 Emollient Combination No.72 [Eucerin Intensive Repair] 1 applic TOPICAL BID@0600,0 08/25/19 Menthol/Lanolin/Calamine/Znox [Calmoseptine Ointment] 1 applic TOPICAL 0600,219908/25/19 Polyethylene Glycol 3350 [Miralax] 17 gm PO PRN PRN 08/25/19 Potassium Chloride [K-Dur] 20 meq PO DAILY 08/25/19 Acetaminophen [Tylenol Tablet] 650 mg PO Q6H PRN PRN tab 08/28/19 Carvedilol [Coreg (Beta Tereso)] 6.25 mg PO BIDCM #60 tab 08/28/19 Primary Care Physician: Louise Garrido MD [Primary Care Provider] - Test Results: Test results from this visit will be discussed in further detail at your follow- up appointment, if applicable. Please Follow Up With: Marine Meyers MD When: in 2-3 weeks with [facility] call for appt Proposed Discharge Date: 10/12/19
[2019-10-12] MEDS: Cefazolin 2 GM in 0.9% Normal Saline 100 ML IV (07:43)
[2019-10-12 08:41] VITALS: BP 141/52; BP 146/61; PULSE 60; RESP 14; TEMP 36.2; O2SAT 97
[2019-10-12 08:45] VITALS: BP 141/52; BP 149/60; PULSE 56; RESP 16; O2SAT 98
[2019-10-12 09:00] VITALS: BP 141/52; BP 166/71; PULSE 54; RESP 16; O2SAT 98
[2019-10-12 09:08] VITALS: BP 141/52; BP 167/84; PULSE 56; RESP 18; TEMP 36.3; O2SAT 100
[2019-10-12 09:48] VITALS: BP 141/52
== END 2019-10-12 10:23 | disposition home or self-care (01) ==
LOC: SDC 06:01 → AC 06:03
PROVIDERS: Family Provider Internal Medicine; PCP Internal Medicine; Referring Provider Urology; Visit Provider Urology
PROC: (CPT 50590; principal; 2019-10-12 07:20)
DX: N13.2 Hydronephrosis with renal and ureteral calculous obstruction (principal); Z79.899 Other long term (current) drug therapy; I48.91 Unspecified atrial fibrillation; I10 Essential (primary) hypertension; G20 Parkinson's disease; K44.9 Diaphragmatic hernia without obstruction or gangrene; E78.00 Pure hypercholesterolemia, unspecified; E07.9 Disorder of thyroid, unspecified
CPT/HCPCS: 00873; 50590; J7120; J2405

== ENCOUNTER 2019-10-22 12:24 | Emergency (ER) | payer MEDICARE, SELFPAY ==
[2019-10-19 11:01] VITALS: BMI 21.9
[2019-10-22 12:26] VITALS: BP 183/84; PULSE 60; RESP 18; TEMP 36.6; O2SAT 100; BMI 24.0
--- NOTE | 2019-10-22 13:17 | CT_ITS ---
STUDY: CT BRAIN WITHOUT CONTRAST REASON FOR EXAM: Female, 79 years old. FALL, LAC TO LT FOREHEAD RADIATION DOSAGE (If Supplied By Facility): CTDIvol = ( 44.99 ) mGy, DLP = ( 829.85 ) mGycm TECHNIQUE: Transaxial CT imaging of the brain was performed without administration of intravenous contrast material. Individualized dose optimization techniques were used for this CT. COMPARISON: No relevant priors. FINDINGS: Scalp hematoma overlying the left frontal bone. Normal calvarium. There is mild cerebral atrophy with widening of the extra-axial spaces and ventricular dilatation. Focal area of encephalomalacia in the right cerebellar hemisphere. This extends into the posterior right occipital lobe. This most likely represents old ischemic sequela. Normal basal ganglia and thalami. Normal brainstem. Normal cerebellum. There is no intracranial hemorrhage. There are no findings of an acute ischemic infarction. Atherosclerotic calcification of the cavernous portions of the internal carotid arteries. Normal visualized paranasal sinuses. CT/Brain/Head without Contrast IMPRESSION: Left frontal scalp hematoma. Findings suggestive of old ischemic change in the right cerebellar hemisphere extending into the posterior aspect of the right posterior occipital lobe. Electronically Signed: Reinaldo Alegre, at 13:44 EST , Service support ,
--- NOTE | 2019-10-22 13:18 | ED.DCSUM_ITS ---
- ER Visit Summary Date of Service: 10/22/19 Chief Complaint: Fall History of Present Illness: The patient is a 79 F who presents after a fall that occurred today. Patient states she tripped in a doorway and fell forward. Patient hit her forehead and left cheek on the door frame. Patient and family denies any loss of consciousness. Patient states she landed on her left knee. Patient states she is having some pain in her left knee. Patient states nothing makes her pain better or worse. Patient denies any visual changes. Patient denies any nausea or vomiting. Patient denies any paresthesias or weakness. Physical Examination: Vital signs are stable except for slightly elevated blood pressure of 183/84. Patient is afebrile. Patient is in no acute distress. Pupils are equal, round, and reactive to light bilaterally. Extraocular muscles are intact. Oral mucosa is pink and moist. Neck is supple. Trachea is midline. There is no JVD. Heart was regular rate and rhythm. Lungs are clear and equal bilaterally. There is no chest wall tenderness. Abdomen is soft and nontender. Musculoskeletal exam reveals tenderness, mild edema, and mild ecchymosis over the anterior aspect of the left knee. There is no bony crepitance or step-off. Range of motion was slightly limited in flexion of the left knee secondary to pain. Skin is warm and dry. There is a hematoma over the left forehead with a superficial linear laceration measuring approximately 3 mm. There is also a hematoma over the left zygomatic area. There is a small abrasion over this area. There is some edema and ecchymosis. There is no bony crepitance or step-off. Cranial nerves II through XII are intact. There are no focal motor or sensory deficits noted. Test Results: CT scan of the brain was obtained. There is no acute intracranial abnormality. CT scan of the facial bones was obtained. There is no acute fracture noted. X-rays of the left knee were obtained. There is no acute fracture noted. Emergency Department Course and Treatment: The wounds were cleaned and dressed with bacitracin dressing. Patient was instructed to use ice to the area. Patient was instructed to take Tylenol as needed for any pain. Patient was instructed to follow-up with her primary care physician in 5 to 7 days. Patient and family understood and were agreeable with the plan. All questions were answered. Disposition: Discharge home Impression: 1. Closed head injury 2. Left knee contusion This note was generated with [employer] dictation software. It may contain incorrect words, spelling, and punctuation that were not noted in review of the chart prior to signing ED Disposition - Plan for ED Patient: Disposition: Home or Assisted Living Diagnosis: Closed head injury, Contusion of left knee Instructions: Fall Prevention, HEAD INJURY, No Wake-Up (Adult), CONTUSION, Lower Extremity Referrals: Louise Garrido MD [Primary Care Provider] - 5-7 Days
--- NOTE | 2019-10-22 13:22 | CT_ITS ---
STUDY: CT FACIAL BONES WITHOUT CONTRAST REASON FOR EXAM: Female, 79 years old. FALL/LARGE HEMATOMA LT FRONTAL RADIATION DOSAGE (If Supplied By Facility): CTDIvol = ( 33.45 ) mGy, DLP = ( 687.69 ) mGycm TECHNIQUE: The patient was scanned in a multi detector CT scanner. Sagittal and coronal images were reconstructed. Individualized dose optimization techniques were used for this CT. COMPARISON: None. FINDINGS: Scalp hematoma overlying the left frontal bone. Normal orbital mcclure and orbital contents. Normal nasal bones and anterior nasal spine. Normal facial bones. There is no demonstrated fracture. Minimal mucosal thickening on the posterior inferior aspect of the right maxillary sinus. Partial opacification of the right sphenoid sinus with mucosal thickening of the left sphenoid sinus. CT/Sinus/Facial Bone IMPRESSION: Sinusitis. Scalp hematoma overlying the left frontal bone. Electronically Signed: Reinaldo Alegre, at 13:53 EST , Service support ,
--- NOTE | 2019-10-22 13:25 | RAD_ITS ---
STUDY: X-RAY - LEFT KNEE REASON FOR EXAM: Female, 79 years old. FALL, PAIN TECHNIQUE: AP and lateral view(s) of the knee. COMPARISON: None. FINDINGS: Degenerative spurring is seen along the lateral femoral condyle. Degenerative spurring is seen along the lateral tibial plateau. Normal proximal tibiofibular articulation. Normal medial femorotibial compartment. 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 There is moderate degenerative arthrosis of the patellofemoral articulation. There are atherosclerotic calcifications. Mild soft tissue swelling. RAD/Knee 1 or 2 Views IMPRESSION: Degenerative arthrosis. Electronically Signed: Reinaldo Alegre, at 13:49 EST , Service support ,
[2019-10-22] MEDS: Diphth,Pertuss(Acell),Tet Vac 0.5 ML Vial IM (13:44)
[2019-10-22 15:15] VITALS: RESP 18; O2SAT 97
== END 2019-10-22 15:16 | disposition home or self-care (01) ==
PROVIDERS: Emergency Provider Emergency Medicine; PCP Internal Medicine
DX: S01.81XA Laceration without foreign body of other part of head, initial encounter (principal); S80.02XA Contusion of left knee, initial encounter; W01.10XA Fall on same level from slipping, tripping and stumbling with subsequent striking against unspecified object, initial encounter; Y93.9 Activity, unspecified; Y92.9 Unspecified place or not applicable; Y99.9 Unspecified external cause status; Z23 Encounter for immunization; R03.0 Elevated blood-pressure reading, without diagnosis of hypertension; Z79.01 Long term (current) use of anticoagulants; Z79.02 Long term (current) use of antithrombotics/antiplatelets; Z79.899 Other long term (current) drug therapy; Z87.442 Personal history of urinary calculi
CPT/HCPCS: 70450; 70486; 73560; 90471; 90715; 99282

== ENCOUNTER → 2019-10-27 09:20 | Outpatient (CLI) | payer MEDICARE, SELFPAY ==
[2019-10-12 06:38] VITALS: BMI 22.6
[2019-10-22 12:26] VITALS: BMI 24.0
--- NOTE | 2019-10-27 09:25 | RAD_ITS ---
STUDY: X-RAY - ABDOMEN/PELVIS REASON FOR EXAM: Female, 79 years old. kidney calculus TECHNIQUE: 1 view COMPARISON: Prior abdomen and pelvic CT exam of August 25, 2019. Prior pelvis radiograph from July 14, 2019 FINDINGS: Normal visualized lung bases. Substantial stool present throughout the colon. There is no demonstrated free abdominal air. A pigtail stent is present on the left in good position. The large stone formerly present in the central renal pelvis is now absent. There are a group of small stone fragments measuring about 1 mm each in the mid left kidney. There are no stones identified along the course of the stent or in the urinary bladder. No obvious right renal stones. Phleboliths of the pelvis. Degenerative changes of the spine. Atherosclerotic vascular calcifications. RAD/Abdomen Single View IMPRESSION: Left ureteral pigtail stent in good position. The prior large stone of the renal pelvis is now absent. There are several 1 mm fragments remaining in the mid left renal collecting system. There are no demonstrated stones along the course of the ureteral stent or in the bladder. Electronically Signed: Anne-Marie Cintron MD at 22:38 EST , Service support ,
== END ==
PROVIDERS: PCP Internal Medicine; Referring Provider Urology; Visit Provider Urology
DX: N20.0 Calculus of kidney (principal)
CPT/HCPCS: 74018

== ENCOUNTER → 2019-10-27 11:36 | Outpatient (CLI) | payer MEDICARE, SELFPAY ==
[2019-10-22 12:26] VITALS: BMI 24.0
--- NOTE | 2019-10-27 11:39 | CT_ITS ---
STUDY: CT ABDOMEN AND PELVIS WITHOUT CONTRAST REASON FOR EXAM: Female, 79 years old. LT RENAL CALCULUS RADIATION DOSAGE (If Supplied By Facility): CTDIvol = ( 6.18 ) mGy, DLP = ( 279.32 ) mGycm CLINICAL HISTORY: 79 years Female, LT RENAL CALCULUS COMPARISON: Previous CT scan of the abdomen and pelvis obtained on 08/25/2019 TECHNIQUE: A CT scan of the abdomen and pelvis was performed without IV contrast contrast administration. Coronal and sagittal reconstruction images were reviewed. This exam was performed according to our departmental dose-optimization program, which includes automated exposure control, adjustment of the mA and/or kV according to patient size and/or use of iterative reconstruction technique. FINDINGS: The lung bases and the base of the heart are normal. The liver is normal.The spleen is normal.The adrenal glands are normal.The head, body, and tail of the pancreas are normal. The right kidney appears to be normal with no evidence of calyceall calculi, mass, or obstructive uropathy. A double-J left ureteral stent is noted in place in good position. The previously noted calculus seen in the left renal pelvis and calyces and at the left ureterovesical junction has greatly diminished in size with only a small few tiny residual 1 mm calculi seen in the inferior pole calyces of left kidney.. The abdominal aortal is normal along its course and distribution. No paraortic lymphadenopathy is seen. No abdominal masses or lesions are seen. The CT scan of the pelvis was then reviewed. The common iliac vessels, external iliac vessels, and common femoral vessels are normal along their course and distribution No pelvis masses or lesions are seen. The appendix is normal. No pericecal inflammatory reaction is seen. Abundant fecal material is noted within the colon. Bone scanning windows of the lumbar spine and pelvis were reviewed in the coronal and sagittal planes and appear to be normal. CT/Abdomen/Pelvis without Cont IMPRESSION: 1. A double-J left ureteral stent is noted in place in this patient with nonobstructing calyceal calculi in the mid pole calyces of the left kidney. These calculi have significantly decreased in size and number when compared with the previous CT scan. 2. Abundant fecal material is noted within the colon.. Electronically Signed: Sixto Butler, at 12:25 EST Tel , Service support ,
== END ==
PROVIDERS: PCP Internal Medicine; Referring Provider Urology; Visit Provider Urology
DX: N20.2 Calculus of kidney with calculus of ureter (principal)
CPT/HCPCS: 74018; 74176

== ENCOUNTER → 2020-03-15 09:37 | Outpatient (CLI) | payer MEDICARE, SELFPAY ==
[2020-02-22 11:05] VITALS: BMI 24.5
[2020-03-15 08:25] LABS: ALB/GLOB Ratio 1.2 RATIO (0.9-2.4); AST(SGOT) 15 U/L (15-37); Alanine Aminotransfer ALT/SGPT 23 U/L (13-56); Albumin, Serum 3.9 g/dL (3.2-5.0); Alkaline Phosphatase 61 U/L (45-117); Anion Gap 9 (5-15); BUN 18 mg/dL (7-18); Calcium,Total 8.8 mg/dL (8.5-10.1); Chloride 96 mmol/L (98-107); Cholesterol 324 mg/dL (200); EST Glomerular Filtration Rate 64 mL/min (>60); Est Glom Filt Rate - Afr Amer 77 mL/min (>60); Globulin 3.3 g/dL (2.2-4.2); Glucose 102 mg/dL (74-106); High Density Lipoprotein 82 mg/dL; Potassium 4.3 mmol/L (3.5-5.1); Protein, Total 7.2 g/dL (6.4-8.2); Sodium Level 131 mmol/L (136-145); Triglycerides 61 mg/dL; Very Low Density Lipoprotein 12 mg/dL (5-40)
--- NOTE | 2020-03-15 09:38 | ECHOD_ITS ---
Reason For Study: PHTN Procedure This was a 2D Doppler, Color Flow transthoracic echocardiogram. Exam performed in department. Left Ventricle Mildly dilated left ventricle. The estimated ejection fraction is 55 %. Septal motion consistent with IVCD. Stage 1 diastolic dysfunction. No regional wall motion abnormalities noted. Right Ventricle Normal size and thickness. Normal systolic function. Atria Normal left atrium. Normal right atrium. Normal atrial septum. Mitral Valve Mild diffuse mitral valve thickening. Mild mitral annular calcification extending into the posterior leaflet. Trivial mitral valve insufficiency. Tricuspid Valve Normal tricuspid valve. Trivial tricuspid valve insufficiency. Right ventricular systolic pressure estimated to be 34 mmHg. Aortic Valve Trisinus/trileaflet aortic valve. Mild diffuse aortic valve thickening. Pulmonic Valve The pulmonic valve is not well visualized. Great Vessels Normal aortic root. Normal arch. Normal inferior vena cava. Inferior vena cava collapse with sniff. Pericardium/Pleural No pericardial effusion. MMode/2D Measurements & Calculations LVIDd: 5.4 cm IVSd: 0.95 cm Ao root diam: 3.5 cm LVIDs: 4.1 cm LVPWd: 1.0 cm FS: 24.7 % LAV(MOD-bp): 58.4 ml LA A4 area: 16.0 cm2 LA dimension(2D): 5.4 cm LAV(MOD-bp) Indexed: 33.7 ml/m2 LAV(MOD-sp2): 62.6 ml LAV(MOD-sp4): 43.1 ml RA A4 area: 14.0 cm2 Doppler Measurements & Calculations Lat Peak E' Franck: 6.6 cm/sec Med Peak E' Franck: 2.8 cm/sec PA V2 max: 88.9 cm/sec TR max franck: 269.4 cm/sec TR max P.0 mmHg Interpretation Summary The estimated ejection fraction is 55 %. Mildly dilated left ventricle. Stage 1 diastolic dysfunction. Trivial mitral valve insufficiency. Trivial tricuspid valve insufficiency. Right ventricular systolic pressure estimated to be 34 mmHg. Compared to echo report dated 01/26/2019, LV function has remained the same, RVSP has increased from 29 to 34 mmHg. Ordering Physician: Joseph Corley Referring Physician: YASMEEN ABDI Performed By: Genoveva BRIAN RVT, Carrie and Student
== END ==
PROVIDERS: PCP Internal Medicine; Referring Provider Internal Medicine Cardiovascular Disease; Visit Provider Internal Medicine Cardiovascular Disease
DX: I27.20 Pulmonary hypertension, unspecified (principal); N17.9 Acute kidney failure, unspecified; I25.10 Atherosclerotic heart disease of native coronary artery without angina pectoris; E78.00 Pure hypercholesterolemia, unspecified; Z98.890 Other specified postprocedural states
CPT/HCPCS: 36415; 80053; 80061; 93306

== ENCOUNTER → 2020-03-21 10:16 | Outpatient (CLI) | payer MEDICARE, SELFPAY ==
[2020-02-22 11:05] VITALS: BMI 24.5
--- NOTE | 2020-03-21 10:17 | STE_ITS ---
Stress Results Protocol: Dobutatmine Stress Echo Maximum Predicted HR: 139 bpm Target HR: 118 bpm % Maximum Predicted HR: 85 % Heart Stage Duration Rate BP Dose Comment (mm:ss) (bpm) 1 NTG 0.4 MG SL GIVEN @ 1048, BP 178/82 - 1 NTG 0.4 MG GIVEN BASELINE 59 182/74 @1055. BP @ 1105 162/74. PROCEED WITH DSE. DSE- 10 MCG 3:07 52 148/7210.00DENIES SX DSE- 20 MCG 3:17 74 130/6220.00DENIES SX DSE- 30 MCG 3:20 87 102/6030.00ATROPINE 0.25 MG IVP GIVEN @ 1114. DENIES SX DSE- 40 MCG 3:18 118 98/50 40.00ATROPINE 0.25 MG GIVEN @ 1117, DENIES SX PT BP DECREASED TO 80/40 DURING RECOVERY. NS WIDE OPEN, O2 APPLIED AT 4 L/NC. PT C/O OF SLIGHT CHEST TIGHTNESS WHICH RECOVERY 81 140/72 RESOLVED AFTER [address] CORLEY IN TO SEE PT. BP QUICKLY INCREASED AND PT ATE AND DRANK DEONNA PRISCA. PT STATES SHE FEELS GOOD . Stress Duration: 13:02 mm:ss Maximum Stress HR: 118 bpm Baseline Echocardiogram Findings The estimated ejection fraction is 55 %. Stress Echo Wall motion Data Resting WM Intermediate WM Stress WM Resting Wall Motion Wall Motion Stress Mid-Anterior : Mildly No regional wall motion hypokinetic. abnormalities noted. EKG Data The baseline ECG displays normal sinus rhythm. The patient was titrated from 10 mcg to a maximum of 40 mcg of dobutamine during the stress. The stress ECG displays diffuse abnormal ST segments. The maximum heart rate attained was 116 beats per minute. This was 83% of maximum predicted heart rate. No clinical angina was noted. MMode/2D Measurements & Calculations LVOT diam: 2.0 cm LVOT area: 3.1 cm2 Doppler Measurements & Calculations Ao V2 max: 102.8 cm/sec LV V1 max: 84.0 cm/sec SV(LVOT): 64.5 ml Ao max P.2 mmHg LV V1 max P.8 mmHg Ao V2 mean: 74.1 cm/sec LV V1 mean P.6 mmHg Ao mean P.4 mmHg LV V1 mean: 60.0 cm/sec Ao V2 VTI: 25.6 cm LV V1 VTI: 20.5 cm GARRICK(I,D): 2.5 cm2 GARRICK(V,D): 2.6 cm2 Interpretation Summary The estimated ejection fraction is 55 %. Mid-Anterior : Mildly hypokinetic Normal, adequate, dobutamine echocardiogram. Negative for ischemia by EKG and echocardiographic criteria. No anginal symptoms noted. Rare PVCs noted. The patient developed hypotension during recovery most likely a result of her 2 sublingual nitroglycerin that were given prior to her dobutamine echo stress test, as well as side effect of dobutamine itself. The patient did develop diffuse inferolateral ST segment depression during that time. Patient had no wall motion abnormalities during infusion, however. Once blood pressure normalized, the patient's EKG changes normalized. Test terminated due to the attainment of target heart rate. Final LVEF at peak infusion of 65%. Catheterization films reviewed from recent past, and EKG changes is most likely result of hypotension with poor perfusion down her LOPEZ and saphenous vein graft to PDA. Patient has severe [place] three-vessel coronary disease. Pt at low risk for non cardiac surgery,. Ordering Physician: Joseph Corley Referring Physician: Joseph Corley
[2020-03-21 13:02] LABS: Anion Gap 4 (5-15); BUN 17 mg/dL (7-18); BUN/Creat Ratio 16.8 RATIO (10-20); Calcium,Total 8.8 mg/dL (8.5-10.1); Chloride 101 mmol/L (98-107); Creatinine, Serum 1.01 mg/dL (0.55-1.02); EST Glomerular Filtration Rate 56 mL/min (>60); Est Glom Filt Rate - Afr Amer 68 mL/min (>60); Glucose 117 mg/dL (74-106); Potassium 4.1 mmol/L (3.5-5.1); Sodium Level 132 mmol/L (136-145)
== END ==
PROVIDERS: Nurse Practitioner Family; PCP Internal Medicine; Referring Provider Internal Medicine Cardiovascular Disease; Visit Provider Internal Medicine Cardiovascular Disease
DX: I25.10 Atherosclerotic heart disease of native coronary artery without angina pectoris (principal); E87.1 Hypo-osmolality and hyponatremia; I10 Essential (primary) hypertension; Z95.1 Presence of aortocoronary bypass graft
CPT/HCPCS: 36415; 80048; 93017; 93350; J7040; Q9957; A4216

== ENCOUNTER 2020-07-08 06:59 | Inpatient (IN) | payer MEDICARE, SELFPAY ==
[2020-06-28 10:43] VITALS: BMI 24.3
[2020-07-08] VITALS (19 sets, daily range): BP systolic 156–229; BP diastolic 59–87; PULSE 49–69; RESP 12–25; TEMP 36.2–36.8; O2SAT 94–100; BMI 23.8; BMI 23.7
--- NOTE | 2020-07-08 07:02 | RAD_ITS ---
STUDY: X-RAY CHEST REASON FOR EXAM: Female, 80 years old. FOUND UNRESPONSIVE -- mediastinal eval TECHNIQUE: Single AP portable view of the chest. COMPARISON: 05/13/2019 FINDINGS: There is hyperinflation of the lungs consistent with chronic obstructive lung disease (COPD). Slightly prominent interstitial markings the lung bases. There is no demonstrated pleural abnormality. Sternal cerclage wires are present from a prior sternotomy. Normal mediastinum and zack. Normal visualized pulmonary arteries. There is atherosclerotic calcification of the aortic arch with tortuosity. Stable bony structures. There is no demonstrated abnormality of the visualized soft tissue structures of the upper abdomen. RAD/Chest 1 View IMPRESSION: COPD changes. Slightly prominent interstitial changes at lung bases. Early pulmonary edema is doubtful. Electronically Signed: Slava Carrasco MD at 8:47 EST Tel , Service support ,
--- NOTE | 2020-07-08 07:02 | EKG12_ITS ---
Test Reason : STROKE Blood Pressure : / mmHG Vent. Rate : 064 BPM Atrial Rate : 064 BPM P-R Int : 000 ms QRS Dur : 126 ms QT Int : 474 ms P-R-T Axes : 000 001 101 degrees QTc Int : 489 ms Sinus Rhythm Left ventricular hypertrophy with QRS widening T wave abnormality, consider inferior ischemia T wave abnormality, consider anterolateral ischemia Abnormal ECG Confirmed by LINDSAY CHATMAN, ALYSSA ([id number]), content editor GUERRERO ANGLIN ([id number]) on 07/10/2020 2:16:20 PM Referred By: KAYLYN Confirmed By:ALYSSA MONTOYA MD
--- NOTE | 2020-07-08 07:02 | CT_ITS ---
We are attempting to reach an attending provider to discuss findings. An addendum with communication details will be sent when the communication is complete. HISTORY: STROKE ADDITIONAL HISTORY: None provided. COMPARISON: 10/22/2019 EXAMINATION/TECHNIQUE: CT Head or Brain W/O Contrast Injection. Axial, coronal and sagittal images. Number of images including paperwork: [id number]. A radiation dose optimization technique was used for this scan. FINDINGS: BRAIN: No acute hemorrhage or mass. No definite acute infarct; MRI more sensitive. White matter hypodensity is nonspecific but most commonly seen with chronic ischemic changes. Generalized atrophy. Right occipital encephalomalacia appears similar. VENTRICULAR SYSTEM: No hydrocephalus. PARANASAL SINUSES AND MASTOIDS: Small amount of fluid in the left maxillary sinus. ORBITS: Unremarkable imaged extent. SKELETON AND SOFT TISSUES: Calvarium intact. ASPECTS score: 10 CT/Brain/Head without Contrast IMPRESSION: No acute intracranial abnormality. Chronic involutional and white matter changes. Individualized dose optimization techniques were used for this CT. at 0723 Reported and signed by: Radha Hudson MD Electronically Signed: Radha Hudson MD at 7:23 EST Tel , Service support ,
--- NOTE | 2020-07-08 07:03 | ED.VIS.STROK ---
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 She is a history of Parkinson's, and does have some dementia symptoms with that that are chronic, but at baseline can walk and talk. She lives with and son. Paramedics state that according to family she is on a blood thinner, and had a cardioversion for atrial fibrillation. No history of falls or head injury that they know of recently, or stroke in the past. Prehospital stroke team called by paramedics due to their initial evaluation showing aphasia but relatively alert and able to follow commands, and her systolic blood pressure being 201. In reviewing her records, she appears to be on clopidogrel but no anticoagulant or aspirin. - Past Medical History (1) Urolithiasis Status: Chronic (2) Atherosclerosis of coronary artery of [place] heart without angina pectoris Status: Chronic (3) Atrial fibrillation Status: Chronic (4) Essential hypertension Status: Chronic (5) Hypercholesterolemia Status: Chronic (6) Hypothyroidism Status: Chronic (7) Parkinson's disease Status: Chronic Past Medical History - Allergies and Home Meds Allergies/Adverse Reactions: Allergies Wlpwfrs-Els-Ihe Reductase Inhibitor Allergy (Verified 06/28/20 10:39) MUSCLE ACHES ALL OVER pravastatin Adverse Reaction (Severe, Verified 06/28/20 10:39) myalgias bones ache all over colesevelam [From WelChol] Adverse Reaction (Intermediate, Verified 06/28/20 10:39) Not effective ezetimibe [From Zetia] Adverse Reaction (Intermediate, Verified 06/28/20 10:39) GI upset Influenza Virus Vaccines Adverse Reaction (Intermediate, Verified 06/28/20 10:39) Visual changes, lightheaded niacin Adverse Reaction (Intermediate, Verified 06/28/20 10:39) sweats Primary Care Physician: Louise Garrido MD [Primary Care Provider] - Surgical History: coronary bypass surgery - x 3, 15 years ago, - - Vein stripping in both legs, tubal ligation, electrocardioversion Lives: With Family Smoking Status: Never smoker - Family History Paternal Family History: Family History (Last Reviewed 06/28/20 @ 11:01 by Dora Monique PA, PA) Sister Alzheimer's disease Family History: Reports: Heart Disease, Hypertension, Stroke Review of Systems ROS: Unable to Obtain - aphasic/mute STROKE - NIHSS Initial 1a Level of Consciousness: 1 1b LOC Questions (Score 2 if aphasic/stupor): 2 1c LOC Commands (Only score 1st attempt): 0 2 Best Gaze (If aphasic, use reflexive mvmts.): 0 3 Visual: 0 4 Facial Palsy: 0 5 Motor Arm Right (UN = amputation/fusion): 3 5 Motor Arm Left: 3 6 Motor Leg Right: 3 6 Motor Leg Left: 3 7 Limb ataxia (Only + if out of proportion): 0 8 Sensory (Aphasia/stupor=0 or 1, coma=2): 1 9 Best Language: 2 10 Dysarthria (mute, coma=2, intubated=UN): 2 11 Extinction and Inattention (only scored if +): 0 Total Score: 20 General: Well nourished, Well developed, - - alert, follows commands, aphasic, no resp distress Head: Normocephalic, Atraumatic Eyes: Perrl - 2mm, EOMI ENT: Moist mucous membranes, No rhinorrhea Neck: Supple, Nontender Cardiovascular: Normal S1, Normal S2, Irregular. Negative for: Tachycardia Respiratory: No distress, CTA bilaterally, Chest nontender Abdomen: Soft, Nontender, Nondistended, Normal bowel sounds Back: Nontender, Normal Inspection Extremities: Nontender, No edema Skin: Normal color, No rash Neurological: Alert, Cranial nerves II-XII grossly intact, Normal Sensation - grossly, - - GCS: E-4 M-6 V-2 = 12 Psychological: Normal affect Diagnostic/Tx/Re-eval Impressions Brain CT 07/08/20 07:02 IMPRESSION: No acute intracranial abnormality. Chronic involutional and white matter changes. Individualized dose optimization techniques were used for this CT. at 0723 Reported and signed by: Radha Hudson MD Electronically Signed: Radha Hudson MD at 7:23 EST Tel , Service support , ADDENDUM: 07/08/20 0733 IMPRESSION: No acute intracranial abnormality. Chronic involutional and white matter changes. Individualized dose optimization techniques were used for this CT. at 0723 Reported and signed by: Radha Hudson MD N.B. : The above information has been verbally conveyed by Radha Hudson MD to Faustino Michelle on 07/08/2020 07:26:13 (ET). Electronically Signed: Radha Hudson MD at 7:23 EST Tel , Service support , ADDENDUM: 07/08/20 0736 IMPRESSION: No acute intracranial abnormality. Chronic involutional and white matter changes. Individualized dose optimization techniques were used for this CT. at 0723 Reported and signed by: Radha Hudson MD N.B. : The above information has been verbally conveyed by Radha Hudson MD to Faustino Michelle MD, on 07/08/2020 07:29:51 (ET). Electronically Signed: Radha Hudson MD at 7:23 EST Tel , Service support , Chest X-Ray 07/08/20 07:02 IMPRESSION: COPD changes. Slightly prominent interstitial changes at lung bases. Early pulmonary edema is doubtful. Electronically Signed: Slava Carrasco MD at 8:47 EST Tel , Service support , Head/Neck CTA 07/08/20 07:08 IMPRESSION: No arterial occlusion, aneurysm or vascular malformation. Individualized dose optimization techniques were used for this CT. at 0738 Reported and signed by: Radha Hudson MD Electronically Signed: Radha Hudson MD at 7:38 EST Tel , Service support , ADDENDUM: 07/08/20 0748 IMPRESSION: No arterial occlusion, aneurysm or vascular malformation. Individualized dose optimization techniques were used for this CT. at 0738 Reported and signed by: Radha Hudson MD N.B. : The above information has been verbally conveyed by Radha Hudson MD to Faustino Michelle MD, on 07/08/2020 07:41:25 (ET). Electronically Signed: Radha Hudson MD at 7:38 EST Tel , Service support , ADDENDUM: 07/08/20 0750 IMPRESSION: No arterial occlusion, aneurysm or vascular malformation. Individualized dose optimization techniques were used for this CT. at 0738 Reported and signed by: Radha Hudson MD N.B. : The above information has been verbally conveyed by Radha Hudson MD to Faustino Michelle MD, on 07/08/2020 07:43:14 (ET). Electronically Signed: Radha Hudson MD at 7:38 EST Tel , Service support , 07/08/20 07:02 Brain/Head without Contrast [CT] Stat Chest 1 View [RAD] Stat 07/08/20 07:08 CTA Head AND Neck W/ Contrast [CT] Stat Laboratory Results 07/08/20 07/08/20 07/08/20 07:24 07:24 07:24 WBC 5.8 RBC 4.39 Hgb 13.4 Hct 40.6 MCV 92.5 MCH 30.5 MCHC 33.0 RDW Std Deviation 47.6 H RDW Coeff of Pina 13.9 Plt Count 250 MPV 9.6 Immature Gran % (Auto) 0.300 Neut % (Auto) 68.8 Lymph % (Auto) 19.8 [place] % (Auto) 9.2 Eos % (Auto) 1.2 Baso % (Auto) 0.7 Absolute Neuts (auto) 4.0 Absolute Lymphs (auto) 1.14 Nucleated RBC % 0 PT 13.5 INR 1.1 APTT 24.2 Sodium 135 L Potassium 4.4 Chloride 103 Carbon Dioxide 27.0 Anion Gap 5 BUN 23 H Creatinine 0.93 Estim Creat Clear Calc 44.41 Est GFR (MDRD) Af Amer 74 Est GFR (MDRD) Non-Af 62 BUN/Creatinine Ratio 24.8 H Glucose 100 Calcium 8.6 Troponin I 0.036 Urine Color Urine Clarity Urine pH Ur Specific [place] Urine Protein Urine Glucose (UA) Urine Ketones Urine Occult Blood Urine Nitrite Urine Bilirubin Urine Urobilinogen Ur Leukocyte Esterase Urine RBC Urine WBC Ur Squamous Epith Cells Urine Bacteria Urine Mucus 07/08/20 09:00 WBC RBC Hgb Hct MCV MCH MCHC RDW Std Deviation RDW Coeff of [place] Plt Count MPV Immature Gran % (Auto) Neut % (Auto) Lymph % (Auto) [place] % (Auto) Eos % (Auto) Baso % (Auto) Absolute Neuts (auto) Absolute Lymphs (auto) Nucleated RBC % PT INR APTT Sodium Potassium Chloride Carbon Dioxide Anion Gap BUN Creatinine Estim Creat Clear Calc Est GFR (MDRD) Af Amer Est GFR (MDRD) Non-Af BUN/Creatinine Ratio Glucose Calcium Troponin I Urine Color Yellow Urine Clarity Clear Urine pH 7.0 Ur Specific [place] 1.010 Urine Protein 15 H Urine Glucose (UA) Normal Urine Ketones Negative Urine Occult Blood Negative Urine Nitrite Positive H Urine Bilirubin Negative Urine Urobilinogen Normal Ur Leukocyte Esterase Negative Urine RBC 0 SEEN Urine WBC 0 SEEN Ur Squamous Epith Cells 0 SEEN Urine Bacteria 2+ Urine Mucus 0 SEEN - Rhythm Strip Rhythm Strip: A-fib Rate: 64 Ectopy: None - EKG Initial EKG Interpretation: No Acute Injury Pattern, Atrial Fibrillation, - - LVH, nonspecific interventricular conduction delay Prior: Unchanged - Except prior EKG showed sinus rhythm, currently in rate controlled atrial fibrillation - Medical Decision Making Stroke Team Activated: Yes - Prehospital Reviewed Inclusion/Exclusion criteria: Yes Was Patient considered for Endovascular Intervention?: No - Negative CTA IV Alteplase (t-PA) Administered: No - Due to timing/out of window Patient was initially seen in the ED room because of concern of possible airway compromise. After I evaluated the patient, determined that her airway was patent and stable, she was able to follow commands open her mouth and close it without any difficulty was in no respiratory distress with good respirations, I did a quick NIHSS and she was quickly taken to CT. It showed no hemorrhage, so before being brought back, since she is not a TPA candidate, CT angiography was performed. I spoke with the radiologist [id number] about the results, which is no LVO, and a 70% right carotid stenosis was noted. I do not suspect it is responsible for the patient's clinical syndrome at this time. Her blood pressure continued to hover around 220, so labetalol was given. This brought her blood pressure down to around 180 systolic. My suspicion is that the blood pressure is primarily responsible here along with her baseline Parkinson's dementia probably making her clinical picture look worse; she is moving all 4 extremities better, symmetrically, but still not able to resist gravity. Plan is for admission. 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 I had them sign a new DNR form. Critical care time (excluding procedures): 30-74 minutes - 35 minutes, including time spent performing direct patient care to bedside, discussing with patient and family and consultants, arranging admission ED Disposition - Plan for ED Patient: Disposition: Acute Care [facility] Diagnosis: Hypertensive encephalopathy Referrals: Louise Garrido MD [Primary Care Provider] -
--- NOTE | 2020-07-08 07:08 | CT_ITS ---
We are attempting to reach an attending provider to discuss findings. An addendum with communication details will be sent when the communication is complete. HISTORY: STROKE TECHNIQUE: CT angiogram of the brain was performed with IV contrast. CT angiogram images of the neck were obtained with IV contrast. 3D reconstructions were reviewed to aid in vascular evaluation. NASCET criteria using the distal internal carotid arteries were used for evaluation of stenoses. A radiation dose optimization technique was used for this scan. IV Contrast dosage and agent: 100 ml [id number] Number of images including paperwork: [id number] COMPARISON: None CTA neck: FINDINGS: AORTIC ARCH AND BRANCHES: No dissection. RIGHT CAROTID ARTERIES: Densely calcified plaque noted at the bifurcation with approximately 70% focal stenosis of the proximal ICA. LEFT CAROTID ARTERIES: No occlusion, significant stenosis or dissection. Calcified plaque noted. RIGHT VERTEBRAL ARTERY: No occlusion, significant stenosis or dissection. LEFT VERTEBRAL ARTERY: No occlusion, significant stenosis or dissection. NECK SOFT TISSUES: Unremarkable. LUNG APICES: Interstitial septal thickening BONES: Degenerative changes.. IMPRESSION: 1. Approximate 70% stenosis of the right proximal ICA. 2. No significant stenosis of left internal carotid artery. 3. Interstitial septal thickening may represent mild edema. CTA head: FINDINGS: INTERNAL CAROTID ARTERIES: No significant stenosis of the intracranial segments. ANTERIOR CEREBRAL ARTERIES: No significant stenosis of the visualized segments. ANTERIOR COMMUNICATING ARTERY: Present. MIDDLE CEREBRAL ARTERIES: No significant stenosis of the visualized segments. VERTEBRAL ARTERIES: No significant stenosis of the intradural/visualized segments. BASILAR ARTERY: No significant stenosis. POSTERIOR CEREBRAL ARTERIES: No significant stenosis of the visualized segments. No evidence of intracranial aneurysm or vascular malformation. CT/CTA Head AND Neck W/ Contrast IMPRESSION: No arterial occlusion, aneurysm or vascular malformation. Individualized dose optimization techniques were used for this CT. at 0738 Reported and signed by: Radha Hudson MD Electronically Signed: Radha Hudson MD at 7:38 EST Tel , Service support ,
--- NOTE | 2020-07-08 07:10 | NURSING ---
FAXED FACESHEET TO [facility]
--- NOTE | 2020-07-08 07:22 | NURSING ---
[id number] STROKE ALERT CALLED PRIOR TO ARRIVAL
--- NOTE | 2020-07-08 07:28 | ED.RN ---
0788 DR. BUENO FROM [facility] CALLED TO SPEAK WITH DR. MURRAY.
[2020-07-08 07:39] LABS: Absolute Lymphocyte Count 1.14 X10^3/uL (0.83-4.51); Basophil# 0.04 X10^3/uL; Basophil% 0.7 % (0-1); Eosinophil# 0.07 X10^3/uL; Eosinophils% 1.2 % (0-5); Hematocrit 40.6 % (37-47); Hemoglobin 13.4 g/dL (12.0-15.0); Lymphocyte # 1.14 X10^3/ul (4.0); Lymphocyte % 19.8 % (19-41); Mean Corpuscular Hgb 30.5 pg (27.0-32.0); Mean Corpuscular Volume 92.5 fL (81-99); Mean Platelet Vol. 9.6 fl (6.2-12.0); Monocyte# 0.53 X10^3/uL; Monocyte% 9.2 % (0-10); NRBC Flagged by Analyzer 0 % (0-5); Neutrophil # 3.95 X10^3/uL (2.7-7.7); Neutrophil % 68.8 % (47-70); Platelet Count 250 K/mm3 (150-450); RBC Distribution Width CV 13.9 % (11.6-14.6); RBC Distribution Width SD 47.6 fl (35.1-43.9); Red Blood Count 4.39 M/mm3 (4.2-5.4); White Blood Count 5.8 K/mm3 (4.4-11.0)
[2020-07-08 07:52] LABS: Anion Gap 5 (5-15); BUN 23 mg/dL (7-18); BUN/Creat Ratio 24.8 RATIO (10-20); Calcium,Total 8.6 mg/dL (8.5-10.1); Chloride 103 mmol/L (98-107); Creatinine, Serum 0.93 mg/dL (0.55-1.02); EST Glomerular Filtration Rate 62 mL/min (>60); Est Glom Filt Rate - Afr Amer 74 mL/min (>60); Estimated Creatinine Clearance 44.41 ml/min; Glucose 100 mg/dL (74-106); Potassium 4.4 mmol/L (3.5-5.1); Sodium Level 135 mmol/L (136-145)
--- NOTE | 2020-07-08 07:52 | ED.RN ---
Trandate held, physician aware. BP 208/73 68 19 97%
--- NOTE | 2020-07-08 07:59 | ED.RN ---
Neuro check, patient able to squueze with hands bilat and perform pedal push bilat both are extremely weak but equal. Pedal push barely able to determine.
[2020-07-08 08:19] LABS: International Normalized Ratio 1.1; Prothrombin Time (Protime)PT. 13.5 SECONDS (11.7-14.9)
[2020-07-08 08:20] LABS: Partial Thromboplast Time 24.2 Seconds (24.1-36.2)
[2020-07-08] MEDS: Labetalol (Prefilled) 20 MG/4 ML IV (08:38)
[2020-07-08 09:07] LABS: Mucous, Urine 0 SEEN /hpf (<or=2+); Red Blood Cells-Urine 0 SEEN /hpf (0-5); Squamous Epithelial Cells - UA 0 SEEN /hpf (5-10); White Blood Cells 0 SEEN /hpf (0-5)
[2020-07-08] MEDS: 0.9% Normal Saline 1,000 ML 150 ML IV (09:09)
--- NOTE | 2020-07-08 09:10 | MDS.RN ---
verbal order from Dr Michelle. Hold cardine and give labetolol. /
[2020-07-08 09:12] LABS: Color, Urine Yellow (Yellow); Glucose, Dipstick Normal (Normal); Ketone-Dipstick Negative (Negative); Leukocyte Esterase-Dipstick Negative /ul (Negative); Nitrite-Dipstick Positive (Negative); Occult Blood-Urine Negative /ul (Negative); Protein-Dipstick 15 mg/dl (Negative); Urine Bilirubin Dipstick Negative (Negative); Urine Clarity Clear (Clear); Urine Urobilinogen Normal (Normal)
[2020-07-08 09:23] LABS: Bacteria 2+ /hpf (None Seen)
--- NOTE | 2020-07-08 10:08 | NURSING ---
PCU K[facility]TOE HYPERTENSIVE ENCEPHALOPATHY
--- NOTE | 2020-07-08 10:13 | PCM.HP.STD ---
Problem List (1) Hypertensive encephalopathy Status: Acute (2) History of renal stent Status: Chronic Comment: Left kidney, Per Dr. Marine Aguirre; may be removed (3) History of kidney stones Status: Chronic (4) History of lithotripsy Status: Chronic Comment: per Dr. Meyers (5) Intractable abdominal pain Status: Resolved (6) Renal calculus or stone Status: Resolved (7) Left ureteral calculus Status: Resolved (8) Hydronephrosis Status: Resolved (9) Ureteral colic Status: Resolved (10) Urolithiasis Status: Chronic (11) Acute kidney injury Status: Resolved (12) Complicated UTI (urinary tract infection) Status: Resolved (13) Essential hypertension Status: Chronic (14) Atherosclerosis of coronary artery of [place] heart without angina pectoris Status: Chronic (15) History of cardioversion Status: Chronic (16) History of coronary artery bypass graft x 3 Status: Chronic Comment: [facility] Main [place]:LOPEZ to LAD, left radial to OM of CX and free MYNOR to PDA of RCA per Dr. Laz Barreto (17) History of left heart catheterization Status: Chronic Comment: Bifurcating LOPEZ graft to the LAD and DIAG is patent with mild to moderate [place] mid/distal LAD 50% stenosis, high risk for PCI given need to traverse down LOPEZ and severe LV dysfunction. Saphenous Vein graft to the RCA previously placed stent is patent, with 75% mid PDA stenosis, not amenable to PCI given need to traverse through graft, then acute angle into PDA, of questionable benefit given severe LV dysfunction (18) Atrial fibrillation Status: Chronic (19) Hypercholesterolemia Status: Chronic (20) Non-STEMI (non-ST elevated myocardial infarction) Status: Chronic (21) Hypothyroidism Status: Chronic (22) Parkinson's disease Status: Chronic History of Present Illness Date of Admission: 07/08/20 Chief Complaint: Aphasia The patient is a 80 year old F with multiple comorbidities including Parkinson's disease, paroxysmal A. fib dyslipidemia hypothyroidism who was found unresponsive on the morning of admission by her family. Patient was also apparently aphasic. Was brought to the emergency department as a result. Patient apparently was noted to have an NIH of 4 however had no lateralizing signs. Head CT was negative for acute CVA. Patient was however found to have markedly elevated systolic blood pressure greater than 200. An assessment of suspected hypertensive encephalopathy made treatment of her acute hypertensive encephalopathy initiated in the ED admitted to a monitored bed for further management Past Medical History Past Medical History (Chronic Problems): Chronic Problems (Last Reviewed 06/28/20 @ 11:01 by Dora Monique PA, PA) History of renal stent (Chronic 08/27/19) Left kidney, Per Dr. Marien Aguirre; may be removed History of kidney stones (Chronic) History of lithotripsy (Chronic 10/12/19) per Dr. Meyers Urolithiasis (Chronic) Essential hypertension (Chronic) Atherosclerosis of coronary artery of [place] heart without angina pectoris (Chronic) History of cardioversion (Chronic 12/16/18) History of coronary artery bypass graft x 3 (Chronic 08/22/98) [facility] [place]:LOPEZ to LAD, left radial to OM of CX and free MYNOR to PDA of RCA per Dr. Laz Barreto History of left heart catheterization (Chronic 09/11/18) Bifurcating LOPEZ graft to the LAD and DIAG is patent with mild to moderate [place] mid/distal LAD 50% stenosis, high risk for PCI given need to traverse down LOPEZ and severe LV dysfunction. Saphenous Vein graft to the RCA previously placed stent is patent, with 75% mid PDA stenosis, not amenable to PCI given need to traverse through graft, then acute angle into PDA, of questionable benefit given severe LV dysfunction Atrial fibrillation (Chronic) Hypercholesterolemia (Chronic) Non-STEMI (non-ST elevated myocardial infarction) (Chronic 09/10/18) Hypothyroidism (Chronic) Parkinson's disease (Chronic) Medical History: Medical History (Last Reviewed 07/08/20 @ 12:[address] Roberto Carlos Wu MD) History of kidney stones (Chronic) Z87.442 Essential hypertension (Chronic) I10 Atherosclerosis of coronary artery of [place] heart without angina pectoris (Chronic) I25.10 Atrial fibrillation (Chronic) I48.91 Hypercholesterolemia (Chronic) E78.00 Non-STEMI (non-ST elevated myocardial infarction) (Chronic) Onset Date: 09/10/18 I21.4 Hypothyroidism (Chronic) E03.9 Parkinson's disease (Chronic) G20 Allergies Lelzkxq-Ast-Slc Reductase Inhibitor Allergy (Verified 06/28/20 10:39) MUSCLE ACHES ALL OVER pravastatin Adverse Reaction (Severe, Verified 06/28/20 10:39) myalgias bones ache all over colesevelam [From WelChol] Adverse Reaction (Intermediate, Verified 06/28/20 10:39) Not effective ezetimibe [From Zetia] Adverse Reaction (Intermediate, Verified 06/28/20 10:39) GI upset Influenza Virus Vaccines Adverse Reaction (Intermediate, Verified 06/28/20 10:39) Visual changes, lightheaded niacin Adverse Reaction (Intermediate, Verified 06/28/20 10:39) sweats Home Medications: Ambulatory Orders Medication Instructions Recorded Cholecalciferol (Vitamin D3) 1 tab PO DAILY 06/14/13 [Vitamin D3] Levothyroxine [Synthroid] 125 mcg PO DAILY 06/14/13 Multivit-Min/FA/Lycopene/Lut 1 ea PO DAILY 06/14/13 [Centrum Silver Tablet] Lerna-3 Fatty Acids [Fish Oil] 2,000 mg PO BID 06/14/13 Carbidopa/Levodopa 1.5 tab PO TID 09/09/18 [Carbidopa-Levodopa 25-100 Tab] L.acidoph,Paracasei, B.lactis 1 ea PO DAILY 09/09/18 [Probiotic] Ubidecarenone [Coq-10] 200 mg PO DAILY 09/09/18 Potassium Chloride [K-Dur] 20 meq PO DAILY 08/25/19 Acetaminophen [Tylenol Tablet] 650 mg PO Q6H PRN PRN tab 08/28/19 clopidogrel 75 mg tablet 75 mg PO DAILY #90 tab 11/15/19 carvedilol 6.25 mg tablet 6.25 mg PO BID #180 tab 12/29/19 losartan 50 mg tablet 50 mg PO BID 02/22/20 amiodarone 200 mg tablet 100 mg PO DAILY #90 tab 06/28/20 furosemide 20 mg tablet 20 mg PO DAILY tab 06/28/20 Senna [Senokot] 1 tab PO DAILY 07/08/20 Surgical History: Surgical History (Last Reviewed 07/08/20 @ 12:[address] Roberto Carlos Wu MD) History of renal stent (Chronic) Onset Date: 08/27/19 Left kidney, Per Dr. Marine Aguirre; may be removed History of lithotripsy (Chronic) Onset Date: 10/12/[address] Meyers History of cardioversion (Chronic) Onset Date: 12/16/18 Z98.890 History of coronary artery bypass graft x 3 (Chronic) Onset Date: 08/22/98 Z95.1 [facility] [place]:LOPEZ to LAD, left radial to OM of CX and free MYNOR to PDA of RCA per Dr. Laz Barreto History of laparoscopic cholecystectomy Onset Date: 06/15/[address] Kulwinder Rosas; umbilical hernia repair done concomitantly with lap cholecystectomy History of tubal ligation Onset Date: 1969 Z98.51 History of umbilical hernia repair Onset Date: 06/15/13 Z98.890, Z87.[address] Kulwinder Rosas, concomitant with laparascopic cholecystectomy History of varicose vein stripping Onset Date: 1971 Z98.890 Bilateral Surgical History: coronary bypass surgery - x 3, 15 years ago, - - Vein stripping in both legs, tubal ligation, electrocardioversion Psychiatric History: No pertinent psych hx COIL BINDER History: No pertinent COIL BINDER history Lives: With Family Smoking Status: Never smoker - *Family History Paternal Family History: Family History (Last Reviewed 07/08/20 @ 12:[address] Roberto Carlos Wu MD) Sister Alzheimer's disease History Items: Heart Disease, Hypertension, Stroke Review of Systems Unable to obtain accurate/complete ROS d/t: Patient being aphasic VTE Information - Inpt Only VTE Present on Admission: No VTE Mechan Device Prophylaxis: SCD's VTE Pharm Prophylaxis ordered?: Yes Patient Problems: Active and Suspected Problems (Last Reviewed 06/28/20 @ 11:01 by Dora VILLA, PA) Hypertensive encephalopathy (Acute) Objective: GENERAL: patient is aphasic HEENT: Atraumatic; EYES; Anicteric, Normal Conjunctiva NECK; supple, normal thyroid, RESPIRATORY: Diminished to auscultation CARDIOVASCULAR: Irregular S1 S2, GI: soft, normoactive bowel sounds, : No Renal angle tenderness; EXTREMITIES: No edema, no clubbing, MUSCULOSKELETAL: no muscle waisting NEURO: Aphasic but no lateralizing signs SKIN: No Rash PSYCH; Flat affect - Physical Exam Vitals/I&O's: Vital Signs Temp Pulse Resp BP Pulse Ox 97.1 F L 53 L 25 H 194/71 H 100 07/08/20 07:00 07/08/20 10:02 07/08/20 10:02 07/08/20 10:02 07/08/20 10:02 Oxygen Flow Rate (L/min) 2 Oxygen Delivery Method Nasal Cannula Weight: 66.9 kg Body Mass Index (BMI) 23.8 Finger Stick Blood Glucose 127 Intake and Output for Last 24 Hours 07/06/20 07/07/20 07/08/20 23:59 23:59 23:59 Intake Total 500 / 500 Balance 500 / 500 Laboratory Results 07/08/20 07:24: WBC 5.8, RBC 4.39, Hgb 13.4, Hct 40.6, MCV 92.5, MCH 30.5, MCHC 33.0, RDW Std Deviation 47.6 H, RDW Coeff of Pina 13.9, Plt Count 250, MPV 9.6, Immature Gran % (Auto) 0.300, Neut % (Auto) 68.8, Lymph % (Auto) 19.8, Hunt % (Auto) 9.2, Eos % (Auto) 1.2, Baso % (Auto) 0.7, Absolute Neuts (auto) 4.0, Absolute Lymphs (auto) 1.14, Nucleated RBC % 0 07/08/20 07:24: PT 13.5, INR 1.1, APTT 24.2 07/08/20 07:24: Sodium 135 L, Potassium 4.4, Chloride 103, Carbon Dioxide 27.0, Anion Gap 5, BUN 23 H, Creatinine 0.93, Estim Creat Clear Calc 44.41, Est GFR (MDRD) Af Amer 74, Est GFR (MDRD) Non-Af 62, BUN/Creatinine Ratio 24.8 H, Glucose 100, Calcium 8.6, Troponin I 0.036 07/08/20 09:00: Urine Color Yellow, Urine Clarity Clear, Urine pH 7.0, Ur Specific [place] 1.010, Urine Protein 15 H, Urine Glucose (UA) Normal, Urine Ketones Negative, Urine Occult Blood Negative, Urine Nitrite Positive H, Urine Bilirubin Negative, Urine Urobilinogen Normal, Ur Leukocyte Esterase Negative, Urine RBC 0 SEEN, Urine WBC 0 SEEN, Ur Squamous Epith Cells 0 SEEN, Urine Bacteria 2+, Urine Mucus 0 SEEN Current Medications Acetaminophen (Acetaminophen 325 Mg Tablet) 650 mg PO Q6H PRN PRN PRN Reason: Pain Score 1-5/Temp > 100.7 F Amiodarone HCl (Amiodarone 200 Mg Tablet) 100 mg PO DAILY ALEJANDRA Carbidopa/Levodopa (Carbidopa/Levodopa 25/100 Tablet) tablet PO TID [facility] Carvedilol (Carvedilol 6.25 Mg Tablet) 6.25 mg PO BID [facility] Clopidogrel Bisulfate (Clopidogrel Bisulfate 75 Mg Tablet) 75 mg PO DAILY [facility] Furosemide (Furosemide 20 Mg Tablet) 20 mg PO DAILY [facility] Sodium Chloride () 500 mls @ 999 mls/hr IV .Q31M ONE Last Infusion: 07/08/20 09:08 Dose: Infused Documented by: Sodium Chloride () 1,000 mls @ 150 mls/hr IV .Q6H40M ALEJANDRA Last Admin: 07/08/20 09:09 Dose: 150 mls/hr Documented by: Labetalol HCl (Labetalol (Prefilled) 20 Mg/4 Ml) 20 mg IV X1 PRN PRN Reason: BLOOD PRESSURE Last Admin: 07/08/20 08:38 Dose: 20 mg Documented by: Levothyroxine Sodium (Levothyroxine 125 Mcg Tablet) 125 mcg PO DAILY [facility] Losartan Potassium (Losartan Potassium 50 Mg Tablet) 50 mg PO BID [facility] Non-Formulary Medication (Cholecalciferol (Vitamin D3) [Vitamin D3]) 1 tab PO DAILY [facility] Potassium Chloride (Potassium Chloride 20 Meq Tablet) 20 meq PO DAILY ALEJANDRA Senna (Senna Tablet) tablet PO DAILY [facility] Assessment/Plan All Active Problems (Last Reviewed 06/28/20 @ 11:01 by Dora VILLA, PA) Hypertensive encephalopathy (Acute) Intractable abdominal pain (Resolved) Renal calculus or stone (Resolved) Left ureteral calculus (Resolved) Hydronephrosis (Resolved) Ureteral colic (Resolved) Acute kidney injury (Resolved) Complicated UTI (urinary tract infection) (Resolved) Patient is an 80-year-old found unresponsive on the morning of admission by her family. Patient was also found to be aphasic brought to the emergency department initial head CT unremarkable found to have markedly elevated blood pressure admitted to a monitored bed for further management 1. Acute encephalopathy ?Hypertensive encephalopathy versus acute CVA. Treatment of markedly elevated blood pressure initiated in the ED. Patient admitted to the monitored bed for subsequent management, placed on every 4 neurochecks, antiplatelet therapy with aspirin. Patient was not started on statin therapy due to reported allergy. Also ordered 2D echo and an MRI head. CT angio obtained in the ED was unremarkable Paroxysmal A. fib ?Rate controlled on amiodarone, not a candidate for systemic anticoagulation due to significant risk for falls 3. Coronary artery disease ?Status post CABG patient is on recommended medications including antiplatelet ARB and beta-blockers 4. Parkinson's disease ?Stable on Sinemet 5. Hypothyroidism - Patient is on levothyroxine home dose continued 6. DVT prophylaxis Advance planning; did discuss with the family regarding advanced directives as well as CODE STATUS. Did explain the various scenarios involved ( FULL CODE, DNR CCA, DNR CCA with no intubation, and DNR CC and what each meant) family elected patient to be to be DNR CCA no intubation. Order was placed. Time spent on discussion 18 minutes. ? Inpatient E&M: 57744 Init Hosp L3 Procedures: 79488 Advncd Care Plan 30 Min
--- NOTE | 2020-07-08 11:13 | ECHOL_ITS ---
Reason For Study: TIA/CVA Procedure This was a limited 2D transthoracic echocardiogram. Echo done 03/15/20. The study was technically difficult. Limited views were obtained. Exam performed portable in patient room. Left Ventricle Normal LV size. Left ventricular systolic function is normal. The estimated ejection fraction is 55 %. Unable to assess diastolic dysfunction. No regional wall motion abnormalities noted. Right Ventricle Normal RV size. Normal systolic function. Atria The left atrium is moderately enlarged. Normal right atrium. No doppler evidence for ASD. Bubble contrast study negative for right to left interatrial shunt. Mitral Valve There is moderate mitral annular calcification. Mild diffuse mitral valve thickening. Mild focal mitral valve calcification of the anterior leaflet. The mitral valve chordae are thickened and/or calcified. Tricuspid Valve Normal tricuspid valve. Aortic Valve Trisinus/trileaflet aortic valve. Mild focal aortic valve calcification. Pulmonic Valve The pulmonic valve is not well visualized. Pericardium/Pleural No pericardial effusion. Medication Performed a rapid injection of agitated mix of 9 cc saline and 1cc air to assess for atrial septal defect. MMode/2D Measurements & Calculations LVIDd: 5.7 cm IVSd: 1.0 cm LAV(MOD-bp): 88.7 ml LVIDs: 4.7 cm LVPWd: 1.1 cm LAV(MOD-bp) Indexed: 50.5 ml/m2 FS: 17.1 % LAV(MOD-sp2): 125.0 ml LAV(MOD-sp4): 58.2 ml LA A4 area: 19.3 cm2 RA A4 area: 17.0 cm2 Interpretation Summary The study was technically difficult. Limited views were obtained. Left ventricular systolic function is normal. The estimated ejection fraction is 55 %. The left atrium is moderately enlarged. There is moderate mitral annular calcification. Mild diffuse mitral valve thickening. Mild focal mitral valve calcification of the anterior leaflet. The mitral valve chordae are thickened and/or calcified. Mild focal aortic valve calcification. Bubble contrast study negative for right to left interatrial shunt. Unable to assess diastolic dysfunction. Ordering Physician: Roberto Carlos Wu Referring Physician: YASMEEN ABDI Performed By: Micaela Tomas, NIEVESCS, RVT
--- NOTE | 2020-07-08 11:13 | MRI_ITS ---
STUDY: MRI BRAIN WITHOUT CONTRAST REASON FOR EXAM: Female, 80 years old. pt unresponsive, uti TECHNIQUE: Standardized multiplanar fat and water weighted pulse sequences were obtained. COMPARISON: The CT earlier today FINDINGS: There is moderate cerebral atrophy with widening of the extra-axial spaces and ventricular dilatation. There are multiple white matter hyperintensities, distributed throughout the deep white matter tracts of the cerebral hemispheres, consistent with moderate chronic white matter ischemic changes. Focal encephalomalacia and gliosis within the inferior posterior right parietal lobe likely from prior infarct. There is no evidence for recent intracranial ischemia or other cause of cytotoxic edema on diffusion weighted imaging (DWI). Normal T2* images of the brain without demonstrated susceptibility artifact. There is no demonstrated hemosiderin stain. Normal bilateral basal ganglia. Normal thalami. There is no extra-axial fluid accumulation. Normal flow voids within the major intracranial circulation suggesting patency by spin echo criteria. Normal sella turcica, pituitary gland, infundibular stalk, optic chiasm and hypothalamus. Normal tectal plate and pineal gland. Normal midbrain, torrey and medulla. Normal cerebellum. Normal basal cisterns. Normal bilateral temporal bones. Normal bilateral internal auditory canals. There are bilateral ocular lens implants with otherwise normal intraorbital contents. Normal visualized paranasal sinuses. Normal calvarium and skull base. Normal visualized soft tissue structures. Normal visualized upper cervical spine. MRI/Brain without Contrast IMPRESSION: Involutional changes of the brain, as described above. No acute infarct. Electronically Signed: Hermes Campbell MD at 13:29 EST Tel , Service support ,
--- NOTE | 2020-07-08 13:55 | NURSING ---
Spoke w/ pt's to give update; MRI results negative for strok end current mental status unchanged.
[2020-07-08] MEDS: 0.9% Normal Saline 1,000 ML 125 ML IV (22:25)
[2020-07-09] VITALS (19 sets, daily range): BP systolic 129–191; BP diastolic 46–63; PULSE 47–77; RESP 12–18; TEMP 36.2–36.9; O2SAT 96–100
[2020-07-09] MEDS: hydrALAZINE 20 MG/ML Vial 10 MG IV ×2 (01:33→22:33)
[2020-07-09 06:19] LABS: Absolute Lymphocyte Count 0.69 X10^3/uL (0.83-4.51); Absolute Neutrophil Count 5.9 X10^3/uL (2.0-7.7); Basophil# 0.03 X10^3/uL; Basophil% 0.4 % (0-1); Eosinophil# 0.05 X10^3/uL; Eosinophils% 0.7 % (0-5); Hematocrit 37.3 % (37-47); Lymphocyte # 0.69 X10^3/ul (4.0); Lymphocyte % 9.6 % (19-41); Mean Corp Hgb Conc 32.2 g/dL (32-36); Mean Corpuscular Hgb 29.6 pg (27.0-32.0); Mean Corpuscular Volume 92.1 fL (81-99); Mean Platelet Vol. 9.8 fl (6.2-12.0); Monocyte# 0.58 X10^3/uL; NRBC Flagged by Analyzer 0 % (0-5); Neutrophil # 5.86 X10^3/uL (2.7-7.7); Neutrophil % 81.2 % (47-70); Platelet Count 227 K/mm3 (150-450); RBC Distribution Width CV 14.1 % (11.6-14.6); RBC Distribution Width SD 47.6 fl (35.1-43.9); Red Blood Count 4.05 M/mm3 (4.2-5.4); White Blood Count 7.2 K/mm3 (4.4-11.0)
[2020-07-09] MEDS: 0.9% Normal Saline 1,000 ML 125 ML IV ×3 (06:38→22:36)
[2020-07-09 06:52] LABS: Anion Gap 8 (5-15); BUN 22 mg/dL (7-18); BUN/Creat Ratio 32.2 RATIO (10-20); Chloride 108 mmol/L (98-107); Cholesterol 248 mg/dL (200); Creatinine, Serum 0.68 mg/dL (0.55-1.02); EST Glomerular Filtration Rate 88 mL/min (>60); Est Glom Filt Rate - Afr Amer 106 mL/min (>60); Glucose 81 mg/dL (74-106); High Density Lipoprotein 68 mg/dL; Potassium 3.5 mmol/L (3.5-5.1); Sodium Level 137 mmol/L (136-145); Triglycerides 57 mg/dL; Very Low Density Lipoprotein 11 mg/dL (5-40)
--- NOTE | 2020-07-09 07:44 | PN_ITS ---
Patient Problems: Active and Suspected Problems (Last Reviewed 07/08/20 @ 12:[address] Roberto Carlos Wu MD) Hypertensive encephalopathy (Acute) Reason for Visit: Acute encephalopathy Subjective: Patient is an 80-year-old found unresponsive on the morning of admission by her family. Patient was also found to be aphasic brought to the emergency department initial head CT unremarkable found to have markedly elevated blood pressure admitted to a monitored bed for further management Seen significant improvement in her condition. More interactive than before. Knows her name; was able to tell me who her buyer renter is. Blood pressure significantly improved. Patient however remains significantly deconditioned. Subsequently requested for PT OT eval Objective: GENERAL: In no apparent distress HEENT: Atraumatic; EYES; Anicteric, Normal Conjunctiva NECK; supple, normal thyroid, RESPIRATORY: Diminished to auscultation CARDIOVASCULAR: Irregular S1 S2, GI: soft, normoactive bowel sounds, : No Renal angle tenderness; EXTREMITIES: No edema, no clubbing, MUSCULOSKELETAL: no muscle waisting NEURO: Awake with no lateralizing signs SKIN: No Rash PSYCH; Flat affect Vitals/I&O's: Vital Signs Temp Pulse Resp BP Pulse Ox 98.1 F 77 15 129/55 H 96 07/09/20 06:00 07/09/20 06:00 07/09/20 06:00 07/09/20 06:00 07/09/20 06:00 Oxygen Flow Rate (L/min) 2 Oxygen Delivery Method Room Air Weight: 66.9 kg Body Mass Index (BMI) 23.7 Finger Stick Blood Glucose 127 Intake and Output for Last 24 Hours 07/07/20 07/08/20 07/09/20 23:59 23:59 23:59 Intake Total 852.5 / 852.5 1000 / 1000 Output Total 50 / 250 200 / 200 Balance 802.5 / 602.5 800 / 800 Laboratory Results 07/08/20 07:24: PT 13.5, INR 1.1, APTT 24.2 07/08/20 07:24: Sodium 135 L, Potassium 4.4, Chloride 103, Carbon Dioxide 27.0, Anion Gap 5, BUN 23 H, Creatinine 0.93, Estim Creat Clear Calc 44.41, Est GFR (M DRD) Af Amer 74, Est GFR (MDRD) Non-Af 62, BUN/Creatinine Ratio 24.8 H, Glucose 100, Calcium 8.6, Troponin I 0.036 07/08/20 09:00: Urine Color Yellow, Urine Clarity Clear, Urine pH 7.0, Ur Specific Trimble 1.010, Urine Protein 15 H, Urine Glucose (UA) Normal, Urine Ketones Negative, Urine Occult Blood Negative, Urine Nitrite Positive H, Urine Bilirubin Negative, Urine Urobilinogen Normal, Ur Leukocyte Esterase Negative, Urine RBC 0 SEEN, Urine WBC 0 SEEN, Ur Squamous Epith Cells 0 SEEN, Urine Ba cteria 2+, Urine Mucus 0 SEEN 07/08/20 11:36: Troponin I 0.207 H 07/08/20 14:22: Troponin I 0.222 H 07/08/20 17:21: Troponin I 0.223 H 07/09/20 05:54: WBC 7.2, RBC 4.05 L, Hgb 12.0, Hct 37.3, MCV 92.1, MCH 29.6, MCHC 32.2, RDW Std Deviation 47.6 H, RDW Coeff of Pina 14.1, Plt Count 227, MPV 9.8, Immature Gran % (Auto) 0.100, Neut % (Auto) 81.2 H, Lymph % (Auto) 9.6 L, Ogle % (Auto) 8.0, Eos % (Auto) 0.7, Baso % (Auto) 0.4, Absolute Neuts (auto) 5.9, Absolute Lymphs (auto) 0.69 L, Nucleated RBC % 0 07/09/20 05:54: Sodium 137, Potassium 3.5, Chloride 108 H, Carbon Dioxide 21.0, Anion Gap 8, BUN 22 H, Creatinine 0.68, Estim Creat Clear Calc 41.30, Est GFR (MDRD) Af Amer 106, Est GFR (MDRD) Non-Af 88, BUN/Creatinine Ratio 32.2 H, Glucose 81, Calcium 8.0 L, Phosphorus 3.0, Magnesium 2.0, Triglycerides 57, Cholesterol 248 H, LDL Cholesterol 169 H, VLDL Cholesterol 11, HDL Cholesterol 68 Current Medications Acetaminophen (Acetaminophen 325 Mg Tablet) 650 mg PO Q6H PRN PRN PRN Reason: Pain Score 1-5/Temp > 100.7 F Al Hydroxide/Mg Hydroxide (Mag Hydrox/Al Hydrox/Simeth 30 Ml Udc) 30 ml PO Q6H PRN PRN PRN Reason: Gastric Burning Albuterol Sulfate (Albuterol 2.5 Mg/3 Ml Vial.Neb.) 2.5 mg INHALATION Q2H PRN PRN PRN Reason: SOB/Wheezing Amiodarone HCl (Amiodarone 200 Mg Tablet) 100 mg PO DAILY [facility] Carbidopa/Levodopa (Carbidopa/Levodopa 25/100 Tablet) 1.5 tablet PO TIDAC [facility] Last Admin: 07/09/20 06:57 Dose: Not Given Documented by: Carvedilol (Carvedilol 6.25 Mg Tablet) 6.25 mg PO BID [facility] Last Admin: 07/08/20 23:07 Dose: Not Given Documented by: Cholecalciferol (Cholecalciferol (Vit D3) 1,000 Unit (25mcg)) 1 unit PO DAILY [facility] Clopidogrel Bisulfate (Clopidogrel Bisulfate 75 Mg Tablet) 75 mg PO DAILY [facility] Enoxaparin Sodium (Enoxaparin 40 Mg/0.4 Ml Syringe) 40 mg SC DAILY [facility] Furosemide (Furosemide 20 Mg Tablet) 20 mg PO DAILY [facility] Hydralazine HCl (Hydralazine 20 Mg/Ml Vial) 10 mg IV Q4H PRN PRN PRN Reason: Hypertensive Emergency Last Admin: 07/09/20 01:33 Dose: 10 mg Documented by: Sodium Chloride () 500 mls @ 999 mls/hr IV .Q31M ONE Last Infusion: 07/08/20 09:08 Dose: Infused Documented by: Sodium Chloride () 1,000 mls @ 125 mls/hr IV .Q8H [facility] Last Admin: 07/09/20 06:38 Dose: 125 mls/hr Documented by: Labetalol HCl (Labetalol (Prefilled) 20 Mg/4 Ml) 20 mg IV X1 PRN PRN Reason: BLOOD PRESSURE Last Admin: 07/08/20 08:38 Dose: 20 mg Documented by: Labetalol HCl (Labetalol (Prefilled) 20 Mg/4 Ml) 10 - 20 mg IV Q10M PRN PRN PRN Reason: to Maintain BP Goals Levothyroxine Sodium (Levothyroxine 125 Mcg Tablet) 125 mcg PO DAILY@0600 [facility] Last Admin: 07/09/20 04:50 Dose: Not Given Documented by: Losartan Potassium (Losartan Potassium 50 Mg Tablet) 50 mg PO BID [facility] Last Admin: 07/08/20 23:07 Dose: Not Given Documented by: Melatonin (Melatonin 3 Mg Tablet) 3 mg PO QHS PRN PRN PRN Reason: INSOMNIA Nitroglycerin (Nitroglycerin (Inpatient Use) 0.4 Mg Tab.Subl) 0.4 mg SUBLINGUAL Q5M PRN PRN Reason: CARDIAC/CHEST PAIN Ondansetron HCl (Ondansetron 4 Mg/2 Ml Vial) 4 mg IV Q8H PRN PRN PRN Reason: NAUSEA/VOMITING Potassium Chloride (Potassium Chloride 20 Meq Tablet) 20 meq PO DAILY@0800 [facility] Senna (Senna Tablet) 1 tablet PO DAILY [facility] Senna/Docusate Sodium (Senna/Docusate Sodium 1 Tablet) 2 tablet PO BID PRN PRN PRN Reason: Constipation Sodium Chloride (0.9% Saline Lock 10 Ml Syringe) 10 - 40 ml IV UD PRN PRN Reason: SALINE FLUSH STROKE Vital Signs/Narrative: Vital Signs Temp Pulse Resp BP Pulse Ox 07/09/20 06:00 98.1 F 77 15 129/55 H 96 07/09/20 04:00 55 L 15 98 Medical Necessity - Tobacco Use Smoking Status: Never smoker Assessment/Plan All Active Problems (Last Reviewed 07/08/20 @ 12:[address] Roberto Carlos Wu MD) Hypertensive encephalopathy (Acute) Intractable abdominal pain (Resolved) Renal calculus or stone (Resolved) Left ureteral calculus (Resolved) Hydronephrosis (Resolved) Ureteral colic (Resolved) Acute kidney injury (Resolved) Complicated UTI (urinary tract infection) (Resolved) Patient is an 80-year-old found unresponsive on the morning of admission by her family. Patient was also found to be aphasic brought to the emergency department initial head CT unremarkable found to have markedly elevated blood pressure admitted to a monitored bed for further management 1. Acute encephalopathy ?Hypertensive encephalopathy versus acute CVA. Treatment of markedly elevated blood pressure initiated in the ED. Patient admitted to the monitored bed for subsequent management, placed on every 4 neurochecks, antiplatelet therapy with aspirin. Patient was not started on statin therapy due to reported allergy. Also ordered 2D echo and an MRI head. CT angio obtained in the ED was unremarkable -07/09/2020 acute CVA was ruled out with a negative MRI study. Patient condition clinically much improved with patient being more interactive than before. Blood pressure has also stabilized. Paroxysmal A. fib ?Rate controlled on amiodarone, not a candidate for systemic anticoagulation due to significant risk for falls 3. Coronary artery disease ?Status post CABG patient is on recommended medications including antiplatelet ARB and beta-blockers 4. Parkinson's disease ?Stable on Sinemet 5. Hypothyroidism - Patient is on levothyroxine home dose continued 6. Physical deconditioning - Requested for PT OT eval and academic services coordinator to assist with discharge planning 7. DVT prophylaxis - On enoxaparin 2D echo Left ventricular systolic function is normal. The estimated ejection fraction is 55 %. The left atrium is moderately enlarged. There is moderate mitral annular calcification. Mild diffuse mitral valve thickening. Mild focal mitral valve calcification of the anterior leaflet. The mitral valve chordae are thickened and/or calcified. Mild focal aortic valve calcification. Bubble contrast study negative for right to left interatrial shunt. Unable to assess diastolic dysfunction. Clinical Impression(s) from Imaging Studies Chest X-Ray 07/08/20 07:02 IMPRESSION: COPD changes. Slightly prominent interstitial changes at lung bases. Early pulmonary edema is doubtful. Head/Neck CTA 07/08/20 07:08 IMPRESSION: No arterial occlusion, aneurysm or vascular malformation. Individualized dose optimization techniques were used for this CT. Brain MRI 07/08/20 11:13 IMPRESSION: Involutional changes of the brain, as described above. No acute infarct. Inpatient E&M: [id number] [facility] Hosp L2
[2020-07-09] MEDS: Amiodarone 200 MG Tablet 100 MG PO (09:23)
[2020-07-09] MEDS: Losartan Potassium 50 MG Tablet PO ×2 (09:23→20:46)
[2020-07-09] MEDS: Furosemide 20 MG Tablet PO (09:24)
[2020-07-09] MEDS: Clopidogrel Bisulfate 75 MG Tablet PO (09:24)
[2020-07-09] MEDS: Carvedilol 6.25 MG Tablet PO ×2 (09:24→20:46)
[2020-07-09] MEDS: Senna Tablet 1 TABLET PO (09:24)
[2020-07-09] MEDS: Carbidopa/Levodopa 25/100 Tablet PO ×2 (11:49→15:44)
[2020-07-09] MEDS: Enoxaparin 40 MG/0.4 ML Syringe SC (11:52)
[2020-07-09] MEDS: 0.9% Saline Lock 10 ML Syringe IV (16:37)
[2020-07-10] VITALS (10 sets, daily range): BP systolic 122–187; BP diastolic 49–74; PULSE 53–77; RESP 16–17; TEMP 36.6–37.2; O2SAT 96–100
[2020-07-10] MEDS: hydrALAZINE 20 MG/ML Vial 10 MG IV (04:09)
--- NOTE | 2020-07-10 04:57 | NURSING ---
Malgorzata sent to Dr. Randall regarding pts blood pressures this shift. DR. Randall aware no new orders at this time.
[2020-07-10 05:37] LABS: Absolute Lymphocyte Count 1.02 X10^3/uL (0.83-4.51); Absolute Neutrophil Count 4.1 X10^3/uL (2.0-7.7); Basophil# 0.03 X10^3/uL; Basophil% 0.5 % (0-1); Eosinophils% 1.7 % (0-5); Hematocrit 37.5 % (37-47); Hemoglobin 12.2 g/dL (12.0-15.0); Lymphocyte # 1.02 X10^3/ul (4.0); Lymphocyte % 17.4 % (19-41); Mean Corp Hgb Conc 32.5 g/dL (32-36); Mean Corpuscular Hgb 29.8 pg (27.0-32.0); Mean Corpuscular Volume 91.7 fL (81-99); Mean Platelet Vol. 9.7 fl (6.2-12.0); Monocyte# 0.59 X10^3/uL; Monocyte% 10.1 % (0-10); NRBC Flagged by Analyzer 0 % (0-5); Platelet Count 233 K/mm3 (150-450); RBC Distribution Width SD 47.1 fl (35.1-43.9); Red Blood Count 4.09 M/mm3 (4.2-5.4); White Blood Count 5.9 K/mm3 (4.4-11.0)
[2020-07-10 06:03] LABS: Anion Gap 9 (5-15); BUN 17 mg/dL (7-18); BUN/Creat Ratio 26.9 RATIO (10-20); Calcium,Total 8.1 mg/dL (8.5-10.1); Chloride 107 mmol/L (98-107); Creatinine, Serum 0.63 mg/dL (0.55-1.02); EST Glomerular Filtration Rate 96 mL/min (>60); Est Glom Filt Rate - Afr Amer 116 mL/min (>60); Glucose 96 mg/dL (74-106); Potassium 3.5 mmol/L (3.5-5.1); Sodium Level 137 mmol/L (136-145)
[2020-07-10] MEDS: Carbidopa/Levodopa 25/100 Tablet PO ×2 (06:22→11:52)
[2020-07-10] MEDS: Levothyroxine 125 MCG Tablet PO (06:22)
[2020-07-10] MEDS: 0.9% Normal Saline 1,000 ML 125 ML IV ×3 (06:23→22:10)
[2020-07-10] MEDS: Amiodarone 200 MG Tablet 100 MG PO (08:23)
[2020-07-10] MEDS: Clopidogrel Bisulfate 75 MG Tablet PO (08:24)
[2020-07-10] MEDS: Furosemide 20 MG Tablet PO (08:24)
[2020-07-10] MEDS: Carvedilol 6.25 MG Tablet PO ×2 (08:24→21:48)
[2020-07-10] MEDS: Senna Tablet 1 TABLET PO (08:24)
[2020-07-10] MEDS: Losartan Potassium 50 MG Tablet PO ×2 (08:24→21:48)
[2020-07-10] MEDS: Acetaminophen 325 MG Tablet 650 MG PO (08:34)
--- NOTE | 2020-07-10 09:17 | PN_ITS ---
Patient Problems: Active and Suspected Problems (Last Reviewed 07/08/20 @ 12:[address] Roberto Carlos Wu MD) Hypertensive encephalopathy (Acute) Subjective: Mrs. Esquivel is an 80 year old F with multiple comorbidities including Parkinson's disease, paroxysmal A. fib, HPL, and hypothyroidism who was found unresponsive on the morning of admission (07/08) by her family. Patient was also apparently aphasic. She was brought to the emergency department as a result. Patient apparently was noted to have an NIH of 4 however had no lateralizing signs. Head CT was negative for acute CVA. Patient was however found to have markedly elevated systolic blood pressure greater than 200. An assessment of suspected hypertensive encephalopathy made treatment of her acute hypertensive encephalopathy initiated in the ED admitted to a monitored bed for further management. MRI was done and is neg for acute infarct and only showed changes c/w age related changes. An ECHO was done and showed an EF of 55% and LAE, no comments on LV thickness were made. She was placed on her home regimen of Coreg 6.25 BID, Losartan 50 mg BID, and Lasix 20 mg daily but her pressures still remain markedly elevated with a wide pulse pressure (SBP were 169-185 fairly consistently still. Amlodipine was added today 10 mg and would like to see SBP 140-160 prior to d/c with goal <130 ultimately with cardiac hx. Her MS was A&O x 4 on 07/10 but she is significantly bradykinetic with her Parkinson's. She is not safe for d/c home and we recommending d/c to SNF for some rehab prior to d/c home if pt/ agreeable. Precert to be started today and potentially could go tomorrow if BP acceptable and precert obtained. Pt states that she is okay today. Weak overall though. MS is at baseline. PT and OT are at bedside working with pt although effort is lacking this am. PO intake is fair. C/O new neck pain this am and states that she feels like she slept wrong last pm. Vitals/I&O's: Vital Signs Temp Pulse Resp BP Pulse Ox 98.0 F 69 17 187/74 H 98 07/10/20 07:55 07/10/20 07:55 07/10/20 07:55 07/10/20 07:55 07/10/20 07:55 Oxygen Flow Rate (L/min) 2 Oxygen Delivery Method Room Air Weight: 66.9 kg Body Mass Index (BMI) 23.7 Finger Stick Blood Glucose 127 Intake and Output for Last 24 Hours 07/08/20 07/09/20 07/10/20 23:59 23:59 23:59 Intake Total 852.5 / 852.5 3340.42 / 3460.42 1092.92 / 1092.92 Output Total 50 / 250 400 / 400 Balance 802.5 / 602.5 2940.42 / 3060.42 1092.92 / 1092.92 General: Alert, Oriented x3, Cooperative, No apparent distress, Well developed, Well nourished, - - elderly WF who appears much older than age, bradykinetic and affect flat HEENT: Atraumatic, PERRLA, EOMI, Normocephalic, EAC Clear Oral: Moist Mucosa, No Gingival or Mucosal Lesions/ Ulcerations, - - fair dentition Neck: Supple, No JVD, Trachea Midline, Thyroid Normal Size and Texture Lungs: Clear to auscultation, Normal air movement, No rhonchi, No wheeze, No rales Cardiovascular: Regular rate, Regular Rhythm, Normal S1, Normal S2, No murmurs, No Ectopic Activity, No rub noted, No Gallop Abdomen: Bowel Sounds Present, Soft, Non Tender, Non-Distended, No Hepato- splenomegaly Extremities: No clubbing, No cyanosis, No edema, Capillary Refill Less than 3 Seconds, Peripheral Pulses Normal Skin: No rashes, No breakdown, - - pale Musculoskeletal: Arthritic Changes, Muscle Wasting - decreased lean mm mass, Tenderness - neck paraspinals Lymphatic: No Cervical, Supraclavicular, or Inguinal Adenopathy Neurological: Cranial nerves II-XII grossly intact, Deep Tendon Reflexes 2+/4 and Symmetrical, Neuro grossly intact, - - generalized weakness, bradykinetic Psych/Mental Status: Appropriate, Flat Affect Laboratory Results 07/10/20 04:54: WBC 5.9, RBC 4.09 L, Hgb 12.2, Hct 37.5, MCV 91.7, MCH 29.8, MCHC 32.5, RDW Std Deviation 47.1 H, RDW Coeff of Pina 14.0, Plt Count 233, MPV 9.7, Immature Gran % (Auto) 0.300, Neut % (Auto) 70.0, Lymph % (Auto) 17.4 L, Kerr % (Auto) 10.1 H, Eos % (Auto) 1.7, Baso % (Auto) 0.5, Absolute Neuts (auto) 4.1, Absolute Lymphs (auto) 1.02, Nucleated RBC % 0 07/10/20 04:54: Sodium 137, Potassium 3.5, Chloride 107, Carbon Dioxide 21.0, Anion Gap 9, BUN 17, Creatinine 0.63, Estim Creat Clear Calc 41.30, Est GFR (MDRD) Af Amer 116, Est GFR (MDRD) Non-Af 96, BUN/Creatinine Ratio 26.9 H, Glucose 96, Calcium 8.1 L Current Medications Acetaminophen (Acetaminophen 325 Mg Tablet) 650 mg PO Q6H PRN PRN PRN Reason: Pain Score 1-5/Temp > 100.7 F Last Admin: 07/10/20 08:34 Dose: 650 mg Documented by: Al Hydroxide/Mg Hydroxide (Mag Hydrox/Al Hydrox/Simeth 30 Ml Udc) 30 ml PO Q6H PRN PRN PRN Reason: Gastric Burning Albuterol Sulfate (Albuterol 2.5 Mg/3 Ml Vial.Neb.) 2.5 mg INHALATION Q2H PRN PRN PRN Reason: SOB/Wheezing Amiodarone HCl (Amiodarone 200 Mg Tablet) 100 mg PO DAILY [facility] Last Admin: 07/10/20 08:23 Dose: 100 mg Documented by: Amlodipine Besylate (Amlodipine 10 Mg Tablet) 10 mg PO DAILY [facility] Carbidopa/Levodopa (Carbidopa/Levodopa 25/100 Tablet) 1.5 tablet PO TIDAC [facility] Last Admin: 07/10/20 06:22 Dose: 1.5 tablet Documented by: Carvedilol (Carvedilol 6.25 Mg Tablet) 6.25 mg PO BID [facility] Last Admin: 07/10/20 08:24 Dose: 6.25 mg Documented by: Cholecalciferol (Cholecalciferol (Vit D3) 1,000 Unit (25mcg)) 1,000 unit PO DAILY [facility] Last Admin: 07/10/20 08:44 Dose: 1,000 unit Documented by: Clopidogrel Bisulfate (Clopidogrel Bisulfate 75 Mg Tablet) 75 mg PO DAILY [facility] Last Admin: 07/10/20 08:24 Dose: 75 mg Documented by: Enoxaparin Sodium (Enoxaparin 40 Mg/0.4 Ml Syringe) 40 mg SC DAILY [facility] Last Admin: 07/09/20 11:52 Dose: 40 mg Documented by: Furosemide (Furosemide 20 Mg Tablet) 20 mg PO DAILY [facility] Last Admin: 07/10/20 08:24 Dose: 20 mg Documented by: Hydralazine HCl (Hydralazine 20 Mg/Ml Vial) 10 mg IV Q4H PRN PRN PRN Reason: Hypertensive Emergency Last Admin: 07/10/20 04:09 Dose: 10 mg Documented by: Sodium Chloride () 500 mls @ 999 mls/hr IV .Q31M ONE Last Infusion: 07/08/20 09:08 Dose: Infused Documented by: Sodium Chloride () 1,000 mls @ 125 mls/hr IV .Q8H [facility] Last Admin: 07/10/20 06:23 Dose: 125 mls/hr Documented by: Influenza Virus Vaccine Quadrival (Influenza Vaccine (6mos+)/Pf 0.5 Ml Syringe) 0.5 ml IM .ONCE ONE Stop: 07/10/20 10:01 Labetalol HCl (Labetalol (Prefilled) 20 Mg/4 Ml) 20 mg IV X1 PRN PRN Reason: BLOOD PRESSURE Last Admin: 07/08/20 08:38 Dose: 20 mg Documented by: Labetalol HCl (Labetalol (Prefilled) 20 Mg/4 Ml) 10 - 20 mg IV Q10M PRN PRN PRN Reason: to Maintain BP Goals Levothyroxine Sodium (Levothyroxine 125 Mcg Tablet) 125 mcg PO DAILY@0600 [facility] Last Admin: 07/10/20 06:22 Dose: 125 mcg Documented by: Losartan Potassium (Losartan Potassium 50 Mg Tablet) 50 mg PO BID [facility] Last Admin: 07/10/20 08:24 Dose: 50 mg Documented by: Melatonin (Melatonin 3 Mg Tablet) 3 mg PO QHS PRN PRN PRN Reason: INSOMNIA Nitroglycerin (Nitroglycerin (Inpatient Use) 0.4 Mg Tab.Subl) 0.4 mg SUBLINGUAL Q5M PRN PRN Reason: CARDIAC/CHEST PAIN Ondansetron HCl (Ondansetron 4 Mg/2 Ml Vial) 4 mg IV Q8H PRN PRN PRN Reason: NAUSEA/VOMITING Potassium Chloride (Potassium Chloride 20 Meq Tablet) 20 meq PO DAILY@0800 [facility] Last Admin: 07/10/20 08:23 Dose: 20 meq Documented by: Senna (Senna Tablet) 1 tablet PO DAILY [facility] Last Admin: 07/10/20 08:24 Dose: 1 tablet Documented by: Senna/Docusate Sodium (Senna/Docusate Sodium 1 Tablet) 2 tablet PO BID PRN PRN PRN Reason: Constipation Sodium Chloride (0.9% Saline Lock 10 Ml Syringe) 10 - 40 ml IV UD PRN PRN Reason: SALINE FLUSH Last Admin: 07/09/20 16:37 Dose: 10 ml Documented by: STROKE Vital Signs/Narrative: Vital Signs Temp Pulse Resp BP Pulse Ox 07/10/20 07:55 98.0 F 69 17 187/74 H 98 07/10/20 06:51 77 Medical Necessity - Tobacco Use Smoking Status: Never smoker Assessment/Plan All Active Problems (Last Reviewed 07/08/20 @ 12:[address] Roberto Carlos Wu MD) Hypertensive encephalopathy (Acute) Intractable abdominal pain (Resolved) Renal calculus or stone (Resolved) Left ureteral calculus (Resolved) Hydronephrosis (Resolved) Ureteral colic (Resolved) Acute kidney injury (Resolved) Complicated UTI (urinary tract infection) (Resolved) HTN Encephalopathy -SBP > 200 on admission -MS has resolved and is now baseline (A&O x 3) with lower BP although not at goal -MRI and ECHO done and neg Severe HTN -SBP still markedly elevated with SBP 169-185 range but decreasing slowly -only on home meds of Coreg 6.25/lasix 20 mg/ Losartan 50 mg BID -add Amlodipine 10 mg today -short term BP goal is 140-160 but 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
--- NOTE | 2020-07-10 10:09 | CASEMGMT ---
SW met with patient, introduced self and role at [facility]. SW explained to patient that therapy is recommending she go somewhere for rehab. SW asked her if she has ever gone anywhere before and she said she has not. SW asked if she would be willing to go somewhere. She asked if she could have therapy at home. SW told her she could, but she would only get it a couple of times a week and if she went somewhere she would get it daily. SW told her that at this point therapy feels she is too weak to go home. She did not say much of anything so SW asked if SW could call her . She gave SW permission to call her . SW called patient's and introduced self. SW explained that therapy is recommending she go to a nursing home facility for rehab. SW went over some of the facilities that are in network with their insurance. ANGELO told him she wanted to come home and have therapy at home. However, therapy and the physician feel she is too weak to go home at this time. He said he wanted to talk with the doctor. ANGELO told him SW can pass along the message to the doctor. He said he wanted to talk with patient. SW gave him SW's number to call back after he talks with his . Patient's called back and said he cannot het a hold of her. SW went back to patient's room while he was on the phone. ANGELO told him she is sitting up in her chair and the phone is right in front of her. He wanted SW to give SW's phone to patient, however SW declined do do this due to COVID concerns. SW and patient's hung up and he called patient's room phone. SW left the room while she talked. Await return call from patient's . Inés REYES MSW
[2020-07-10] MEDS: amLODIPine 10 MG Tablet PO (10:14)
[2020-07-10] MEDS: Enoxaparin 40 MG/0.4 ML Syringe SC (10:14)
--- NOTE | 2020-07-10 10:21 | NURSING ---
spoke with patient about flu shot and allergy listed. pt states that she is not allergic to the flu vaccine.
--- NOTE | 2020-07-10 10:55 | CASEMGMT ---
ANGELO received a return call from patient's . He said patient wants to go home. ANGELO told him SW understands this, but she is an assist of 2 people. SW asked if there are 2 people in the home to help. He said it would just be him. He asked SW to go back and talk with his again and then call him. He also asked for the doctor to call him. ANGELO told him SW let the physician know and she tried one time, but no one answered. ANGELO told him SW will call him back after talking with patient. SW went back to patient's room to discuss d/c plan. Patient did not say much despite SW trying to get her to discuss going to TCU vs home. SW tried numerous times to get her engaged in conversation. SW asked if she has steps at home and she said she does. SW asked if she would be able to get up those steps and she said no. SW asked her again if she would go to TCU. She eventually said If everyone wants me to. ANGELO received a message from patient's while SW was in the room. He said he has not heard from SW. SW called patient's and let him know SW just left patient's room. SW let him know patient is not happy about it, but she somewhat agreed to go to TCU. He said he still has not heard from the doctor. ANGELO told him that she will try and call him again, but she is seeing patients. ANGELO called Kiara with [facility] referral line and made referral. ANGELO will fax all necessary information to [facility] to obtain approval to move forward with obtaining pre-cert. Inés REYES MSW
[2020-07-10 11:01] LABS: Thyroid Stim Hormone (TSH) 4.83 uIU/mL (0.358-3.74)
--- NOTE | 2020-07-10 14:58 | CASEMGMT ---
ANGELO received a call from Jennifer with [facility]. She got ANGELO's message, but she has not received the fax yet. She will look out for it and let ANGELO know if she does not get it. Jennifer with [facility]: [phone]. Await return call from [facility] to proceed with obtaining pre-cert. Plan: TCU pending insurance approval Inés YOUNG
[2020-07-11] VITALS (7 sets, daily range): BP systolic 120–159; BP diastolic 54–75; PULSE 54–77; RESP 14–18; TEMP 36.6–37.1; O2SAT 95–99
[2020-07-11] MEDS: Carbidopa/Levodopa 25/100 Tablet PO ×2 (06:09→12:44)
[2020-07-11] MEDS: Levothyroxine 125 MCG Tablet PO (06:09)
[2020-07-11] MEDS: 0.9% Normal Saline 1,000 ML 125 ML IV (06:10)
--- NOTE | 2020-07-11 07:33 | CASEMGMT ---
Received a message from Kiara that patient was approved for [facility] TCU. However, patient still needs a COVID test. SW will notify physician today. Inés YOUNG
[2020-07-11 08:23] LABS: Absolute Lymphocyte Count 0.77 X10^3/uL (0.83-4.51); Absolute Neutrophil Count 4.9 X10^3/uL (2.0-7.7); Basophil# 0.01 X10^3/uL; Basophil% 0.2 % (0-1); Eosinophil# 0.02 X10^3/uL; Eosinophils% 0.3 % (0-5); Hematocrit 35.9 % (37-47); Hemoglobin 11.8 g/dL (12.0-15.0); Lymphocyte # 0.77 X10^3/ul (4.0); Lymphocyte % 12.4 % (19-41); Mean Corp Hgb Conc 32.9 g/dL (32-36); Mean Corpuscular Hgb 29.6 pg (27.0-32.0); Mean Platelet Vol. 9.6 fl (6.2-12.0); Monocyte# 0.53 X10^3/uL; Monocyte% 8.5 % (0-10); NRBC Flagged by Analyzer 0 % (0-5); Neutrophil # 4.86 X10^3/uL (2.7-7.7); Neutrophil % 78.4 % (47-70); Platelet Count 217 K/mm3 (150-450); RBC Distribution Width CV 13.8 % (11.6-14.6); RBC Distribution Width SD 45.7 fl (35.1-43.9); Red Blood Count 3.99 M/mm3 (4.2-5.4); White Blood Count 6.2 K/mm3 (4.4-11.0)
[2020-07-11] MEDS: Furosemide 20 MG Tablet PO (08:25)
[2020-07-11] MEDS: amLODIPine 10 MG Tablet PO (08:25)
[2020-07-11] MEDS: Losartan Potassium 50 MG Tablet PO (08:25)
[2020-07-11] MEDS: Carvedilol 6.25 MG Tablet PO (08:26)
[2020-07-11] MEDS: Amiodarone 200 MG Tablet 100 MG PO (08:26)
[2020-07-11] MEDS: Senna Tablet 1 TABLET PO (08:26)
[2020-07-11] MEDS: Enoxaparin 40 MG/0.4 ML Syringe SC (08:26)
[2020-07-11] MEDS: Clopidogrel Bisulfate 75 MG Tablet PO (08:26)
[2020-07-11 08:39] LABS: Anion Gap 8 (5-15); BUN 11 mg/dL (7-18); BUN/Creat Ratio 19.5 RATIO (10-20); Calcium,Total 8.2 mg/dL (8.5-10.1); Chloride 106 mmol/L (98-107); Creatinine, Serum 0.56 mg/dL (0.55-1.02); EST Glomerular Filtration Rate 109 mL/min (>60); Est Glom Filt Rate - Afr Amer 132 mL/min (>60); Glucose 87 mg/dL (74-106); Potassium 2.9 mmol/L (3.5-5.1); Sodium Level 135 mmol/L (136-145)
--- NOTE | 2020-07-11 10:21 | CASEMGMT ---
Patient's COVID test came back negative. She is ready for discharge to TCU. ANGELO called patient's and let him know she will be headed over to TCU today at some point. He asked when and ANGELO told him SW does not have a time yet as SW does not have the discharge orders. He said she needs clothes etc. ANGELO told him he can bring in her belongings and take them to the main entrance. They will get them to her. He said he was going to call his and let her know. Await d/c orders. Plan: d/c to [facility] TCU under skilled level of care. Inés REYES MSW
--- NOTE | 2020-07-11 10:32 | PCM.EXTCARCO ---
- Diet 07/09/20 10:58 Diet: Cardiac - Heart Healthy Food consistency:: Pureed Liquid Consistency:: Regular/Thin Is pt able to select menu?: No Diet Comments: 1:1 close supervision,small bites/sips,meds crushed in puree,upright,alert - Routine Orders/Code Status Enema Type: Fleetz Enema Frequency: Daily PRN Suppository Type: Dulcolax 10mg Suppository Frequency: Daily PRN Routine Lab Work: - - BMP X2 days to reassess potassium Code Status: DNRCC-A - No intubation - Suggestions for Active Care Change Position every (hours): 2 Times a day to sit in chair: 3 - Therapies Physical Therapy: Eval and Treat Occupational Therapy: Eval and Treat - Problem/Diagnosis (1) Hypertensive encephalopathy Status: Acute (2) Essential hypertension Status: Chronic (3) 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 Laz Barreto (4) Atrial fibrillation Status: Chronic (5) Hypercholesterolemia Status: Chronic (6) Hypothyroidism Status: Chronic (7) Parkinson's disease Status: Chronic - Allergies/Procedures Done in Hospital Allergies/Adverse Reactions: Allergies Lskaifb-Fgg-Gfb Reductase Inhibitor Allergy (Verified 06/28/20 10:39) MUSCLE ACHES ALL OVER pravastatin Adverse Reaction (Severe, Verified 06/28/20 10:39) myalgias bones ache all over colesevelam [From WelChol] Adverse Reaction (Intermediate, Verified 06/28/20 10:39) Not effective ezetimibe [From Zetia] Adverse Reaction (Intermediate, Verified 06/28/20 10:39) GI upset Influenza Virus Vaccines Adverse Reaction (Intermediate, Verified 06/28/20 10:39) Visual changes, lightheaded niacin Adverse Reaction (Intermediate, Verified 06/28/20 10:39) sweats Procedures: 2-D Echocardiogram - Type of Care/Length of Stay Estimated LOS: Convalescent Care Less Than 30 days Type of Care Needed: Skilled Rehab Potential: Fair Prognosis: Fair - Additional Orders/Day of Discharge H&P will serve as current which was dated: 07/08/20 Day of Discharge: 07/11/20 - Dietary and Speech Recommendations Dietitian Recommendations/Changes: Will change diet to Cardiac d/t pmhx - consistency per [employer]. - Follow Up Care Primary Care Physician: Louise Garrido MD [Primary Care Provider] - Please follow up with your Primary Care Physician in: 1 Week Please Follow Up With: Chaz Mello MD When: 2-4 weeks, may see ROLLER STAINER/PA for blood pressure follow up
--- NOTE | 2020-07-11 10:38 | PCM.DC.SUM ---
Discharge Date and Diagnosis - Problem List Patient Problems: Active and Suspected Problems (Last Reviewed 07/08/20 @ 12:[address] Roberto Carlos Wu MD) Hypertensive encephalopathy (Acute) Date of Admission: 07/08/20 Date of Discharge: 07/11/20 - Primary Discharge Diagnosis Acute Problems: Active Problems (Last Reviewed 07/08/20 @ 12:[address] Roberto Carlos Wu MD) 1. Hypertensive encephalopathy 2. Severe hypertension 3. Paroxysmal atrial fibrillation 4. Hypothyroidism 5. Elevated troponin 6. CAD with history of CABG 7. Hyperlipidemia 8. Parkinson's disease 9. Debility 10. Vitamin D deficiency - Secondary Discharge Diagnosis Chronic Problems: Chronic Problems (Last Reviewed 07/08/20 @ 12:[address] Roberto Carlos Wu MD) History of renal stent (Chronic 08/27/19) Left kidney, Per Dr. Marine Aguirre; may be removed History of kidney stones (Chronic) History of lithotripsy (Chronic 10/12/19) per Dr. Meyers Urolithiasis (Chronic) Essential hypertension (Chronic) Atherosclerosis of coronary artery of [place] heart without angina pectoris (Chronic) History of cardioversion (Chronic 12/16/18) History of coronary artery bypass graft x 3 (Chronic 08/22/98) [facility] Main [place]:LOPEZ to LAD, left radial to OM of CX and free MYNOR to PDA of RCA per Dr. Laz Barreto History of left heart catheterization (Chronic 09/11/18) Bifurcating LOEPZ graft to the LAD and DIAG is patent with mild to moderate [place] mid/distal LAD 50% stenosis, high risk for PCI given need to traverse down LOPEZ and severe LV dysfunction. Saphenous Vein graft to the RCA previously placed stent is patent, with 75% mid PDA stenosis, not amenable to PCI given need to traverse through graft, then acute angle into PDA, of questionable benefit given severe LV dysfunction Atrial fibrillation (Chronic) Hypercholesterolemia (Chronic) Non-STEMI (non-ST elevated myocardial infarction) (Chronic 09/10/18) Hypothyroidism (Chronic) Parkinson's disease (Chronic) Hospital Course and Treatment Imaging Results: Diagnostic Data Brain CT 07/08/20 07:02 IMPRESSION: No acute intracranial abnormality. Chronic involutional and white matter changes. Individualized dose optimization techniques were used for this CT. at 0723 Reported and signed by: Radha Hudson MD Electronically Signed: Radha Hudson MD at 7:23 EST Tel , Service support , ADDENDUM: 07/08/20 0733 IMPRESSION: No acute intracranial abnormality. Chronic involutional and white matter changes. Individualized dose optimization techniques were used for this CT. at 0723 Reported and signed by: Radha Hudson MD N.B. : The above information has been verbally conveyed by Radha Hudson MD to Faustino Michelle on 07/08/2020 07:26:13 (ET). Electronically Signed: Radha Hudson MD at 7:23 EST Tel , Service support , ADDENDUM: 07/08/20 0736 IMPRESSION: No acute intracranial abnormality. Chronic involutional and white matter changes. Individualized dose optimization techniques were used for this CT. at 0723 Reported and signed by: Radha Hudson MD N.B. : The above information has been verbally conveyed by Radha Hudson MD to Faustino Michelle MD, on 07/08/2020 07:29:51 (ET). Electronically Signed: Radha Hudson MD at 7:23 EST Tel , Service support , Chest X-Ray 07/08/20 07:02 IMPRESSION: COPD changes. Slightly prominent interstitial changes at lung bases. Early pulmonary edema is doubtful. Electronically Signed: Slava Carrasco MD at 8:47 EST Tel , Service support , Head/Neck CTA 07/08/20 07:08 IMPRESSION: No arterial occlusion, aneurysm or vascular malformation. Individualized dose optimization techniques were used for this CT. at 0738 Reported and signed by: Radha Hudson MD Electronically Signed: Radha Hudson MD at 7:38 EST Tel , Service support , ADDENDUM: 07/08/20 0748 IMPRESSION: No arterial occlusion, aneurysm or vascular malformation. Individualized dose optimization techniques were used for this CT. at 0738 Reported and signed by: Radha Hudson MD N.B. : The above information has been verbally conveyed by Radha Hudson MD to Faustino Michelle MD, on 07/08/2020 07:41:25 (ET). Electronically Signed: Radha Hudson MD at 7:38 EST Tel , Service support , ADDENDUM: 07/08/20 0750 IMPRESSION: No arterial occlusion, aneurysm or vascular malformation. Individualized dose optimization techniques were used for this CT. at 0738 Reported and signed by: Radha Hudson MD N.B. : The above information has been verbally conveyed by Radha Hudson MD to Faustino Michelle MD, on 07/08/2020 07:43:14 (ET). Electronically Signed: Radha Hudson MD at 7:38 EST Tel , Service support , Brain MRI 07/08/20 11:13 IMPRESSION: Involutional changes of the brain, as described above. No acute infarct. Electronically Signed: Hermes Campbell MD at 13:29 EST Tel , Service support , Operations: None Procedures: 2-D Echocardiogram Summary of Care Provided: The patient is a 80 year old F admitted 07/08/2020 due to aphasia. 1. Hypertensive encephalopathy-MRI negative. Mental status at baseline with improvement of BP. Echocardiogram demonstrates an EF of 55%. Continue BP monitoring at SNF. 2. Severe hypertension-continue home Coreg, Lasix, losartan. Additionally started on amlodipine 10 mg daily. Blood pressure improved. Follow-up with cardiology in 2 to 4 weeks for blood pressure follow-up. 3. Paroxysmal atrial fibrillation-on amiodarone. Not on anticoagulation due to fall risk. 4. Hypothyroidism-continue Synthroid. 5. Elevated troponin-demand ischemia related to #2. Echo as noted above. Recommend outpatient stress which can be arranged by PCP/cardiology. 6. CAD with history of CABG-continue Plavix, carvedilol. 7. Hyperlipidemia-statin allergy. 8. Parkinson's disease-continue Sinemet. PT/OT. 9. Debility-SNF at discharge for continued PT/OT. 10. Vitamin D deficiency-continue supplementation. Patient seen and examined prior to discharge. Physical assessment as noted below. Patient is stable for discharge with follow up recommendations as noted above. This patient was seen by FAUZIA Dockery under the supervision of Dr. Randall. Patient Problems: Active and Suspected Problems (Last Reviewed 07/08/20 @ 12:[address] Roberto Carlos Wu MD) Hypertensive encephalopathy (Acute) - Physical Exam Vitals/I&O's: Vital Signs Temp Pulse Resp BP Pulse Ox 97.9 F 59 L 14 120/72 96 07/11/20 08:27 07/11/20 08:27 07/11/20 08:27 07/11/20 08:27 07/11/20 08:27 Oxygen Flow Rate (L/min) 2 Oxygen Delivery Method Room Air Weight: 147 lb 7.828 oz Body Mass Index (BMI) 23.7 Finger Stick Blood Glucose 127 Intake and Output for Last 24 Hours 07/09/20 07/10/20 07/11/20 23:59 23:59 23:59 Intake Total 3340.42 / 3460.42 3452.51 / 3452.51 831.25 / 831.25 Output Total 400 / 400 950 / 950 500 / 500 Balance 2940.42 / 3060.42 2502.51 / 2502.51 331.25 / 331.25 General: Alert, Oriented x3, Cooperative HEENT: Atraumatic, PERRLA, EOMI, Normocephalic Neck: Supple, No JVD, Negative Carotid Bruits Lungs: Clear to auscultation, Normal air movement Cardiovascular: Regular rate, No murmurs Abdomen: Bowel Sounds Present, Soft, Non Tender Extremities: No clubbing, No cyanosis, No edema, Capillary Refill Less than 3 Seconds Skin: No rashes, No breakdown Musculoskeletal: No Tenderness to Palpation of Joints or Extremities, Cachexia, Muscle Wasting Neurological: Cranial nerves II-XII grossly intact, Neuro grossly intact Psych/Mental Status: Flat Affect Microbiology Past 72 Hours 07/11/20 08:50 Mucosa - Nasopharyngeal SARS-CoV-2 Antigen (Rapid) - Final Laboratory Results 07/10/20 04:54: TSH 4.83 H 07/11/20 07:43: Sodium 135 L, Potassium 2.9 L, Chloride 106, Carbon Dioxide 21.0, Anion Gap 8, BUN 11, Creatinine 0.56, Estim Creat Clear Calc 41.30, Est GFR (MDRD) Af Amer 132, Est GFR (MDRD) Non-Af 109, BUN/Creatinine Ratio 19.5, Glucose 87, Calcium 8.2 L 07/11/20 07:43: WBC 6.2, RBC 3.99 L, Hgb 11.8 L, Hct 35.9 L, MCV 90.0, MCH 29.6, MCHC 32.9, RDW Std Deviation 45.7 H, RDW Coeff of Pina 13.8, Plt Count 217, MPV 9.6, Immature Gran % (Auto) 0.200, Neut % (Auto) 78.4 H, Lymph % (Auto) 12.4 L, [place] % (Auto) 8.5, Eos % (Auto) 0.3, Baso % (Auto) 0.2, Absolute Neuts (auto) 4.9, Absolute Lymphs (auto) 0.77 L, Nucleated RBC % 0 Current Medications Acetaminophen (Acetaminophen 325 Mg Tablet) 650 mg PO Q6H PRN PRN PRN Reason: Pain Score 1-5/Temp > 100.7 F Last Admin: 07/10/20 08:34 Dose: 650 mg Documented by: Al Hydroxide/Mg Hydroxide (Mag Hydrox/Al Hydrox/Simeth 30 Ml Udc) 30 ml PO Q6H PRN PRN PRN Reason: Gastric Burning Albuterol Sulfate (Albuterol 2.5 Mg/3 Ml Vial.Neb.) 2.5 mg INHALATION Q2H PRN PRN PRN Reason: SOB/Wheezing Amiodarone HCl (Amiodarone 200 Mg Tablet) 100 mg PO DAILY [facility] Last Admin: 07/11/20 08:26 Dose: 100 mg Documented by: Amlodipine Besylate (Amlodipine 10 Mg Tablet) 10 mg PO DAILY [facility] Last Admin: 07/11/20 08:25 Dose: 10 mg Documented by: Carbidopa/Levodopa (Carbidopa/Levodopa 25/100 Tablet) 1.5 tablet PO TIDAC [facility] Last Admin: 07/11/20 06:09 Dose: 1.5 tablet Documented by: Carvedilol (Carvedilol 6.25 Mg Tablet) 6.25 mg PO BID [facility] Last Admin: 07/11/20 08:26 Dose: 6.25 mg Documented by: Cholecalciferol (Cholecalciferol (Vit D3) 1,000 Unit (25mcg)) 1,000 unit PO DAILY [facility] Last Admin: 07/11/20 08:26 Dose: 1,000 unit Documented by: Clopidogrel Bisulfate (Clopidogrel Bisulfate 75 Mg Tablet) 75 mg PO DAILY [facility] Last Admin: 07/11/20 08:26 Dose: 75 mg Documented by: Enoxaparin Sodium (Enoxaparin 40 Mg/0.4 Ml Syringe) 40 mg SC DAILY [facility] Last Admin: 07/11/20 08:26 Dose: 40 mg Documented by: Furosemide (Furosemide 20 Mg Tablet) 20 mg PO DAILY [facility] Last Admin: 07/11/20 08:25 Dose: 20 mg Documented by: Hydralazine HCl (Hydralazine 20 Mg/Ml Vial) 10 mg IV Q4H PRN PRN PRN Reason: Hypertensive Emergency Last Admin: 07/10/20 04:09 Dose: 10 mg Documented by: Sodium Chloride () 500 mls @ 999 mls/hr IV .Q31M ONE Last Infusion: 07/08/20 09:08 Dose: Infused Documented by: Sodium Chloride () 1,000 mls @ 125 mls/hr IV .Q8H [facility] Last Admin: 07/11/20 06:10 Dose: 125 mls/hr Documented by: Labetalol HCl (Labetalol (Prefilled) 20 Mg/4 Ml) 20 mg IV X1 PRN PRN Reason: BLOOD PRESSURE Last Admin: 07/08/20 08:38 Dose: 20 mg Documented by: Labetalol HCl (Labetalol (Prefilled) 20 Mg/4 Ml) 10 - 20 mg IV Q10M PRN PRN PRN Reason: to Maintain BP Goals Levothyroxine Sodium (Levothyroxine 125 Mcg Tablet) 125 mcg PO DAILY@0600 [facility] Last Admin: 07/11/20 06:09 Dose: 125 mcg Documented by: Losartan Potassium (Losartan Potassium 50 Mg Tablet) 50 mg PO BID [facility] Last Admin: 07/11/20 08:25 Dose: 50 mg Documented by: Melatonin (Melatonin 3 Mg Tablet) 3 mg PO QHS PRN PRN PRN Reason: INSOMNIA Nitroglycerin (Nitroglycerin (Inpatient Use) 0.4 Mg Tab.Subl) 0.4 mg SUBLINGUAL Q5M PRN PRN Reason: CARDIAC/CHEST PAIN Ondansetron HCl (Ondansetron 4 Mg/2 Ml Vial) 4 mg IV Q8H PRN PRN PRN Reason: NAUSEA/VOMITING Potassium Chloride (Potassium Chloride 20 Meq Tablet) 20 meq PO DAILY@0800 [facility] Last Admin: 07/11/20 08:26 Dose: 20 meq Documented by: Senna (Senna Tablet) 1 tablet PO DAILY [facility] Last Admin: 07/11/20 08:26 Dose: 1 tablet Documented by: Senna/Docusate Sodium (Senna/Docusate Sodium 1 Tablet) 2 tablet PO BID PRN PRN PRN Reason: Constipation Sodium Chloride (0.9% Saline Lock 10 Ml Syringe) 10 - 40 ml IV UD PRN PRN Reason: SALINE FLUSH Last Admin: 11/08/20 16:37 Dose: 10 ml Documented by: Home Medications: Medications to take at Discharge Cholecalciferol (Vitamin D3) [Vitamin D3] 1 tab PO DAILY 06/14/13 Levothyroxine [Synthroid] 125 mcg PO DAILY 06/14/13 Multivit-Min/FA/Lycopene/Lut [Centrum Silver Tablet] 1 ea PO DAILY 06/14/13 [place]-3 Fatty Acids [Fish Oil] 2,000 mg PO BID 06/14/13 Carbidopa/Levodopa [Carbidopa-Levodopa 25-100 Tab] 1.5 tab PO TID 09/09/18 L.acidoph,Paracasei, B.lactis [Probiotic] 1 ea PO DAILY 09/09/18 Ubidecarenone [Coq-10] 200 mg PO DAILY 09/09/18 Potassium Chloride [K-Dur] 20 meq PO DAILY 08/25/19 Acetaminophen [Tylenol Tablet] 650 mg PO Q6H PRN PRN tab 08/28/19 clopidogrel 75 mg tablet 75 mg PO DAILY #90 tab 11/15/19 carvedilol 6.25 mg tablet 6.25 mg PO BID #180 tab 12/29/19 losartan 50 mg tablet 50 mg PO BID 02/22/20 amiodarone 200 mg tablet 100 mg PO DAILY #90 tab 06/28/20 furosemide 20 mg tablet 20 mg PO DAILY tab 06/28/20 Senna [Senokot] 1 tab PO DAILY 07/08/20 Amlodipine [Norvasc] 10 mg PO DAILY tab 07/11/20 Primary Care Physician: Louise Garrido MD [Primary Care Provider] - Please follow up with your Primary Care Physician in: 1 Week Please Follow Up With: Chaz Mello MD When: 2-4 weeks, may see TUBE MOUNTER/PA for blood pressure follow up Disposition: Halfway facility Minutes spent on discharge:: 35 Patient Condition:: Stable Medical Necessity - Tobacco Use Smoking Status: Never smoker Meaningful Use Info Meaningful Use Diagnoses (Choose all that apply): None applicable
--- NOTE | 2020-07-11 11:27 | CASEMGMT ---
COVID test received. SW copied orders and placed in chart. Plan: [facility] under skilled level of care. Inés [employer]
== END 2020-07-11 13:11 | disposition skilled nursing facility (03) | DRG 78 ==
LOC: ED 08:30 → PCU 10:17
PROVIDERS: Internal Medicine; Admitting Provider Internal Medicine; Emergency Provider Emergency Medicine; PCP Internal Medicine; Visit Provider Family Medicine
DX: I67.4 Hypertensive encephalopathy (principal); I24.8 Other forms of acute ischemic heart disease; R47.01 Aphasia; I11.9 Hypertensive heart disease without heart failure; I48.0 Paroxysmal atrial fibrillation; G20 Parkinson's disease; F02.80 Dementia in other diseases classified elsewhere, unspecified severity, without behavioral disturbance, psychotic disturbance, mood disturbance, and anxiety; I25.10 Atherosclerotic heart disease of native coronary artery without angina pectoris; E03.9 Hypothyroidism, unspecified; E78.5 Hyperlipidemia, unspecified; E55.9 Vitamin D deficiency, unspecified; Z79.02 Long term (current) use of antithrombotics/antiplatelets; Z79.890 Hormone replacement therapy; Z79.899 Other long term (current) drug therapy; I25.2 Old myocardial infarction; Z95.5 Presence of coronary angioplasty implant and graft; Z95.1 Presence of aortocoronary bypass graft; Z23 Encounter for immunization
CPT/HCPCS: 36415; 70450; 70496; 70498; 70551; 71045; 80048; 80061; 81001; 83735; 84100; 84443; 84484; 85025; 85610; 85730; 87426; 92526; 92610; 93005; 93308; 94762; 97110; 97116; 97162; 97166; 97530; 97535; 97802; 99285; G0008; J7030; J7050; Q9967; 90686; A4216

== ENCOUNTER 2020-07-11 13:50 | Inpatient (IN) | payer MEDICARE, SELFPAY ==
[2020-07-08 10:45] VITALS: BMI 23.7
[2020-07-11 13:56] VITALS: PULSE 52; O2SAT 97; BMI 25.3
[2020-07-11 14:06] VITALS: BP 131/51; PULSE 52; RESP 17; TEMP 36.5; O2SAT 97
[2020-07-11 14:07] VITALS: BP 131/51; PULSE 52; RESP 17; TEMP 36.5; O2SAT 97
[2020-07-11] MEDS: Carbidopa/Levodopa 25/100 Tablet PO (18:25)
[2020-07-11] MEDS: Carvedilol 6.25 MG Tablet PO (18:29)
[2020-07-11] MEDS: Losartan Potassium 50 MG Tablet PO (18:29)
--- NOTE | 2020-07-11 19:31 | HP.PCM_ITS ---
Problem List (1) Debility Status: Acute (2) Unresponsive Status: Acute (3) Hypertensive emergency Status: Acute (4) Encephalopathy Status: Acute (5) Carotid artery stenosis Status: Chronic (6) Parkinson's disease dementia Status: Chronic (7) Coronary artery disease Status: Chronic (8) Hypertension Status: Chronic (9) Hyperlipidemia Status: Chronic (10) Renal calculus or stone Status: Chronic (11) Atrial fibrillation Status: Chronic (12) Hypothyroidism Status: Chronic (13) Parkinson's disease Status: Chronic History of Present Illness Date of Admission: 07/11/20 Chief Complaint: Here for rehabilitation, strengthening, prior to discharge home with family. The patient is a 80 year old Female with below past medical history presented to [facility] Emergency Department with unresponsive episode. 07/08/20 CT brain chronic involutional changes. 07/08/20 Chest X-ray COPD, slight interstitial changes lung bases. 07/08/20 EKG, sinus rhythm, T wave abnormality, consider inferior ischemia, T wave abnormality, consider anterolateral ischemia. 07/08/20 CT head/neck, 70% stenosis right proximal internal carotid artery. Expressive aphasia, systolic blood pressure 201. Airway okay. No large vessel occlusion. Labetalol given for blood pressure 220, improved to 180. Moving all 4 extremities. 07/08/20 Admit to Hospital. Encephalopathy secondary to stroke versus elevated blood pressure. Aspirin given for antiplatelet agent. No anticoagulation for atrial fibrillation secondary to falls. 07/08/20 MRI brain negative for stroke. 07/08/20 Echo Left ventricular systolic function normal. EF 55% Bubble study negative for shunt. 07/09/20 Patient clinically improved. 07/10/20 Hypertensive emergency resolved. Add Amlodipine 10MG daily to better control blood pressure. 07/11/20 Admit to TCU with debility, here for rehabilitation, strengthening, prior to discharge home with family. Past Medical History Past Medical History (Chronic Problems): Chronic Problems (Last Reviewed 07/08/20 @ 12:[address] Roberto Carlos Wu MD) Carotid artery stenosis (Chronic) Parkinson's disease dementia (Chronic) Coronary artery disease (Chronic) Hypertension (Chronic) Hyperlipidemia (Chronic) History of renal stent (Chronic 08/27/19) Left kidney, Per Dr. Marine Aguirre; may be removed History of kidney stones (Chronic) History of lithotripsy (Chronic 10/12/19) per Dr. 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 Laz Barreto History of left heart catheterization (Chronic 09/11/18) Bifurcating LOPEZ graft to the LAD and DIAG is patent with mild to moderate [place] mid/distal LAD 50% stenosis, high risk for PCI given need to traverse down LOPEZ and severe LV dysfunction. Saphenous Vein graft to the RCA previously placed stent is patent, with 75% mid PDA stenosis, not amenable to PCI given need to traverse through graft, then acute angle into PDA, of questionable benefit given severe LV dysfunction Atrial fibrillation (Chronic) Hypercholesterolemia (Chronic) Non-STEMI (non-ST elevated myocardial infarction) (Chronic 09/10/18) Hypothyroidism (Chronic) Parkinson's disease (Chronic) Medical History: Medical History (Last Reviewed 07/08/20 @ 12:[address] Roberto Carlos Wu MD) History of kidney stones (Chronic) Z87.442 Essential hypertension (Chronic) I10 Atherosclerosis of coronary artery of [place] heart without angina pectoris (Chronic) I25.10 Atrial fibrillation (Chronic) I48.91 Hypercholesterolemia (Chronic) E78.00 Non-STEMI (non-ST elevated myocardial infarction) (Chronic) Onset Date: 09/10/18 I21.4 Hypothyroidism (Chronic) E03.9 Parkinson's disease (Chronic) G20 Allergies Vnmcoaq-Mgp-Keo Reductase Inhibitor Allergy (Verified 06/28/20 10:39) MUSCLE ACHES ALL OVER pravastatin Adverse Reaction (Severe, Verified 06/28/20 10:39) myalgias bones ache all over colesevelam [From WelChol] Adverse Reaction (Intermediate, Verified 06/28/20 10:39) Not effective ezetimibe [From Zetia] Adverse Reaction (Intermediate, Verified 06/28/20 10:39) GI upset Influenza Virus Vaccines Adverse Reaction (Intermediate, Verified 06/28/20 10:39) Visual changes, lightheaded niacin Adverse Reaction (Intermediate, Verified 06/28/20 10:39) sweats Home Medications: Ambulatory Orders Medication Instructions Recorded Cholecalciferol (Vitamin D3) 1 tab PO DAILY 06/14/13 [Vitamin D3] Levothyroxine [Synthroid] 125 mcg PO DAILY 06/14/13 Multivit-Min/FA/Lycopene/Lut 1 ea PO DAILY 06/14/13 [Centrum Silver Tablet] [place]-3 Fatty Acids [Fish Oil] 2,000 mg PO BID 06/14/13 Carbidopa/Levodopa 1.5 tab PO TID 09/09/18 [Carbidopa-Levodopa 25-100 Tab] L.acidoph,Paracasei, B.lactis 1 ea PO DAILY 09/09/18 [Probiotic] Ubidecarenone [Coq-10] 200 mg PO DAILY 09/09/18 Potassium Chloride [K-Dur] 20 meq PO DAILY 08/25/19 Acetaminophen [Tylenol Tablet] 650 mg PO Q6H PRN PRN tab 08/28/19 clopidogrel 75 mg tablet 75 mg PO DAILY #90 tab 11/15/19 losartan 50 mg tablet 50 mg PO BID 02/22/20 amiodarone 200 mg tablet 100 mg PO DAILY #90 tab 06/28/20 furosemide 20 mg tablet 20 mg PO DAILY tab 06/28/20 Senna [Senokot] 1 tab PO DAILY 07/08/20 Amlodipine [Norvasc] 10 mg PO DAILY 07/11/20 Carvedilol 6.25 mg PO BID 07/11/20 Surgical History: Surgical History (Last Reviewed 07/08/20 @ 12:[address] Roberto Carlos Wu MD) History of renal stent (Chronic) Onset Date: 08/27/19 Left kidney, Per Dr. Marine Aguirre; may be removed History of lithotripsy (Chronic) Onset Date: 10/12/[address] Meyers History of cardioversion (Chronic) Onset Date: 12/16/18 Z98.890 History of coronary artery bypass graft x 3 (Chronic) Onset Date: 08/22/98 Z95.1 [facility] [place]:LOPEZ to LAD, left radial to OM of CX and free MYNOR to PDA of RCA per Dr. Laz Barreto History of laparoscopic cholecystectomy Onset Date: 06/15/[address] Kulwinder Rosas; umbilical hernia repair done concomitantly with lap cholecystectomy History of tubal ligation Onset Date: 1969 Z98.51 History of umbilical hernia repair Onset Date: 06/15/13 Z98.890, Z87.[address] Kulwinder Rosas, concomitant with laparascopic cholecystectomy History of varicose vein stripping Onset Date: 1971 Z98.890 Bilateral Surgical History: cholecystectomy - Laparoscopic., coronary bypass surgery - x 3, 15 years ago, herniorrhaphy - Umbilical., - - Vein stripping in both legs, tubal ligation, electrocardioversion, left renal stent. Psychiatric History: No pertinent psych hx [employer] History: No pertinent [employer] history Lives: With Family Smoking Status: Never smoker Tobacco Use: Non-smoker Alcohol: None Drugs: None - *Family History Paternal Family History: Family History (Last Reviewed 07/08/20 @ 12:[address] Roberto Carlos Wu MD) Sister Alzheimer's disease History Items: Heart Disease, Hypertension, Stroke Review of Systems Constitutional: Denies: Chills, Fever, Weight Change HEENT: Denies: Head Aches, Sinus Congestion, Sinus Drainage Cardiovascular: Denies: Chest Pain, Palpitations Respiratory: Denies: Cough, Shortness of breath at rest, Sputum production Gastrointestinal: Denies: Abdominal Pain, Nausea, Vomiting Genitourinary: Denies: Dysuria Musculoskeletal: Denies: Joint Pain, Joint Tenderness Skin: Denies: Rash, Wounds Neurological: Denies: Numbness, Tingling, Focal weakness Psychiatric: Denies: Anxiety, Depression, Homicidal Ideations, Suicidal Ideations Hematologic/ Lymphatic: Denies: Easy Bruising, Easy Bleeding VTE Information - Inpt Only VTE Present on Admission: No VTE Mechan Device Prophylaxis: Knee High PAL Hose VTE Pharm Prophylaxis ordered?: No Reason prophylaxis not ordered:: Medical Contraindication Patient Problems: Active and Suspected Problems (Last Reviewed 07/08/20 @ 12:[address] Roberto Carlos Wu MD) Debility (Acute) Unresponsive (Acute) Hypertensive emergency (Acute) Encephalopathy (Acute) - Physical Exam Vitals/I&O's: Vital Signs Temp Pulse Resp BP Pulse Ox 97.7 F L 52 L 17 131/51 H 97 07/11/20 14:07 07/11/20 14:07 07/11/20 14:07 07/11/20 14:07 07/11/20 14:07 Oxygen Delivery Method Room Air Weight: 66.95 kg Body Mass Index (BMI) 25.3 Finger Stick Blood Glucose 127 Intake and Output for Last 24 Hours 07/09/20 07/10/20 07/11/20 23:59 23:59 23:59 Intake Total 240 / 240 Balance 240 / 240 General: Alert, Oriented x3, Cooperative HEENT: Atraumatic, PERRLA, EOMI, Normocephalic Neck: Supple, No JVD, Negative Carotid Bruits Lungs: Clear to auscultation, Normal air movement Cardiovascular: Regular rate, No murmurs Abdomen: Bowel Sounds Present, Soft, Non Tender Extremities: No edema, Capillary Refill Less than 3 Seconds Skin: No rashes, No breakdown Musculoskeletal: No Tenderness to Palpation of Joints or Extremities Neurological: Cranial nerves II-XII grossly intact Psych/Mental Status: Normal Affect, Appropriate Current Medications Acetaminophen (Acetaminophen 325 Mg Tablet) 650 mg PO Q6H PRN PRN PRN Reason: Pain Score 1-10/Temp > 100.7 F Amiodarone HCl (Amiodarone 200 Mg Tablet) 100 mg PO DAILY [facility] Amlodipine Besylate (Amlodipine 10 Mg Tablet) 10 mg PO DAILY [facility] Carbidopa/Levodopa (Carbidopa/Levodopa 25/100 Tablet) 1.5 tablet PO TIDAC [facility] Last Admin: 07/11/20 18:25 Dose: 1.5 tablet Documented by: Carvedilol (Carvedilol 6.25 Mg Tablet) 6.25 mg PO BID [facility] Last Admin: 07/11/20 18:29 Dose: 6.25 mg Documented by: Cholecalciferol (Cholecalciferol (Vit D3) 1,000 Unit (25mcg)) 1,000 unit PO DAILY [facility] Clopidogrel Bisulfate (Clopidogrel Bisulfate 75 Mg Tablet) 75 mg PO DAILY [facility] Furosemide (Furosemide 20 Mg Tablet) 20 mg PO DAILY [facility] Lactobacillus Acidophilus (Lactobacillus Acidophilus) 1 tablet PO DAILY [facility] Levothyroxine Sodium (Levothyroxine 125 Mcg Tablet) 125 mcg PO DAILY [facility] Losartan Potassium (Losartan Potassium 50 Mg Tablet) 50 mg PO BID [facility] Last Admin: 07/11/20 18:29 Dose: 50 mg Documented by: Multivitamins/Minerals (Multivitamins,Ther W-Minerals Tablet) 1 tablet PO DAILY@0800 [facility] Nutritional Formula (Lactose Free) (Ensure Enlive 120 Ml Liquid) 120 ml PO 4X/DAY ALEJANDRA Last Admin: 07/11/20 18:23 Dose: 120 ml Documented by: Potassium Chloride (Potassium Chloride 20 Meq Tablet) 20 meq PO DAILY ALEJANDRA Senna (Senna Tablet) 1 tablet PO DAILY LAEJANDRA Tuberculin PPD (Tuberculin,Purif.Prot.Deriv. 50 Tu/Ml Vial) 5 tu ID X1 ONE Stop: 07/12/20 10:01 Tuberculin PPD (Tuberculin,Purif.Prot.Deriv. 50 Tu/Ml Vial) 5 tu ID X1 ONE Stop: 07/19/20 10:01 Assessment/Plan All Active Problems (Last Reviewed 07/08/20 @ 12:[address] Roberto Carlos Wu MD) Hypertensive encephalopathy (Acute) Debility (Acute) Unresponsive (Acute) Hypertensive emergency (Acute) Encephalopathy (Acute) Intractable abdominal pain (Resolved) Left ureteral calculus (Resolved) Hydronephrosis (Resolved) Ureteral colic (Resolved) Acute kidney injury (Resolved) Complicated UTI (urinary tract infection) (Resolved) 80 year old female with below past medical history hospitalized for encephalopathy secondary to hypertensive emergency, stroke ruled out, admitted to TCU with debility, here for rehabilitation, strengthening, prior to discharge home with family. * Debility - PT/OT. * Dysphagia - ST. * Pain - Tylenol 1000MG Q6H PRN pain (1-10). * Bowel - Miralax 17GM daily, Senna/colace 1 tablet BID, MOM 30ML daily PRN, Dulcolax 10MG ME daily PRN. * Adult immunization - Administer Prevnar 13, Pneumovax 23, Fluzone as appropriate. * DVT prophylaxis - Hold, risk of falls. * Hypertension - Coreg 6.25MG BID, Losartan 50MG BID, Amlodipine 10MG daily. * Atrial fibrillation - Coreg 6.25MG BID, Amiodarone 100MG daily, anticoagulation held due to risk of falls. * Parkinson Disease - Sinemet 25/100MG 1.5 TIDAC. * Vitamin D deficiency - D3 1000IU daily. * Coronary Artery Disease - Coreg 6.25MG BID, Losartan 50MG BID, Plavix 75MG daily. * Nutrition - Ensure Enlive 120ML 4x/day, MVI daily. * Edema - Lasix 20MG daily. * GI prophylaxis - Lactobacillus 1 tablet daily. * Hypothyroidism - Levothyroxine 125MCG daily. * Hypokalemia - KCL 20MEQ daily.
[2020-07-12 06:01] LABS: Absolute Lymphocyte Count 0.97 X10^3/uL (0.83-4.51); Absolute Neutrophil Count 3.3 X10^3/uL (2.0-7.7); Basophil# 0.02 X10^3/uL; Basophil% 0.4 % (0-1); Eosinophil# 0.06 X10^3/uL; Eosinophils% 1.2 % (0-5); Hematocrit 36.2 % (37-47); Hemoglobin 12.2 g/dL (12.0-15.0); Lymphocyte # 0.97 X10^3/ul (4.0); Lymphocyte % 19.8 % (19-41); Mean Corp Hgb Conc 33.7 g/dL (32-36); Mean Corpuscular Hgb 30.2 pg (27.0-32.0); Mean Corpuscular Volume 89.6 fL (81-99); Mean Platelet Vol. 9.3 fl (6.2-12.0); Monocyte# 0.53 X10^3/uL; Monocyte% 10.8 % (0-10); NRBC Flagged by Analyzer 0 % (0-5); Neutrophil # 3.31 X10^3/uL (2.7-7.7); Neutrophil % 67.6 % (47-70); Platelet Count 218 K/mm3 (150-450); RBC Distribution Width CV 13.6 % (11.6-14.6); RBC Distribution Width SD 44.5 fl (35.1-43.9); Red Blood Count 4.04 M/mm3 (4.2-5.4); White Blood Count 4.9 K/mm3 (4.4-11.0)
[2020-07-12 06:21] LABS: Anion Gap 9 (5-15); BUN 13 mg/dL (7-18); BUN/Creat Ratio 21.4 RATIO (10-20); Calcium,Total 8.3 mg/dL (8.5-10.1); Chloride 103 mmol/L (98-107); Creatinine, Serum 0.61 mg/dL (0.55-1.02); EST Glomerular Filtration Rate 100 mL/min (>60); Est Glom Filt Rate - Afr Amer 121 mL/min (>60); Glucose 93 mg/dL (74-106); Potassium 3.5 mmol/L (3.5-5.1); Sodium Level 134 mmol/L (136-145)
[2020-07-12 06:37] VITALS: BP 164/67; PULSE 61; RESP 18; TEMP 37; O2SAT 95
[2020-07-12] MEDS: Amiodarone 200 MG Tablet 100 MG PO (06:40)
[2020-07-12] MEDS: Carvedilol 6.25 MG Tablet PO ×2 (06:41→17:17)
[2020-07-12] MEDS: Losartan Potassium 50 MG Tablet PO ×2 (06:41→17:17)
[2020-07-12] MEDS: Furosemide 20 MG Tablet PO (06:42)
[2020-07-12] MEDS: Levothyroxine 125 MCG Tablet PO (06:43)
[2020-07-12] MEDS: Clopidogrel Bisulfate 75 MG Tablet PO (06:43)
[2020-07-12] MEDS: amLODIPine 10 MG Tablet PO (06:43)
[2020-07-12] MEDS: Carbidopa/Levodopa 25/100 Tablet PO ×3 (06:44→16:11)
[2020-07-12] MEDS: Senna/Docusate Sodium 1 Tablet PO ×2 (06:49→17:17)
[2020-07-12] MEDS: Menthol/Lanolin/Calamine/Znox 113 GM Tube 1 APPLIC TOPICAL ×2 (06:49→17:17)
[2020-07-12] MEDS: Polyethylene Glycol 3350 17 GM PACKET PO (06:49)
[2020-07-12] MEDS: Multivitamins,Ther W-Minerals Tablet 1 TABLET PO (07:49)
[2020-07-12] MEDS: Tuberculin,Purif.prot.deriv. 50 TU/ML Vial 5 ML ID (10:51)
--- NOTE | 2020-07-12 13:31 | CASEMGMT ---
Social Work Discussed patient's code status. Pt confirmed DNR-CCA, no intubation. MOLST form reviewed, communication given to Dr, placed on chart. Val Garcia, PARTY HOST[employer]ESS [employer] DIRECTOR
--- NOTE | 2020-07-12 14:33 | PCM.PN.RX ---
<Ly Pereyra - Last Filed: 07/12/20 14:33> Progress Note - Pharmacy Subjective: TCU Admission Objective: Allergies Tdzapgz-Jkb-Ykn Reductase Inhibitor Allergy (Verified 06/28/20 10:39) MUSCLE ACHES ALL OVER pravastatin Adverse Reaction (Severe, Verified 06/28/20 10:39) myalgias bones ache all over colesevelam [From WelChol] Adverse Reaction (Intermediate, Verified 06/28/20 10:39) Not effective ezetimibe [From Zetia] Adverse Reaction (Intermediate, Verified 06/28/20 10:39) GI upset Influenza Virus Vaccines Adverse Reaction (Intermediate, Verified 06/28/20 10:39) Visual changes, lightheaded niacin Adverse Reaction (Intermediate, Verified 06/28/20 10:39) sweats Current Medications Generic Name Dose Route Start Last Admin Trade Name Freq PRN Reason Stop Dose Admin Acetaminophen 1,000 mg 07/11/20 19:51 Acetaminophen 500 Mg Tablet PO Q6H PRN PRN Pain Score 1-10 Amiodarone HCl 100 mg 07/12/20 06:00 07/12/20 06:40 Amiodarone 200 Mg Tablet PO 100 mg DAILY ALEJANDRA Administration Amlodipine Besylate 10 mg 07/12/20 06:00 07/12/20 06:43 Amlodipine 10 Mg Tablet PO 10 mg DAILY ALEJANDRA Administration Bisacodyl 10 mg 07/11/20 19:49 Bisacodyl 10 Mg Suppository RECTAL DAILY PRN Constipation Calamine/Phenol 1 applic 07/12/20 06:00 07/12/20 06:49 Menthol/Lanolin/Calamine/Znox 113 Gm Tube TOPICAL 1 applicatio BID ALEJANDRA Administration Protocol Carbidopa/Levodopa 1.5 tablet 07/11/20 16:45 07/12/20 10:50 Carbidopa/Levodopa 25/100 Tablet PO 1.5 tablet TIDAC ALEJANDRA Administration Carvedilol 6.25 mg 07/11/20 18:00 07/12/20 06:41 Carvedilol 6.25 Mg Tablet PO 6.25 mg BID ALEJANDRA Administration Cholecalciferol 1,000 unit 07/12/20 06:00 07/12/20 06:44 Cholecalciferol (Vit D3) 1,000 Unit (25mcg) PO 1,000 unit DAILY ALEJANDRA Administration Clopidogrel Bisulfate 75 mg 07/12/20 06:00 07/12/20 06:43 Clopidogrel Bisulfate 75 Mg Tablet PO 75 mg DAILY ALEJANDRA Administration Furosemide 20 mg 07/12/20 06:00 07/12/20 06:42 Furosemide 20 Mg Tablet PO 20 mg DAILY ALEJANDRA Administration Lactobacillus Acidophilus 1 tablet 07/12/20 06:00 07/12/20 06:40 Lactobacillus Acidophilus PO 1 tablet DAILY ALEJANDRA Administration Levothyroxine Sodium 125 mcg 07/12/20 06:00 07/12/20 06:43 Levothyroxine 125 Mcg Tablet PO 125 mcg DAILY ALEJANDRA Administration Losartan Potassium 50 mg 07/11/20 18:00 07/12/20 06:41 Losartan Potassium 50 Mg Tablet PO 50 mg BID ALEJANDRA Administration Magnesium Hydroxide 30 ml 07/11/20 19:49 Magnesium Hydroxide 30 Ml Udc PO DAILY PRN Constipation Multivitamins/Minerals 1 tablet 07/12/20 08:00 07/12/20 07:49 Multivitamins,Ther W-Minerals Tablet PO 1 tablet DAILY@0800 ALEJANDRA Administration Nutritional Formula (Lactose Free) 120 ml 07/11/20 17:00 07/12/20 12:26 Ensure Enlive 120 Ml Liquid PO 120 ml 4X/DAY ALEJANDRA Administration Polyethylene Glycol 17 gm 07/12/20 06:00 07/12/20 06:49 Polyethylene Glycol 3350 17 Gm Packet PO 17 gm DAILY ALEJANDRA Administration Potassium Chloride 20 meq 07/12/20 06:00 07/12/20 06:42 Potassium Chloride 20 Meq Tablet PO 20 meq DAILY ALEJANDRA Administration Senna/Docusate Sodium 1 tablet 07/12/20 06:00 07/12/20 06:49 Senna/Docusate Sodium 1 Tablet PO 1 tablet BID ALEJANDRA Administration Tuberculin PPD 5 tu 07/19/20 10:00 Tuberculin,Purif.Prot.Deriv. 50 Tu/Ml Vial ID 07/19/20 10:01 X1 ONE Problem List (Last Reviewed 07/08/20 @ 12:[address] Roberto Carlos Wu MD) Debility (Acute) Unresponsive (Acute) Hypertensive emergency (Acute) Encephalopathy (Acute) Carotid artery stenosis (Chronic) Parkinson's disease dementia (Chronic) Coronary artery disease (Chronic) Hypertension (Chronic) Hyperlipidemia (Chronic) Renal calculus or stone (Chronic) Atrial fibrillation (Chronic) Hypothyroidism (Chronic) Parkinson's disease (Chronic) Vital Signs Temp Pulse Resp BP Pulse Ox 98.6 F 61 18 164/67 H 95 07/12/20 06:37 07/12/20 06:37 07/12/20 06:37 07/12/20 06:37 07/12/20 06:37 Oxygen Delivery Method Nasal Cannula Weight: 66.95 kg Body Mass Index (BMI) 25.3 Finger Stick Blood Glucose 127 Sodium 134 mmol/L (136-145) L 07/12/20 05:52 Potassium 3.5 mmol/L (3.5-5.1) 07/12/20 05:52 Chloride 103 mmol/L (98-107) 07/12/20 05:52 Carbon Dioxide 22.0 mmol/L (21.0-32.0) 07/12/20 05:52 Anion Gap 9 (5-15) 07/12/20 05:52 BUN 13 mg/dL (7-18) 07/12/20 05:52 Creatinine 0.61 mg/dL (0.55-1.02) 07/12/20 05:52 Est GFR (MDRD) Af Amer 121 mL/min (>60) 07/12/20 05:52 Est GFR (MDRD) Non-Af 100 mL/min (>60) 07/12/20 05:52 BUN/Creatinine Ratio 21.4 RATIO (10-20) H 07/12/20 05:52 Glucose 93 mg/dL (74-106) 07/12/20 05:52 Assessment/Plan: 1. Pain: acetaminophen 1000mg PO Q6H PRN pain 1-06/10. Please continue to monitor for S/S of increased pain and PRN use. 2. CAD/hypertension/atrial fibrillation: carvedilol 6.25mg PO BID, losartan 50mg PO BID, amlodipine 10mg PO daily, amiodarone 100mg PO daily, and clopidogrel 75mg PO daily. Please continue to monitor for S/S of bleeding, hemoglobin (last 12.2 g/dL), BP (last 164/67), HR (last 61), renal function, potassium (last 3.2mmol/L), and magnesium (2.0mg/dL). 3. Parkinson Disease: Sinemet 25/100mg 1.5 tablets PO TIDAC. Please continue to monitor for GI side effects and dyskinesia. 4. Edema: furosemide 20mg PO daily. Please continue to monitor for edema and renal function. 5. Hypothyroidism: levothyroxine 125mcg PO daily. Please continue to monitor for S/S of hypo/hyperthyroidism. 6. Hypokalemia: potassium chloride 20mEq PO daily. Please continue to monitor potassium levels (last 3.2mmol/L). *7. Vitamin D deficiency/nutrition/GI prophylaxis: cholecalciferol 1000units PO daily, multivitamin 1T PO DAILYCM, and lactobacillus 1T PO daily. Please consider order a vitamin D level (last level from 05/2019). Thanks. Psychotropic Medications: None Unnecessary Medications: None Bowel Regimen: Miralax 17gm PO daily, senna/docusate 1T PO BID, MOM 30mL PO daily PRN constipation, and bisacodyl 10mg [place] daily PRN constipation. Please continue to monitor for S/S of constipation and PRN use. Date of Note:: 07/12/20 - Provider Comments Provider responsibility: Provider responsible to enter orders to implement recommendations <Anupam [place] - Last Filed: 07/12/20 17:38> Progress Note - Pharmacy Subjective: [] Objective: Allergies Nvsjszu-Gvw-Pxo Reductase Inhibitor Allergy (Verified 06/28/20 10:39) MUSCLE ACHES ALL OVER pravastatin Adverse Reaction (Severe, Verified 06/28/20 10:39) myalgias bones ache all over colesevelam [From WelChol] Adverse Reaction (Intermediate, Verified 06/28/20 10:39) Not effective ezetimibe [From Zetia] Adverse Reaction (Intermediate, Verified 06/28/20 10:39) GI upset Influenza Virus Vaccines Adverse Reaction (Intermediate, Verified 06/28/20 10:39) Visual changes, lightheaded niacin Adverse Reaction (Intermediate, Verified 06/28/20 10:39) sweats Current Medications Generic Name Dose Route Start Last Admin Trade Name Freq PRN Reason Stop Dose Admin Acetaminophen 1,000 mg 07/11/20 19:51 Acetaminophen 500 Mg Tablet PO Q6H PRN PRN Pain Score 1-10 Amiodarone HCl 100 mg 07/12/20 06:00 07/12/20 06:40 Amiodarone 200 Mg Tablet PO 100 mg DAILY ALEJANDRA Administration Amlodipine Besylate 10 mg 07/12/20 06:00 07/12/20 06:43 Amlodipine 10 Mg Tablet PO 10 mg DAILY ALEJANDRA Administration Bisacodyl 10 mg 07/11/20 19:49 Bisacodyl 10 Mg Suppository RECTAL DAILY PRN Constipation Calamine/Phenol 1 applic 07/12/20 06:00 07/12/20 17:17 Menthol/Lanolin/Calamine/Znox 113 Gm Tube TOPICAL 1 applicatio BID ALEJANDRA Administration Protocol Carbidopa/Levodopa 1.5 tablet 07/11/20 16:45 07/12/20 16:11 Carbidopa/Levodopa 25/100 Tablet PO 1.5 tablet TIDAC ALEJANDRA Administration Carvedilol 6.25 mg 07/11/20 18:00 07/12/20 17:17 Carvedilol 6.25 Mg Tablet PO 6.25 mg BID ALEJANDRA Administration Cholecalciferol 1,000 unit 07/12/20 06:00 07/12/20 06:44 Cholecalciferol (Vit D3) 1,000 Unit (25mcg) PO 1,000 unit DAILY ALEJANDRA Administration Clopidogrel Bisulfate 75 mg 07/12/20 06:00 07/12/20 06:43 Clopidogrel Bisulfate 75 Mg Tablet PO 75 mg DAILY ALEJANDRA Administration Furosemide 20 mg 07/12/20 06:00 07/12/20 06:42 Furosemide 20 Mg Tablet PO 20 mg DAILY ALEJANDRA Administration Lactobacillus Acidophilus 1 tablet 07/12/20 06:00 07/12/20 06:40 Lactobacillus Acidophilus PO 1 tablet DAILY ALEJANDRA Administration Levothyroxine Sodium 125 mcg 07/12/20 06:00 07/12/20 06:43 Levothyroxine 125 Mcg Tablet PO 125 mcg DAILY ALEJANDRA Administration Losartan Potassium 50 mg 07/11/20 18:00 07/12/20 17:17 Losartan Potassium 50 Mg Tablet PO 50 mg BID ALEJANDRA Administration Magnesium Hydroxide 30 ml 07/11/20 19:49 Magnesium Hydroxide 30 Ml Udc PO DAILY PRN Constipation Multivitamins/Minerals 1 tablet 07/12/20 08:00 07/12/20 07:49 Multivitamins,Ther W-Minerals Tablet PO 1 tablet DAILY@0800 ALEJANDRA Administration Nutritional Formula (Lactose Free) 120 ml 07/11/20 17:00 07/12/20 16:13 Ensure Enlive 120 Ml Liquid PO 120 ml 4X/DAY ALEJANDRA Administration Polyethylene Glycol 17 gm 07/12/20 06:00 07/12/20 06:49 Polyethylene Glycol 3350 17 Gm Packet PO 17 gm DAILY ALEJANDRA Administration Potassium Chloride 20 meq 07/12/20 06:00 07/12/20 06:42 Potassium Chloride 20 Meq Tablet PO 20 meq DAILY ALEJANDRA Administration Senna/Docusate Sodium 1 tablet 07/12/20 06:00 07/12/20 17:17 Senna/Docusate Sodium 1 Tablet PO 1 tablet BID ALEJANDRA Administration Tuberculin PPD 5 tu 07/19/20 10:00 Tuberculin,Purif.Prot.Deriv. 50 Tu/Ml Vial ID 07/19/20 10:01 X1 ONE Problem List (Last Reviewed 07/08/20 @ 12:[address] Roberto Carlos Wu MD) Debility (Acute) Unresponsive (Acute) Hypertensive emergency (Acute) Encephalopathy (Acute) Carotid artery stenosis (Chronic) Parkinson's disease dementia (Chronic) Coronary artery disease (Chronic) Hypertension (Chronic) Hyperlipidemia (Chronic) Renal calculus or stone (Chronic) Atrial fibrillation (Chronic) Hypothyroidism (Chronic) Parkinson's disease (Chronic) Vital Signs Temp Pulse Resp BP Pulse Ox 97.8 F 86 18 158/78 H 94 07/12/20 15:14 07/12/20 15:14 07/12/20 15:14 07/12/20 15:14 07/12/20 15:14 Oxygen Delivery Method Room Air Weight: 66.95 kg Body Mass Index (BMI) 25.3 Finger Stick Blood Glucose 127 Sodium 134 mmol/L (136-145) L 07/12/20 05:52 Potassium 3.5 mmol/L (3.5-5.1) 07/12/20 05:52 Chloride 103 mmol/L (98-107) 07/12/20 05:52 Carbon Dioxide 22.0 mmol/L (21.0-32.0) 07/12/20 05:52 Anion Gap 9 (5-15) 07/12/20 05:52 BUN 13 mg/dL (7-18) 07/12/20 05:52 Creatinine 0.61 mg/dL (0.55-1.02) 07/12/20 05:52 Est GFR (MDRD) Af Amer 121 mL/min (>60) 07/12/20 05:52 Est GFR (MDRD) Non-Af 100 mL/min (>60) 07/12/20 05:52 BUN/Creatinine Ratio 21.4 RATIO (10-20) H 07/12/20 05:52 Glucose 93 mg/dL (74-106) 07/12/20 05:52 Assessment/Plan: Psychotropic Medications: Unnecessary Medications: Bowel Regimen: - Provider Comments Provider responsibility: Provider responsible to enter orders to implement recommendations Provider Comments to Recommendations by Pharmacy: Agree
[2020-07-12 15:14] VITALS: BP 158/78; PULSE 86; RESP 18; TEMP 36.6; O2SAT 94
--- NOTE | 2020-07-12 20:29 | NURSING ---
Pt resting in chair, eyes closed, awakens easily, states she does not want to go tobed, just wants me to leave her alone so she can sleep. Offered to help her to the bed, pt refused, states I want to stay in the chair. Did allow me to do do assessment, extra pillow given and blanket, feet elevated.
[2020-07-13 03:32] VITALS: BP 143/75; PULSE 48; RESP 16; TEMP 35.5; O2SAT 98
[2020-07-13] MEDS: Polyethylene Glycol 3350 17 GM PACKET PO (04:58)
[2020-07-13] MEDS: Clopidogrel Bisulfate 75 MG Tablet PO (04:58)
[2020-07-13] MEDS: amLODIPine 10 MG Tablet PO (04:58)
[2020-07-13] MEDS: Amiodarone 200 MG Tablet 100 MG PO (04:59)
[2020-07-13] MEDS: Furosemide 20 MG Tablet PO (04:59)
[2020-07-13] MEDS: Senna/Docusate Sodium 1 Tablet PO (04:59)
[2020-07-13] MEDS: Levothyroxine 125 MCG Tablet PO (04:59)
[2020-07-13] MEDS: Carvedilol 6.25 MG Tablet PO (05:00)
[2020-07-13] MEDS: Carbidopa/Levodopa 25/100 Tablet PO (05:00)
[2020-07-13] MEDS: Losartan Potassium 50 MG Tablet PO (05:00)
[2020-07-13] MEDS: Menthol/Lanolin/Calamine/Znox 113 GM Tube 1 APPLIC TOPICAL (05:04)
[2020-07-13 06:01] LABS: Absolute Lymphocyte Count 1.01 X10^3/uL (0.83-4.51); Absolute Neutrophil Count 3.4 X10^3/uL (2.0-7.7); Basophil# 0.02 X10^3/uL; Basophil% 0.4 % (0-1); Eosinophil# 0.08 X10^3/uL; Eosinophils% 1.5 % (0-5); Hematocrit 36.5 % (37-47); Hemoglobin 12.2 g/dL (12.0-15.0); Lymphocyte # 1.01 X10^3/ul (4.0); Lymphocyte % 19.5 % (19-41); Mean Corp Hgb Conc 33.4 g/dL (32-36); Mean Corpuscular Hgb 30.1 pg (27.0-32.0); Mean Corpuscular Volume 90.1 fL (81-99); Mean Platelet Vol. 9.8 fl (6.2-12.0); Monocyte# 0.68 X10^3/uL; Monocyte% 13.2 % (0-10); NRBC Flagged by Analyzer 0 % (0-5); Neutrophil # 3.37 X10^3/uL (2.7-7.7); Neutrophil % 65.2 % (47-70); Platelet Count 220 K/mm3 (150-450); RBC Distribution Width CV 13.9 % (11.6-14.6); RBC Distribution Width SD 45.8 fl (35.1-43.9); Red Blood Count 4.05 M/mm3 (4.2-5.4); White Blood Count 5.2 K/mm3 (4.4-11.0)
[2020-07-13 06:36] LABS: Anion Gap 3 (5-15); BUN 17 mg/dL (7-18); BUN/Creat Ratio 20.3 RATIO (10-20); Calcium,Total 8.6 mg/dL (8.5-10.1); Chloride 103 mmol/L (98-107); Creatinine, Serum 0.84 mg/dL (0.55-1.02); EST Glomerular Filtration Rate 69 mL/min (>60); Est Glom Filt Rate - Afr Amer 84 mL/min (>60); Estimated Creatinine Clearance 45.36 ml/min; Glucose 85 mg/dL (74-106); Potassium 3.5 mmol/L (3.5-5.1); Sodium Level 133 mmol/L (136-145)
--- NOTE | 2020-07-13 07:45 | NURSING ---
Pt called in, updated. asking for Dr. Grande to call him, note left for him.
[2020-07-13] MEDS: Multivitamins,Ther W-Minerals Tablet 1 TABLET PO (07:53)
--- NOTE | 2020-07-13 08:44 | NURSING ---
Addendum entered by Nisa Hughes 07/13/20 13:31: Pt did take her AM medication without any swallowing difficulties. Pt. shook head when asked yes or no questions. Original Note: Pt very sleepy this morning would not wake up to eat breakfast. VS BP 176/59 R/arm sitting P 45 RR 16 Spo2 99 RA. 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
[2020-07-13 08:49] VITALS: PULSE 45; RESP 16; O2SAT 99
[2020-07-13 09:30] VITALS: BP 176/59; PULSE 45; RESP 16; O2SAT 99
[2020-07-13 11:05] VITALS: BP 194/71; PULSE 50
[2020-07-13 11:05] LABS: Bedside Glucose 98 mg/dL (70-110)
[2020-07-13] MEDS: hydrALAZINE 50 MG Tablet PO (11:05)
[2020-07-13 11:09] VITALS: BP 194/71; PULSE 50; RESP 16; TEMP 36.5; O2SAT 99
--- NOTE | 2020-07-13 11:10 | NURSING ---
pt not responding to verbal or tactile stimuli. pt did jerk leg when toe was pulled on RT foot. will not open eyes when asked to. BP elevated 194/[address] morrow updated, new order PO hydralazine, given. crushed and placed in applesauce. pt able to follow instructions to swallow medication and took sips from water pitcher. will monitor. pt resting in recliner chair, legs elevated. call light in reach.
[2020-07-13 11:35] VITALS: BP 166/65; PULSE 48; RESP 18; O2SAT 100
--- NOTE | 2020-07-13 11:40 | NURSING ---
dr morrow notified of pt BP much lower after apresoline dose, but still does not open eyes or respond verbally. new order to send to ER. ER given report.
--- NOTE | 2020-07-13 11:52 | NURSING ---
pt assisted x3 to bed from chair and pt opened eyes but still nonverbal. asked if she knew where she was at and pt shook head no. pt in bed to ER at this time. called ER and updated nurse on pt opening eyes. will notify
--- NOTE | 2020-07-13 11:58 | NURSING ---
Chaz, updated on pt condition and being taken to ER for evaluation.
--- NOTE | 2020-07-13 19:43 | DCINST_ITS ---
- Discharge Diagnoses Current Active Problems: Current Active and Chronic Problems (Last Reviewed 07/13/20 @ 16:[address] Eduard Reyes, DO) Debility (Chronic) Unresponsive (Acute) Hypertensive emergency (Acute) Encephalopathy (Acute) Carotid artery stenosis (Chronic) Parkinson's disease dementia (Chronic) Coronary artery disease (Chronic) Hypertension (Chronic) Hyperlipidemia (Chronic) Renal calculus or stone (Chronic) Atrial fibrillation (Chronic) Hypothyroidism (Chronic) Parkinson's disease (Chronic) You will use the following diet at home:: No restrictions, Regular Your food should be the consistency of: Regular Your liquids should be the consistency of: Regular/Thin Weight Bearing Status: Weight bearing as tolerated Call your doctor if you observe: Fever of 101 or Higher, Inability to urinate, Inability to have a bowel movement, Shortness of breath, Chest pain, Uncontrolled pain Allergies/Adverse Reactions: Allergies Wzygdha-Lff-Lrh Reductase Inhibitor Allergy (Verified 07/13/20 12:10) MUSCLE ACHES ALL OVER pravastatin Adverse Reaction (Severe, Verified 07/13/20 12:10) myalgias bones ache all over colesevelam [From WelChol] Adverse Reaction (Intermediate, Verified 07/13/20 12:10) Not effective ezetimibe [From Zetia] Adverse Reaction (Intermediate, Verified 07/13/20 12:10) GI upset Influenza Virus Vaccines Adverse Reaction (Intermediate, Verified 07/13/20 1 2:10) Visual changes, lightheaded niacin Adverse Reaction (Intermediate, Verified 07/13/20 12:10) sweats Medications to take at Discharge Levothyroxine [Synthroid] 125 mcg PO DAILY 06/14/13 Carbidopa/Levodopa [Carbidopa-Levodopa 25-100 Tab] 1.5 tab PO TID 09/09/18 L.acidoph,Paracasei, B.lactis [Probiotic] 1 ea PO DAILY 09/09/18 Potassium Chloride [K-Dur] 20 meq PO DAILY 08/25/19 clopidogrel 75 mg tablet 75 mg PO DAILY #90 tab 11/15/19 losartan 50 mg tablet 50 mg PO BID 02/22/20 amiodarone 200 mg tablet 100 mg PO DAILY #90 tab 06/28/20 furosemide 20 mg tablet 20 mg PO DAILY tab 06/28/20 Senna [Senokot] 1 tab PO DAILY 07/08/20 Amlodipine [Norvasc] 10 mg PO DAILY 07/11/20 Carvedilol 6.25 mg PO BID 07/11/20 Cholecalciferol (Vitamin D3) [Vitamin D3] 1,000 unit PO DAILY 07/13/20 Multivitamin with Minerals [Multiple Vitamin] 1 tab PO DAILY 07/13/20 Primary Care Physician: Louise Garrido MD [Primary Care Provider] - Please follow up with your Primary Care Physician in: After hospitalization. Test Results: Test results from this visit will be discussed in further detail at your follow- up appointment, if applicable. Proposed Discharge Date: 07/13/20
--- NOTE | 2020-07-13 19:45 | PCM.DC.SUM ---
Discharge Date and Diagnosis - Problem List Patient Problems: Active and Suspected Problems (Last Reviewed 07/13/20 @ 16:[address] Eduard Reyes DO) Unresponsive (Acute) Hypertensive emergency (Acute) Encephalopathy (Acute) Date of Admission: 07/13/20 Date of Discharge: 07/13/20 - Primary Discharge Diagnosis Acute Problems: Active Problems (Last Reviewed 07/13/20 @ 16:[address] Eduard Reyes DO) Unresponsive (Acute) Hypertensive emergency (Acute) Encephalopathy (Acute) - Secondary Discharge Diagnosis Chronic Problems: Chronic Problems (Last Reviewed 07/13/20 @ 16:[address] Eduard Reyes DO) Debility (Chronic) Carotid artery stenosis (Chronic) Parkinson's disease dementia (Chronic) Coronary artery disease (Chronic) Hypertension (Chronic) Hyperlipidemia (Chronic) History of renal stent (Chronic 08/27/19) Left kidney, Per Dr. Marine Aguirre; may be removed History of kidney stones (Chronic) History of lithotripsy (Chronic 10/12/19) per Dr. Meyers Renal calculus or stone (Chronic) Urolithiasis (Chronic) Essential hypertension (Chronic) Atherosclerosis of coronary artery of [place] heart without angina pectoris (Chronic) History of cardioversion (Chronic 12/16/18) History of coronary artery bypass graft x 3 (Chronic 08/22/98) [facility] [place]:LOPEZ to LAD, left radial to OM of CX and free MYNOR to PDA of RCA per Dr. Laz Barreto History of left heart catheterization (Chronic 09/11/18) Bifurcating LOPEZ graft to the LAD and DIAG is patent with mild to moderate [place] mid/distal LAD 50% stenosis, high risk for PCI given need to traverse down LOPEZ and severe LV dysfunction. Saphenous Vein graft to the RCA previously placed stent is patent, with 75% mid PDA stenosis, not amenable to PCI given need to traverse through graft, then acute angle into PDA, of questionable benefit given severe LV dysfunction Atrial fibrillation (Chronic) Hypercholesterolemia (Chronic) Non-STEMI (non-ST elevated myocardial infarction) (Chronic 09/10/18) Hypothyroidism (Chronic) Parkinson's disease (Chronic) Hospital Course and Treatment Operations: None Procedures: None Summary of Care Provided: The patient is a 80 year old Female with below past medical history hospitalized for encephalopathy secondary to hypertensive emergency, stroke ruled out, admitted to TCU with debility, here for rehabilitation, strengthening, prior to discharge home with family. 07/13/20 Resident unresponsive, blood pressure elevated, Hydralazine 50MG PO x 1 dose given, blood pressure improved, but resident still unresponsive. Discharge to [facility] Emergency Department for evaluation, admission to hospital. Patient Problems: Active and Suspected Problems (Last Reviewed 07/13/20 @ 16:[address] Eduard Reyes, DO) Unresponsive (Acute) Hypertensive emergency (Acute) Encephalopathy (Acute) - Physical Exam Vitals/I&O's: Vital Signs Temp Pulse Resp BP Pulse Ox 97.7 F L 48 L 18 166/65 H 100 07/13/20 11:09 07/13/20 11:35 07/13/20 11:35 07/13/20 11:35 07/13/20 11:35 Oxygen Delivery Method Room Air Weight: 66.95 kg Body Mass Index (BMI) 25.3 Finger Stick Blood Glucose 127 Intake and Output for Last 24 Hours 07/11/20 07/12/20 07/13/20 23:59 23:59 23:59 Intake Total 240 / 240 600 / 600 Output Total Balance 239 / 239 600 / 600 Laboratory Results 07/13/20 05:11: WBC 5.2, RBC 4.05 L, Hgb 12.2, Hct 36.5 L, MCV 90.1, MCH 30.1, MCHC 33.4, RDW Std Deviation 45.8 H, RDW Coeff of Pina 13.9, Plt Count 220, MPV 9.8, Immature Gran % (Auto) 0.200, Neut % (Auto) 65.2, Lymph % (Auto) 19.5, [place] % (Auto) 13.2 H, Eos % (Auto) 1.5, Baso % (Auto) 0.4, Absolute Neuts (auto) 3.4, Absolute Lymphs (auto) 1.01, Nucleated RBC % 0 07/13/20 05:11: Sodium 133 L, Potassium 3.5, Chloride 103, Carbon Dioxide 27.0, Anion Gap 3 L, BUN 17, Creatinine 0.84, Estim Creat Clear Calc 45.36, Est GFR (MDRD) Af Amer 84, Est GFR (MDRD) Non-Af 69, BUN/Creatinine Ratio 20.3 H, Glucose 85, Calcium 8.6 07/13/20 10:57: POC Glucose 98 Discharge Diet: No Restrictions Weight Bearing Status: Weight bearing as tolerated Call your doctor if you observe: Fever of 101 or Higher, Inability to urinate, Inability to have a bowel movement, Shortness of breath, Chest pain, Uncontrolled pain Home Medications: Medications to take at Discharge Levothyroxine [Synthroid] 125 mcg PO DAILY 06/14/13 Carbidopa/Levodopa [Carbidopa-Levodopa 25-100 Tab] 1.5 tab PO TID 09/09/18 L.acidoph,Paracasei, B.lactis [Probiotic] 1 ea PO DAILY 09/09/18 Potassium Chloride [K-Dur] 20 meq PO DAILY 08/25/19 clopidogrel 75 mg tablet 75 mg PO DAILY #90 tab 11/15/19 losartan 50 mg tablet 50 mg PO BID 02/22/20 amiodarone 200 mg tablet 100 mg PO DAILY #90 tab 06/28/20 furosemide 20 mg tablet 20 mg PO DAILY tab 06/28/20 Senna [Senokot] 1 tab PO DAILY 07/08/20 Amlodipine [Norvasc] 10 mg PO DAILY 07/11/20 Carvedilol 6.25 mg PO BID 07/11/20 Cholecalciferol (Vitamin D3) [Vitamin D3] 1,000 unit PO DAILY 07/13/20 Multivitamin with Minerals [Multiple Vitamin] 1 tab PO DAILY 07/13/20 Primary Care Physician: Louise Garrido MD [Primary Care Provider] - Please follow up with your Primary Care Physician in: After hospitalization. Disposition: Acute care Hospital Minutes spent on discharge:: 30 Patient Condition:: Guarded Medical Necessity - Tobacco Use Smoking Status: Never smoker Tobacco Use: Non-smoker Meaningful Use Info Meaningful Use Diagnoses (Choose all that apply): None applicable
--- NOTE | 2020-07-19 11:31 | MDS.RN ---
Information for the mds was obtained from review of the clinical record, interview of resident, staff, and direct observation of resident's care.
== END 2020-07-13 11:15 | disposition short-term general hospital (02) | DRG 305 ==
PROVIDERS: Admitting Provider Family Medicine Geriatric Medicine; PCP Internal Medicine; Visit Provider Family Medicine Geriatric Medicine
DX: I16.1 Hypertensive emergency (principal); I48.20 Chronic atrial fibrillation, unspecified; I67.4 Hypertensive encephalopathy; I10 Essential (primary) hypertension; I25.10 Atherosclerotic heart disease of native coronary artery without angina pectoris; E03.9 Hypothyroidism, unspecified; Z91.81 History of falling; G20 Parkinson's disease; E55.9 Vitamin D deficiency, unspecified; E87.6 Hypokalemia; E78.5 Hyperlipidemia, unspecified; I25.2 Old myocardial infarction
CPT/HCPCS: 36415; 80048; 82962; 85025; 92523; 92526; 92610; 97110; 97116; 97162; 97166; 97530; 97535; 97802

== ENCOUNTER 2020-07-13 11:57 | Inpatient (IN) | payer MEDICARE, SELFPAY ==
[2020-07-11 13:56] VITALS: BMI 25.3
[2020-07-13] VITALS (12 sets, daily range): BP systolic 88–186; BP diastolic 41–69; PULSE 42–67; RESP 12–23; TEMP 36.5–37.1; O2SAT 96–100; BMI 25.0; BMI 22.5
--- NOTE | 2020-07-13 12:24 | EKG12_ITS ---
Test Reason : Blood Pressure : / mmHG Vent. Rate : 049 BPM Atrial Rate : 049 BPM P-R Int : 198 ms QRS Dur : 114 ms QT Int : 516 ms P-R-T Axes : 083 -04 166 degrees QTc Int : 466 ms Sinus bradycardia Incomplete left bundle branch block Left ventricular hypertrophy Nonspecific ST and T wave abnormality Abnormal ECG Confirmed by LINDSAY CHATMAN, ALYSSA ([id number]), editor department MARY LEE ([id number]) on 07/14/2020 11:09:21 AM Referred By: PHILLIP Confirmed By:ALYSSA MONTOYA MD
--- NOTE | 2020-07-13 12:24 | RAD_ITS ---
STUDY: X-RAY CHEST REASON FOR EXAM: Female, 80 years old. FOUND UNRESPONSIVE AT 1100, WEAK, SLOW TO ANSWER QUESTIONS TECHNIQUE: Single AP portable view of the chest. COMPARISON: Comparison is made with prior study dated 07/08/2020. FINDINGS: EKG electrodes are seen. The lungs are clear and expanded. There is no demonstrated pleural abnormality. Sternal cerclage wires and vascular clips are present from a prior sternotomy and coronary artery bypass graft procedure (CABG). Borderline cardiomegaly. Normal mediastinum and zack. Normal visualized pulmonary arteries. Normal visualized aortic arch and descending thoracic aorta. Normal visualized thoracic spine. There is degenerative osteoarthritis of the bilateral shoulders. Calcific tendinitis of the right shoulder. There is no demonstrated abnormality of the visualized soft tissue structures of the upper abdomen. RAD/Chest 1 View (Portable) IMPRESSION: No acute abnormality is present. Electronically Signed: Reinaldo Alegre, at 13:10 EST , Service support ,
--- NOTE | 2020-07-13 12:24 | CT_ITS ---
STUDY: CT BRAIN WITHOUT CONTRAST REASON FOR EXAM: Female, 80 years old. ALTERED MENTAL STATUS, UNRESPONSIVE RADIATION DOSAGE (If Supplied By Facility): CTDIvol = ( 44.99 ) mGy, DLP = ( 897.35 ) mGycm TECHNIQUE: Transaxial CT imaging of the brain was performed without administration of intravenous contrast material. Individualized dose optimization techniques were used for this CT. COMPARISON: Comparison is made with prior study dated 07/08/2020. FINDINGS: Normal soft tissue structures. Normal calvarium. There is mild cerebral atrophy with widening of the extra-axial spaces and ventricular dilatation. There are areas of decreased attenuation within the white matter tracts of the supratentorial brain, consistent with microvascular disease changes. 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 Normal brainstem. Stable focal encephalomalacia in the right cerebellar hemisphere in keeping with prior ischemic insult. There is no intracranial hemorrhage. There are no findings of an acute ischemic infarction. Atherosclerotic calcification of the vertebral arteries and cavernous portions of the internal carotid arteries bilaterally. Small air-fluid level in the right maxillary sinus. Partial opacification of the right sphenoid sinus and mucosal thickening of the left sphenoid sinus. CT/Brain/Head without Contrast IMPRESSION: Chronic involutional changes of the brain. Stable examination. Sinusitis. Electronically Signed: Reinaldo Alegre, at 13:09 EST , Service support ,
--- NOTE | 2020-07-13 12:28 | ED.DCSUM_ITS ---
History of Present Illness Chief Complaint: Mental Status Change Informant: - - TCU staff Onset: Today Narrative: Patient brought down from TCU for evaluation. Patient recently admitted to the hospital for decreased level of consciousness and hypertension. She was rubin sferred to the TCU on the for rehab prior to going home. TCU staff states that she was last known to be verbal at 5 AM this morning. They found her lying in bed and not wanting to talk or respond. She was noted to be hypertensive this morning and was given a dose of hydralazine. She was able to take this p.o. without difficulty. Nursing staff states when they moved the patient from the TCU bed to the ER bed patient did open her eyes and look around the room. Patient was able to tell nursing staff the year and her birthdate. She was nodding her head yes and no to questions when asked. - Past Medical History (1) Atherosclerosis of coronary artery of [place] heart without angina pectoris Status: Chronic (2) Atrial fibrillation Status: Chronic (3) Carotid artery stenosis Status: Chronic (4) Coronary artery disease Status: Chronic (5) Essential hypertension Status: Chronic (6) Hyperlipidemia Status: Chronic (7) Hypertension Status: Chronic (8) Hypothyroidism Status: Chronic (9) Non-STEMI (non-ST elevated myocardial infarction) Status: Chronic (10) Parkinson's disease Status: Chronic Past Medical History - Allergies and Home Meds Allergies/Adverse Reactions: Allergies Jqiczht-Xmc-Geu Reductase Inhibitor Allergy (Verified 07/13/20 12:10) MUSCLE ACHES ALL OVER pravastatin Adverse Reaction (Severe, Verified 07/13/20 12:10) myalgias bones ache all over colesevelam [From WelChol] Adverse Reaction (Intermediate, Verified 07/13/20 12:10) Not effective ezetimibe [From Zetia] Adverse Reaction (Intermediate, Verified 07/13/20 12:10) GI upset Influenza Virus Vaccines Adverse Reaction (Intermediate, Verified 07/13/20 12:10) Visual changes, lightheaded niacin Adverse Reaction (Intermediate, Verified 07/13/20 12:10) sweats Prior records reviewed: Yes Surgical History: cholecystectomy - Laparoscopic., coronary bypass surgery - x 3, 15 years ago, herniorrhaphy - Umbilical., - - Vein stripping in both legs, tubal ligation, electrocardioversion, left renal stent. Lives: Spouse/ Significant Other Smoking Status: Never smoker - Family History Paternal Family History: Family History (Last Reviewed 07/13/20 @ 16:[address] Eduard Reyes DO) Sister Alzheimer's disease Family History: Reports: Heart Disease, Hypertension, Stroke Review of Systems ROS: Unable to Obtain - Patient not answering questions for me. Nursing staff states she shook her head no when asked if she was in any pain. Physical Exam Vital Signs/Narrative: Vital Signs Temp Pulse Resp BP Pulse Ox 07/13/20 11:59 98.7 F 52 L 23 H 178/60 H 99 Inital Vital Signs reviewed: Yes General: Well nourished, Well developed Head: Normocephalic, Atraumatic Eyes: Perrl ENT: Moist mucous membranes Cardiovascular: Bradycardia Respiratory: No distress, CTA bilaterally Abdomen: Soft, Nontender Skin: Normal color Neurological: - - Lies with her eyes closed. Allows both arms to drop to the bed without resistance. Slight pullback when pressure placed across nailbed. Diagnostic/Tx/Re-eval Impressions Brain CT 07/13/20 12:24 IMPRESSION: Chronic involutional changes of the brain. Stable examination. Sinusitis. Electronically Signed: Reinaldo Alegre, at 13:09 EST , Service support , Chest X-Ray 07/13/20 12:24 IMPRESSION: No acute abnormality is present. Electronically Signed: Reinaldo Alegre, at 13:10 EST , Service support , 07/13/20 12:24 Brain/Head without Contrast [CT] Stat Chest 1 View (Portable) [RAD] Stat Laboratory Results 07/13/20 07/13/20 07/13/20 12:33 12:33 12:33 WBC 5.8 RBC 4.61 Hgb 13.9 Hct 41.5 MCV 90.0 MCH 30.2 MCHC 33.5 RDW Std Deviation 46.2 H RDW Coeff of Pina 14.0 Plt Count 237 MPV 9.5 Immature Gran % (Auto) 0.300 Neut % (Auto) 73.5 H Lymph % (Auto) 15.5 L Wood % (Auto) 9.5 Eos % (Auto) 0.9 Baso % (Auto) 0.3 Absolute Neuts (auto) 4.3 Absolute Lymphs (auto) 0.90 Nucleated RBC % 0 Sodium Cancelled Potassium Cancelled Chloride Cancelled Carbon Dioxide Cancelled Anion Gap Cancelled BUN Cancelled Creatinine Cancelled Estim Creat Clear Calc Cancelled Est GFR (MDRD) Af Amer Cancelled Est GFR (MDRD) Non-Af Cancelled BUN/Creatinine Ratio Cancelled Glucose Cancelled Calcium Cancelled Total Bilirubin Cancelled Direct Bilirubin Cancelled AST Cancelled ALT Cancelled Alkaline Phosphatase Cancelled Ammonia < 10.0 L Troponin I Cancelled Total Protein Cancelled Albumin Cancelled Globulin Cancelled Urine Color Urine Clarity Urine pH Ur Specific Dyer Urine Protein Urine Glucose (UA) Urine Ketones Urine Occult Blood Urine Nitrite Urine Bilirubin Urine Urobilinogen Ur Leukocyte Esterase Urine RBC Urine WBC Ur Squamous Epith Cells Amorphous Sediment Urine Bacteria Urine Mucus 07/13/20 07/13/20 07/13/20 13:29 14:27 15:25 WBC RBC Hgb Hct MCV MCH MCHC RDW Std Deviation RDW Coeff of Pina Plt Count MPV Immature Gran % (Auto) Neut % (Auto) Lymph % (Auto) Wood % (Auto) Eos % (Auto) Baso % (Auto) Absolute Neuts (auto) Absolute Lymphs (auto) Nucleated RBC % Sodium Cancelled 133 L Potassium Cancelled 3.7 Chloride Cancelled 102 Carbon Dioxide Cancelled 26.0 Anion Gap Cancelled 5 BUN Cancelled 14 Creatinine Cancelled 0.66 Estim Creat Clear Calc Cancelled 42.91 Est GFR (MDRD) Af Amer Cancelled 110 Est GFR (MDRD) Non-Af Cancelled 91 BUN/Creatinine Ratio Cancelled 21.1 H Glucose Cancelled 90 Calcium Cancelled 8.7 Total Bilirubin Cancelled 0.80 Direct Bilirubin Cancelled 0.22 AST Cancelled 41 H ALT Cancelled 26 Alkaline Phosphatase Cancelled 63 Ammonia Troponin I Cancelled 0.095 H Total Protein Cancelled 6.6 Albumin Cancelled 3.3 Globulin Cancelled 3.3 Urine Color Yellow Urine Clarity Sl. Cloudy Urine pH 7.0 Ur Specific Dyer 1.010 Urine Protein Negative Urine Glucose (UA) Normal Urine Ketones Negative Urine Occult Blood 10 H Urine Nitrite Positive H Urine Bilirubin Negative Urine Urobilinogen Normal Ur Leukocyte Esterase 25 H Urine RBC 0-5 SEEN Urine WBC 0-5 SEEN Ur Squamous Epith Cells 0-5 SEEN Amorphous Sediment 1+ PHOS Urine Bacteria 2+ Urine Mucus 0 SEEN - EKG Initial EKG Interpretation: Sinus Bradycardia - Sinus bradycardia at 49 bpm with incomplete bundle branch block. LVH with repole as lateral ST depression, unchanged when compared to prior. - Medical Decision Making Patient was at on cardiac rehabilitation program director throughout her ED stay. No arrhythmias noted. Nursing staff did note that when they went to straight catheter she held her leg up against gravity without any difficulty. Urine does show 2+ bacteria with nitrites but no other significant signs of infection. A urine culture will be sent. I spoke with hospitalist. Patient be admitted for observation. Addendum: Nursing staff asked me to call with an update. In speaking with the son and they are requesting the patient be transferred to [facility] for further evaluation. I advised him it usually takes several days to get a bed but if that was their wish I would make the initial phone calls. When we spoke with the transfer line at [facility] they advised that there running 10 to 14 day weights to get a bed and that is if we can even find a doctor willing to accept her. I presented this information back to family who does want to proceed with transfer if possible. We will speak with the transfer line. I did update the hospitalist that this was an ongoing issue, however I had made no guarantees to the family that the patient was able to be admitted to this hospital for the duration of this wait. ED Disposition - Plan for ED Patient: Disposition: Acute Care Hospital [facility] Diagnosis: Altered mental status
[2020-07-13 12:53] LABS: Absolute Neutrophil Count 4.3 X10^3/uL (2.0-7.7); Basophil# 0.02 X10^3/uL; Basophil% 0.3 % (0-1); Eosinophil# 0.05 X10^3/uL; Eosinophils% 0.9 % (0-5); Hematocrit 41.5 % (37-47); Hemoglobin 13.9 g/dL (12.0-15.0); Lymphocyte % 15.5 % (19-41); Mean Corp Hgb Conc 33.5 g/dL (32-36); Mean Corpuscular Hgb 30.2 pg (27.0-32.0); Mean Platelet Vol. 9.5 fl (6.2-12.0); Monocyte# 0.55 X10^3/uL; Monocyte% 9.5 % (0-10); NRBC Flagged by Analyzer 0 % (0-5); Neutrophil # 4.25 X10^3/uL (2.7-7.7); Neutrophil % 73.5 % (47-70); Platelet Count 237 K/mm3 (150-450); RBC Distribution Width SD 46.2 fl (35.1-43.9); Red Blood Count 4.61 M/mm3 (4.2-5.4); White Blood Count 5.8 K/mm3 (4.4-11.0)
--- NOTE | 2020-07-13 12:55 | NURSING ---
chemistries hemolized
[2020-07-13 13:23] LABS: Ammonia < 10.0 umol/L (11-32)
--- NOTE | 2020-07-13 13:56 | NURSING ---
CHEMISTRIES MORE HEMOLIZED THAT THE FIRST
[2020-07-13 14:51] LABS: AST(SGOT) 41 U/L (15-37); Alanine Aminotransfer ALT/SGPT 26 U/L (13-56); Albumin, Serum 3.3 g/dL (3.2-5.0); Alkaline Phosphatase 63 U/L (45-117); Anion Gap 5 (5-15); BUN 14 mg/dL (7-18); BUN/Creat Ratio 21.1 RATIO (10-20); Bilirubin, Direct 0.22 mg/dL (0.00-0.30); Calcium,Total 8.7 mg/dL (8.5-10.1); Chloride 102 mmol/L (98-107); Creatinine, Serum 0.66 mg/dL (0.55-1.02); EST Glomerular Filtration Rate 91 mL/min (>60); Est Glom Filt Rate - Afr Amer 110 mL/min (>60); Estimated Creatinine Clearance 42.91 ml/min; Globulin 3.3 g/dL (2.2-4.2); Glucose 90 mg/dL (74-106); Potassium 3.7 mmol/L (3.5-5.1); Protein, Total 6.6 g/dL (6.4-8.2); Sodium Level 133 mmol/L (136-145)
[2020-07-13 15:28] LABS: Mucous, Urine 0 SEEN /hpf (<or=2+)
[2020-07-13 15:31] LABS: Color, Urine Yellow (Yellow); Glucose, Dipstick Normal (Normal); Ketone-Dipstick Negative (Negative); Leukocyte Esterase-Dipstick 25 /ul (Negative); Nitrite-Dipstick Positive (Negative); Occult Blood-Urine 10 /ul (Negative); Protein-Dipstick Negative (Negative); Urine Bilirubin Dipstick Negative (Negative); Urine Clarity Sl. Cloudy (Clear); Urine Urobilinogen Normal (Normal)
--- NOTE | 2020-07-13 15:33 | ED.RN ---
PT ATTENDS, BLANKETS, SHEETS, AND GOWN SATURATED IN URINE. PT STRAIGHT CATHED AND CLEANED UP. SHEETS AND DOWN CHANGED. PT MOVED UP IN BED AND REPOSITIONS. AFTER THE NURSE LET GO OF HER RIGHT LEG, THE PT HELD HER LEG UP BENT WITHOUT ASSISTANCE FROM STAFF.
[2020-07-13 15:37] LABS: Amorphous Sediment 1+ PHOS; Bacteria 2+ /hpf (None Seen); Red Blood Cells-Urine 0-5 SEEN /hpf (0-5); Squamous Epithelial Cells - UA 0-5 SEEN /hpf (5-10); White Blood Cells 0-5 SEEN /hpf (0-5)
--- NOTE | 2020-07-13 15:48 | NURSING ---
DR RICHARD IN ER
--- NOTE | 2020-07-13 16:03 | PCM.HP.STD ---
Problem List (1) Hypertensive encephalopathy Status: Acute (2) Debility Status: Chronic (3) Unresponsive Status: Acute (4) Hypertensive emergency Status: Acute (5) Encephalopathy Status: Acute (6) Carotid artery stenosis Status: Chronic (7) Parkinson's disease dementia Status: Chronic (8) Coronary artery disease Status: Chronic (9) Hypertension Status: Chronic (10) Hyperlipidemia Status: Chronic (11) Altered mental status Status: Acute (12) History of renal stent Status: Chronic Comment: Left kidney, Per Dr. Marine Aguirre; may be removed (13) History of kidney stones Status: Chronic (14) History of lithotripsy Status: Chronic Comment: per Dr. 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 Laz Barreto (27) History of left heart catheterization Status: Chronic Comment: Bifurcating LOPEZ graft to the LAD and DIAG is patent with mild to moderate [place] mid/distal LAD 50% stenosis, high risk for PCI given need to traverse down LOPEZ and severe LV dysfunction. Saphenous Vein graft to the RCA previously placed stent is patent, with 75% mid PDA stenosis, not amenable to PCI given need to traverse through graft, then acute angle into PDA, of questionable benefit given severe LV dysfunction (28) Atrial fibrillation Status: Chronic (29) Hypercholesterolemia Status: Chronic (30) Non-STEMI (non-ST elevated myocardial infarction) Status: Chronic (31) Hypothyroidism Status: Chronic (32) Parkinson's disease Status: Chronic History of Present Illness Date of Admission: 07/13/20 Chief Complaint: unresponsive The patient is a 80 year old F who is currently been in the transitional care unit for the past 2 days presents again with unresponsiveness. Sent to the emergency room where they did a CAT scan that was unremarkable. Patient has remained unresponsive to verbal commands. Patient was admitted from the to the for encephalopathy. Patient had MRI, head CTA and neck CTA and that work-up was unremarkable. Patient was discharged to the transitional care unit on the . Today, patient became unresponsive again. Patient not having any obvious response to noxious stimuli but no evidence of any tonic-clonic activity. Patient is unresponsive so history is obtained through the emergency room physician. [] Past Medical History Past Medical History (Chronic Problems): Chronic Problems (Last Reviewed 07/08/20 @ 12:[address] Roberto Carlos Wu MD) Debility (Chronic) Carotid artery stenosis (Chronic) Parkinson's disease dementia (Chronic) Coronary artery disease (Chronic) Hypertension (Chronic) Hyperlipidemia (Chronic) History of renal stent (Chronic 08/27/19) Left kidney, Per Dr. Marine Aguirre; may be removed History of kidney stones (Chronic) History of lithotripsy (Chronic 10/12/19) per Dr. Meyers Renal calculus or stone (Chronic) Urolithiasis (Chronic) Essential hypertension (Chronic) Atherosclerosis of coronary artery of [place] heart without angina pectoris (Chronic) History of cardioversion (Chronic 12/16/18) History of coronary artery bypass graft x 3 (Chronic 08/22/98) [facility] [place]:LOPEZ to LAD, left radial to OM of CX and free MYNOR to PDA of RCA per Dr. Laz Barreto History of left heart catheterization (Chronic 09/11/18) Bifurcating LOPEZ graft to the LAD and DIAG is patent with mild to moderate [place] mid/distal LAD 50% stenosis, high risk for PCI given need to traverse down LOPEZ and severe LV dysfunction. Saphenous Vein graft to the RCA previously placed stent is patent, with 75% mid PDA stenosis, not amenable to PCI given need to traverse through graft, then acute angle into PDA, of questionable benefit given severe LV dysfunction Atrial fibrillation (Chronic) Hypercholesterolemia (Chronic) Non-STEMI (non-ST elevated myocardial infarction) (Chronic 09/10/18) Hypothyroidism (Chronic) Parkinson's disease (Chronic) Medical History: Medical History (Last Reviewed 07/13/20 @ 16:[address] Eduard Reyes DO) History of kidney stones (Chronic) Z87.442 Essential hypertension (Chronic) I10 Atherosclerosis of coronary artery of [place] heart without angina pectoris (Chronic) I25.10 Atrial fibrillation (Chronic) I48.91 Hypercholesterolemia (Chronic) E78.00 Non-STEMI (non-ST elevated myocardial infarction) (Chronic) Onset Date: 09/10/18 I21.4 Hypothyroidism (Chronic) E03.9 Parkinson's disease (Chronic) G20 Allergies Vacucuf-Lef-Njm Reductase Inhibitor Allergy (Verified 07/13/20 12:10) MUSCLE ACHES ALL OVER pravastatin Adverse Reaction (Severe, Verified 07/13/20 12:10) myalgias bones ache all over colesevelam [From WelChol] Adverse Reaction (Intermediate, Verified 07/13/20 12:10) Not effective ezetimibe [From Zetia] Adverse Reaction (Intermediate, Verified 07/13/20 12:10) GI upset Influenza Virus Vaccines Adverse Reaction (Intermediate, Verified 07/13/20 12:10) Visual changes, lightheaded niacin Adverse Reaction (Intermediate, Verified 07/13/20 12:10) sweats Home Medications: Ambulatory Orders Medication Instructions Recorded Levothyroxine [Synthroid] 125 mcg PO DAILY 06/14/13 Carbidopa/Levodopa 1.5 tab PO TID 09/09/18 [Carbidopa-Levodopa 25-100 Tab] L.acidoph,Paracasei, B.lactis 1 ea PO DAILY 09/09/18 [Probiotic] Potassium Chloride [K-Dur] 20 meq PO DAILY 08/25/19 clopidogrel 75 mg tablet 75 mg PO DAILY #90 tab 11/15/19 losartan 50 mg tablet 50 mg PO BID 02/22/20 amiodarone 200 mg tablet 100 mg PO DAILY #90 tab 06/28/20 furosemide 20 mg tablet 20 mg PO DAILY tab 06/28/20 Senna [Senokot] 1 tab PO DAILY 07/08/20 Amlodipine [Norvasc] 10 mg PO DAILY 07/11/20 Carvedilol 6.25 mg PO BID 07/11/20 Cholecalciferol (Vitamin D3) 1,000 unit PO DAILY 07/13/20 [Vitamin D3] Multivitamin with Minerals 1 tab PO DAILY 07/13/20 [Multiple Vitamin] Surgical History: Surgical History (Last Reviewed 07/13/20 @ 16:[address] Eduard Reyes, DO) History of renal stent (Chronic) Onset Date: 08/27/19 Left kidney, Per Dr. Marine Aguirre; may be removed History of lithotripsy (Chronic) Onset Date: 10/12/[address] Meyers History of cardioversion (Chronic) Onset Date: 12/16/18 Z98.890 History of coronary artery bypass graft x 3 (Chronic) Onset Date: 08/22/98 Z95.1 [facility] [place]:LOPEZ to LAD, left radial to OM of CX and free MYNOR to PDA of RCA per Dr. Laz Barreto History of laparoscopic cholecystectomy Onset Date: 06/15/[address] Kulwinder Rosas; umbilical hernia repair done concomitantly with lap cholecystectomy History of tubal ligation Onset Date: 1969 Z98.51 History of umbilical hernia repair Onset Date: 06/15/13 Z98.890, Z87.[address] Kulwinder Rosas, concomitant with laparascopic cholecystectomy History of varicose vein stripping Onset Date: 1971 Z98.890 Bilateral Surgical History: cholecystectomy - Laparoscopic., coronary bypass surgery - x 3, 15 years ago, herniorrhaphy - Umbilical., - - Vein stripping in both legs, tubal ligation, electrocardioversion, left renal stent. Psychiatric History: No pertinent psych hx BUSINESS SERVICES REPRESENTATIVE History: No pertinent BUSINESS SERVICES REPRESENTATIVE history Lives: Spouse/ Significant Other Smoking Status: Never smoker - *Family History Paternal Family History: Family History (Last Reviewed 07/13/20 @ 16:[address] Eduard Reyes DO) Sister Alzheimer's disease History Items: Heart Disease, Hypertension, Stroke Review of Systems Unable to obtain accurate/complete ROS d/t: Patient is unresponsive VTE Information - Inpt Only VTE Present on Admission: No VTE Mechan Device Prophylaxis: None VTE Pharm Prophylaxis ordered?: Yes Patient Problems: Active and Suspected Problems (Last Reviewed 07/08/20 @ 12:[address] Roberto Carlos Wu MD) Altered mental status (Acute) - Physical Exam Vitals/I&O's: Vital Signs Temp Pulse Resp BP Pulse Ox 37.1 C 59 L 20 H 167/59 H 100 07/13/20 11:59 07/13/20 15:07 07/13/20 15:07 07/13/20 15:07 07/13/20 15:07 Oxygen Delivery Method Room Air Weight: 72.5 kg Body Mass Index (BMI) 25.0 Finger Stick Blood Glucose 127 Intake and Output for Last 24 Hours 07/11/20 07/12/20 07/13/20 23:59 23:59 23:59 Output Total 850 / 850 Balance -850 / -850 General: - - Unresponsive to verbal and noxious stimuli. HEENT: Atraumatic, PERRLA, Normocephalic Oral: Moist Mucosa, No Gingival or Mucosal Lesions/ Ulcerations Neck: No Nodes, Trachea Midline Lungs: Clear to auscultation, Normal air movement, No rhonchi, No wheeze, No rales Cardiovascular: Regular rate, Regular Rhythm, Normal S1, Normal S2, No murmurs Abdomen: Bowel Sounds Present, Soft, Non Tender, Non-Distended, No Hepato-splenomegaly Extremities: No edema, No Calf Tenderness Skin: No rashes, No breakdown Neurological: - - Limited given the patient's unresponsiveness. Patient has some cogwheel rigidity of her upper extremities. Does not follow any commands. Does not withdraw to noxious stimuli. No tonic-clonic activity noted. Patient does have an intact gag reflex. Laboratory Results 07/13/20 12:33: WBC 5.8, RBC 4.61, Hgb 13.9, Hct 41.5, MCV 90.0, MCH 30.2, MCHC 33.5, RDW Std Deviation 46.2 H, RDW Coeff of [place] 14.0, Plt Count 237, MPV 9.5, Immature Gran % (Auto) 0.300, Neut % (Auto) 73.5 H, Lymph % (Auto) 15.5 L, [place] % (Auto) 9.5, Eos % (Auto) 0.9, Baso % (Auto) 0.3, Absolute Neuts (auto) 4.3, Absolute Lymphs (auto) 0.90, Nucleated RBC % 0 07/13/20 12:33: Sodium Cancelled, Potassium Cancelled, Chloride Cancelled, Carbon Dioxide Cancelled, Anion Gap Cancelled, BUN Cancelled, Creatinine Cancelled, Estim Creat Clear Calc Cancelled, Est GFR (MDRD) Af Amer Cancelled, Est GFR (MDRD) Non-Af Cancelled, BUN/Creatinine Ratio Cancelled, Glucose Cancelled, Calcium Cancelled, Total Bilirubin Cancelled, Direct Bilirubin Cancelled, AST Cancelled, ALT Cancelled, Alkaline Phosphatase Cancelled, Troponin I Cancelled, Total Protein Cancelled, Albumin Cancelled, Globulin Cancelled 07/13/20 12:33: Ammonia < 10.0 L 07/13/20 13:29: Sodium Cancelled, Potassium Cancelled, Chloride Cancelled, Carbon Dioxide Cancelled, Anion Gap Cancelled, BUN Cancelled, Creatinine Cancelled, Estim Creat Clear Calc Cancelled, Est GFR (MDRD) Af Amer Cancelled, Est GFR (MDRD) Non-Af Cancelled, BUN/Creatinine Ratio Cancelled, Glucose Cancelled, Calcium Cancelled, Total Bilirubin Cancelled, Direct Bilirubin Cancelled, AST Cancelled, ALT Cancelled, Alkaline Phosphatase Cancelled, Troponin I Cancelled, Total Protein Cancelled, Albumin Cancelled, Globulin Cancelled 07/13/20 14:27: Sodium 133 L, Potassium 3.7, Chloride 102, Carbon Dioxide 26.0, Anion Gap 5, BUN 14, Creatinine 0.66, Estim Creat Clear Calc 42.91, Est GFR (MDRD) Af Amer 110, Est GFR (MDRD) Non-Af 91, BUN/Creatinine Ratio 21.1 H, Glucose 90, Calcium 8.7, Total Bilirubin 0.80, Direct Bilirubin 0.22, AST 41 H, ALT 26, Alkaline Phosphatase 63, Troponin I 0.095 H, Total Protein 6.6, Albumin 3.3, Globulin 3.3 07/13/20 15:25: Urine Color Yellow, Urine Clarity Sl. Cloudy, Urine pH 7.0, Ur Specific [place] 1.010, Urine Protein Negative, Urine Glucose (UA) Normal, Urine Ketones Negative, Urine Occult Blood 10 H, Urine Nitrite Positive H, Urine Bilirubin Negative, Urine Urobilinogen Normal, Ur Leukocyte Esterase 25 H, Urine RBC 0-5 SEEN, Urine WBC 0-5 SEEN, Ur Squamous Epith Cells 0-5 SEEN, Amorphous Sediment 1+ PHOS, Urine Bacteria 2+, Urine Mucus 0 SEEN Clinical Impression(s) from Imaging Studies Brain CT 07/13/20 12:24 IMPRESSION: Chronic involutional changes of the brain. Stable examination. Sinusitis. Electronically Signed: Reinaldo Alegre, at 13:09 EST , Service support , Chest X-Ray 07/13/20 12:24 IMPRESSION: No acute abnormality is present. Electronically Signed: Reinaldo Alegre, at 13:10 EST , Service support , EKG reviewed showed normal sinus rhythm with LVH. Assessment/Plan All Active Problems (Last Reviewed 07/08/20 @ 12:[address] Roberto Carlos Wu MD) Hypertensive encephalopathy (Acute) Unresponsive (Acute) Hypertensive emergency (Acute) Encephalopathy (Acute) Altered mental status (Acute) Intractable abdominal pain (Resolved) Left ureteral calculus (Resolved) Hydronephrosis (Resolved) Ureteral colic (Resolved) Acute kidney injury (Resolved) Complicated UTI (urinary tract infection) (Resolved) 1. Encephalopathy: I do not feel this is stroke and will not perform another stroke evaluation as that was already done during this most recent hospitalization. Patient was hypotensive again so this certainly could be hypertensive encephalopathy. I am more concerned that this could be more related with her Parkinson's disease. Is unclear to me how severe her Parkinson's disease is. I did reach out to her family members including her and son, no answer but did leave message with her . I am concerned that the patient may have advanced Parkinson's disease and that patient may have an exaggerated lethargic responses/minor things such as being tired. Does not appear the patient has had an EEG so I will order that to rule out any kind of seizure activity and possible postictal.. I do not feel the patient is in status epilepticus at this time, however. 2. Hypertensive urgency: Patient is on maximal therapy with amlodipine and losartan. Carvedilol is not at max at this time, however is limited due to her relative bradycardia. We will add a clonidine patch at 0.1 mg for now. That may need to be titrated upwards depending on her response. Patient has had some normal blood pressures so I do not want to be too aggressive in treatment at this time. Certainly could be a component of hypertensive encephalopathy 3. Parkinson's disease: Once again, it is unclear how advanced she is. Continue with Sinemet 4. VTE prophylaxis with enoxaparin. 5. Advanced care planning: This is discussed with family during the previous admission. Patient was DNR Comfort Care arrest no intubation and will continue that. Inpatient E&M: [id number] Init Hosp L3
--- NOTE | 2020-07-13 16:09 | NURSING ---
FAXED FACESHEET TO [facility] TALKED TO MANDA, WILL BE 7 TO 10 DAY BEFORE A BED IS AVAILABLE
--- NOTE | 2020-07-13 16:10 | NURSING ---
MED SURG [facility] DECREASED LOC
--- NOTE | 2020-07-13 16:39 | NURSING ---
DR NATARAJAN TALKED TO FAMILY. THEY STILL WANT PATIENT TRANSFERRED TO [facility]. TALKED TO MANDA AT TRANSFER CENTER.
--- NOTE | 2020-07-13 16:52 | NURSING ---
[facility] DR FOR DR ALFORD
--- NOTE | 2020-07-13 16:56 | NURSING ---
[facility] UNABLE TO ACCEPT PATIENT AT THIS TIME. NO BEDS THERE
[2020-07-13] MEDS: LORazepam 2 MG/ML Syringe IV (18:43)
[2020-07-13] MEDS: levETIRAcetam IV 1,000 MG/100 ML BAG 400 MG IV (20:31)
[2020-07-14] VITALS (24 sets, daily range): BP systolic 102–172; BP diastolic 41–68; PULSE 40–65; RESP 12–27; TEMP 35.7–36.7; O2SAT 93–100
[2020-07-14] MEDS: 0.9% Saline Lock 10 ML Syringe IV (04:13)
[2020-07-14 04:45] LABS: Absolute Lymphocyte Count 0.89 X10^3/uL (0.83-4.51); Absolute Neutrophil Count 5.2 X10^3/uL (2.0-7.7); Basophil# 0.03 X10^3/uL; Basophil% 0.4 % (0-1); Eosinophil# 0.08 X10^3/uL; Eosinophils% 1.2 % (0-5); Hematocrit 43.3 % (37-47); Hemoglobin 14.2 g/dL (12.0-15.0); Lymphocyte # 0.89 X10^3/ul (4.0); Lymphocyte % 13.2 % (19-41); Mean Corp Hgb Conc 32.8 g/dL (32-36); Mean Corpuscular Hgb 29.6 pg (27.0-32.0); Mean Corpuscular Volume 90.2 fL (81-99); Mean Platelet Vol. 9.2 fl (6.2-12.0); Monocyte# 0.51 X10^3/uL; Monocyte% 7.5 % (0-10); NRBC Flagged by Analyzer 0 % (0-5); Neutrophil # 5.24 X10^3/uL (2.7-7.7); Neutrophil % 77.6 % (47-70); Platelet Count 245 K/mm3 (150-450); RBC Distribution Width CV 13.8 % (11.6-14.6); RBC Distribution Width SD 46.1 fl (35.1-43.9); White Blood Count 6.8 K/mm3 (4.4-11.0)
[2020-07-14 04:59] LABS: Anion Gap 6 (5-15); BUN 13 mg/dL (7-18); BUN/Creat Ratio 19.2 RATIO (10-20); Calcium,Total 8.7 mg/dL (8.5-10.1); Chloride 100 mmol/L (98-107); Creatinine, Serum 0.68 mg/dL (0.55-1.02); EST Glomerular Filtration Rate 89 mL/min (>60); Est Glom Filt Rate - Afr Amer 107 mL/min (>60); Glucose 72 mg/dL (74-106); Magnesium 2.2 mg/dL (1.6-2.6); Phosphorus 3.3 mg/dL (2.5-4.9); Potassium 3.6 mmol/L (3.5-5.1); Sodium Level 134 mmol/L (136-145)
--- NOTE | 2020-07-14 06:48 | PCM.PN.HOSP ---
Patient Problems: Active and Suspected Problems (Last Reviewed 07/13/20 @ 16:[address] Eduard Reyes, DO) Hypertensive encephalopathy (Acute) Unresponsive (Acute) Hypertensive emergency (Acute) Encephalopathy (Acute) Altered mental status (Acute) Subjective: Patient with continued episode of unresponsiveness with intermittent periods of lucidity following transition to the ICU, continued on IV Keppra, no visible seizure activity noted with stable vital signs and appropriate airway management per herself. Patient able to tolerate pills with applesauce with strong encouragement once awakened. Patient does note that her chest is sore where she is had significant sternal rub and bruises visible. Patient remains confused and can answer some questions but is clearly not oriented now. Patient denies fevers, chills, nausea, emesis, abdominal pain, chest pain or dyspnea. Objective: Physical Examination: General: Awakens occasionally with extensive encouragement, intermittently alert but primarily remains less responsive, unable to answer orientation questions but did awaken enough to answer some questions, intermittently cooperative, laying in the ICU bed, no acute distress. Skin: normal color, turgor, no icterus, cyanosis. HEENT: AT/NC, EOMI, PERRLA, dry MM, no carotid bruits or JVD noted. Lungs: CTA bilaterally, moderate effort, moderate decrease BL bases, no rales, ronchi or wheezing. Heart: Regular rate and rhythm; no gallop, rub audible. Abdomen: soft, NTTP, ND, normal BS, no HSM. Extremities: no cyanosis, clubbing, or edema. Neurological: Awakens occasionally with extensive encouragement, intermittently alert but primarily remains less responsive, unable to answer orientation questions but did awaken enough to answer some questions, intermittently cooperative, laying in the ICU bed, no acute distress; cognitive function not baseline intact; pupils equally reactive to light and accomodation; cranial nerves difficult to assess given status, moving extremities but continued difficulty arousing, no specific focal deficits, strength severely globally decreased. Psychiatric: affect appears flat, no acute evidence of depressive or anxiety feelings. Vitals/I&O's: Vital Signs Temp Pulse Resp BP Pulse Ox 97.1 F L 43 L 14 133/52 H 100 07/14/20 04:00 07/14/20 06:00 07/14/20 06:00 07/14/20 06:00 07/14/20 06:00 Oxygen Delivery Method Room Air Weight: 142 lb 6.698 oz Body Mass Index (BMI) 22.5 Finger Stick Blood Glucose 127 Intake and Output for Last 24 Hours 07/12/20 07/13/20 07/14/20 23:59 23:59 23:59 Intake Total 100 / 100 Output Total 850 / 850 600 / 600 Balance -750 / -750 -600 / -600 Laboratory Results 07/13/20 12:33: WBC 5.8, RBC 4.61, Hgb 13.9, Hct 41.5, MCV 90.0, MCH 30.2, MCHC 33.5, RDW Std Deviation 46.2 H, RDW Coeff of Pina 14.0, Plt Count 237, MPV 9.5, Immature Gran % (Auto) 0.300, Neut % (Auto) 73.5 H, Lymph % (Auto) 15.5 L, [place] % (Auto) 9.5, Eos % (Auto) 0.9, Baso % (Auto) 0.3, Absolute Neuts (auto) 4.3, Absolute Lymphs (auto) 0.90, Nucleated RBC % 0 07/13/20 12:33: Sodium Cancelled, Potassium Cancelled, Chloride Cancelled, Carbon Dioxide Cancelled, Anion Gap Cancelled, BUN Cancelled, Creatinine Cancelled, Estim Creat Clear Calc Cancelled, Est GFR (MDRD) Af Amer Cancelled, Est GFR (MDRD) Non-Af Cancelled, BUN/Creatinine Ratio Cancelled, Glucose Cancelled, Calcium Cancelled, Total Bilirubin Cancelled, Direct Bilirubin Cancelled, AST Cancelled, ALT Cancelled, Alkaline Phosphatase Cancelled, Troponin I Cancelled, Total Protein Cancelled, Albumin Cancelled, Globulin Cancelled 07/13/20 12:33: Ammonia < 10.0 L 07/13/20 13:29: Sodium Cancelled, Potassium Cancelled, Chloride Cancelled, Carbon Dioxide Cancelled, Anion Gap Cancelled, BUN Cancelled, Creatinine Cancelled, Estim Creat Clear Calc Cancelled, Est GFR (MDRD) Af Amer Cancelled, Est GFR (MDRD) Non-Af Cancelled, BUN/Creatinine Ratio Cancelled, Glucose Cancelled, Calcium Cancelled, Total Bilirubin Cancelled, Direct Bilirubin Cancelled, AST Cancelled, ALT Cancelled, Alkaline Phosphatase Cancelled, Troponin I Cancelled, Total Protein Cancelled, Albumin Cancelled, Globulin Cancelled 07/13/20 14:27: Sodium 133 L, Potassium 3.7, Chloride 102, Carbon Dioxide 26.0, Anion Gap 5, BUN 14, Creatinine 0.66, Estim Creat Clear Calc 42.91, Est GFR (MDRD) Af Amer 110, Est GFR (MDRD) Non-Af 91, BUN/Creatinine Ratio 21.1 H, Glucose 90, Calcium 8.7, Total Bilirubin 0.80, Direct Bilirubin 0.22, AST 41 H, ALT 26, Alkaline Phosphatase 63, Troponin I 0.095 H, Total Protein 6.6, Albumin 3.3, Globulin 3.3 07/13/20 15:25: Urine Color Yellow, Urine Clarity Sl. Cloudy, Urine pH 7.0, Ur Specific [place] 1.010, Urine Protein Negative, Urine Glucose (UA) Normal, Urine Ketones Negative, Urine Occult Blood 10 H, Urine Nitrite Positive H, Urine Bilirubin Negative, Urine Urobilinogen Normal, Ur Leukocyte Esterase 25 H, Urine RBC 0-5 SEEN, Urine WBC 0-5 SEEN, Ur Squamous Epith Cells 0-5 SEEN, Amorphous Sediment 1+ PHOS, Urine Bacteria 2+, Urine Mucus 0 SEEN 07/13/20 17:00: Troponin I 0.093 H 07/14/20 04:35: WBC 6.8, RBC 4.80, Hgb 14.2, Hct 43.3, MCV 90.2, MCH 29.6, MCHC 32.8, RDW Std Deviation 46.1 H, RDW Coeff of [place] 13.8, Plt Count 245, MPV 9.2, Immature Gran % (Auto) 0.100, Neut % (Auto) 77.6 H, Lymph % (Auto) 13.2 L, [place] % (Auto) 7.5, Eos % (Auto) 1.2, Baso % (Auto) 0.4, Absolute Neuts (auto) 5.2, Absolute Lymphs (auto) 0.89, Nucleated RBC % 0 07/14/20 04:35: Sodium 134 L, Potassium 3.6, Chloride 100, Carbon Dioxide 28.0, Anion Gap 6, BUN 13, Creatinine 0.68, Estim Creat Clear Calc 41.30, Est GFR (MDRD) Af Amer 107, Est GFR (MDRD) Non-Af 89, BUN/Creatinine Ratio 19.2, Glucose 72 L, Calcium 8.7, Phosphorus 3.3, Magnesium 2.2 Current Medications Acetaminophen (Acetaminophen 325 Mg Tablet) 650 mg PO Q6H PRN PRN PRN Reason: Pain Score 1-10/Temp > 100.7 F Amiodarone HCl (Amiodarone 200 Mg Tablet) 100 mg PO DAILY [facility] Amlodipine Besylate (Amlodipine 10 Mg Tablet) 10 mg PO DAILY [facility] Carbidopa/Levodopa (Carbidopa/Levodopa 25/100 Tablet) 1.5 tablet PO TIDAC [facility] Carvedilol (Carvedilol 6.25 Mg Tablet) 6.25 mg PO BID [facility] Last Admin: 07/13/20 23:03 Dose: Not Given Documented by: Cholecalciferol (Cholecalciferol (Vit D3) 1,000 Unit (25mcg)) 1,000 unit PO DAILY [facility] Clonidine HCl (Clonidine Hcl 0.1 Mg Patch) 0.1 mg TRANSDERM. Q7D [facility] Last Admin: 07/13/20 23:02 Dose: Not Given Documented by: Clopidogrel Bisulfate (Clopidogrel Bisulfate 75 Mg Tablet) 75 mg PO DAILY [facility] Enoxaparin Sodium (Enoxaparin 40 Mg/0.4 Ml Syringe) 40 mg SC DAILY [facility] Furosemide (Furosemide 20 Mg Tablet) 20 mg PO DAILY [facility] Hydralazine HCl (Hydralazine 20 Mg/Ml Vial) 10 mg IV Q4H PRN PRN PRN Reason: SBP GREATER THAN 180 Levetiracetam 750 mg/ Sodium (Chloride) 107.5 mls @ 430 mls/hr IV Q12 [facility] Sodium Chloride () 250 mls @ 15 mls/hr IV .[id number] PRN PRN Reason: Saline Flush Last Admin: 07/14/20 04:15 Dose: 15 mls/hr Documented by: Levothyroxine Sodium (Levothyroxine 125 Mcg Tablet) 125 mcg PO DAILY@0600 [facility] Lorazepam (Lorazepam 2 Mg/Ml Syringe) 2 mg IV Q4H PRN PRN PRN Reason: SEIZURES Losartan Potassium (Losartan Potassium 50 Mg Tablet) 50 mg PO BID [facility] Last Admin: 07/13/20 23:03 Dose: Not Given Documented by: Multivitamins/Minerals (Multivitamins,Ther W-Minerals Tablet) 1 tablet PO DAILYCM [facility] Potassium Chloride (Potassium Chloride 20 Meq Tablet) 20 meq PO DAILY [facility] Senna (Senna Tablet) 1 tablet PO DAILY [facility] Sodium Chloride (0.9% Saline Lock 10 Ml Syringe) 10 - 40 ml IV UD PRN PRN Reason: SALINE FLUSH Last Admin: 07/14/20 04:13 Dose: 10 ml Documented by: STROKE Vital Signs/Narrative: Vital Signs Temp Pulse Resp BP Pulse Ox 07/14/20 06:00 43 L 14 133/52 H 100 07/14/20 05:00 48 L 18 159/51 H 100 07/14/20 04:00 97.1 F L 41 L 15 137/53 H 99 07/14/20 03:00 41 L 12 143/62 H 93 Medical Necessity - Tobacco Use Smoking Status: Never smoker Assessment/Plan All Active Problems (Last Reviewed 07/13/20 @ 16:[address] Eduard Reyes, DO) Hypertensive encephalopathy (Acute) Unresponsive (Acute) Hypertensive emergency (Acute) Encephalopathy (Acute) Altered mental status (Acute) Intractable abdominal pain (Resolved) Left ureteral calculus (Resolved) Hydronephrosis (Resolved) Ureteral colic (Resolved) Acute kidney injury (Resolved) Complicated UTI (urinary tract infection) (Resolved) The patient is a 80 y/o F w/ PMHx: HTN, HLD, CAD s/p CABG, Hypothyroidism, Parkinson's disease, PAF, recent admission 07/08/20-07/11/20 for evaluation similar unresponsive episode, treated for HTN encephalopathy, unremarkable CVA work-up with improvement of mental status with transition to SNF with representation on 07/13/20 secondary to recurrent unresponsive episodes at SNF. 1. Acute hypertensive encephalopathy, unresponsive periods, unclear etiology, suspect multifactorial including possible Seizure, Complicated UTI, ? Undiagnosed Lewey Body Dementia: Recent admission with evaluation for CVA and treatment for possible HTN encephalopathy with improvement with noted MRI demonstrating no acute evidence of CVA, ED CTA head and neck w/ approximate 70% stenosis right proximal ICA with no significant stenosis of the left ICA, interstitial septal thickening with no evidence arterial occlusion, aneurysm or vascular malformation, echocardiogram with EF 55%, readmitted to the [facility] initially then transitioned to ICU given ongoing unresponsiveness and placed on keppra for possibile seizure but no visible seizure activity reported, noted mild urinary retention in the ICU with Davis catheter placed with urinalysis with positive nitrite as well as leukocyte esterase but no marked urine WBCs but noted urine bacteria significant therefore urine culture requested and patient placed on Rocephin in case contributing to presentation with delirium, repeat CT without acute findings, given ongoing unresponsiveness telemetry neurology also consulted and recommended vitamin B12, folic acid and RPR be obtained with vitamin B12 1481, folic acid 41.50, RPR pending at discharge to facility, mild TSH elevation with free T4 1.57, EEG with no evidence of seizure activity. Neurology recommended transfer to tertiary facility for continuous EEG and if this was unremarkable felt patient presentation likely secondary to undiagnosed Lewy body dementia with lights out periods and felt that likely patient had been misdiagnosed as Parkinson's disease. 2. Hypertension, uncontrolled with prior concern for hypertensive encephalopathy: Patient initial BPs elevated upon representation, continued on Norvasc, Losartan, Coreg, Lasix with inability to increase patient beta-ramo therapy secondary to concurrent usage of amiodarone with bradycardia therefore patient placed on clonidine transdermal patch with improvement with as needed IV hydralazine currently. 3. Acute Complicated Urinary Tract Infection: UA with positive nitrite, leukocyte Estrace and urine bacteria, pending UCx, continue IVFs, monitor I/Os, continue IV Rocephin w/ transition as able pending sensitivities and speciation. 4. Parkinson's disease: Patient per report diagnosed with Parkinson's disease however per review with neurology and patient family unclear how this diagnosis came about and neurology is concerned that this may be had misdiagnosed, pending continuous EEG to assure no seizure activity patient Sinemet continued. Will benefit from neurology evaluation once transferred. 5. Return PAF: Continued patient's amiodarone, low-dose Coreg added, maintained on Plavix, not anticoagulated secondary to fall history. 6. Hypothyroidism: Continue patient Synthroid regimen, TSH 1.57, free T4 1.57 with given presentation and recommended repeat TSH studies at follow-up with alteration of regimen if appropriate at that time. 7. CAD: Patient with history of CABG, to need on Plavix, Coreg, losartan, not on statin therapy secondary to noted allergy. 8. Hyperlipidemia: Not on statin secondary to allergy. 9. Prophylaxis: SCDs, Lovenox. 10. CODE status: Patient [place] is her and son and living will is currently in place. Discussed CODE status at length including difference between FULL code, DNR-CCA and DNR-CC status. Following discussions about the differences in these status, requested DNR-CCA, no intubation status. Advanced Care Planning Face to Face Time: 16 minutes. Inpatient E&M: 11180 Subs Hosp L3 Procedures: [id number] Advncd Care Plan 30 Min
--- NOTE | 2020-07-14 06:49 | TELEMED_ITS ---
[facility] has confirmed receipt of a request for visit. This document confirms receipt of the order initiating the consult. To find the results of the consultation, please view the patient's reports for the scanned Telemed Consult.
[2020-07-14 07:09] LABS: Mucous, Urine 0 SEEN /hpf (<or=2+); Red Blood Cells-Urine 0 SEEN /hpf (0-5); Squamous Epithelial Cells - UA 0 SEEN /hpf (5-10)
--- NOTE | 2020-07-14 07:20 | PCM.CON.CC ---
Problem List (1) Hypertensive encephalopathy Status: Acute (2) Debility Status: Chronic (3) Encephalopathy Status: Acute (4) Carotid artery stenosis Status: Chronic (5) Parkinson's disease dementia Status: Chronic (6) Coronary artery disease Status: Chronic (7) Hypertension Status: Chronic (8) Hyperlipidemia Status: Chronic (9) History of renal stent Status: Chronic Comment: Left kidney, Per Dr. Marine Aguirre; may be removed (10) History of kidney stones Status: Chronic (11) History of lithotripsy Status: Chronic Comment: per Dr. 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 Laz Barreto (14) Atrial fibrillation Status: Chronic (15) Hypercholesterolemia Status: Chronic (16) Hypothyroidism Status: Chronic Reason for Consult Date of Consultation: 07/14/20 Reason for Consultation: Encephalopathy, concern for seizure History of Present Illness: The patient is an 80 year old F, with past medical history listed below, who presented [facility] on 07/13/2020 secondary to decreased level of consciousness and hypertension. Patient reportedly was in the TCU and was brought down for evaluation. Patient reportedly was verbal on the morning of presentation and then they found her lying in bed not wanting to talk or respond. Patient was noted to be hypertensive and had been given a dose of hydralazine that she took without difficulty. Patient reportedly was able to tell the staff her birthdate and was nodding yes and no to questions. On evaluation in the ER, patient was afebrile, bradycardic at 52 with a blood pressure of 178/60. Pulse ox was 99% on room air. Patient reportedly did respond to painful stimuli. A CT of the head was unremarkable except for possible sinusitis and a chest x-ray showed no acute abnormality. Laboratory work-up showed no leukocytosis, negative ammonia and normal renal function. Troponin was unremarkable. UA did have some bacteria, but no leukocytosis. There was minimal urine nitrite and leukocyte esterase. Patient reportedly is also had a negative MRI. On the floor, patient reportedly became unresponsive again. There was some concern for possible seizure activity leading to the current scenario so patient was transferred to the intensive care unit for further evaluation. An EEG was ordered, but was unable to be completed overnight. Patient was given clonidine to help with hypertension. Reportedly, there was a request for transfer to [facility], so the transfer center was called. Reportedly bed availability would delay transfer for 10 to 14 days. Patient had received Ativan. Patient is verbal this morning in the intensive care unit. Patient states she has seen a neurologist previously, but is unaware of the reason despite her diagnosis of Parkinson's. Patient had reported that she needed to pee but could not. A bladder scan was obtained showing 900 cc. Patient received a straight cath evaluation with 600 cc removal that was sent for urinary culture. EEG is currently underway. Patient did receive Keppra Patient is unable to provide review of systems at this time. Past Medical History Past Medical History (Chronic Problems): Chronic Problems (Last Reviewed 07/13/20 @ 16:[address] Eduard Reyes, DO) Debility (Chronic) Carotid artery stenosis (Chronic) Parkinson's disease dementia (Chronic) Coronary artery disease (Chronic) Hypertension (Chronic) Hyperlipidemia (Chronic) History of renal stent (Chronic 08/27/19) Left kidney, Per Dr. Marine Aguirre; may be removed History of kidney stones (Chronic) History of lithotripsy (Chronic 10/12/19) per Dr. Meyers Renal calculus or stone (Chronic) Urolithiasis (Chronic) Essential hypertension (Chronic) Atherosclerosis of coronary artery of [place] heart without angina pectoris (Chronic) History of cardioversion (Chronic 12/16/18) History of coronary artery bypass graft x 3 (Chronic 08/22/98) [facility] [place]:LOPEZ to LAD, left radial to OM of CX and free MYNOR to PDA of RCA per Dr. Laz Barreto History of left heart catheterization (Chronic 09/11/18) Bifurcating LOPEZ graft to the LAD and DIAG is patent with mild to moderate [place] mid/distal LAD 50% stenosis, high risk for PCI given need to traverse down LOPEZ and severe LV dysfunction. Saphenous Vein graft to the RCA previously placed stent is patent, with 75% mid PDA stenosis, not amenable to PCI given need to traverse through graft, then acute angle into PDA, of questionable benefit given severe LV dysfunction Atrial fibrillation (Chronic) Hypercholesterolemia (Chronic) Non-STEMI (non-ST elevated myocardial infarction) (Chronic 09/10/18) Hypothyroidism (Chronic) Parkinson's disease (Chronic) Medical History: Medical History (Last Reviewed 07/13/20 @ 16:[address] Eduard Reyes, DO) History of kidney stones (Chronic) Z87.442 Essential hypertension (Chronic) I10 Atherosclerosis of coronary artery of [place] heart without angina pectoris (Chronic) I25.10 Atrial fibrillation (Chronic) I48.91 Hypercholesterolemia (Chronic) E78.00 Non-STEMI (non-ST elevated myocardial infarction) (Chronic) Onset Date: 09/10/18 I21.4 Hypothyroidism (Chronic) E03.9 Parkinson's disease (Chronic) G20 Allergies Zwqnzvo-Aub-Edz Reductase Inhibitor Allergy (Verified 07/13/20 12:10) MUSCLE ACHES ALL OVER pravastatin Adverse Reaction (Severe, Verified 07/13/20 12:10) myalgias bones ache all over colesevelam [From WelChol] Adverse Reaction (Intermediate, Verified 07/13/20 12:10) Not effective ezetimibe [From Zetia] Adverse Reaction (Intermediate, Verified 07/13/20 12:10) GI upset Influenza Virus Vaccines Adverse Reaction (Intermediate, Verified 07/13/20 12:10) Visual changes, lightheaded niacin Adverse Reaction (Intermediate, Verified 07/13/20 12:10) sweats Home Medications: Ambulatory Orders Medication Instructions Recorded Levothyroxine [Synthroid] 125 mcg PO DAILY 06/14/13 Carbidopa/Levodopa 1.5 tab PO TID 09/09/18 [Carbidopa-Levodopa 25-100 Tab] L.acidoph,Paracasei, B.lactis 1 ea PO DAILY 09/09/18 [Probiotic] Potassium Chloride [K-Dur] 20 meq PO DAILY 08/25/19 clopidogrel 75 mg tablet 75 mg PO DAILY #90 tab 11/15/19 losartan 50 mg tablet 50 mg PO BID 02/22/20 amiodarone 200 mg tablet 100 mg PO DAILY #90 tab 06/28/20 furosemide 20 mg tablet 20 mg PO DAILY tab 06/28/20 Senna [Senokot] 1 tab PO DAILY 07/08/20 Amlodipine [Norvasc] 10 mg PO DAILY 07/11/20 Carvedilol 6.25 mg PO BID 07/11/20 Cholecalciferol (Vitamin D3) 1,000 unit PO DAILY 07/13/20 [Vitamin D3] Multivitamin with Minerals 1 tab PO DAILY 07/13/20 [Multiple Vitamin] Surgical History: Surgical History (Last Reviewed 07/13/20 @ 16:[address] Eduard Reyes DO) History of renal stent (Chronic) Onset Date: 08/27/19 Left kidney, Per Dr. Marine Aguirre; may be removed History of lithotripsy (Chronic) Onset Date: 10/12/[address] Meyers History of cardioversion (Chronic) Onset Date: 12/16/18 Z98.890 History of coronary artery bypass graft x 3 (Chronic) Onset Date: 08/22/98 Z95.1 [facility] [place]:LOPEZ to LAD, left radial to OM of CX and free MYNOR to PDA of RCA per Dr. Laz Barreto History of laparoscopic cholecystectomy Onset Date: 06/15/[address] Kulwinder Rosas; umbilical hernia repair done concomitantly with lap cholecystectomy History of tubal ligation Onset Date: 1969 Z98.51 History of umbilical hernia repair Onset Date: 06/15/13 Z98.890, Z87.[address] Kulwinder Rosas, concomitant with laparascopic cholecystectomy History of varicose vein stripping Onset Date: 1971 Z98.890 Bilateral Surgical History: cholecystectomy - Laparoscopic., coronary bypass surgery - x 3, 15 years ago, herniorrhaphy - Umbilical., - - Vein stripping in both legs, tubal ligation, electrocardioversion, left renal stent. 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 Eduard Reyes DO) Sister Alzheimer's disease History Items: Heart Disease, Hypertension, Stroke Review of Systems Comment: See HPI Patient Problems: Active and Suspected Problems (Last Reviewed 07/13/20 @ 16:[address] Eduard Reyes DO) Hypertensive encephalopathy (Acute) Unresponsive (Acute) Hypertensive emergency (Acute) Encephalopathy (Acute) Altered mental status (Acute) Objective: Imaging reports were personally reviewed. Chest x-ray was unimpressive. - Physical Exam Vitals/I&O's: Vital Signs Temp Pulse Resp BP Pulse Ox 36.2 C L 43 L 14 133/52 H 100 07/14/20 04:00 07/14/20 06:00 07/14/20 06:00 07/14/20 06:00 07/14/20 06:00 Oxygen Delivery Method Room Air Weight: 64.6 kg Body Mass Index (BMI) 22.5 Finger Stick Blood Glucose 127 Intake and Output for Last 24 Hours 07/12/20 07/13/20 07/14/20 23:59 23:59 23:59 Intake Total 100 / 100 Output Total 850 / 850 600 / 600 Balance -750 / -750 -600 / -600 General: Cooperative - Intermittently, Lethargic HEENT: Atraumatic, PERRLA, EOMI, Normocephalic, - - Masked facies. No scleral icterus or injection noted. No nystagmus noted. Oral: Moist Mucosa, No Gingival or Mucosal Lesions/ Ulcerations Neck: Supple, No JVD, No Nodes, Trachea Midline Lungs: Clear to auscultation, Normal air movement, No rhonchi, No wheeze, No rales Cardiovascular: Normal S1, Normal S2, No murmurs, Bradycardic, No rub noted, No Gallop Abdomen: Bowel Sounds Present, Soft, Non Tender, Non-Distended Extremities: No clubbing, No cyanosis, Edema Skin: No rashes, No breakdown Musculoskeletal: No Tenderness to Palpation of Joints or Extremities Lymphatic: No Cervical, Supraclavicular, or Inguinal Adenopathy Neurological: Cranial nerves II-XII grossly intact, - - Patient appears to have sensation intact. Very little spontaneous muscle movement Psych/Mental Status: Flat Affect Laboratory Results 07/13/20 12:33: WBC 5.8, RBC 4.61, Hgb 13.9, Hct 41.5, MCV 90.0, MCH 30.2, MCHC 33.5, RDW Std Deviation 46.2 H, RDW Coeff of Pina 14.0, Plt Count 237, MPV 9.5, Immature Gran % (Auto) 0.300, Neut % (Auto) 73.5 H, Lymph % (Auto) 15.5 L, [place] % (Auto) 9.5, Eos % (Auto) 0.9, Baso % (Auto) 0.3, Absolute Neuts (auto) 4.3, Absolute Lymphs (auto) 0.90, Nucleated RBC % 0 07/13/20 12:33: Sodium Cancelled, Potassium Cancelled, Chloride Cancelled, Carbon Dioxide Cancelled, Anion Gap Cancelled, BUN Cancelled, Creatinine Cancelled, Estim Creat Clear Calc Cancelled, Est GFR (MDRD) Af Amer Cancelled, Est GFR (MDRD) Non-Af Cancelled, BUN/Creatinine Ratio Cancelled, Glucose Cancelled, Calcium Cancelled, Total Bilirubin Cancelled, Direct Bilirubin Cancelled, AST Cancelled, ALT Cancelled, Alkaline Phosphatase Cancelled, Troponin I Cancelled, Total Protein Cancelled, Albumin Cancelled, Globulin Cancelled 07/13/20 12:33: Ammonia < 10.0 L 07/13/20 13:29: Sodium Cancelled, Potassium Cancelled, Chloride Cancelled, Carbon Dioxide Cancelled, Anion Gap Cancelled, BUN Cancelled, Creatinine Cancelled, Estim Creat Clear Calc Cancelled, Est GFR (MDRD) Af Amer Cancelled, Est GFR (MDRD) Non-Af Cancelled, BUN/Creatinine Ratio Cancelled, Glucose Cancelled, Calcium Cancelled, Total Bilirubin Cancelled, Direct Bilirubin Cancelled, AST Cancelled, ALT Cancelled, Alkaline Phosphatase Cancelled, Troponin I Cancelled, Total Protein Cancelled, Albumin Cancelled, Globulin Cancelled 07/13/20 14:27: Sodium 133 L, Potassium 3.7, Chloride 102, Carbon Dioxide 26.0, Anion Gap 5, BUN 14, Creatinine 0.66, Estim Creat Clear Calc 42.91, Est GFR (MDRD) Af Amer 110, Est GFR (MDRD) Non-Af 91, BUN/Creatinine Ratio 21.1 H, Glucose 90, Calcium 8.7, Total Bilirubin 0.80, Direct Bilirubin 0.22, AST 41 H, ALT 26, Alkaline Phosphatase 63, Troponin I 0.095 H, Total Protein 6.6, Albumin 3.3, Globulin 3.3 07/13/20 15:25: Urine Color Yellow, Urine Clarity Sl. Cloudy, Urine pH 7.0, Ur Specific [place] 1.010, Urine Protein Negative, Urine Glucose (UA) Normal, Urine Ketones Negative, Urine Occult Blood 10 H, Urine Nitrite Positive H, Urine Bilirubin Negative, Urine Urobilinogen Normal, Ur Leukocyte Esterase 25 H, Urine RBC 0-5 SEEN, Urine WBC 0-5 SEEN, Ur Squamous Epith Cells 0-5 SEEN, Amorphous Sediment 1+ PHOS, Urine Bacteria 2+, Urine Mucus 0 SEEN 07/13/20 17:00: Troponin I 0.093 H 07/14/20 04:35: WBC 6.8, RBC 4.80, Hgb 14.2, Hct 43.3, MCV 90.2, MCH 29.6, MCHC 32.8, RDW Std Deviation 46.1 H, RDW Coeff of P[place] 13.8, Plt Count 245, MPV 9.2, Immature Gran % (Auto) 0.100, Neut % (Auto) 77.6 H, Lymph % (Auto) 13.2 L, [place] % (Auto) 7.5, Eos % (Auto) 1.2, Baso % (Auto) 0.4, Absolute Neuts (auto) 5.2, Absolute Lymphs (auto) 0.89, Nucleated RBC % 0 07/14/20 04:35: Sodium 134 L, Potassium 3.6, Chloride 100, Carbon Dioxide 28.0, Anion Gap 6, BUN 13, Creatinine 0.68, Estim Creat Clear Calc 41.30, Est GFR (MDRD) Af Amer 107, Est GFR (MDRD) Non-Af 89, BUN/Creatinine Ratio 19.2, Glucose 72 L, Calcium 8.7, Phosphorus 3.3, Magnesium 2.2 07/14/20 06:40: Urine Color Pending, Urine Clarity Pending, Urine pH Pending, Ur Specific [place] Pending, Urine Protein Pending, Urine Glucose (UA) Pending, Urine Ketones Pending, Urine Occult Blood Pending, Urine Nitrite Pending, Urine Bilirubin Pending, Urine Urobilinogen Pending, Ur Leukocyte Esterase Pending, Urine RBC Pending, Urine WBC Pending, Ur Squamous Epith Cells Pending, Urine Bacteria Pending, Urine Mucus Pending Current Medications Acetaminophen (Acetaminophen 325 Mg Tablet) 650 mg PO Q6H PRN PRN PRN Reason: Pain Score 1-10/Temp > 100.7 F Amiodarone HCl (Amiodarone 200 Mg Tablet) 100 mg PO DAILY [facility] Amlodipine Besylate (Amlodipine 10 Mg Tablet) 10 mg PO DAILY ALEJANDRA Carbidopa/Levodopa (Carbidopa/Levodopa 25/100 Tablet) 1.5 tablet PO TIDAC [facility] Carvedilol (Carvedilol 6.25 Mg Tablet) 6.25 mg PO BID [facility] Last Admin: 07/13/20 23:03 Dose: Not Given Documented by: Cholecalciferol (Cholecalciferol (Vit D3) 1,000 Unit (25mcg)) 1,000 unit PO DAILY ALEJANDRA Clonidine HCl (Clonidine Hcl 0.1 Mg Patch) 0.1 mg TRANSDERM. Q7D [facility] Last Admin: 07/13/20 23:02 Dose: Not Given Documented by: Clopidogrel Bisulfate (Clopidogrel Bisulfate 75 Mg Tablet) 75 mg PO DAILY [facility] Enoxaparin Sodium (Enoxaparin 40 Mg/0.4 Ml Syringe) 40 mg SC DAILY [facility] Furosemide (Furosemide 20 Mg Tablet) 20 mg PO DAILY ALEJANDRA Hydralazine HCl (Hydralazine 20 Mg/Ml Vial) 10 mg IV Q4H PRN PRN PRN Reason: SBP GREATER THAN 180 Levetiracetam 750 mg/ Sodium (Chloride) 107.5 mls @ 430 mls/hr IV Q12 ALEJANDRA Sodium Chloride () 250 mls @ 15 mls/hr IV .[id number] PRN PRN Reason: Saline Flush Last Admin: 07/14/20 04:15 Dose: 15 mls/hr Documented by: Levothyroxine Sodium (Levothyroxine 125 Mcg Tablet) 125 mcg PO DAILY@0600 ALEJANDRA Lorazepam (Lorazepam 2 Mg/Ml Syringe) 2 mg IV Q4H PRN PRN PRN Reason: SEIZURES Losartan Potassium (Losartan Potassium 50 Mg Tablet) 50 mg PO BID [facility] Last Admin: 07/13/20 23:03 Dose: Not Given Documented by: Multivitamins/Minerals (Multivitamins,Ther W-Minerals Tablet) [facility] Potassium Chloride (Potassium Chloride 20 Meq Tablet) 20 meq PO DAILY ALEJANDRA Senna (Senna Tablet) 1 tablet PO DAILY ALEJANDRA Sodium Chloride (0.9% Saline Lock 10 Ml Syringe) 10 - 40 ml IV UD PRN PRN Reason: SALINE FLUSH Last Admin: 07/14/20 04:13 Dose: 10 ml Documented by: Clinical Impression(s) from Imaging Studies Brain CT 07/13/20 12:24 IMPRESSION: Chronic involutional changes of the brain. Stable examination. Sinusitis. Electronically Signed: Reinaldo Alegre, at 13:09 EST , Service support , Chest X-Ray 07/13/20 12:24 IMPRESSION: No acute abnormality is present. Electronically Signed: Reinaldo Alegre, at 13:10 EST , Service support , Assessment/Plan Active and Suspected Problems (Last Reviewed 07/13/20 @ 16:[address] Eduard Reyes, DO) Hypertensive encephalopathy (Acute) Unresponsive (Acute) Hypertensive emergency (Acute) Encephalopathy (Acute) Altered mental status (Acute) RECOMMENDATIONS: 1. Await results of EEG 2. Send urine for culture 3. Aggressive blood pressure control 4. Doubt necessity for LP IMPRESSIONS: 1. Encephalopathy secondary to hypertensive urgency Unclear etiology at this time. Patient has not had any witnessed seizure activity, but has been variably responsive. Differential would include delirium, postictal activity, medication effect and Parkinson's disease. Patient is having an EEG at this time. Blood pressures were elevated, but not significant enough to suggest this as a sole etiology for decreased responsiveness. Patient reportedly has been receiving her Parkinson's medications, but catatonic state secondary to poorly controlled Parkinson's would also be a concern. Patient does not appear to have meningismus or other findings suggestive of meningitis. Patient is currently protecting her airway 2. Urinary retention Unclear etiology. Patient does have an extensive urologic history. UA was not overly impressive for a urinary tract infection, but will need to evaluate for possible UTI as an etiology for delirium. Cultures have been sent. Would hold off on empiric antibiotics for now. 3. Parkinson's disease Unclear severity at this time. Patient is on baseline medications. Neurologic consultation per SOC has been ordered. Continue current medications 4. Hyperlipidemia/advanced age/hypothyroidism/A. fib/history of hydronephrosis/coronary artery disease Complicates care, management, recovery and prognosis. Likely okay to continue with baseline medications. Patient does have significant bradycardia noted. This is likely medication effect. Inpatient E&M: [id number] Init Hosp L3
[2020-07-14 07:22] LABS: Color, Urine Yellow (Yellow); Glucose, Dipstick Normal (Normal); Ketone-Dipstick Negative (Negative); Leukocyte Esterase-Dipstick 500 /ul (Negative); Nitrite-Dipstick Positive (Negative); Occult Blood-Urine 10 /ul (Negative); Protein-Dipstick Negative (Negative); Urine Bilirubin Dipstick Negative (Negative); Urine Clarity Clear (Clear); Urine Urobilinogen Normal (Normal)
[2020-07-14 07:32] LABS: Bacteria 4+ /hpf (None Seen); White Blood Cells 0-5 SEEN /hpf (0-5)
[2020-07-14] MEDS: Carbidopa/Levodopa 25/100 Tablet PO ×2 (08:04→14:23)
[2020-07-14] MEDS: amLODIPine 10 MG Tablet PO (08:05)
[2020-07-14] MEDS: Amiodarone 200 MG Tablet 100 MG PO (08:05)
[2020-07-14] MEDS: Levothyroxine 125 MCG Tablet PO (08:06)
[2020-07-14] MEDS: Losartan Potassium 50 MG Tablet PO (08:10)
[2020-07-14] MEDS: Carvedilol 6.25 MG Tablet PO (08:12)
[2020-07-14] MEDS: Clopidogrel Bisulfate 75 MG Tablet PO (08:13)
[2020-07-14] MEDS: Multivitamins,Ther W-Minerals Tablet 1 TABLET PO (08:14)
[2020-07-14] MEDS: Senna Tablet 1 TABLET PO (08:15)
--- NOTE | 2020-07-14 10:37 | CASEMGMT ---
MELANIA CM Note: InNetwork information for transfer to Tertiary Care: [facility], [facility], [facility], [facility], [facility], [facility], [facility], [facility]. Johny KLEINN MELANIA ACM
[2020-07-14] MEDS: Enoxaparin 40 MG/0.4 ML Syringe SC (11:05)
[2020-07-14] MEDS: Furosemide 20 MG Tablet PO (11:05)
--- NOTE | 2020-07-14 11:22 | PCM.DC.SUM ---
Discharge Date and Diagnosis - Problem List Patient Problems: Active and Suspected Problems (Last Reviewed 07/13/20 @ 16:[address] Eduard Reyes DO) Hypertensive encephalopathy (Acute) Unresponsive (Acute) Hypertensive emergency (Acute) Encephalopathy (Acute) Altered mental status (Acute) Date of Admission: 07/13/20 Date of Discharge: 07/14/20 - Primary Discharge Diagnosis Acute Problems: Active Problems (Last Reviewed 07/13/20 @ 16:[address] Eduard Reyes DO) 1. Acute hypertensive encephalopathy, unresponsive periods, unclear etiology, suspect multifactorial including possible Seizure, Complicated UTI, ? Undiagnosed Lewey Body Dementia 2. Hypertension, uncontrolled with prior concern for hypertensive encephalopathy 3. Acute Complicated Urinary Tract Infection 4. ? Parkinson's disease 5. Return PAF: Continued patient's amiodarone, low-dose Coreg added, maintained on Plavix, not anticoagulated secondary to fall history. 6. Hypothyroidism with mild TSH elevation, free T4 1.57 7. CAD w/ history of CABG 8. Hyperlipidemia 9. CODE status: Patient [place] is her and son and living will is currently in place. DNR-CCA, no intubation status - Secondary Discharge Diagnosis Chronic Problems: Chronic Problems (Last Reviewed 07/13/20 @ 16:[address] Eduard Reyes DO) Debility (Chronic) Carotid artery stenosis (Chronic) Parkinson's disease dementia (Chronic) Coronary artery disease (Chronic) Hypertension (Chronic) Hyperlipidemia (Chronic) History of renal stent (Chronic 08/27/19) Left kidney, Per Dr. Marine Aguirre; may be removed History of kidney stones (Chronic) History of lithotripsy (Chronic 10/12/19) per Dr. Meyers Renal calculus or stone (Chronic) Urolithiasis (Chronic) Essential hypertension (Chronic) Atherosclerosis of coronary artery of [place] heart without angina pectoris (Chronic) History of cardioversion (Chronic 12/16/18) History of coronary artery bypass graft x 3 (Chronic 08/22/98) [facility]:LOPEZ to LAD, left radial to OM of CX and free MYNOR to PDA of RCA per Dr. Laz Barreto History of left heart catheterization (Chronic 09/11/18) Bifurcating LOPEZ graft to the LAD and DIAG is patent with mild to moderate [place] mid/distal LAD 50% stenosis, high risk for PCI given need to traverse down LOPEZ and severe LV dysfunction. Saphenous Vein graft to the RCA previously placed stent is patent, with 75% mid PDA stenosis, not amenable to PCI given need to traverse through graft, then acute angle into PDA, of questionable benefit given severe LV dysfunction Atrial fibrillation (Chronic) Hypercholesterolemia (Chronic) Non-STEMI (non-ST elevated myocardial infarction) (Chronic 09/10/18) Hypothyroidism (Chronic) Parkinson's disease (Chronic) Hospital Course and Treatment Operations: None Summary of Care Provided: The patient is a 80 y/o F w/ PMHx: HTN, HLD, CAD s/p CABG, Hypothyroidism, Parkinson's disease, PAF, recent admission 07/08/20-07/11/20 for evaluation similar unresponsive episode, treated for HTN encephalopathy, unremarkable CVA work-up with improvement of mental status with transition to SNF with representation on 07/13/20 secondary to recurrent unresponsive episodes at SNF. Recent admission with evaluation for CVA and treatment for possible HTN encephalopathy with improvement with noted MRI demonstrating no acute evidence of CVA, ED CTA head and neck w/ approximate 70% stenosis right proximal ICA with no significant stenosis of the left ICA, interstitial septal thickening with no evidence arterial occlusion, aneurysm or vascular malformation, echocardiogram with EF 55%, readmitted to the [facility] initially then transitioned to ICU given ongoing unresponsiveness and placed on keppra for possibile seizure but no visible seizure activity reported, noted mild urinary retention in the ICU with Davis catheter placed with urinalysis with positive nitrite as well as leukocyte esterase but no marked urine WBCs but noted urine bacteria significant therefore urine culture requested and patient placed on Rocephin in case contributing to presentation with delirium, repeat CT without acute findings, given ongoing unresponsiveness telemetry neurology also consulted and recommended vitamin B12, folic acid and RPR be obtained with vitamin B12 1481, folic acid 41.50, RPR pending at discharge to facility, mild TSH elevation with free T4 1.57, EEG with no evidence of seizure activity. Neurology recommended transfer to tertiary facility for continuous EEG and if this was unremarkable felt patient presentation likely secondary to undiagnosed Lewy body dementia with lights out periods and felt that likely patient had been misdiagnosed as Parkinson's disease. Patient initial BPs elevated upon representation, continued on Norvasc, Losartan, Coreg, Lasix with inability to increase patient beta-ramo therapy secondary to concurrent usage of amiodarone with bradycardia therefore patient placed on clonidine transdermal patch with improvement with as needed IV hydralazine currently. UA with positive nitrite, leukocyte Estrace and urine bacteria, pending UCx, continue IVFs, monitor I/Os, continue IV Rocephin w/ transition as able pending sensitivities and speciation. TSH 1.57, free T4 1.57 with given presentation and recommended repeat TSH studies at follow-up with alteration of regimen if appropriate at that time with continued synthroid. Confirmed HCPOA is her and son and living will is currently in place with DNR-CCA, no intubation status. Patient transfer arranged with all images placed on disc per facility request for plan continuous EEG to assure no seizure activity Patient Problems: Active and Suspected Problems (Last Reviewed 07/13/20 @ 16:[address] Eduard Reyes, DO) Hypertensive encephalopathy (Acute) Unresponsive (Acute) Hypertensive emergency (Acute) Encephalopathy (Acute) Altered mental status (Acute) - Physical Exam Vitals/I&O's: Vital Signs Temp Pulse Resp BP Pulse Ox 97.6 F L 53 L 18 153/68 H 100 07/14/20 08:00 07/14/20 09:00 07/14/20 09:00 07/14/20 09:00 07/14/20 09:00 Oxygen Delivery Method Room Air Weight: 142 lb 6.698 oz Body Mass Index (BMI) 22.5 Finger Stick Blood Glucose 127 Intake and Output for Last 24 Hours 07/12/20 07/13/20 07/14/20 23:59 23:59 23:59 Intake Total 100 / 100 Output Total 850 / 850 600 / 600 Balance -750 / -750 -600 / -600 Laboratory Results 07/13/20 12:33: WBC 5.8, RBC 4.61, Hgb 13.9, Hct 41.5, MCV 90.0, MCH 30.2, MCHC 33.5, RDW Std Deviation 46.2 H, RDW Coeff of [place] 14.0, Plt Count 237, MPV 9.5, Immature Gran % (Auto) 0.300, Neut % (Auto) 73.5 H, Lymph % (Auto) 15.5 L, [place] % (Auto) 9.5, Eos % (Auto) 0.9, Baso % (Auto) 0.3, Absolute Neuts (auto) 4.3, Absolute Lymphs (auto) 0.90, Nucleated RBC % 0 07/13/20 12:33: Sodium Cancelled, Potassium Cancelled, Chloride Cancelled, Carbon Dioxide Cancelled, Anion Gap Cancelled, BUN Cancelled, Creatinine Cancelled, Estim Creat Clear Calc Cancelled, Est GFR (MDRD) Af Amer Cancelled, Est GFR (MDRD) Non-Af Cancelled, BUN/Creatinine Ratio Cancelled, Glucose Cancelled, Calcium Cancelled, Total Bilirubin Cancelled, Direct Bilirubin Cancelled, AST Cancelled, ALT Cancelled, Alkaline Phosphatase Cancelled, Troponin I Cancelled, Total Protein Cancelled, Albumin Cancelled, Globulin Cancelled 07/13/20 12:33: Ammonia < 10.0 L 07/13/20 13:29: Sodium Cancelled, Potassium Cancelled, Chloride Cancelled, Carbon Dioxide Cancelled, Anion Gap Cancelled, BUN Cancelled, Creatinine Cancelled, Estim Creat Clear Calc Cancelled, Est GFR (MDRD) Af Amer Cancelled, Est GFR (MDRD) Non-Af Cancelled, BUN/Creatinine Ratio Cancelled, Glucose Cancelled, Calcium Cancelled, Total Bilirubin Cancelled, Direct Bilirubin Cancelled, AST Cancelled, ALT Cancelled, Alkaline Phosphatase Cancelled, Troponin I Cancelled, Total Protein Cancelled, Albumin Cancelled, Globulin Cancelled 07/13/20 14:27: Sodium 133 L, Potassium 3.7, Chloride 102, Carbon Dioxide 26.0, Anion Gap 5, BUN 14, Creatinine 0.66, Estim Creat Clear Calc 42.91, Est GFR (MDRD) Af Amer 110, Est GFR (MDRD) Non-Af 91, BUN/Creatinine Ratio 21.1 H, Glucose 90, Calcium 8.7, Total Bilirubin 0.80, Direct Bilirubin 0.22, AST 41 H, ALT 26, Alkaline Phosphatase 63, Troponin I 0.095 H, Total Protein 6.6, Albumin 3.3, Globulin 3.3 07/13/20 15:25: Urine Color Yellow, Urine Clarity Sl. Cloudy, Urine pH 7.0, Ur Specific [place] 1.010, Urine Protein Negative, Urine Glucose (UA) Normal, Urine Ketones Negative, Urine Occult Blood 10 H, Urine Nitrite Positive H, Urine Bilirubin Negative, Urine Urobilinogen Normal, Ur Leukocyte Esterase 25 H, Urine RBC 0-5 SEEN, Urine WBC 0-5 SEEN, Ur Squamous Epith Cells 0-5 SEEN, Amorphous Sediment 1+ PHOS, Urine Bacteria 2+, Urine Mucus 0 SEEN 07/13/20 17:00: Troponin I 0.093 H 07/14/20 04:35: WBC 6.8, RBC 4.80, Hgb 14.2, Hct 43.3, MCV 90.2, MCH 29.6, MCHC 32.8, RDW Std Deviation 46.1 H, RDW Coeff of [place] 13.8, Plt Count 245, MPV 9.2, Immature Gran % (Auto) 0.100, Neut % (Auto) 77.6 H, Lymph % (Auto) 13.2 L, [place] % (Auto) 7.5, Eos % (Auto) 1.2, Baso % (Auto) 0.4, Absolute Neuts (auto) 5.2, Absolute Lymphs (auto) 0.89, Nucleated RBC % 0 07/14/20 04:35: Sodium 134 L, Potassium 3.6, Chloride 100, Carbon Dioxide 28.0, Anion Gap 6, BUN 13, Creatinine 0.68, Estim Creat Clear Calc 41.30, Est GFR (MDRD) Af Amer 107, Est GFR (MDRD) Non-Af 89, BUN/Creatinine Ratio 19.2, Glucose 72 L, Calcium 8.7, Phosphorus 3.3, Magnesium 2.2 07/14/20 04:35: Folate Pending, Free T4 Pending 07/14/20 06:40: Urine Color Yellow, Urine Clarity Clear, Urine pH 7.0, Ur Specific [place] 1.010, Urine Protein Negative, Urine Glucose (UA) Normal, Urine Ketones Negative, Urine Occult Blood 10 H, Urine Nitrite Positive H, Urine Bilirubin Negative, Urine Urobilinogen Normal, Ur Leukocyte Esterase 500 H, Urine RBC 0 SEEN, Urine WBC 0-5 SEEN, Ur Squamous Epith Cells 0 SEEN, Urine Bacteria 4+, Urine Mucus 0 SEEN Current Medications Acetaminophen (Acetaminophen 325 Mg Tablet) 650 mg PO Q6H PRN PRN PRN Reason: Pain Score 1-10/Temp > 100.7 F Amiodarone HCl (Amiodarone 200 Mg Tablet) 100 mg PO DAILY ALEJANDRA Last Admin: 07/14/20 08:05 Dose: 100 mg Documented by: Amlodipine Besylate (Amlodipine 10 Mg Tablet) 10 mg PO DAILY [facility] Last Admin: 07/14/20 08:05 Dose: 10 mg Documented by: Carbidopa/Levodopa (Carbidopa/Levodopa 25/100 Tablet) 1.5 tablet PO TIDAC [facility] Last Admin: 07/14/20 08:04 Dose: 1.5 tablet Documented by: Carvedilol (Carvedilol 6.25 Mg Tablet) 6.25 mg PO BID [facility] Last Admin: 07/14/20 08:12 Dose: 6.25 mg Documented by: Cholecalciferol (Cholecalciferol (Vit D3) 1,000 Unit (25mcg)) 1,000 unit PO DAILY [facility] Last Admin: 07/14/20 08:05 Dose: 1,000 unit Documented by: Clonidine HCl (Clonidine Hcl 0.1 Mg Patch) 0.1 mg TRANSDERM. Q7D [facility] Last Admin: 07/13/20 23:02 Dose: Not Given Documented by: Clopidogrel Bisulfate (Clopidogrel Bisulfate 75 Mg Tablet) 75 mg PO DAILY [facility] Last Admin: 07/14/20 08:13 Dose: 75 mg Documented by: Enoxaparin Sodium (Enoxaparin 40 Mg/0.4 Ml Syringe) 40 mg SC DAILY [facility] Last Admin: 07/14/20 11:05 Dose: 40 mg Documented by: Furosemide (Furosemide 20 Mg Tablet) 20 mg PO DAILY [facility] Last Admin: 07/14/20 11:05 Dose: 20 mg Documented by: Hydralazine HCl (Hydralazine 20 Mg/Ml Vial) 10 mg IV Q4H PRN PRN PRN Reason: SBP GREATER THAN 180 Levetiracetam 750 mg/ Sodium (Chloride) 107.5 mls @ 430 mls/hr IV Q12 [facility] Last Admin: 07/14/20 11:06 Dose: 430 mls/hr Documented by: Sodium Chloride () 250 mls @ 15 mls/hr IV .[id number] PRN PRN Reason: Saline Flush Last Admin: 07/14/20 04:15 Dose: 15 mls/hr Documented by: Ceftriaxone Sodium 2 gm/ (Sodium Chloride) 50 mls @ 100 mls/hr IV Q24 [facility] Levothyroxine Sodium (Levothyroxine 125 Mcg Tablet) 125 mcg PO DAILY@0600 [facility] Last Admin: 07/14/20 08:06 Dose: 125 mcg Documented by: Lorazepam (Lorazepam 2 Mg/Ml Syringe) 2 mg IV Q4H PRN PRN PRN Reason: SEIZURES Losartan Potassium (Losartan Potassium 50 Mg Tablet) 50 mg PO BID [facility] Last Admin: 07/14/20 08:10 Dose: 50 mg Documented by: Multivitamins/Minerals (Multivitamins,Ther W-Minerals Tablet) [facility] Admin: 07/14/20 08:14 Dose: 1 tablet Documented by: Potassium Chloride (Potassium Chloride 20 Meq Tablet) 20 meq PO DAILY [facility] Last Admin: 07/14/20 08:14 Dose: 20 meq Documented by: Senna (Senna Tablet) 1 tablet PO DAILY [facility] Last Admin: 07/14/20 08:15 Dose: 1 tablet Documented by: Sodium Chloride (0.9% Saline Lock 10 Ml Syringe) 10 - 40 ml IV UD PRN PRN Reason: SALINE FLUSH Last Admin: 07/14/20 04:13 Dose: 10 ml Documented by: Home Medications: Medications to take at Discharge Levothyroxine [Synthroid] 125 mcg PO DAILY 06/14/13 Carbidopa/Levodopa [Carbidopa-Levodopa 25-100 Tab] 1.5 tab PO TID 09/09/18 L.acidoph,Paracasei, B.lactis [Probiotic] 1 ea PO DAILY 09/09/18 Potassium Chloride [K-Dur] 20 meq PO DAILY 08/25/19 clopidogrel 75 mg tablet 75 mg PO DAILY #90 tab 11/15/19 losartan 50 mg tablet 50 mg PO BID 02/22/20 amiodarone 200 mg tablet 100 mg PO DAILY #90 tab 06/28/20 furosemide 20 mg tablet 20 mg PO DAILY tab 06/28/20 Senna [Senokot] 1 tab PO DAILY 07/08/20 Amlodipine [Norvasc] 10 mg PO DAILY 07/11/20 Carvedilol 6.25 mg PO BID 07/11/20 Cholecalciferol (Vitamin D3) [Vitamin D3] 1,000 unit PO DAILY 07/13/20 Multivitamin with Minerals [Multiple Vitamin] 1 tab PO DAILY 07/13/20 Primary Care Physician: Louise Garrido MD [Primary Care Provider] - Disposition: Acute care Hospital Minutes spent on discharge:: 35 Patient Condition:: Guarded Medical Necessity - Tobacco Use Smoking Status: Never smoker Meaningful Use Info Meaningful Use Diagnoses (Choose all that apply): None applicable Inpatient E&M: 71767 Disch Hosp
[2020-07-14 11:58] LABS: T4 Free Direct 1.57 ng/dL (0.76-1.46)
--- NOTE | 2020-07-14 12:04 | CASEMGMT ---
Social Work Pt is admitted from TCU. ANGELO met with pt and pt is able to communicate with SW. Pt states she cannot walk so she knows she cannot go home yet and will return to TCU. ANGELO then spoke with physician who states pt will need transferred to tertiary facility. Phone call to Kiara in TCU and updated on plans for transfer. KHRIS Aguilera
[2020-07-14 12:21] LABS: Vitamin B12 1481 pg/mL (211-911)
--- NOTE | 2020-07-14 17:25 | CASEMGMT ---
MELANIA GALLAGHER Readmission Note: Pt with recent admission from 07/08 through 07/11/2020 for HTN encephalopathy, paroxysmal Afib, hypothyroidism, CAD, HLD, Parkinson's disease and noted debility. Pt required maximum assistance to stand and was only able to ambulate 15 feet with a wheeled walker. Pt was discharged to [facility]CU for continued therapy with the goal to return home with her spouse. Pt was readmitted to [facility] due to decreased level of consciousness and HTN with HTN encephalopathy, unresponsive periods of multifactorial etiology including possible seizures, UTI, and/or undiagnosed Lewey Body Dementia. Pt is pending transfer to tertiary care for continuous EEG. Please see SW note and RN ELLIOTT transfer in-network transfer list. Shelia Sanz RN CM
[2020-07-14] MEDS: hydrALAZINE 20 MG/ML Vial 10 MG IV (17:48)
[2020-07-20 02:50] LABS: Rapid Plasmin Reagin (RPR) NONREACTIVE (NONREACTIVE)
== END 2020-07-14 20:00 | disposition short-term general hospital (02) | DRG 78 ==
LOC: ED 15:52 → MS3 16:11 → ICU 20:04
PROVIDERS: Internal Medicine Critical Care Medicine; Emergency Provider Emergency Medicine; PCP Internal Medicine; Visit Provider Family Medicine
DX: I67.4 Hypertensive encephalopathy (principal); I16.1 Hypertensive emergency; N39.0 Urinary tract infection, site not specified; R33.9 Retention of urine, unspecified; G20 Parkinson's disease; G31.83 Neurocognitive disorder with Lewy bodies; F02.80 Dementia in other diseases classified elsewhere, unspecified severity, without behavioral disturbance, psychotic disturbance, mood disturbance, and anxiety; I48.0 Paroxysmal atrial fibrillation; I25.10 Atherosclerotic heart disease of native coronary artery without angina pectoris; I10 Essential (primary) hypertension; E78.5 Hyperlipidemia, unspecified; E03.9 Hypothyroidism, unspecified; Z79.02 Long term (current) use of antithrombotics/antiplatelets; Z79.890 Hormone replacement therapy; Z79.899 Other long term (current) drug therapy; I25.2 Old myocardial infarction; Z95.1 Presence of aortocoronary bypass graft; Z95.5 Presence of coronary angioplasty implant and graft
CPT/HCPCS: 36415; 51702; 70450; 71045; 80048; 80076; 81001; 82140; 82607; 82746; 83735; 84100; 84439; 84484; 85025; 86592; 87086; 87088; 87426; 92610; 93005; 95819; 97162; 97166; 99285; J7050; A4216; J0696

== ENCOUNTER 2020-07-23 21:00 | Inpatient (IN) | payer MEDICARE, SELFPAY ==
[2020-07-13 17:55] VITALS: BMI 22.5
--- NOTE | 2020-07-23 21:00 | NURSING ---
Arrived on unit via cot, alert and oriented times 4, denies pain
[2020-07-23 21:20] VITALS: BMI 22.6
[2020-07-23 21:26] VITALS: BP 157/42; PULSE 56; RESP 14; TEMP 36.9; O2SAT 95
[2020-07-23 21:28] VITALS: BMI 22.6
--- NOTE | 2020-07-23 21:43 | HP.PCM_ITS ---
Problem List (1) Stroke Status: Chronic (2) Debility Status: Acute (3) Encephalopathy Status: Acute (4) Carotid artery stenosis Status: Chronic (5) Parkinson's disease dementia Status: Chronic (6) Coronary artery disease Status: Chronic (7) Hypertension Status: Chronic (8) Hyperlipidemia Status: Chronic (9) Renal calculus or stone Status: Chronic (10) Atrial fibrillation Status: Chronic (11) Hypothyroidism Status: Chronic (12) Parkinson's disease Status: Chronic History of Present Illness Date of Admission: 07/23/20 Chief Complaint: Here for rehabilitation, strengthening, prior to discharge home with family. 07/11/20 The patient is a 80 year old Female with below past medical history admitted to TCU with encephalopathy secondary to hypertensive urgency. 07/13/20 Admit to [facility] with encephalopathy, unresponsiveness. Rocephin IV for urinary tract infection. 07/14/20 Transfer to [facility] for continuous EEG monitoring. All acute issues ruled out. Rocephin IV for urinary tract infection. Encephalopathy due to urinary tract infection, underlying mixed dementia, combination of vascular dementia, Parkinson Disease Dementia. 07/23/20 Admit to TCU with debility, here for rehabilitation, strengthening, prior to discharge home with family. Past Medical History Past Medical History (Chronic Problems): Chronic Problems (Last Reviewed 07/13/20 @ 16:[address] Eduard Reyes, DO) Carotid artery stenosis (Chronic) Parkinson's disease dementia (Chronic) Coronary artery disease (Chronic) Hypertension (Chronic) Hyperlipidemia (Chronic) Stroke (Chronic) History of renal stent (Chronic 08/27/19) Left kidney, Per Dr. Marine Aguirre; may be removed History of kidney stones (Chronic) History of lithotripsy (Chronic 10/12/19) per Dr. 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 Laz Barerto History of left heart catheterization (Chronic 09/11/18) Bifurcating LOPEZ graft to the LAD and DIAG is patent with mild to moderate inupiat mid/distal LAD 50% stenosis, high risk for PCI given need to traverse down LOPEZ and severe LV dysfunction. Saphenous Vein graft to the RCA previously placed stent is patent, with 75% mid PDA stenosis, not amenable to PCI given need to traverse through graft, then acute angle into PDA, of questionable benefit given severe LV dysfunction Atrial fibrillation (Chronic) Hypercholesterolemia (Chronic) Non-STEMI (non-ST elevated myocardial infarction) (Chronic 09/10/18) Hypothyroidism (Chronic) Parkinson's disease (Chronic) Medical History: Medical History (Last Reviewed 07/13/20 @ 16:[address] Eduard Reyes, DO) History of kidney stones (Chronic) Z87.442 Essential hypertension (Chronic) I10 Atherosclerosis of coronary artery of inupiat heart without angina pectoris (Chronic) I25.10 Atrial fibrillation (Chronic) I48.91 Hypercholesterolemia (Chronic) E78.00 Non-STEMI (non-ST elevated myocardial infarction) (Chronic) Onset Date: 09/10/18 I21.4 Hypothyroidism (Chronic) E03.9 Parkinson's disease (Chronic) G20 Allergies Skzstnp-Lio-Rwj Reductase Inhibitor Allergy (Verified 07/13/20 12:10) MUSCLE ACHES ALL OVER pravastatin Adverse Reaction (Severe, Verified 07/13/20 12:10) myalgias bones ache all over colesevelam [From WelChol] Adverse Reaction (Intermediate, Verified 07/13/20 12:10) Not effective ezetimibe [From Zetia] Adverse Reaction (Intermediate, Verified 07/13/20 12:10) GI upset Influenza Virus Vaccines Adverse Reaction (Intermediate, Verified 07/13/20 12:10) Visual changes, lightheaded niacin Adverse Reaction (Intermediate, Verified 07/13/20 12:10) sweats Home Medications: Ambulatory Orders Medication Instructions Recorded Levothyroxine [Synthroid] 125 mcg PO DAILY 06/14/13 Carbidopa/Levodopa 1.5 tab PO TID 09/09/18 [Carbidopa-Levodopa 25-100 Tab] Potassium Chloride [K-Dur] 20 meq PO DAILY 08/25/19 clopidogrel 75 mg tablet 75 mg PO DAILY #90 tab 11/15/19 losartan 50 mg tablet 50 mg PO BID 02/22/20 Senna [Senokot] 2 tab PO BID PRN 07/08/20 Carvedilol 3.125 mg PO BID 07/11/20 Cholecalciferol (Vitamin D3) 2,000 unit PO DAILY 07/13/20 [Vitamin D3] Amiodarone HCl 200 mg PO DAILY 07/23/20 Surgical History: Surgical History (Last Reviewed 07/13/20 @ 16:[address] Eduard Reyes DO) History of renal stent (Chronic) Onset Date: 08/27/19 Left kidney, Per Dr. Marine Aguirre; may be removed History of lithotripsy (Chronic) Onset Date: 10/12/[address] Meyers History of cardioversion (Chronic) Onset Date: 12/16/18 Z98.890 History of coronary artery bypass graft x 3 (Chronic) Onset Date: 08/22/98 Z95.1 [facility] [place]:LOPEZ to LAD, left radial to OM of CX and free MYNOR to PDA of RCA per Dr. Laz Barreto History of laparoscopic cholecystectomy Onset Date: 06/15/[address] Kulwinder Rosas; umbilical hernia repair done concomitantly with lap cholecystectomy History of tubal ligation Onset Date: 1969 Z98.51 History of umbilical hernia repair Onset Date: 06/15/13 Z98.890, Z87.[address] Kulwinder Rosas, concomitant with laparascopic cholecystectomy History of varicose vein stripping Onset Date: 1971 Z98.890 Bilateral Surgical History: cholecystectomy - Laparoscopic., coronary bypass surgery - x 3, 15 years ago, herniorrhaphy - Umbilical., - - Vein stripping in both legs, tubal ligation, electrocardioversion, left renal stent, Lithotripsy. 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 Eduard Reyes DO) Sister Alzheimer's disease History Items: Heart Disease, Hypertension, Stroke Review of Systems Constitutional: Denies: Chills, Fever, Weight Change HEENT: Denies: Head Aches, Sinus Congestion, Sinus Drainage Cardiovascular: Denies: Chest Pain, Palpitations Respiratory: Denies: Cough, Shortness of breath at rest, Sputum production Gastrointestinal: Reports: Abdominal Pain. Denies: Nausea, Vomiting Genitourinary: Denies: Dysuria Musculoskeletal: Denies: Joint Pain, Joint Tenderness Skin: Denies: Rash, Wounds Neurological: Denies: Numbness, Tingling, Focal weakness Psychiatric: Denies: Anxiety, Depression, Homicidal Ideations, Suicidal Ideat ions Hematologic/ Lymphatic: Denies: Easy Bruising, Easy Bleeding VTE Information - Inpt Only VTE Present on Admission: No VTE Mechan Device Prophylaxis: Knee High PAL Hose VTE Pharm Prophylaxis ordered?: Yes Patient Problems: Active and Suspected Problems (Last Reviewed 07/13/20 @ 16:[address] Eduard Reyes, DO) Debility (Acute) Encephalopathy (Acute) - Physical Exam Vitals/I&O's: Vital Signs Temp Pulse Resp BP Pulse Ox 98.5 F 56 L 14 157/42 H 95 07/23/20 21:26 07/23/20 21:26 07/23/20 21:26 07/23/20 21:26 07/23/20 21:26 Oxygen Delivery Method Room Air Weight: 63.503 kg Body Mass Index (BMI) 22.6 Finger Stick Blood Glucose 127 General: Alert, Oriented x3, Cooperative HEENT: Atraumatic, PERRLA, EOMI, Normocephalic Neck: Supple, No JVD, Negative Carotid Bruits Lungs: Clear to auscultation, Normal air movement Cardiovascular: Regular rate, No murmurs Abdomen: Bowel Sounds Present, Soft, Tender - Lower abdomen. Extremities: No edema, Capillary Refill Less than 3 Seconds Skin: No rashes, No breakdown Musculoskeletal: No Tenderness to Palpation of Joints or Extremities Neurological: Cranial nerves II-XII grossly intact Psych/Mental Status: Normal Affect, Appropriate Current Medications Amiodarone HCl (Amiodarone 200 Mg Tablet) 200 mg PO DAILY [facility] Carbidopa/Levodopa (Carbidopa/Levodopa 25/100 Tablet) 1.5 tablet PO TID [facility] Carvedilol (Carvedilol 3.125 Mg Tablet) 3.125 mg PO BID [facility] Cholecalciferol (Cholecalciferol (Vit D3) 1,000 Unit (25mcg)) 2,000 unit PO DAILY [facility] Clopidogrel Bisulfate (Clopidogrel Bisulfate 75 Mg Tablet) 75 mg PO DAILY [facility] Levothyroxine Sodium (Levothyroxine 125 Mcg Tablet) 125 mcg PO DAILY ALEJANDRA Losartan Potassium (Losartan Potassium 50 Mg Tablet) 50 mg PO BID ALEJANDRA Potassium Chloride (Potassium Chloride 20 Meq Tablet) 20 meq PO DAILY ALEJANDRA Senna (Senna Tablet) 1 tablet PO BID PRN PRN PRN Reason: CONSTIPATION Sodium Chloride (0.9% Saline Lock 10 Ml Syringe) 10 - 40 ml IV UD PRN PRN Reason: SALINE FLUSH Tuberculin PPD (Tuberculin,Purif.Prot.Deriv. 50 Tu/Ml Vial) 5 tu ID X1 ONE Stop: 07/24/20 10:01 Tuberculin PPD (Tuberculin,Purif.Prot.Deriv. 50 Tu/Ml Vial) 5 tu ID X1 ONE Stop: 07/31/20 10:01 Assessment/Plan All Active Problems (Last Reviewed 07/13/20 @ 16:[address] Eduard Reyes, DO) Hypertensive encephalopathy (Acute) Debility (Acute) Unresponsive (Acute) Hypertensive emergency (Acute) Encephalopathy (Acute) Altered mental status (Acute) Intractable abdominal pain (Resolved) Left ureteral calculus (Resolved) Hydronephrosis (Resolved) Ureteral colic (Resolved) Acute kidney injury (Resolved) Complicated UTI (urinary tract infection) (Resolved) 80 year old female with below past medical history hospitalized for encephalopathy secondary to urinary tract infection, complicated by underlying mixed (vascular/Parkinson) dementia, seizures ruled out, admitted to TCU with debility, here for rehabilitation, strengthening, prior to discharge home with family. * Debility - PT/OT. * Pain - Tylenol 1000MG Q6H PRN pain (1-10). * Bowel - Miralax 17GM daily, Senna/colace 1 tablet BID, MOM 30ML daily PRN, Dulcolax 10MG CA daily PRN. * Adult immunization - Administer Prevnar 13, Pneumovax 23, Fluzone as appropriate. * DVT prophylaxis - Lovenox 40MG SC daily. * Atrial fibrillation - Coreg 3.125MG BID, Amiodarone 200MG daily, Plavix 75MG daily, No anticoagulation due to frequent falls. * Parkinson Disease - Sinemet 25/100MG 1.5 tablet TID. * Coronary artery disease - Coreg 3.125MG BID, Losartan 50MG BID, Plavix 75MG daily. * Stroke - Plavix 75MG daily. * Vitamin D deficiency - D3 2000IU daily. * Hypothyroidism - Levothyroxine 125MCG daily. * Hypokalemia - K-Dur 20MEQ daily. * Abdominal pain - Order X-ray of abdomen.
[2020-07-23 22:00] VITALS: O2SAT 97
[2020-07-23] MEDS: Carbidopa/Levodopa 25/100 Tablet PO (22:32)
[2020-07-24 04:00] VITALS: BP 140/61; PULSE 50; RESP 15; TEMP 36.9; O2SAT 97
[2020-07-24 06:05] LABS: Absolute Neutrophil Count 4.1 X10^3/uL (2.0-7.7); Basophil# 0.04 X10^3/uL; Basophil% 0.7 % (0-1); Eosinophil# 0.08 X10^3/uL; Eosinophils% 1.3 % (0-5); Hematocrit 35.6 % (37-47); Hemoglobin 11.4 g/dL (12.0-15.0); Lymphocyte % 21.5 % (19-41); Mean Corpuscular Hgb 29.6 pg (27.0-32.0); Mean Corpuscular Volume 92.5 fL (81-99); Mean Platelet Vol. 9.5 fl (6.2-12.0); Monocyte# 0.55 X10^3/uL; Monocyte% 9.1 % (0-10); NRBC Flagged by Analyzer 0 % (0-5); Neutrophil # 4.07 X10^3/uL (2.7-7.7); Neutrophil % 67.2 % (47-70); Platelet Count 284 K/mm3 (150-450); RBC Distribution Width SD 47.8 fl (35.1-43.9); Red Blood Count 3.85 M/mm3 (4.2-5.4); White Blood Count 6.1 K/mm3 (4.4-11.0)
[2020-07-24] MEDS: 0.9% Saline Lock 10 ML Syringe IV ×2 (06:08→17:54)
[2020-07-24] MEDS: Amiodarone 200 MG Tablet PO (06:09)
[2020-07-24] MEDS: Carvedilol 3.125 MG TABLET PO ×2 (06:09→17:31)
[2020-07-24] MEDS: Clopidogrel Bisulfate 75 MG Tablet PO (06:09)
[2020-07-24] MEDS: Carbidopa/Levodopa 25/100 Tablet PO ×3 (06:09→20:57)
[2020-07-24] MEDS: Levothyroxine 125 MCG Tablet PO (06:09)
[2020-07-24] MEDS: Polyethylene Glycol 3350 17 GM PACKET PO (06:10)
[2020-07-24] MEDS: Enoxaparin 40 MG/0.4 ML Syringe SC (06:11)
[2020-07-24] MEDS: Losartan Potassium 50 MG Tablet PO ×2 (06:11→17:31)
[2020-07-24] MEDS: Senna/Docusate Sodium 1 Tablet PO ×2 (06:11→17:30)
[2020-07-24 06:41] LABS: Anion Gap 5 (5-15); BUN 31 mg/dL (7-18); BUN/Creat Ratio 48.1 RATIO (10-20); Calcium,Total 8.7 mg/dL (8.5-10.1); Chloride 108 mmol/L (98-107); Creatinine, Serum 0.64 mg/dL (0.55-1.02); EST Glomerular Filtration Rate 94 mL/min (>60); Est Glom Filt Rate - Afr Amer 113 mL/min (>60); Glucose 89 mg/dL (74-106); Potassium 3.7 mmol/L (3.5-5.1); Sodium Level 140 mmol/L (136-145)
--- NOTE | 2020-07-24 08:08 | RAD_ITS ---
INDICATION: lower abdominal pain EXAMINATION/TECHNIQUE: X-RAY - XR Abdomen 1 View COMPARISON: None FINDINGS: BOWEL GAS PATTERN: Gaseous distention noted of the stomach and loops of large and small intestine. FREE AIR: Not assessed on a single supine view. ORGANOMEGALY: Not seen. CALCIFICATIONS: No abnormal calcifications observed. LOWER CHEST: No acute pathology. BONES AND SOFT TISSUES: No acute pathology. RAD/Abdomen Single View IMPRESSION: Findings compatible to moderate to severe adynamic ileus. Electronically Signed: Sixto Butler, at 9:12 EST Tel , Service support ,
[2020-07-24] MEDS: Tuberculin,Purif.prot.deriv. 50 TU/ML Vial 5 ML ID (10:58)
--- NOTE | 2020-07-24 11:03 | NURSING ---
wound photo: right heel
--- NOTE | 2020-07-24 11:04 | NURSING ---
wound photo: left heel
--- NOTE | 2020-07-24 11:05 | NURSING ---
Resident noted to have low urine output. Bladder scanned for 0 ml. Resident encouraged to drink water. Resident also complains of feeling constipated. Will medicate with Milk of Magnesia.
[2020-07-24] MEDS: Magnesium Hydroxide 30 ML UDC PO (11:07)
[2020-07-24 13:43] VITALS: BP 146/48; PULSE 55; RESP 14; TEMP 37; O2SAT 99
--- NOTE | 2020-07-24 14:21 | PCM.PN.RX ---
<Laxmi Tenorio - Last Filed: 07/24/20 14:21> Progress Note - Pharmacy Subjective: TCU ADMISSION Objective: Allergies Laeiznm-Vnf-Mrn Reductase Inhibitor Allergy (Verified 07/13/20 12:10) MUSCLE ACHES ALL OVER pravastatin Adverse Reaction (Severe, Verified 07/13/20 12:10) myalgias bones ache all over colesevelam [From WelChol] Adverse Reaction (Intermediate, Verified 07/13/20 12:10) Not effective ezetimibe [From Zetia] Adverse Reaction (Intermediate, Verified 07/13/20 12:10) GI upset Influenza Virus Vaccines Adverse Reaction (Intermediate, Verified 07/13/20 12:10) Visual changes, lightheaded niacin Adverse Reaction (Intermediate, Verified 07/13/20 12:10) sweats Current Medications Generic Name Dose Route Start Last Admin Trade Name Freq PRN Reason Stop Dose Admin Acetaminophen 1,000 mg 07/23/20 21:54 Acetaminophen 500 Mg Tablet PO Q6H PRN Pain Score 1-10 Amiodarone HCl 200 mg 07/24/20 06:00 07/24/20 06:09 Amiodarone 200 Mg Tablet PO 200 mg DAILY ALEJANDRA Administration Bisacodyl 10 mg 07/23/20 21:55 Bisacodyl 10 Mg Suppository RECTAL DAILY PRN Constipation Carbidopa/Levodopa 1.5 tablet 07/23/20 22:00 07/24/20 06:09 Carbidopa/Levodopa 25/100 Tablet PO 1.5 tablet TID ALEJANDRA Administration Carvedilol 3.125 mg 07/24/20 06:00 07/24/20 06:09 Carvedilol 3.125 Mg Tablet PO 3.125 mg BID ALEJANDRA Administration Cholecalciferol 2,000 unit 07/24/20 06:00 07/24/20 06:09 Cholecalciferol (Vit D3) 1,000 Unit (25mcg) PO 2,000 unit DAILY ALEJANDRA Administration Clopidogrel Bisulfate 75 mg 07/24/20 06:00 07/24/20 06:09 Clopidogrel Bisulfate 75 Mg Tablet PO 75 mg DAILY ALEJANDRA Administration Enoxaparin Sodium 40 mg 07/24/20 06:00 07/24/20 06:11 Enoxaparin 40 Mg/0.4 Ml Syringe SC 40 mg DAILY@0600 ALEJANDRA Administration Levothyroxine Sodium 125 mcg 07/24/20 06:00 07/24/20 06:09 Levothyroxine 125 Mcg Tablet PO 125 mcg DAILY ALEJANDRA Administration Losartan Potassium 50 mg 07/24/20 06:00 07/24/20 06:11 Losartan Potassium 50 Mg Tablet PO 50 mg BID ALEJANDRA Administration Magnesium Hydroxide 30 ml 07/23/20 21:55 07/24/20 11:07 Magnesium Hydroxide 30 Ml Udc PO 30 ml DAILY PRN Administration Constipation Nutritional Formula (Lactose Free) 120 ml 07/23/20 22:00 07/24/20 11:52 Ensure Enlive 120 Ml Liquid PO 120 ml 4X/DAY ALEJANDRA Administration Polyethylene Glycol 17 gm 07/24/20 06:00 07/24/20 06:10 Polyethylene Glycol 3350 17 Gm Packet PO 17 gm DAILY ALEJANDRA Administration Potassium Chloride 20 meq 07/24/20 06:00 07/24/20 06:10 Potassium Chloride 20 Meq Tablet PO 20 meq DAILY ALEJANDRA Administration Senna/Docusate Sodium 1 tablet 07/24/20 06:00 07/24/20 06:11 Senna/Docusate Sodium 1 Tablet PO 1 tablet BID ALEJANDRA Administration Sodium Chloride 10 - 40 ml 07/23/20 21:27 07/24/20 06:08 0.9% Saline Lock 10 Ml Syringe IV 10 ml UD PRN Administration SALINE FLUSH Tuberculin PPD 5 tu 07/31/20 10:00 Tuberculin,Purif.Prot.Deriv. 50 Tu/Ml Vial ID 07/31/20 10:01 X1 ONE Problem List (Last Reviewed 07/13/20 @ 16:[address] Eduard Reyes, DO) Debility (Acute) Encephalopathy (Acute) Carotid artery stenosis (Chronic) Parkinson's disease dementia (Chronic) Coronary artery disease (Chronic) Hypertension (Chronic) Hyperlipidemia (Chronic) Stroke (Chronic) Renal calculus or stone (Chronic) Atrial fibrillation (Chronic) Hypothyroidism (Chronic) Parkinson's disease (Chronic) Vital Signs Temp Pulse Resp BP Pulse Ox 98.6 F 55 L 14 146/48 H 99 07/24/20 13:43 07/24/20 13:43 07/24/20 13:43 07/24/20 13:43 07/24/20 13:43 Oxygen Delivery Method Room Air Weight: 63.503 kg Body Mass Index (BMI) 22.6 Finger Stick Blood Glucose 127 Sodium 140 mmol/L (136-145) 07/24/20 05:26 Potassium 3.7 mmol/L (3.5-5.1) 07/24/20 05:26 Chloride 108 mmol/L (98-107) H 07/24/20 05:26 Carbon Dioxide 27.0 mmol/L (21.0-32.0) 07/24/20 05:26 Anion Gap 5 (5-15) 07/24/20 05:26 BUN 31 mg/dL (7-18) H 07/24/20 05:26 Creatinine 0.64 mg/dL (0.55-1.02) 07/24/20 05:26 Est GFR (MDRD) Af Amer 113 mL/min (>60) 07/24/20 05:26 Est GFR (MDRD) Non-Af 94 mL/min (>60) 07/24/20 05:26 BUN/Creatinine Ratio 48.1 RATIO (10-20) H 07/24/20 05:26 Glucose 89 mg/dL (74-106) 07/24/20 05:26 Assessment/Plan: 1. Pain: Tylenol 1,000mg PO Q6h PRN Pain 1-06/10. Please continue to monitor for increased/decreased S/S pain, PRN medication usage. 2. Atrial Fibrillation: Amiodarone 200mg PO Daily, Coreg 3.125mg PO BID. Please continue to monitor for S/S amiodarone toxicity, BP, pulse. Per H/P, full anticoagulation not prescribed at this time due to frequent falls. 3. CAD: Coreg 3.125mg PO BID, Losartan 50mg PO Daily, Plavix 75mg PO Daily. Please continue to monitor BP, pulse, electrolytes, S/S bleeding/bruising, H/H. 4. Stroke: Plavix 75mg PO Daily. Patient not on statin at this time due to allergy of muscle aches all over 5. Parkinson's Disease: Sinemet 25/100mg 1.5 tab PO TID. Please continue to monitor for improvement in symptoms. If MVI or iron products ever ordered, please ensure this is given 2hrs before/after to ensure appropriate absorption of Sinemet. 6. Hypothyroid: Synthroid 125mcg PO Daily. Please continue to monitor thyroid function tests annually or sooner if clinically indicated. 7. General Wellness: Cholecalciferol 2000 unit PO Daily, K-Dur 20mEq PO Daily. Please continue to monitor potassium (last 3.7 07/24), vitamin D levels as clinically indicated. 8. DVT Prophylaxis: Lovenox 40mg SC Daily. Please continue to monitor CrCl, S/S bleeding/bruising. Psychotropic Medications: None Unnecessary Medications: None Bowel Regimen: Miralax 17g PO Daily, Senna/Docusate 1 tab PO BID, Dulcolax 10mg [place] Daily PRN, MOM 30mL PO Daily PRN. Please continue to monitor for increased/decreased constipation/diarrhea. Date of Note:: 07/24/20 - Provider Comments Provider responsibility: Provider responsible to enter orders to implement recommendations <Anupam [place] Chi - Last Filed: 07/24/20 17:20> Progress Note - Pharmacy Subjective: [] Objective: Allergies Xyzqalm-Xcr-Azh Reductase Inhibitor Allergy (Verified 07/13/20 12:10) MUSCLE ACHES ALL OVER pravastatin Adverse Reaction (Severe, Verified 07/13/20 12:10) myalgias bones ache all over colesevelam [From WelChol] Adverse Reaction (Intermediate, Verified 07/13/20 12:10) Not effective ezetimibe [From Zetia] Adverse Reaction (Intermediate, Verified 07/13/20 12:10) GI upset Influenza Virus Vaccines Adverse Reaction (Intermediate, Verified 07/13/20 12:10) Visual changes, lightheaded niacin Adverse Reaction (Intermediate, Verified 07/13/20 12:10) sweats Current Medications Generic Name Dose Route Start Last Admin Trade Name Freq PRN Reason Stop Dose Admin Acetaminophen 1,000 mg 07/23/20 21:54 Acetaminophen 500 Mg Tablet PO Q6H PRN Pain Score 1-10 Amiodarone HCl 200 mg 07/24/20 06:00 07/24/20 06:09 Amiodarone 200 Mg Tablet PO 200 mg DAILY ALEJANDRA Administration Bisacodyl 10 mg 07/23/20 21:55 Bisacodyl 10 Mg Suppository RECTAL DAILY PRN Constipation Carbidopa/Levodopa 1.5 tablet 07/23/20 22:00 07/24/20 15:04 Carbidopa/Levodopa 25/100 Tablet PO 1.5 tablet TID ALEJANDRA Administration Carvedilol 3.125 mg 07/24/20 06:00 07/24/20 06:09 Carvedilol 3.125 Mg Tablet PO 3.125 mg BID ALEJANDRA Administration Cholecalciferol 2,000 unit 07/24/20 06:00 07/24/20 06:09 Cholecalciferol (Vit D3) 1,000 Unit (25mcg) PO 2,000 unit DAILY ALEJANDRA Administration Clopidogrel Bisulfate 75 mg 07/24/20 06:00 07/24/20 06:09 Clopidogrel Bisulfate 75 Mg Tablet PO 75 mg DAILY ALEJANDRA Administration Enoxaparin Sodium 40 mg 07/24/20 06:00 07/24/20 06:11 Enoxaparin 40 Mg/0.4 Ml Syringe SC 40 mg DAILY@0600 ALEJANDRA Administration Levothyroxine Sodium 125 mcg 07/24/20 06:00 07/24/20 06:09 Levothyroxine 125 Mcg Tablet PO 125 mcg DAILY ALEJANDRA Administration Losartan Potassium 50 mg 07/24/20 06:00 07/24/20 06:11 Losartan Potassium 50 Mg Tablet PO 50 mg BID ALEJANDRA Administration Magnesium Hydroxide 30 ml 07/23/20 21:55 07/24/20 11:07 Magnesium Hydroxide 30 Ml Udc PO 30 ml DAILY PRN Administration Constipation Nutritional Formula (Lactose Free) 120 ml 07/23/20 22:00 07/24/20 11:52 Ensure Enlive 120 Ml Liquid PO 120 ml 4X/DAY ALEJANDRA Administration Polyethylene Glycol 17 gm 07/24/20 06:00 07/24/20 06:10 Polyethylene Glycol 3350 17 Gm Packet PO 17 gm DAILY ALEJANDRA Administration Potassium Chloride 20 meq 07/24/20 06:00 07/24/20 06:10 Potassium Chloride 20 Meq Tablet PO 20 meq DAILY ALEJANDRA Administration Senna/Docusate Sodium 1 tablet 07/24/20 06:00 07/24/20 06:11 Senna/Docusate Sodium 1 Tablet PO 1 tablet BID ALEJANDRA Administration Sodium Chloride 10 - 40 ml 07/23/20 21:27 07/24/20 06:08 0.9% Saline Lock 10 Ml Syringe IV 10 ml UD PRN Administration SALINE FLUSH Tuberculin PPD 5 tu 07/31/20 10:00 Tuberculin,Purif.Prot.Deriv. 50 Tu/Ml Vial ID 07/31/20 10:01 X1 ONE Problem List (Last Reviewed 07/13/20 @ 16:[address] Eduard Reyes DO) Debility (Acute) Encephalopathy (Acute) Carotid artery stenosis (Chronic) Parkinson's disease dementia (Chronic) Coronary artery disease (Chronic) Hypertension (Chronic) Hyperlipidemia (Chronic) Stroke (Chronic) Renal calculus or stone (Chronic) Atrial fibrillation (Chronic) Hypothyroidism (Chronic) Parkinson's disease (Chronic) Vital Signs Temp Pulse Resp BP Pulse Ox 98.6 F 55 L 14 146/48 H 99 07/24/20 13:43 07/24/20 13:43 07/24/20 13:43 07/24/20 13:43 07/24/20 15:14 Oxygen Delivery Method Room Air Weight: 63.503 kg Body Mass Index (BMI) 22.6 Finger Stick Blood Glucose 127 Sodium 140 mmol/L (136-145) 07/24/20 05:26 Potassium 3.7 mmol/L (3.5-5.1) 07/24/20 05:26 Chloride 108 mmol/L (98-107) H 07/24/20 05:26 Carbon Dioxide 27.0 mmol/L (21.0-32.0) 07/24/20 05:26 Anion Gap 5 (5-15) 07/24/20 05:26 BUN 31 mg/dL (7-18) H 07/24/20 05:26 Creatinine 0.64 mg/dL (0.55-1.02) 07/24/20 05:26 Est GFR (MDRD) Af Amer 113 mL/min (>60) 07/24/20 05:26 Est GFR (MDRD) Non-Af 94 mL/min (>60) 07/24/20 05:26 BUN/Creatinine Ratio 48.1 RATIO (10-20) H 07/24/20 05:26 Glucose 89 mg/dL (74-106) 07/24/20 05:26 Assessment/Plan: Psychotropic Medications: Unnecessary Medications: Bowel Regimen: - Provider Comments Provider responsibility: Provider responsible to enter orders to implement recommendations Provider Comments to Recommendations by Pharmacy: Agree
[2020-07-24 15:14] VITALS: O2SAT 99
[2020-07-24] MEDS: Dext 5%-0.45% NS 1,000 ML 75 ML IV (17:53)
[2020-07-25 05:38] VITALS: BP 155/50; PULSE 52; RESP 16; TEMP 36; O2SAT 97
[2020-07-25] MEDS: Dext 5%-0.45% NS 1,000 ML 75 ML IV ×2 (05:44→20:26)
[2020-07-25] MEDS: Enoxaparin 40 MG/0.4 ML Syringe SC (05:44)
--- NOTE | 2020-07-25 06:03 | NURSING ---
Addendum entered by Angie Retana 07/25/20 06:29: 0605: notified of consult, new order to straight cath for ua and cx. Original Note: Dr. Dominguez paged to notify of consult.
--- NOTE | 2020-07-25 06:25 | NURSING ---
Straight cathed for UA and cx, 600ml urine drained, very cloudy, strong odor with sediment noted.
[2020-07-25 06:36] LABS: Mucous, Urine 0 SEEN /hpf (<or=2+); Red Blood Cells-Urine 0 SEEN /hpf (0-5); Squamous Epithelial Cells - UA 0 SEEN /hpf (5-10)
[2020-07-25 06:37] LABS: Color, Urine Yellow (Yellow); Glucose, Dipstick Normal (Normal); Ketone-Dipstick Negative (Negative); Leukocyte Esterase-Dipstick Negative /ul (Negative); Nitrite-Dipstick Negative (Negative); Occult Blood-Urine Negative /ul (Negative); Protein-Dipstick 15 mg/dl (Negative); Urine Bilirubin Dipstick Negative (Negative); Urine Clarity Sl. Cloudy (Clear); Urine Urobilinogen 1 mg/dl (Normal)
[2020-07-25 06:43] LABS: Bacteria 3+ /hpf (None Seen); White Blood Cells 0-5 SEEN /hpf (0-5)
--- NOTE | 2020-07-25 06:54 | NURSING ---
here to see pt, states he will put orders in.
[2020-07-25] MEDS: Polyethylene Glycol 3350 17 GM PACKET PO (07:00)
[2020-07-25] MEDS: Losartan Potassium 50 MG Tablet PO ×2 (07:01→17:06)
[2020-07-25] MEDS: Clopidogrel Bisulfate 75 MG Tablet PO (07:01)
[2020-07-25] MEDS: Carvedilol 3.125 MG TABLET PO ×2 (07:01→17:06)
[2020-07-25] MEDS: Amiodarone 200 MG Tablet PO (07:01)
[2020-07-25] MEDS: Levothyroxine 125 MCG Tablet PO (07:01)
[2020-07-25] MEDS: Carbidopa/Levodopa 25/100 Tablet PO ×2 (07:01→20:28)
[2020-07-25] MEDS: Senna/Docusate Sodium 1 Tablet PO ×2 (07:04→17:05)
--- NOTE | 2020-07-25 07:34 | CON.PCM_ITS ---
Problem List (1) Ileus Status: Acute Reason for Consult Date of Consultation: 07/25/20 Reason for Consultation: Ileus History of Present Illness: The patient is a 80 year old F who had abdominal pain yesterday. She does not know the last time she had a bowel movement. She had an x-ray yesterday which showed adynamic ileus. The patient was recently transferred to another hospital for neurologic exam. She was found have a UTI with confusion. Past Medical History Past Medical History (Chronic Problems): Chronic Problems (Last Reviewed 07/13/20 @ 16:[address] Eduard Reyes DO) Carotid artery stenosis (Chronic) Parkinson's disease dementia (Chronic) Coronary artery disease (Chronic) Hypertension (Chronic) Hyperlipidemia (Chronic) Stroke (Chronic) History of renal stent (Chronic 08/27/19) Left kidney, Per Dr. Marine Aguirre; may be removed History of kidney stones (Chronic) History of lithotripsy (Chronic 10/12/19) per Dr. 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 Laz Barreto History of left heart catheterization (Chronic 09/11/18) Bifurcating LOPEZ graft to the LAD and DIAG is patent with mild to moderate [place] mid/distal LAD 50% stenosis, high risk for PCI given need to traverse down LOPEZ and severe LV dysfunction. Saphenous Vein graft to the RCA previously placed stent is patent, with 75% mid PDA stenosis, not amenable to PCI given need to traverse through graft, then acute angle into PDA, of questionable benefit given severe LV dysfunction Atrial fibrillation (Chronic) Hypercholesterolemia (Chronic) Non-STEMI (non-ST elevated myocardial infarction) (Chronic 09/10/18) Hypothyroidism (Chronic) Parkinson's disease (Chronic) Medical History: Medical History (Last Reviewed 07/13/20 @ 16:[address] Eduard Reyes DO) History of kidney stones (Chronic) Z87.442 Essential hypertension (Chronic) I10 Atherosclerosis of coronary artery of [place] heart without angina pectoris (Chronic) I25.10 Atrial fibrillation (Chronic) I48.91 Hypercholesterolemia (Chronic) E78.00 Non-STEMI (non-ST elevated myocardial infarction) (Chronic) Onset Date: 09/10/18 I21.4 Hypothyroidism (Chronic) E03.9 Parkinson's disease (Chronic) G20 Allergies Xnmflna-[id number]-Vdp Reductase Inhibitor Allergy (Verified 07/13/20 12:10) MUSCLE ACHES ALL OVER pravastatin Adverse Reaction (Severe, Verified 07/13/20 12:10) myalgias bones ache all over colesevelam [From WelChol] Adverse Reaction (Intermediate, Verified 07/13/20 12:10) Not effective ezetimibe [From Zetia] Adverse Reaction (Intermediate, Verified 07/13/20 12:10) GI upset Influenza Virus Vaccines Adverse Reaction (Intermediate, Verified 07/13/20 12:10) Visual changes, lightheaded niacin Adverse Reaction (Intermediate, Verified 07/13/20 12:10) sweats Home Medications: Ambulatory Orders Medication Instructions Recorded Levothyroxine [Synthroid] 125 mcg PO DAILY 06/14/13 Carbidopa/Levodopa 1.5 tab PO TID 09/09/18 [Carbidopa-Levodopa 25-100 Tab] Potassium Chloride [K-Dur] 20 meq PO DAILY 08/25/19 clopidogrel 75 mg tablet 75 mg PO DAILY #90 tab 11/15/19 losartan 50 mg tablet 50 mg PO BID 02/22/20 Senna [Senokot] 2 tab PO BID PRN 07/08/20 Carvedilol 3.125 mg PO BID 07/11/20 Cholecalciferol (Vitamin D3) 2,000 unit PO DAILY 07/13/20 [Vitamin D3] Amiodarone HCl 200 mg PO DAILY 07/23/20 Surgical History: Surgical History (Last Reviewed 07/13/20 @ 16:[address] Eduard Reyes, DO) History of renal stent (Chronic) Onset Date: 08/27/19 Left kidney, Per Dr. Marine Aguirre; may be removed History of lithotripsy (Chronic) Onset Date: 10/12/[address] Meyers History of cardioversion (Chronic) Onset Date: 12/16/18 Z98.890 History of coronary artery bypass graft x 3 (Chronic) Onset Date: 08/22/98 Z95.1 [facility]:LOPEZ to LAD, left radial to OM of CX and free MYNOR to PDA of RCA per Dr. Laz Barreto History of laparoscopic cholecystectomy Onset Date: 06/15/[address] Kulwinder Rosas; umbilical hernia repair done concomitantly with lap cholecystectomy History of tubal ligation Onset Date: 1969 Z98.51 History of umbilical hernia repair Onset Date: 06/15/13 Z98.890, Z87.[address] Kulwinder Rosas, concomitant with laparascopic cholecystectomy History of varicose vein stripping Onset Date: 1971 Z98.890 Bilateral Surgical History: cholecystectomy - Laparoscopic., coronary bypass surgery - x 3, 15 years ago, herniorrhaphy - Umbilical., - - Vein stripping in both legs, tubal ligation, electrocardioversion, left renal stent, Lithotripsy. Psychiatric History: No pertinent psych hx RECREATION AIDE History: No pertinent RECREATION AIDE history Lives: With Family Smoking Status: Never smoker Tobacco Use: Non-smoker Alcohol: None Drugs: None - *Family History Paternal Family History: Family History (Last Reviewed 07/13/20 @ 16:[address] Eduard Reyes DO) Sister Alzheimer's disease History Items: Heart Disease, Hypertension, Stroke Review of Systems Constitutional: Denies: Anorexia, Fever HEENT: Denies: Difficulty Swallowing Cardiovascular: Denies: Claudication Respiratory: Denies: Cough, Shortness of Breath Gastrointestinal: Reports: Abdominal Pain, Constipation. Denies: Nausea, Vomiting Neurological: Denies: Balance problems Patient Problems: Active and Suspected Problems (Last Reviewed 07/13/20 @ 16:[address] Eduard Reyes DO) Debility (Acute) Encephalopathy (Acute) - Physical Exam Vitals/I&O's: Vital Signs Temp Pulse Resp BP Pulse Ox 96.8 F L 52 L 16 155/50 H 97 07/25/20 05:38 07/25/20 05:38 07/25/20 05:38 07/25/20 05:38 07/25/20 05:38 Oxygen Delivery Method Room Air Weight: 140 lb Body Mass Index (BMI) 22.6 Finger Stick Blood Glucose 127 Intake and Output for Last 24 Hours 07/23/20 07/24/20 07/25/20 23:59 23:59 23:59 Intake Total 1240 / 1240 1168.75 / 1168.75 Output Total 620 / 620 Balance 1240 / 1240 548.75 / 548.75 General: Alert, Cooperative HEENT: Atraumatic Cardiovascular: Regular rate, Regular Rhythm Abdomen: Soft, Non Tender, Non-Distended Extremities: No clubbing Skin: No rashes Musculoskeletal: No Muscle Wasting, Cachexia Neurological: Cranial nerves II-XII grossly intact Psych/Mental Status: Normal Affect Microbiology Past 72 Hours 07/24/20 14:09 Nasal Secretion SARS-CoV-2 Antigen (Rapid) - Final Laboratory Results 07/24/20 13:44: COVID-19 (PAWEL) Pending 07/25/20 06:25: Urine Color Yellow, Urine Clarity Sl. Cloudy, Urine pH 7.0, Ur Specific [place] 1.010, Urine Protein 15 H, Urine Glucose (UA) Normal, Urine Ketones Negative, Urine Occult Blood Negative, Urine Nitrite Negative, Urine Bilirubin Negative, Urine Urobilinogen 1 H, Ur Leukocyte Esterase Negative, Urine RBC 0 SEEN, Urine WBC 0-5 SEEN, Ur Squamous Epith Cells 0 SEEN, Urine Bacteria 3+, Urine Mucus 0 SEEN Clinical Impression(s) from Imaging Studies KUB X-Ray 07/24/20 08:08 IMPRESSION: Findings compatible to moderate to severe adynamic ileus. Electronically Signed: Sixto Carrie, at 9:12 EST Tel , Service support , Current Medications Acetaminophen (Acetaminophen 500 Mg Tablet) 1,000 mg PO Q6H PRN PRN Reason: Pain Score 1-10 Amiodarone HCl (Amiodarone 200 Mg Tablet) 200 mg PO DAILY [facility] Last Admin: 07/25/20 07:01 Dose: 200 mg Documented by: Bisacodyl (Bisacodyl 10 Mg Suppository) 10 mg RECTAL DAILY PRN PRN Reason: Constipation Bisacodyl (Bisacodyl 10 Mg Suppository) 10 mg RECTAL X1 ONE Stop: 07/25/20 07:34 Carbidopa/Levodopa (Carbidopa/Levodopa 25/100 Tablet) 1.5 tablet PO TID [facility] Last Admin: 07/25/20 07:01 Dose: 1.5 tablet Documented by: Carvedilol (Carvedilol 3.125 Mg Tablet) 3.125 mg PO BID [facility] Last Admin: 07/25/20 07:01 Dose: 3.125 mg Documented by: Cholecalciferol (Cholecalciferol (Vit D3) 1,000 Unit (25mcg)) 2,000 unit PO DAILY [facility] Last Admin: 07/25/20 07:01 Dose: 2,000 unit Documented by: Clopidogrel Bisulfate (Clopidogrel Bisulfate 75 Mg Tablet) 75 mg PO DAILY [facility] Last Admin: 07/25/20 07:01 Dose: 75 mg Documented by: Enoxaparin Sodium (Enoxaparin 40 Mg/0.4 Ml Syringe) 40 mg SC DAILY@0600 [facility] Last Admin: 07/25/20 05:44 Dose: 40 mg Documented by: Dextrose/Sodium Chloride () 1,000 mls @ 75 mls/hr IV .[id number] [facility] Last Admin: 07/25/20 05:44 Dose: 75 mls/hr Documented by: Levothyroxine Sodium (Levothyroxine 125 Mcg Tablet) 125 mcg PO DAILY [facility] Last Admin: 07/25/20 07:01 Dose: 125 mcg Documented by: Losartan Potassium (Losartan Potassium 50 Mg Tablet) 50 mg PO BID [facility] Last Admin: 07/25/20 07:01 Dose: 50 mg Documented by: Magnesium Hydroxide (Magnesium Hydroxide 30 Ml Udc) 30 ml PO DAILY PRN PRN Reason: Constipation Last Admin: 07/24/20 11:07 Dose: 30 ml Documented by: Nutritional Formula (Lactose Free) (Ensure Enlive 120 Ml Liquid) 120 ml PO 4X/DAY [facility] Last Admin: 07/25/20 05:22 Dose: Not Given Documented by: Polyethylene Glycol (Polyethylene Glycol 3350 17 Gm Packet) 17 gm PO DAILY [facility] Last Admin: 07/25/20 07:00 Dose: 17 gm Documented by: Potassium Chloride (Potassium Chloride 20 Meq Tablet) 20 meq PO DAILYCM [facility] Senna/Docusate Sodium (Senna/Docusate Sodium 1 Tablet) 1 tablet PO BID [facility] Last Admin: 07/25/20 07:04 Dose: 1 tablet Documented by: Sodium Chloride (0.9% Saline Lock 10 Ml Syringe) 10 - 40 ml IV UD PRN PRN Reason: SALINE FLUSH Last Admin: 07/24/20 17:54 Dose: 10 ml Documented by: Tuberculin PPD (Tuberculin,Purif.Prot.Deriv. 50 Tu/Ml Vial) 5 tu ID X1 ONE Stop: 07/31/20 10:01 Assessment/Plan All Active Problems (Last Reviewed 07/13/20 @ 16:[address] Eduard Reyes, DO) Hypertensive encephalopathy (Acute) Debility (Acute) Unresponsive (Acute) Hypertensive emergency (Acute) Encephalopathy (Acute) Altered mental status (Acute) Ileus (Acute) Intractable abdominal pain (Resolved) Left ureteral calculus (Resolved) Hydronephrosis (Resolved) Ureteral colic (Resolved) Acute kidney injury (Resolved) Complicated UTI (urinary tract infection) (Resolved) 80-year-old female with ileus 1. The patient reported that she had abdominal pain yesterday. She started passing flatus overnight and she is not really having any abdominal pain on palpation this morning. Her abdomen is soft and nontender on exam this morning. She does not know her last bowel movement. I did review her x-ray. I will plan on starting her on clear liquids today and ordering a Dulcolax suppository. I will repeat KUB x-ray around noon today. Tony Ortez MD Pager: [facility] [address] [place] [address], [address] [place] [address] Office:
[2020-07-25] MEDS: Bisacodyl 10 MG Suppository RECTAL (09:06)
--- NOTE | 2020-07-25 09:29 | NURSING ---
frederick denis of pt updated this morning.
--- NOTE | 2020-07-25 10:22 | CASEMGMT ---
Social Work IDT met with patient and via conference call for care plan meeting. Discussed patient's progress in therapy. Pt is mod for bed mobility and tx, and ambulating 25 ft with FWW. Pt is supervised while seated for grooming, CGA-min for UE ADLS, max for LE ADLs and toileting tasks, using 1lb wts for UE strengthening. ST is recommending moist/minced textures, thin liquids, small bites/ sips, slow rate of intake. Pt completed portion of KENA testing and is noted to have flat affect and expressed language deficits, having issues with word finding and memory, and low vocal intensity. Pt is on a clear liquid diet, receiving ensure clear and Frankie. Pt is out of room isolation 08/06, and getting wounds treated. Pt is very tired today, major difficulty getting pt aroused. Dr. Ortez is visiting pt and doing repeat KUB. Explained [employer] insurance with [employer] 07/28 and continued stay is not guaranteed. Pt had son and spouse assist prior, with 3 steps to enter and 14 steps to 2nd floor bed/bath. The goal is for pt to return home however, expressed concerns with safety and steps. Encouraged to begin thinking of alternative DC options. Will continue to follow. Val Garcia, HECTOR MONUMENT SETTER
--- NOTE | 2020-07-25 12:00 | RAD_ITS ---
STUDY: X-RAY - ABDOMEN/PELVIS REASON FOR EXAM: Female, 80 years old. ILEUS TECHNIQUE: Single AP view of the abdomen / pelvis. COMPARISON: Yesterday FINDINGS: Excluded lung bases. Gaseous distention of small bowel but lesser amount of colonic air distention. There is no demonstrated free abdominal air. The visualized liver, spleen and kidneys are grossly normal in size and morphology. Atherosclerosis noted. There are diffuse degenerative changes of the visualized lumbar spine. RAD/Abdomen Single View (Portable) IMPRESSION: 1. Improving diffuse ileus. Electronically Signed: Bernabe Crawford MD (Brooks) at 19:15 EST , Service support ,
--- NOTE | 2020-07-25 12:18 | NURSING ---
Pt went to X-ray for KUB.
[2020-07-25 14:08] VITALS: BP 169/56; PULSE 74; RESP 16; TEMP 36.7; O2SAT 94
--- NOTE | 2020-07-25 15:07 | NURSING ---
PATRICE,RN/WOUND NURSE CHANGED PT MEPILEX TO BOTTOM.
[2020-07-25 15:12] VITALS: PULSE 52; RESP 20; O2SAT 98
--- NOTE | 2020-07-25 15:44 | NURSING ---
Called Dr. Ortez to let him know results are in for KUB. He is aware and is waiting on the report.
--- NOTE | 2020-07-25 16:17 | NURSING ---
Resident and family notified of staff member testing positive for COVID.
--- NOTE | 2020-07-25 16:32 | NURSING ---
Addendum entered by Nisa Hughes 07/25/20 18:14: Updated Dr. Grande ordered for Davis insertion. Original Note: Took pt BP 171/52 lying left arm rechecked 10 min later bp was 157/52 Pulse 52 Spo2 99 on RA. Pt stated I'm dying just leave me alone and let me go to sleep. Did Bladder Scan on Pt 450ml. Will Update Dr. grande.
--- NOTE | 2020-07-25 18:15 | NURSING ---
Pt stated she wanted to go home and be with her . Left message with Clau and Dr. Grande made aware.
--- NOTE | 2020-07-25 18:50 | NURSING ---
Inserted Davis Catheter Pt handed procedure well. Davis draining yellow clear urine.
--- NOTE | 2020-07-25 18:55 | NURSING ---
called x-ray to see why the report for the KUB wasn't not in yet. Shaina from x-ray is going to see why it hasn't been read yet.
[2020-07-25 20:44] VITALS: BP 160/51; PULSE 49; RESP 16; TEMP 36.4; O2SAT 97
--- NOTE | 2020-07-25 20:46 | NURSING ---
lYING IN BED, SLEEPING, AWAKENS WITH STIMULATION AND RETURNS TO SLEEP, DENIES PAIN, VS TAKEN AND NOTED. IV FLUIDS REMAIN INFUSING, FC TO CD CLER YELLOW PALE URINE
--- NOTE | 2020-07-25 21:32 | NURSING ---
Arousable to verbal stimulation, cont to deny distress or pain
[2020-07-26 06:02] VITALS: BP 166/64; PULSE 49; RESP 18; TEMP 36.2; O2SAT 96
[2020-07-26] MEDS: Enoxaparin 40 MG/0.4 ML Syringe SC (06:04)
--- NOTE | 2020-07-26 06:16 | NURSING ---
Pt refused am po meds this am , States leave me alone, I dont want to take them, i am going to explained to pt the importance of meds including cardiac meds and meds for Parkinson, Pt cont to refuse, States just leave me alone I want to go back to sleep and I dont want those pills I want to , Asked pt is she would like to speak to her , pt refused, mouth and lips dry, offered pt fluids, refused, offered pt to have any fluids she would like , again refused, educated pt about need to take in po fluids, states i dont care
--- NOTE | 2020-07-26 08:03 | PN.SURG_ITS ---
Patient Problems: Active and Suspected Problems (Last Reviewed 07/13/20 @ 16:[address] Eduard Reyes, DO) Debility (Acute) Encephalopathy (Acute) Ileus (Acute) Subjective: Patient reports he is passing flatus with no abdominal pain. She had no nausea or vomiting. - Physical Exam Vitals/I&O's: Vital Signs Temp Pulse Resp BP Pulse Ox 97.2 F L 49 L 18 166/64 H 96 07/26/20 06:02 07/26/20 06:02 07/26/20 06:02 07/26/20 06:02 07/26/20 06:02 Oxygen Delivery Method Room Air Weight: 140 lb 6 oz Body Mass Index (BMI) 22.6 Finger Stick Blood Glucose 127 Intake and Output for Last 24 Hours 07/24/20 07/25/20 07/26/20 23:59 23:59 23:59 Intake Total 1240 / 1240 2648.75 / 2648.75 Output Total 620 / 620 600 / 600 Balance 1240 / 1240 2028.75 / 2028.75 -600 / -600 General: Alert, Cooperative Lungs: Normal air movement Abdomen: Soft, Non Tender, Non-Distended Microbiology Past 72 Hours 07/24/20 14:09 Nasal Secretion SARS-CoV-2 Antigen (Rapid) - Final Current Medications Acetaminophen (Acetaminophen 500 Mg Tablet) 1,000 mg PO Q6H PRN PRN Reason: Pain Score 1-10 Amiodarone HCl (Amiodarone 200 Mg Tablet) 200 mg PO DAILY [facility] Last Admin: 07/26/20 06:14 Dose: Not Given Documented by: Bisacodyl (Bisacodyl 10 Mg Suppository) 10 mg RECTAL DAILY PRN PRN Reason: Constipation Carbidopa/Levodopa (Carbidopa/Levodopa 25/100 Tablet) 1.5 tablet PO TID [facility] Last Admin: 07/26/20 06:15 Dose: Not Given Documented by: Carvedilol (Carvedilol 3.125 Mg Tablet) 3.125 mg PO BID [facility] Last Admin: 07/26/20 06:14 Dose: Not Given Documented by: Cholecalciferol (Cholecalciferol (Vit D3) 1,000 Unit (25mcg)) 2,000 unit PO DAILY [facility] Last Admin: 07/26/20 06:15 Dose: Not Given Documented by: Clopidogrel Bisulfate (Clopidogrel Bisulfate 75 Mg Tablet) 75 mg PO DAILY [facility] Last Admin: 07/26/20 06:14 Dose: Not Given Documented by: Enoxaparin Sodium (Enoxaparin 40 Mg/0.4 Ml Syringe) 40 mg SC DAILY@0600 [facility] Last Admin: 07/26/20 06:04 Dose: 40 mg Documented by: Dextrose/Sodium Chloride () 1,000 mls @ 75 mls/hr IV .[id number] [facility] Last Admin: 07/25/20 20:26 Dose: 75 mls/hr Documented by: Levothyroxine Sodium (Levothyroxine 125 Mcg Tablet) 125 mcg PO DAILY [facility] Last Admin: 07/26/20 06:15 Dose: Not Given Documented by: Losartan Potassium (Losartan Potassium 50 Mg Tablet) 50 mg PO BID [facility] Last Admin: 07/26/20 06:14 Dose: Not Given Documented by: Magnesium Hydroxide (Magnesium Hydroxide 30 Ml Udc) 30 ml PO DAILY PRN PRN Reason: Constipation Last Admin: 07/24/20 11:07 Dose: 30 ml Documented by: Nutritional Formula (Nutritional Supplement (Frankie) Packet) [facility] Last Admin: 07/25/20 17:12 Dose: 1 packet Documented by: Nutritional Formula (Lactose Free) (Ensure Enlive 120 Ml Liquid) 120 ml PO 4X/DAY [facility] Last Admin: 07/26/20 06:14 Dose: Not Given Documented by: Polyethylene Glycol (Polyethylene Glycol 3350 17 Gm Packet) 17 gm PO DAILY [facility] Last Admin: 07/26/20 06:14 Dose: Not Given Documented by: Potassium Chloride (Potassium Chloride 20 Meq Tablet) [facility] Last Admin: 07/25/20 07:51 Dose: 20 meq Documented by: Senna/Docusate Sodium (Senna/Docusate Sodium 1 Tablet) 1 tablet PO BID [facility] Last Admin: 07/26/20 06:15 Dose: Not Given Documented by: Sodium Chloride (0.9% Saline Lock 10 Ml Syringe) 10 - 40 ml IV UD PRN PRN Reason: SALINE FLUSH Last Admin: 07/24/20 17:54 Dose: 10 ml Documented by: Tuberculin PPD (Tuberculin,Purif.Prot.Deriv. 50 Tu/Ml Vial) 5 tu ID X1 ONE Stop: 07/31/20 10:01 Medical Necessity - Tobacco Use Smoking Status: Never smoker Tobacco Use: Non-smoker Assessment/Plan All Active Problems (Last Reviewed 07/13/20 @ 16:[address] Eduard Reyes, DO) Hypertensive encephalopathy (Acute) Debility (Acute) Unresponsive (Acute) Hypertensive emergency (Acute) Encephalopathy (Acute) Altered mental status (Acute) Ileus (Acute) Intractable abdominal pain (Resolved) Left ureteral calculus (Resolved) Hydronephrosis (Resolved) Ureteral colic (Resolved) Acute kidney injury (Resolved) Complicated UTI (urinary tract infection) (Resolved) 80-year-old female with ileus 1. Patient had repeat KUB yesterday which showed improvement of the ileus. The patient is passing flatus and tolerated clear liquids with no nausea or vomiting. She is not complaining of any abdominal pain and she is nondistended and soft. I will try her on a regular diet today. Tony Ortez MD Pager: [facility] [address] [place] [address] [address] [place] [address] Office:
--- NOTE | 2020-07-26 08:11 | NURSING ---
wound photo: sacrum
[2020-07-26] MEDS: Dext 5%-0.45% NS 1,000 ML 75 ML IV ×2 (09:58→22:38)
--- NOTE | 2020-07-26 10:49 | CASEMGMT ---
Social Work Notified by physician that pt is electing to DC home with hospice as her wishes are to . She is ready to be comfortable and wants to see her family. Contacted son Donte to discuss pt's wishes. Explained SW to assist with facilitating wishes and explained hospice services. Son initially shocked. SW discussed wishes and services further. Son agreed to pt's wishes and requested he speak with pt's and other son. SW agreed. Son to notify SW after that conversation to begin with DC planning. Will continue to follow. HECTOR BotelloW
--- NOTE | 2020-07-26 10:54 | NURSING ---
Pt's son Gene called to get update on mother. Updated him on how she has been very tired and just wants to sleep. Talked to him about how she had a KUB yesterday and she had a small Bowel movement. Let him know that Dr. Ortez looked at the KUB and will continue to monitor the pt. Transferred phone call to pt's room pt told son that she didn't refuse any medication this morning. night shift supervisor stated she refused her meds. Updated Val about not calling the d/t his health and unable to handle bad news.
--- NOTE | 2020-07-26 10:56 | MDS.RN ---
Staff assessment for pain interview for [facility] 07/30/20 completed.
--- NOTE | 2020-07-26 11:55 | CASEMGMT ---
Addendum entered by aVl Garcia 07/26/20 13:26: [facility] spoke with family and has a pre-admit meeting scheduled for 3:30 pm this date. There isn't a nurse to complete admit today, but will admit tomorrow. Scheduled cot transport with [facility] for 10 am. Faxed DC info to hospice. Family aware. Original Note: Social Work Spoke with multiple family members via conference call: son's and included. All agreeable to pt's wishes of home with hospice. Explained pt has been refusing meds, eating, and has been sound asleep - difficult to arouse, and sleeping with mouth open for breathing. Family would like pt to DC home this date is possible. Explained SW to make referral to [facility] and they will determine if they can admit pt this evening or the following day. SW to facilitate DC. Family appreciative. Will keep family up to date. Referral made to [facility]. Will continue to follow. HECTOR Botello
--- NOTE | 2020-07-26 13:32 | CASEMGMT ---
Social Work Attempted to complete BIMS and PHQ-9 for MDS assessment but pt unarousable. Staff assessment completed. Val Garcia, OFFICE SPEC REFUGE MANAGER
[2020-07-26 14:17] VITALS: BP 166/59; PULSE 56; RESP 16; TEMP 36.4; O2SAT 97
[2020-07-26] MEDS: Carbidopa/Levodopa 25/100 Tablet PO ×2 (14:41→20:26)
[2020-07-26 16:56] VITALS: BP 119/50; PULSE 54
[2020-07-26] MEDS: Losartan Potassium 50 MG Tablet PO (17:22)
[2020-07-26] MEDS: Senna/Docusate Sodium 1 Tablet PO (17:22)
[2020-07-26] MEDS: Carvedilol 3.125 MG TABLET PO (17:22)
--- NOTE | 2020-07-26 19:33 | DCINST_ITS ---
- Discharge Diagnoses Current Active Problems: Current Active and Chronic Problems (Last Reviewed 07/13/20 @ 16:[address] Eduard Reyes, DO) Debility (Acute) Encephalopathy (Acute) Carotid artery stenosis (Chronic) Parkinson's disease dementia (Chronic) Coronary artery disease (Chronic) Hypertension (Chronic) Hyperlipidemia (Chronic) Stroke (Chronic) Ileus (Acute) Renal calculus or stone (Chronic) Atrial fibrillation (Chronic) Hypothyroidism (Chronic) Parkinson's disease (Chronic) You will use the following diet at home:: No restrictions, Regular Your food should be the consistency of: Regular Your liquids should be the consistency of: Regular/Thin Discharge Activity: Return to Normal Activity, May Shower, Use Walker Weight Bearing Status: Weight bearing as tolerated Call your doctor if you observe: Fever of 101 or Higher, Inability to urinate, Inability to have a bowel movement, Shortness of breath, Chest pain, Uncontrolled pain Allergies/Adverse Reactions: Allergies Yylhwzy-Zaj-Tza Reductase Inhibitor Allergy (Verified 07/13/20 12:10) MUSCLE ACHES ALL OVER pravastatin Adverse Reaction (Severe, Verified 07/13/20 12:10) myalgias bones ache all over colesevelam [From WelChol] Adverse Reaction (Intermediate, Verified 07/13/20 12:10) Not effective ezetimibe [From Zetia] Adverse Reaction (Intermediate, Verified 07/13/20 12:10) GI upset Influenza Virus Vaccines Adverse Reaction (Intermediate, Verified 07/13/20 12:10) Visual changes, lightheaded niacin Adverse Reaction (Intermediate, Verified 07/13/20 12:10) sweats Medications to take at Discharge Acetaminophen [Tylenol] 1,000 mg PO Q6H PRN tab 07/26/20 Primary Care Physician: Louise Garrido MD [Primary Care Provider] - Please follow up with your Primary Care Physician in: As needed. Test Results: Test results from this visit will be discussed in further detail at your follow- up appointment, if applicable. Proposed Discharge Date: 07/27/20
--- NOTE | 2020-07-26 19:34 | PCM.DC.SUM ---
Discharge Date and Diagnosis - Problem List Patient Problems: Active and Suspected Problems (Last Reviewed 07/13/20 @ 16:[address] Eduard Reyes DO) Debility (Acute) Encephalopathy (Acute) Ileus (Acute) Date of Admission: 07/23/20 Date of Discharge: 07/27/20 - Primary Discharge Diagnosis Acute Problems: Active Problems (Last Reviewed 07/13/20 @ 16:[address] Eduard Reyes DO) Debility (Acute) Encephalopathy (Acute) Ileus (Acute) - Secondary Discharge Diagnosis Chronic Problems: Chronic Problems (Last Reviewed 07/13/20 @ 16:[address] Eduard Reyes DO) Carotid artery stenosis (Chronic) Parkinson's disease dementia (Chronic) Coronary artery disease (Chronic) Hypertension (Chronic) Hyperlipidemia (Chronic) Stroke (Chronic) History of renal stent (Chronic 08/27/19) Left kidney, Per Dr. Marine Aguirre; may be removed History of kidney stones (Chronic) History of lithotripsy (Chronic 10/12/19) per Dr. 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 Laz Barreto History of left heart catheterization (Chronic 09/11/18) Bifurcating LOPEZ graft to the LAD and DIAG is patent with mild to moderate [place] mid/distal LAD 50% stenosis, high risk for PCI given need to traverse down LOPEZ and severe LV dysfunction. Saphenous Vein graft to the RCA previously placed stent is patent, with 75% mid PDA stenosis, not amenable to PCI given need to traverse through graft, then acute angle into PDA, of questionable benefit given severe LV dysfunction Atrial fibrillation (Chronic) Hypercholesterolemia (Chronic) Non-STEMI (non-ST elevated myocardial infarction) (Chronic 09/10/18) Hypothyroidism (Chronic) Parkinson's disease (Chronic) Hospital Course and Treatment Imaging Results: 07/26/20 08:02 Diet: Regular - General Is pt able to select menu?: Yes Clinical Impression(s) from Imaging Studies KUB X-Ray 07/25/20 12:00 IMPRESSION: 1. Improving diffuse ileus. Electronically Signed: Bernabe Crawford MD ([place]) at 19:15 EST , Service support , Labs (Last 48 Hours) 07/24/20 07/25/20 13:44 06:25 Urine Color Yellow Urine Clarity Sl. Cloudy Urine pH 7.0 Ur Specific [place] 1.010 Urine Protein 15 H Urine Glucose (UA) Normal Urine Ketones Negative Urine Occult Blood Negative Urine Nitrite Negative Urine Bilirubin Negative Urine Urobilinogen 1 H Ur Leukocyte Esterase Negative Urine RBC 0 SEEN Urine WBC 0-5 SEEN Ur Squamous Epith Cells 0 SEEN Urine Bacteria 3+ Urine Mucus 0 SEEN COVID-19 ([facility]WEL) Not Detected Microbiology 07/25/20 06:25 Urine, Catheterized Urine Culture - Preliminary Culture exhibits no growth. 07/24/20 14:09 Nasal Secretion SARS-CoV-2 Antigen (Rapid) - Final Consultations 07/23/20 22:02 Consult: Onc/Wound/twister tender Routine Comment: Reason for Consult:: Pressure injuries to lyly heels and buttocks Operations: None Procedures: None Summary of Care Provided: The patient is a 80 year old Female with below past medical history hospitalized for encephalopathy secondary to urinary tract infection, complicated by underlying mixed (vascular/Parkinson) dementia, seizures ruled out, admitted to TCU with debility, here for rehabilitation, strengthening, prior to discharge home with family. On TCU, resident had ileus which resolved with conservative treatment. 07/26/20 Resident refused all medications and treatment, requesting to go home and . Discharge home with hospice. Patient Problems: Active and Suspected Problems (Last Reviewed 07/13/20 @ 16:[address] Eduard Reyes, DO) Debility (Acute) Encephalopathy (Acute) Ileus (Acute) - Physical Exam Vitals/I&O's: Vital Signs Temp Pulse Resp BP Pulse Ox 97.5 F L 54 L 16 119/50 L 97 07/26/20 14:17 07/26/20 16:56 07/26/20 14:17 07/26/20 16:56 07/26/20 14:17 Oxygen Delivery Method Room Air Weight: 63.673 kg Body Mass Index (BMI) 22.6 Finger Stick Blood Glucose 127 Intake and Output for Last 24 Hours 07/24/20 07/25/20 07/26/20 23:59 23:59 23:59 Intake Total 1240 / 1240 2648.75 / 2648.75 1100 / 1100 Output Total 620 / 620 1900 / 1900 Balance 1240 / 1240 2028.75 / 2028.75 -800 / -800 Microbiology Past 72 Hours 07/25/20 06:25 Urine, Catheterized Urine Culture - Preliminary Culture exhibits no growth. 07/24/20 14:09 Nasal Secretion SARS-CoV-2 Antigen (Rapid) - Final Laboratory Results 07/24/20 13:44: COVID-19 ([facility]WEL) Not Detected Current Medications Acetaminophen (Acetaminophen 500 Mg Tablet) 1,000 mg PO Q6H PRN PRN Reason: Pain Score 1-10 Amiodarone HCl (Amiodarone 200 Mg Tablet) 200 mg PO DAILY [facility] Last Admin: 07/26/20 06:14 Dose: Not Given Documented by: Bisacodyl (Bisacodyl 10 Mg Suppository) 10 mg RECTAL DAILY PRN PRN Reason: Constipation Carbidopa/Levodopa (Carbidopa/Levodopa 25/100 Tablet) 1.5 tablet PO TID [facility] Last Admin: 07/26/20 14:41 Dose: 1.5 tablet Documented by: Carvedilol (Carvedilol 3.125 Mg Tablet) 3.125 mg PO BID [facility] Last Admin: 07/26/20 17:22 Dose: 3.125 mg Documented by: Cholecalciferol (Cholecalciferol (Vit D3) 1,000 Unit (25mcg)) 2,000 unit PO DAILY [facility] Last Admin: 07/26/20 06:15 Dose: Not Given Documented by: Clopidogrel Bisulfate (Clopidogrel Bisulfate 75 Mg Tablet) 75 mg PO DAILY [facility] Last Admin: 07/26/20 06:14 Dose: Not Given Documented by: Enoxaparin Sodium (Enoxaparin 40 Mg/0.4 Ml Syringe) 40 mg SC DAILY@0600 [facility] Last Admin: 07/26/20 06:04 Dose: 40 mg Documented by: Dextrose/Sodium Chloride () 1,000 mls @ 75 mls/hr IV .[id number] [facility] Last Admin: 07/26/20 09:58 Dose: 75 mls/hr Documented by: Levothyroxine Sodium (Levothyroxine 125 Mcg Tablet) 125 mcg PO DAILY [facility] Last Admin: 07/26/20 06:15 Dose: Not Given Documented by: Losartan Potassium (Losartan Potassium 50 Mg Tablet) 50 mg PO BID [facility] Last Admin: 07/26/20 17:22 Dose: 50 mg Documented by: Magnesium Hydroxide (Magnesium Hydroxide 30 Ml Udc) 30 ml PO DAILY PRN PRN Reason: Constipation Last Admin: 07/24/20 11:07 Dose: 30 ml Documented by: Nutritional Formula (Nutritional Supplement (Frankie) Packet) [facility] Last Admin: 07/26/20 17:22 Dose: 1 packet Documented by: Nutritional Formula (Lactose Free) (Ensure Enlive 120 Ml Liquid) 120 ml PO 4X/DAY [facility] Last Admin: 07/26/20 17:21 Dose: 120 ml Documented by: Polyethylene Glycol (Polyethylene Glycol 3350 17 Gm Packet) 17 gm PO DAILY [facility] Last Admin: 07/26/20 06:14 Dose: Not Given Documented by: Potassium Chloride (Potassium Chloride 20 Meq Tablet) 20 meq [facility] Last Admin: 07/26/20 08:37 Dose: 20 meq Documented by: Senna/Docusate Sodium (Senna/Docusate Sodium 1 Tablet) 1 tablet PO BID [facility] Last Admin: 07/26/20 17:22 Dose: 1 tablet Documented by: Sodium Chloride (0.9% Saline Lock 10 Ml Syringe) 10 - 40 ml IV UD PRN PRN Reason: SALINE FLUSH Last Admin: 07/24/20 17:54 Dose: 10 ml Documented by: Tuberculin PPD (Tuberculin,Purif.Prot.Deriv. 50 Tu/Ml Vial) 5 tu ID [id number] Stop: 07/31/20 10:01 Discharge Diet: No Restrictions Discharge Activity: Return to Normal Activity, May Shower, Use Walker Weight Bearing Status: Weight bearing as tolerated Call your doctor if you observe: Fever of 101 or Higher, Inability to urinate, Inability to have a bowel movement, Shortness of breath, Chest pain, Uncontrolled pain Home Medications: Medications to take at Discharge Acetaminophen [Tylenol] 1,000 mg PO Q6H PRN tab 07/26/20 Primary Care Physician: Louise Garrido MD [Primary Care Provider] - Please follow up with your Primary Care Physician in: As needed. Disposition: Home with Hospice Minutes spent on discharge:: 30 Patient Condition:: Fair Medical Necessity - Tobacco Use Smoking Status: Never smoker Tobacco Use: Non-smoker Meaningful Use Info Meaningful Use Diagnoses (Choose all that apply): None applicable
[2020-07-26] MEDS: Magnesium Hydroxide 30 ML UDC PO (20:35)
[2020-07-27 04:00] VITALS: BP 151/91; PULSE 63; RESP 18; TEMP 36.2; O2SAT 97
[2020-07-27] MEDS: Polyethylene Glycol 3350 17 GM PACKET PO (05:23)
[2020-07-27] MEDS: Losartan Potassium 50 MG Tablet PO (05:25)
[2020-07-27] MEDS: Levothyroxine 125 MCG Tablet PO (05:25)
[2020-07-27] MEDS: Senna/Docusate Sodium 1 Tablet PO (05:25)
[2020-07-27] MEDS: Carvedilol 3.125 MG TABLET PO (05:25)
[2020-07-27] MEDS: Enoxaparin 40 MG/0.4 ML Syringe SC (05:25)
[2020-07-27] MEDS: Amiodarone 200 MG Tablet PO (05:25)
[2020-07-27] MEDS: Clopidogrel Bisulfate 75 MG Tablet PO (05:25)
[2020-07-27] MEDS: Carbidopa/Levodopa 25/100 Tablet PO (05:26)
--- NOTE | 2020-07-27 08:47 | NURSING ---
DR HUNTER NOTIFIED OF PT GONG HOME TODAY WITH HOSPICE.
[2020-07-27 09:09] VITALS: BP 125/82; PULSE 49; RESP 16; TEMP 36.6; O2SAT 98
--- NOTE | 2020-07-27 09:12 | NURSING ---
REPORT CALLED TO HOSPICE AT THIS TIME.
--- NOTE | 2020-08-02 08:21 | MDS.RN ---
Information for the mds was obtained from review of the clinical record, interview of resident, staff, and direct observation of resident's care.
== END 2020-07-27 10:30 | disposition hospice, home (50) | DRG 690 ==
PROVIDERS: Surgery; Admitting Provider Family Medicine Geriatric Medicine; PCP Internal Medicine; Visit Provider Family Medicine Geriatric Medicine
DX: N39.0 Urinary tract infection, site not specified (principal); I48.20 Chronic atrial fibrillation, unspecified; E03.9 Hypothyroidism, unspecified; E87.6 Hypokalemia; I25.10 Atherosclerotic heart disease of native coronary artery without angina pectoris; G20 Parkinson's disease; R29.6 Repeated falls; E55.9 Vitamin D deficiency, unspecified; I10 Essential (primary) hypertension; E78.5 Hyperlipidemia, unspecified; I25.2 Old myocardial infarction; F01.50 Vascular dementia, unspecified severity, without behavioral disturbance, psychotic disturbance, mood disturbance, and anxiety; F02.80 Dementia in other diseases classified elsewhere, unspecified severity, without behavioral disturbance, psychotic disturbance, mood disturbance, and anxiety
CPT/HCPCS: 74018; 80048; 81001; 85025; 87086; 87426; 87635; 92507; 92523; 92610; 97110; 97112; 97116; 97162; 97166; 97530; 97535; A4216; J7799; U0003